=== PATIENT | female | born 1950 | race Caucasian/White ===

== ENCOUNTER → 2016-05-30 | Outpatient (CLI) | payer BC ==
[~2016-05-30] MED LIST: CALC-196 PO; CITA10TA PO; CLON1TAB36 GT; GLUC-132 PO; vitamine D PO
--- NOTE | 2016-05-30 19:14 | Diagnostic Imaging Report ---
Bilateral screening mammogram The current study was also evaluated with a Computer Aided Detection (CAD) system. Indication: Screening. No current complaints stated on the questionnaire. COMPARISON: 05/30/15 FINDINGS: The breasts are composed of heterogeneously dense parenchyma which may decrease mammographic sensitivity. There is a biopsy clip in the anterior aspect of the right breast. Benign-appearing calcifications are seen. Allowing for technique and positional differences, no suspicious change is seen. IMPRESSION: No significant change. ACR BI-RADS Category 2: Benign findings. Result letter will be mailed to the patient. Note: At least 10% of breast cancer is not imaged by mammography. Dictated by: Dictated on workstation # [id number]
== END ==
LOC: RAD 14:30
PROVIDERS: ATTEND Family Medicine
DX: Z12.31 Encounter for screening mammogram for malignant neoplasm of breast (principal)
CPT/HCPCS: 77067

== ENCOUNTER → 2016-08-15 | Outpatient (REF) ==
--- NOTE | 2016-08-15 15:46 | Diagnostic Imaging Report ---
PA and lateral views of the chest Indication: Positive TB test Findings: The lungs are hyperinflated and clear. The heart size is normal. There is no effusion or pneumothorax The mediastinum and landon appear unremarkable. Impression: Hyperinflated clear lungs. Dictated by: Dictated on workstation # [id number]
== END | disposition home or self-care (01) ==
LOC: OCC 15:31
PROVIDERS: ATTEND Nurse Practitioner Family
CPT/HCPCS: 71020

== ENCOUNTER → 2017-06-03 | Outpatient (CLI) | payer BC | LOC: RAD 11:06 | PROVIDERS: ATTEND Family Medicine | DX: Z12.31 Encounter for screening mammogram for malignant neoplasm of breast (principal) | CPT/HCPCS: 77067 ==

== ENCOUNTER → 2018-06-10 | Outpatient (CLI) | payer BC ==
--- NOTE | 2018-06-10 19:45 | Diagnostic Imaging Report ---
EXAMINATION: Digital mammogram bilateral screening with 3D tomosynthesis. The current study was also evaluated with a Computer Aided Detection (CAD) system. This study was compared to the prior exams of 06/03/2017, 05/30/2016, and 05/30/2015. At this time, there are no current complaints. FINDINGS: The fibroglandular tissue in both breasts is heterogeneously dense. This does limit the sensitivity of this exam. Overall, there does not appear to have been any significant change when compared to the prior study. No primary or secondary sign of malignancy is noted. 3D tomographic images fail to show any sign of malignancy. The 1 cm nodular density in the mid portion of the right breast and the stereotactic clip in the right breast seen previously are again evident. IMPRESSION: There is no radiographic evidence for malignancy. ACR BI-RADS Category 1: Negative. Result letter will be mailed to the patient. Note: At least 10% of breast cancer is not imaged by mammography. Dictated by: Dictated on workstation # [id number]
== END ==
LOC: RAD 09:57
PROVIDERS: ATTEND Family Medicine
DX: Z12.31 Encounter for screening mammogram for malignant neoplasm of breast (principal)
CPT/HCPCS: 77067

== ENCOUNTER → 2019-08-03 | Outpatient (CLI) | payer BC ==
--- NOTE | 2019-08-03 19:55 | Diagnostic Imaging Report ---
EXAM: Digital mammogram bilateral screening COMPARISONS: 06/10/2018, 06/03/2017 and 05/30/2016. There are no current complaints. The current study was also evaluated with a Computer Aided Detection (CAD) system. FINDINGS: The fibroglandular tissue in both breasts is heterogeneously dense. This does limit the sensitivity of this exam. Overall, there does not appear to have been any significant change when compared to the prior study. No primary or secondary sign of malignancy is noted. IMPRESSION: There is no radiographic evidence for malignancy. ACR BI-RADS Category 1: Negative. Result letter will be mailed to the patient. Note: At least 10% of breast cancer is not imaged by mammography. Dictated by: Dictated on workstation # [id number]
== END ==
LOC: RAD 07:40
PROVIDERS: ATTEND Family Medicine
DX: Z12.31 Encounter for screening mammogram for malignant neoplasm of breast (principal)
CPT/HCPCS: 77063; 77067

== ENCOUNTER 2019-08-24 05:44 | Outpatient (RCR) | payer BC ==
[~2019-08-24] VITALS: Ht 162 cm; Wt 65.4 kg
[~2019-08-24 05:44] MED LIST changes: +CHOL2000 PO; +GLUC1CAP37 PO; +MULT-1136 PO; +NFBIOT1000 PO; +OMEP20TA33 PO; +PARO25TA14 PO
== END 2019-08-24 15:41 | disposition home or self-care (01) ==
LOC: PREOP 05:44
PROVIDERS: ATTEND Specialist
DX: Z01.818 Encounter for other preprocedural examination (principal); Z11.59 Encounter for screening for other viral diseases
CPT/HCPCS: 87635

== ENCOUNTER 2019-08-27 07:14 | Day surgery (SDC) | payer BC ==
[~2019-08-27] VITALS: Ht 162.4 cm; Wt 65.4 kg
--- OUTSIDE RECORDS SUMMARY | 2019-08-27 07:20 | XMS REPORT | CCD ---
Author Author Yenifer Schwarz D.O. Organization [facility] Address [address] [place] [address] Phone Care Team Providers Care Bible Worker Name Role Phone Billy Schwarz D.O., PP Unavailable CCM Unavailable Summary Purpose Interface Exchange Insurance Providers Payer name Policy type / Coverage type Covered democrat ID Effective Begin Date Effective End Date Blue Cross Blue Shield Blue Cross/Blue Shield [id number] Unknown Family history Mother Diagnosis Age At Onset Hypothryroidism Unknown Dementia Unknown Hip fracture Unknown Father Diagnosis Age At Onset Chronic obstructive pulmonary disease Unknown Tobacco abuse Unknown Social History Social History Element Codes Description Effective Dates Tobacco history SNOMED CT: 830126808 Has never smoked or chewed tobacco 11/15/2014 Employment Unknown Student 04/25/2014 Allergies, Adverse Reactions, Alerts Substance Reaction Codes Entered Date Inactivated Date Status Dust reaction Unknown 04/25/2014 No Inactive Date Active PENICILLINS reaction, Unknown 04/25/2014 No Inactive Date Active * NO KNOWN FOOD ALLERGIES Unknown 04/25/2014 No Inactiv e Date Active Problems Condition Codes Effective Dates Condition Status Screening mammogram, encounter for ICD-9: V76.12 ICD-10: Z12.31 07/27/2019 Active Encounter for general adult medical examination withou t abnormal findings ICD-9: V70.0 ICD-10: Z00.00 04/25/2014 Active Gastro-esophageal reflux disease without esophagitis I CD-9: 530.81 ICD-10: K21.9 04/25/2015 Active Generalized anxiety disorder ICD-9: 308.0 ICD-10: F41.1 07/16/2016 Active Encounter for screening for lipoid disorders ICD-9: V7 7.91 ICD-10: Z13.220 04/27/2018 Active Hyperglycemia ICD-9: 790.29 ICD-10: R73.9 01/05/2019 Active Other malaise and fatigue ICD-9: 780.79 ICD-10: R53.81 07/13/2019 Active Impacted cerumen, right ear ICD-9: 380.4 ICD-10: H61.21 06/09/2017 Active FLU VACCINE ICD-9: V04.81 ICD-10: Z23 11/08/2015 Active Encounter for gynecological examination (general) (routine) without abnormal findings ICD-9: V72.31 ICD-10: Z01.419 06/04/2018 Active Primary insomnia ICD-9: 780.52 ICD-10: F51.01 11/05/2017 Active Anxiety disorder, unspecified ICD-9: 300.00 ICD-10: F41.9 04/25/2014 Active Menopausal and female climacteric states ICD-9: 627.2 ICD-10: N95.1 05/01/2016 Active PNEUMOCOCCAL VACCINE ICD-9: V03.82 ICD-10: Z23 04/25/2015 Active Benign skin lesion of thigh ICD-9: 709.9 11/14/2014 Acti ve DISEASES OF NAIL NEC ICD-9: 703.8 06/13/2014 Active ANXIETY STATE NOS ICD-9: 300.00 04/25/2014 Active Menopausal flushing ICD-9: 627.2 04/25/2014 Active ROUTINE GYNE EXAM ICD-9: V72.31 04/25/2014 Active ROUTINE MEDICAL EXAM ICD-9: V70.0 04/25/2014 Active Medications Medication Codes Instructions Start Date Stop Date Status Fill Instructions Paxil CR 37.5 mg tablet,extended release RxNorm: 6956509 TAKE 1 TABLET BY MOUTH ONCE DAILY 08/05/2019 10/03/2019 Active Flonase Allergy Relief 50 mcg/actuation nasal spray,suspensi on RxNorm: 8785526 2 Salters Nasal QD 07/21/2019 No Stop Date Active Paxil CR 37.5 mg tablet,extended release RxNorm: 1641315 TAKE ONE TABLET BY MOUTH DAILY 05/24/2019 08/04/2019 Inactive alprazolam 1 mg tablet RxNorm: 799166 TAKE 1/2 TO 1 TAB LET BY MOUTH ONCE DAILY NEEDED FOR ANXIETY 04/12/2019 No Stop Date Active Paxil CR 37.5 mg tablet,extended release RxNorm: 4945265 TAKE ONE TABLET BY MOUTH DAILY 04/12/2019 05/23/2019 Inactive Paxil CR 37.5 mg tablet,extended release RxNorm: 7144368 TAKE ONE TABLET BY MOUTH DAILY 02/01/2019 04/11/2019 Inactive Prilosec OTC 20 mg tablet,delayed release RxNorm: 984335 1 Tabl et(s) Oral QD 01/13/2019 No Stop Date Active Paxil CR 37.5 mg tablet,extended release RxNorm: 5288118 1 Table t(s) PO QD 10/12/2018 01/09/2019 Inactive Paxil CR 37.5 mg tablet,extended release RxNorm: 7931201 TAKE ONE TABLET BY MOUTH DAILY 07/15/2018 10/12/2018 Inactive alprazolam 1 mg tablet RxNorm: 202197 1/2-1 Tablet(s) P O QD as needed for anxiety 05/01/2018 04/11/2019 Inactive Paxil CR 37.5 mg tablet,extended release RxNorm: 9171288 TAKE ONE TABLET BY MOUTH DAILY 03/23/2018 06/20/2018 Inactive Paxil CR 37.5 mg tablet,extended release RxNorm: 6067789 TAKE ONE TABLET BY MOUTH DAILY 01/15/2018 03/15/2018 Inactive Paxil CR 37.5 mg tablet,extended release RxNorm: 6336028 1 Table t(s) PO QD 09/29/2017 12/27/2017 Inactive Klonopin 1 mg tablet RxNorm: 045683 TAKE ONE TABLET BY MOUTH EVERY NIGHT AT BEDTIME 09/29/2017 06/03/2018 Inactive Klonopin 1 mg tablet RxNorm: 602464 TAKE ONE TABLET BY MOUTH EVERY NIGHT AT BEDTIME 07/04/2017 09/30/2017 Inactive Paxil CR 37.5 mg tablet,extended release RxNorm: 9142723 1 Table t(s) PO QD 06/17/2017 09/29/2017 Inactive Paxil CR 37.5 mg tablet,extended release RxNorm: 0961963 1 Table t(s) PO QD 02/27/2017 06/17/2017 Inactive Klonopin 1 mg tablet RxNorm: 310253 TAKE ONE TABLET BY MOUTH EVERY NIGHT AT BEDTIME 02/17/2017 07/04/2017 Inactive Penlac 8 % topical solution RxNorm: 437414 Application TOP QD 01/2005/21/2017 Inactive Paxil CR 37.5 mg tablet,extended release RxNorm: 5929408 1 Tablet(s) PO QD TAKE ONE TABLET BY MOUTH DAILY 12/20/2016 02/27/2017 Inactive Klonopin 1 mg tablet RxNorm: 904419 1 Tablet(s) PO QHS 10/16/2016 Inactive Paxil CR 37.5 mg tablet,extended release RxNorm: 1106788 1 Tablet(s) PO QD TAKE ONE TABLET BY MOUTH DAILY 09/30/2016 12/20/2016 Inactive Klonopin 1 mg tablet RxNorm: 445976 TAKE ONE TABLET BY MOUTH EVERY NIGHT AT BEDTIME 07/15/2016 08/13/2016 Inactive Paxil CR 37.5 mg tablet,extended release RxNorm: 8562603 1 Tablet(s) PO QD TAKE ONE TABLET BY MOUTH DAILY 07/15/2016 09/30/2016 Inactive Klonopin 1 mg tablet RxNorm: 980569 TAKE ONE TABLET BY MOUTH EVERY NIGHT AT BEDTIME 06/11/2016 07/15/2016 Inactive Klonopin 1 mg tablet RxNorm: 216931 TAKE ONE TABLET BY MOUTH AT BEDTIME 05/13/2016 06/11/2016 Inactive Yuvafem 10 mcg vaginal tablet RxNorm: 5185351 1 Tablet(s) VAG QH S twice weekly 05/01/2016 05/21/2017 Inactive Paxil CR 37.5 mg tablet,extended release RxNorm: 8373027 1 Tablet(s) PO QD TAKE ONE TABLET BY MOUTH DAILY 05/01/2016 07/15/2016 Inactive Klonopin 1 mg tablet RxNorm: 982105 TAKE ONE TABLET BY MOUTH EVERY NIGHT AT BEDTIME NEED TO SCHEDULE APPOINTMENT 04/08/2016 05/13/2016 Inactiv e Klonopin 1 mg tablet RxNorm: 967958 TAKE ONE TABLET BY MOUTH AT BEDTIME 03/06/2016 04/08/2016 Inactive ondansetron HCl 4 mg tablet RxNorm: 167764 1 Tablet(s) PO Q4H as needed for nausea 11/10/2015 04/30/2016 Inactive Klonopin 1 mg tablet RxNorm: 226417 TAKE ONE TABLET BY MOUTH EVERY NIGHT AT BEDTIME 11/10/2015 03/06/2016 Inactive Paxil CR 25 mg tablet,extended release RxNorm: 7976357 T KURTIS ONE TABLET BY MOUTH DAILY 11/10/2015 04/30/2016 Inactive Paxil CR 25 mg tablet,extended release RxNorm: 5344983 T KURTIS ONE TABLET BY MOUTH DAILY 10/26/2015 11/09/2015 Inactive Paxil CR 25 mg tablet,extended release RxNorm: 8667386 T KURTIS ONE TABLET BY MOUTH DAILY 09/26/2015 10/25/2015 Inactive Klonopin 1 mg tablet RxNorm: 847725 TAKE ONE TABLET BY MOUTH EVERY NIGHT AT BEDTIME 08/29/2015 11/13/2015 Inactive Paxil CR 25 mg tablet,extended release RxNorm: 7850679 1 Tablet( s) PO QD 08/28/2015 08/27/2015 Inactive Paxil CR 25 mg tablet,extended release RxNorm: 6177531 1 Tablet( s) PO QD 08/28/2015 09/25/2015 Inactive paroxetine ER 12.5 mg tablet,extended release 24 hr RxNorm: 488675 TAKE ONE TABLET BY MOUTH EVERY NIGHT AT BEDTIME 05/30/2015 08/27/2015 Inactive Klonopin 1 mg tablet RxNorm: 057582 TAKE ONE TABLET BY MOUTH EVERY NIGHT AT BEDTIME 05/30/2015 07/28/2015 Inactive alprazolam 1 mg tablet RxNorm: 722103 TAKE ONE-HALF TO ONE TABLET BY MOUTH DAILY NEEDED FOR ANXIETY 05/22/2015 04/30/2016 Inactive paroxetine ER 12.5 mg tablet,extended release 24 hr RxNorm: 231951 1 Tablet(s) PO QHS 04/26/2015 05/25/2015 Inactive Klonopin 1 mg tablet RxNorm: 688258 1 Tablet(s) PO QHS 02/03/2015 Inactive Brisdelle 7.5 mg capsule RxNorm: 1589470 Capsule(s) TAKE ONE CAPSULE BY MOUTH EVERY NIGHT AT BEDTIME 01/30/2015 04/25/2015 Inactive Calcium with Vitamin D 600 mg (1,500 mg)-400 unit tablet RxN orm: 744740 1 Tablet(s) PO QD 11/15/2014 No Stop Date Active Brisdelle 7.5 mg capsule RxNorm: 6181025 TAKE ONE CAPSUL E BY MOUTH EVERY NIGHT AT BEDTIME 08/22/2014 01/30/2015 Inactive Brisdelle 7.5 mg capsule RxNorm: 3302417 1 Capsule(s) PO QHS 201408/21/2014 Inactive Brisdelle 7.5 mg capsule RxNorm: 2082386 1 Capsule(s) PO QHS 201405/23/2014 Inactive Klonopin 1 mg tablet RxNorm: 780647 1 Tablet(s) PO QHS 05/02/201408/2014 Inactive Multivitamin & Mineral Formula oral RxNorm: oral No Start Date Active biotin 1 mg tablet RxNorm: 234152 1 Tablet(s) PO QD No Start Date Active Vitamin D3 1,000 unit tablet RxNorm: 448121 1 Tablet(s) PO QD No Star t Date Active Osteo Bi-Flex 250 mg-200 mg tablet RxNorm: 456266 1-2 Tablet(s) PO QD No Start Date Active Klonopin 1 mg tablet RxNorm: 380375 1 Tablet(s) PO QHS No Start Date 05/01/2014 Inactive alprazolam 1 mg tablet RxNorm: 527632 1/2-1 Tablet(s) P O QD as needed for anxiety and stress No Start Date 05/22/2015 Inactive Prilosec OTC 20 mg tablet,delayed release RxNorm: 018517 1 Tabl et(s) PO QD No Start Date 05/21/2017 Inactive Calcium + D oral RxNorm: 2418 oral No Start Date 04/25/2015 Inact alessandra Lamisil 250 mg tablet RxNorm: 987498 1 Tablet(s) PO QD No Start Date 11/14/2014 Inactive Celexa 10 mg tablet RxNorm: 719096 1 Tablet(s) PO QD No Start Date Inactive ondansetron HCl 4 mg tablet RxNorm: 047531 1 Tablet(s) PO Q4H as needed for nausea No Start Date 11/09/2015 Inactive Medication Administered No Medication Administered data Immunizations Vaccine Codes Date Status Influenza CVX: 135 12/02/2018 Complete Influenza CVX: 135 12/02/2018 Complete Influenza CVX: 135 12/03/2017 Complete Influenza CVX: 135 12/09/2016 Complete Influenza CVX: 141 11/09/2015 Complete Pneumococcal CVX: 33 04/26/2015 Pneumococcal CVX: 133 04/25/2014 Results No Results data Procedures Procedure Codes Date PPPS, subseq visit CPT-4: G0439 07/21/2019 CERUM REMOVAL CPT-4: 53343 01/13/2019 FLU VACC PRSV FREE INC ANTIG 65 AND OLDER CPT-4: 94433 12/02/2018 IMMUNIZATION ADMIN CPT-4: 55867 12/02/2018 FLU VACC PRSV FREE INC ANTIG 65 AND OLDER CPT-4: 48322 12/02/2018 SPECIMEN HANDLING OFFICE-LAB CPT-4: 61317 06/04/2018 OCCULT BLOOD FECES CPT-4: 15037 06/04/2018 FLU VACC PRSV FREE INC ANTIG 65 AND OLDER CPT-4: 62070 12/03/2017 IMMUNIZATION ADMIN CPT-4: 79075 12/03/2017 CERUM REMOVAL CPT-4: 34252 06/09/2017 FLU VACC PRSV FREE INC ANTIG 65 AND OLDER CPT-4: 60458 12/09/2016 IMMUNIZATION ADMIN CPT-4: 35553 12/09/2016 FLU VACCINE 3 YRS & > IM UP 64 CPT-4: 21028 6 IMMUNIZATION ADMIN CPT-4: 82937 11/09/2015 PNEUMOCOCCAL VACC 23 NAHEED IM CPT-4: 05226 04/26/2015 IMMUNIZATION ADMIN CPT-4: 49695 04/26/2015 EXC TR-EXT B9+KAREN 0.5 CM< CPT-4: 93349 11/15/2014 PNEUMOCOCCAL VACC 13 NAHEDE IM CPT-4: 98972 04/25/2014 IMMUNIZATION ADMIN CPT-4: 41874 04/25/2014 SPECIMEN HANDLING OFFICE-LAB CPT-4: 72979 04/25/2014 OCCULT BLOOD FECES CPT-4: 09079 04/25/2014 Vital Signs Date Vital 07/21/2019 Blood Pressure 1: 126/78 Code: 8480-6 BMI: 24.1 Code: 20483-3 Heart Rate 1: 92 bpm Height: 5'5" Respiratory Rate: 20 bpm SpO2: 97% Tempera ture: 36.3 (C) / 97.3 (F) Weight: 145 lbs 01/13/2019 Blood Pressure 1: 112/78 Code: 8480-6 Heart Rate 1: 88 bpm Respiratory Rate: 20 bpm SpO2: 98% Temperature: 37.2 (C) / 98.9 (F) We ight: 151 lbs 06/04/2018 Blood Pressure 1: 124/80 Code: 8480-6 BMI: 25.8 Code: 73314-4 Heart Rate 1: 101 bpm Height: 5'5" Respiratory Rate: 18 bpm SpO2: 98% Tempera ture: 37.0 (C) / 98.6 (F) Weight: 155 lbs 11/05/2017 Blood Pressure 1: 124/68 Code: 8480-6 BMI: 24.6 Code: 08732-4 Heart Rate 1: 60 bpm Height: 5'5" Respiratory Rate: 20 bpm SpO2: 97% Tempera ture: 36.9 (C) / 98.4 (F) Weight: 148 lbs 05/22/2017 Blood Pressure 1: 116/70 Code: 8480-6 BMI: 24.3 Code: 69149-1 Heart Rate 1: 84 bpm Height: 5'5" Respiratory Rate: 20 bpm SpO2: 96% Tempera ture: 36.7 (C) / 98.1 (F) Weight: 146 lbs 2017 Blood Pressure 1: 130/76 Code: 8480-6 BMI: 24.6 Code: 47919-2 Heart Rate 1: 84 bpm Height: 5'5" Respiratory Rate: 22 bpm SpO2: 96% Tempera ture: 36.4 (C) / 97.6 (F) Weight: 148 lbs 10/16/2016 Blood Pressure 1: 122/78 Code: 8480-6 BMI: 23.8 Code: 35783-6 Heart Rate 1: 86 bpm Height: 5'5" Respiratory Rate: 20 bpm SpO2: 98% Tempera ture: 36.8 (C) / 98.2 (F) Weight: 143 lbs 07/16/2016 Blood Pressure 1: 112/78 Code: 8480-6 Heart Rate 1: 76 bpm Respiratory Rate: 24 bpm SpO2: 98% Temperature: 36.6 (C) / 97.8 (F) We ight: 143 lbs 05/01/2016 Blood Pressure 1: 126/68 Code: 8480-6 BMI: 23.8 Code: 44099-7 Heart Rate 1: 92 bpm Height: 5'5" Respiratory Rate: 20 bpm SpO2: 97% Tempera ture: 36.8 (C) / 98.2 (F) Weight: 143 lbs 04/26/2015 Blood Pressure 1: 118/78 Code: 8480-6 BMI: 23.3 Code: 92987-0 Heart Rate 1: 88 bpm Height: 5'5" Respiratory Rate: 20 bpm Temperature: 37 .1 (C) / 98.8 (F) Weight: 140 lbs 11/15/2014 Blood Pressure 1: 134/70 Code: 8480-6 BMI: 23.3 Code: 57669-3 Heart Rate 1: 100 bpm Height: 5'5" Respiratory Rate: 20 bpm Temperature: 36 .8 (C) / 98.2 (F) Weight: 140 lbs 04/25/2014 Blood Pressure 1: 128/74 Code: 8480-6 BMI: 24.1 Code: 34122-7 Heart Rate 1: 78 bpm Height: 5'5" Respiratory Rate: 20 bpm Temperature: 36 .2 (C) / 97.2 (F) Weight: 145 lbs Functional Status No Functional Status data Reason For Visit Reason For Visit Effective Dates Notes well woman exam (65+ years) 07/21/2019 follow up 01/13/2019 injection(s) 12/02/2018 well woman exam (65+ years) 06/04/2018 injection(s) 12/03/2017 Flu shot follow up 11/05/2017 Annual Checkup 05/22/2017 follow up 2017 3 Month injection(s) 12/09/2016 Flu Vaccine follow up 10/16/2016 3 Month follow up 07/16/2016 Patient's Paxil was increased to 37.5mg and patient is tolerating well Annual Checkup 05/01/2016 Wellness Physical injection(s) 11/09/2015 Influenza well woman exam (40-65 years) 04/26/2015 Last radha l mammogram 1 year ago, has had history of biopsied breast cyst mole check 11/15/2014 ~generic 04/25/2014 Establishing care Encounters Encounter Performer Location Codes Date ([id number]) OFFICE/OUTPATIENT VISIT EST Diagnosis: Hyperglycemia[ICD10: R73.9] Diagnosis: Impacted cerumen, right ear[ICD10: H61.21] Diagnosis: Generalized anxiety disorder[ICD10: F41.1] Billy NELSON CPT-4: 20456 01/13/2019 ([id number]) NURSE/OUTPATIENT VISIT EST Diagnosis: FLU VACCINE[ICD10: Z23] [facility] CPT-4: 55687 12/02/2018 ([id number]) PER PM REEVAL EST PAT 65+ YR Diagnosis: Encounter for general adult medical examination without abnormal findings[ICD10: Z00.00] Diagnosis: Generalized anxiety disorder[ICD10: F41.1] Diagnosis: Primary insomnia[ICD10: F51.01] Diagnosis: Encounter for gynecological examination (general) (routine) without abnormal findings[ICD10: Z01.419] [facility] CPT-4: 10529 06/04/2018 ([id number]) NURSE/OUTPATIENT VISIT EST Diagnosis: FLU VACCINE[ICD10: Z23] [facility] CPT-4: 60248 12/03/2017 ([id number]) OFFICE/OUTPATIENT VISIT EST Diagnosis: Generalized anxiety disorder[ICD10: F41.1] Diagnosis: Primary insomnia[ICD10: F51.01] Billy [facility] CPT-4: 26049 11/05/2017 ([id number]) PER PM REEVAL EST PAT 65+ YR Diagnosis: Encounter for general adult medical examination without abnormal findings[ICD10: Z00.00] Diagnosis: Generalized anxiety disorder[ICD10: F41.1] Diagnosis: Gastro-esophageal reflux disease without esophagitis[ICD10: K21.9] Billy [facility]WARZ DO [facility] CPT-4: 71752 05/22/2017 ([id number]) OFFICE/OUTPATIENT VISIT EST Diagnosis: Generalized anxiety disorder[ICD10: F41.1] Diagnosis: Gastro-esophageal reflux disease without esophagitis[ICD10: K21.9] Billy [facility]Z DO [facility] CPT-4: 36079 2017 ([id number]) OFFICE/OUTPATIENT VISIT EST Diagnosis: FLU VACCINE[ICD10: Z23] Billy [facility] CPT-4: 26700 12/09/2016 ([id number]) OFFICE/OUTPATIENT VISIT EST Diagnosis: Generalized anxiety disorder[ICD10: F41.1] Billy [facility] DO [facility] CPT-4: 27763 10/16/2016 ([id number]) OFFICE/OUTPATIENT VISIT EST Diagnosis: Generalized anxiety disorder[ICD10: F41.1] Billy [facility] CPT-4: 75035 07/16/2016 ([id number]) PER PM REEVAL EST PAT 65+ YR Diagnosis: Encounter for general adult medical examination without abnormal findings[ICD10: Z00.00] Diagnosis: Menopausal and female climacteric states[ICD10: N95.1] Diagnosis: Anxiety disorder, unspecified[ICD10: F41.9] Billy SCHW[facility]Z DO [facility] CPT-4: 74202 05/01/2016 ([id number]) OFFICE/OUTPATIENT VISIT EST Diagnosis: FLU VACCINE[ICD10: Z23] Billy [facility] CPT-4: 25119 11/09/2015 ([id number]) PREV VISIT EST AGE 40-64 Diagnosis: Encounter for general adult medical examination without abnormal findings[ICD10: Z00.00] Diagnosis: Gastro-esophageal reflux disease without esophagitis[ICD10: K21.9] Diagnosis: Anxiety disorder, unspecified[ICD10: F41.9] Diagnosis: Menopausal and female climacteric states[ICD10: N95.1] Diagnosis: PNEUMOCOCCAL VACCINE[ICD10: Z23] Billy [facility] CPT-4: 58316 04/26/2015 ([id number]) PREV VISIT NEW AGE 40-64 Diagnosis: PNEUMOCOCCAL VACCINE[ICD10: Z23] Diagnosis: ROUTINE MEDICAL EXAM[ICD9: V70.0] Diagnosis: ROUTINE GYNE EXAM[ICD9: V72.31] Diagnosis: ANXIETY STATE NOS[ICD9: 300.00] Diagnosis: Menopausal flushing[ICD9: 627.2] Billy [facility] CPT-4: 91393 04/25/2014 Plan of Care Planned Activity Notes Codes Status Date Care Plan: MAMMOGRAM SCREENING LOINC : 2 6347-5 Pending 07/27/2019 Visit Diagnosis Plan: Encounter for gene ral adult medical examination without abnormal findings Discussion: Mediterranean diet Combinati on of cardio and weight bearing exercise Lab discussed Follow Up: 6 months ICD-9 : V70.0 ICD-10 : Z00.00 07/21/2019 Visit Diagnosis Plan: Generalized anxiety disorder Dis cussion: Stable on current meds ICD-9 : 308.0 ICD-10 : F41.1 07/21/2019 Visit Diagnosis Plan: Gastro-esophageal reflux disease without esophagitis Discussion: Stable on prilosec otc ICD-9 : 530.81 ICD-10 : K21.9 07/21/2019 Appointment: [facility] [phone] [facility] [place] Annual Well Visit 07/21/2019 Care Plan: COMPREH[place] METABOLIC PANEL [place] : 71584-6 Pending 07/13/2019 Care Plan: ASSAY THYROID STIM HORMONE Pen ding 07/13/2019 Care Plan: LIPID PANEL LOINC : 00740-4 Pending 07/13/2019 Care Plan: ASSAY OF FREE THYROXINE Pendin g 07/13/2019 Care Plan: A1C HPLC LOINC : 24358-3 Pending 07/13/2019 Care Plan: COMPLETE CBC W/AUTO DIFF WBC LOINC : 85452-1 Pending 07/13/2019 [facility]ment[facility] [address] [facility] [place] pt. stated that she is feeling better ACUTE ILLN ESS 03/01/2019 Visit Diagnosis Plan: Impacted cerumen, right ear Disc ussion: Right ear flushed with warm water with peroxide with ear syringe until clear, TM intact, peroxide drops instilled, tolerated well ICD-9 : 380.4 ICD-10 : H61.21 01/13/2019 Visit Diagnosis Plan: Generalized anxiety disorder Dis cussion: Stable ICD-9 : 308.0 ICD-10 : F41.1 01/13/2019 Visit Diagnosis Plan: Hyperglycemia Discussion: Lab di scussed Lifestyle change and recheck full fasting lab with HbA1C in 6mos ICD-9 : 790.29 ICD-10 : R73.9 01/13/2019 Appointment: Billy [facility] [phone] [facility] [place] FOLLOW UP 01/13/2019 Care Plan: METABOLIC PANEL TOTAL CA LOIN C : 22830-5 Pending 01/05/2019 Care Plan: A1C HPLC LOINC : 18091-8 Pending 01/05/2019 Appointment: Billy Schwarztel: [address] [place], [place] [id number] [place] INJECTION 12/02/2018 Visit Diagnosis Plan: Encounter for gene ral adult medical examination without abnormal findings Discussion: Mediterranean diet Combinati on of cardio and weight bearing exercise Had shingrix Colonoscopy up to date Lab discussed ICD-9 : V70.0 ICD-10 : Z00.00 06/04/2018 Visit Diagnosis Plan: Generalized anxiety disorder Dis cussion: Stable Follow Up: 6 months ICD-9 : 308.0 ICD-10 : F41.1 06/04/2018 Visit Diagnosis Plan: Encounter for gyne cological examination (general) (routine) without abnormal findings Discussion: Pap done Mammogram ordered ICD-9 : V72.31 ICD-10 : Z01.419 06/04/2018 Appointment: Billy Schwarz WPtel: [address] [place] [address] [place] Annual Well Visit 06/04/2018 Appointment: Billy Schwarztel: [address] [place], [place] [address] [place] CANCELED 05/06/2018 Appointment: Billy Schwarz WPtel: [address] [place], [place] [phone] [place] INJECTION 12/03/2017 Patient Education: Patient Medication Summary Completed 12/03/2017 Visit Diagnosis Plan: Generalized anxiety disorder Dis cussion: Stable Recommend Shingrix Will get flu shot in December ICD-9 : 308.0 ICD-10 : F41.1 11/05/2017 Visit Diagnosis Plan: Primary insomnia Discussion: Dis cussed associated benzodiazepine use and dementia Patient would like to try otc meds and see how does first Follow Up: 3 months ICD-9 : 780.52 ICD-10 : F51.01 11/05/2017 Appointment: Billy Schwarz WPtel: [address] [place], [place] [address] [place] FOLLOW UP 11/05/2017 Patient Education: Patient Medication Summary Completed 11/05/2017 Appointment: Billy Schwarz WPtel: [address] [place] [address] CANCELED 09/10/2017 Visit Diagnosis Plan: Impacted cerumen, right ear Disc ussion: cerumen was removed with currette to right ear canal. patient tolerated procedure well. once out, TM was wnl. instructed to call or rtc with new or worsening symptoms. ICD-9 : 380.4 ICD-10 : H61.21 06/09/2017 Appointment: Rohini Amaya [address] [place] [address] ACUTE ILLNESS 06/09/2017 Patient Education: Patient Medication Summary Completed 06/09/2017 Visit Diagnosis Plan: Generalized anxiety disorder Dis cussion: Stable on paxil and klonopin Follow Up: 4 months ICD-9 : 308.0 ICD-10 : F41.1 05/22/2017 Visit Diagnosis Plan: Encounter for [facility] medical examination without abnormal findings Discussion: Mammogram ordered Patient go ing to get Shingix at [facility] discussed Add Vitamin D3 1000u daily Once again discussed weight bearing exercise ICD-9 : V70.0 ICD-10 : Z00.00 05/22/2017 Visit Diagnosis Plan: Gastro-esophageal reflux disease without esophagitis Discussion: Trial of Zantac instead of prilosec ICD-9 : 530.81 ICD-10 : K21.9 05/22/2017 Appointment: Billy Schwarz WPtel: [address] [place], [place] [phone] FOLLOW UP 05/22/2017 Patient Education: Patient Medication Summary Completed 05/22/2017 Care Plan: MAMMOGRAM SCREENING LOINC : 2 6347-5 Pending 05/22/2017 Visit Diagnosis Plan: Generalized anxiety disorder Dis cussion: Stable Add exercise/stress reducers Using klonopin Using xanax prn Follow Up: As needed ICD-9 : 308.0 ICD-10 : F41.1 2017 Visit Diagnosis Plan: Gastro-esophageal reflux disease without esophagitis Discussion: Stable ICD-9 : 530.81 ICD-10 : K21.9 2017 Appointment: Billy Schwarz WPtel: [address] [place] [address] [place] FOLLOW UP 2017 Patient Education: Patient Medication Summary Completed 2017 Appointment: Billy Schwarz WPtel: [address] [place] [address] [place] INJECTION 12/09/2016 Patient Education: Patient Medication Summary Completed 12/09/2016 Visit Diagnosis Plan: Generalized anxiety disorder Dis cussion: Stable with paxil and klonopin Follow Up: 3 months ICD-9 : 308.0 ICD-10 : F41.1 10/16/2016 Appointment: Billy Schwarz WPtel: [address] [place] [address] [phone] NA/VM ~sp, 10/15/16 1550--appt confirmed (km) FOLLOW UP 10/16/2016 Patient Education: Patient Medication Summary Completed 10/16/2016 Visit Diagnosis Plan: Generalized anxiety disorder Dis cussion: Continue higher dose of paxil with xanax prn Stress reducers Follow Up: 3 months ICD-9 : 308.0 ICD-10 : F41.1 07/16/2016 Appointment: Billy Schwarz WPtel: [address] [place] [address] 07/15 confirmed `sl FOLLOW UP 07/16/2016 Patient Education: Patient Medication Summary Completed 07/16/2016 Visit Diagnosis Plan: Menopausal and female climacteri c states Discussion: Use Vagifem prn ICD-9 : 627.2 ICD-10 : N95.1 05/01/2016 Visit Diagnosis Plan: Encounter for [facility] adult medical examination without abnormal findings Discussion: Check fasting lab Tdap up to date Mammogram ordered ICD-9 : V70.0 ICD-10 : Z00.00 05/01/2016 Visit Diagnosis Plan: Anxiety disorder, unspecified Di scussion: Increase paxil CR to 37.5mg q HS Follow Up: 2 months ICD-9 : 300.00 ICD-10 : F41.9 05/01/2016 Appointment: Billy Schwarz WPtel: [address] [place] [place] [phone] 04/30 confirmed`sl PHYSICAL 05/01/2016 Patient Education: Patient Medication Summary Completed 05/01/2016 Care Plan: MAMMOGRAM SCREENING LOINC : 2 6347-5 Pending 05/01/2016 Appointment: Billy Schwarz WPtel: [address] [place], [place] [phone] [place] INJECTION 11/09/2015 Patient Education: Patient Medication Summary Completed 11/09/2015 Appointment: Billy Schwarz WPtel: [address] [place] [address] US CANCELED 11/08/2015 Visit Plan: Mammo due in May Update Fa sting Lab Change Brisdelle to Paxil CR 12.5mg q HS Call in 1month Will wait on Pap until next year Pneumovax given 04/26/2015 Appointment: Billy Schwarz WPtel: [address] [place], [place] [phone] 04/25 NA/NVM-SP 04/26 confirmed ~sl Annual Well Vi sit 04/26/2015 Patient Education: Patient Medication Summary Completed 04/26/2015 Visit Plan: Shave removal of skin lesion as above 11/15/2014 Appointment: Billy Schwarz WPtel: [address] [place], [place] [phone] 11/14/14 rang and rang,,11/15 appt confirmed cn O FFICE SURGERY 11/15/2014 Patient Education: Patient Medication Summary Completed 11/15/2014 Patient Education: Patient Medication Summary Completed 06/13/2014 Visit Plan: Pap done Mammo next month Ob tain Bone Density results Check Fasting lab Stop Celexa Start Brisdelle 7.5mg q HS Call in 6weeks on how doing with Brisdelle Update Carotid Dopplers 04/25/2014 Appointment: Billy Schwarz WPtel: [address] [place], [place] [phone] [place] NEW PATIENT 04/25/2014 Patient Education: Patient Medication Summary Completed 04/25/2014 Instructions Comment . Mammo due in May Update Fasting Lab Change Brisdelle to Paxil CR 12.5mg q HS Call in 1month Will wait on Pap until next year Pneumovax given . Shave removal of skin lesion as above . Pap done Mammo next month Obtain Bone Density results Check Fasting lab Stop Celexa Start Brisdelle 7.5mg q HS Call in 6weeks on how doing with Brisdelle Update Carotid Dopplers Medical Equipment No Medical Equipment data Health Concerns Section Health Concerns data not found Goals Section Goals data not found Interventions Section Interventions data not found Health Status Evaluations/Outcomes Section Health Status Evaluations/Outcomes data not found Advance Directives No Advance Directive data
--- OUTSIDE RECORDS SUMMARY | 2019-08-27 07:21 | XMS REPORT | CCD ---
Author Author Yenifer Schwarz D.O. Organization BILLY SCHWARZ DO [facility] Address [address] [place] [address] Phone Care Team Providers Care Children'S Program Coordinator Name Role Phone Billy Schwarz D.O., PP Unavailable CCM Unavailable Summary Purpose Interface Exchange Insurance Providers Payer name Policy type / Coverage type Covered constitution party ID Effective Begin Date Effective End Date Blue Cross Blue Shield Blue Cross/Blue Shield [id number] Unknown Family history Mother Diagnosis Age At Onset Hypothryroidism Unknown Dementia Unknown Hip fracture Unknown Father Diagnosis Age At Onset Chronic obstructive pulmonary disease Unknown Tobacco abuse Unknown Social History Social History Element Codes Description Effective Dates Tobacco history SNOMED CT: 283403251 Has never smoked or chewed tobacco 11/15/2014 Employment Unknown Student 04/25/2014 Allergies, Adverse Reactions, Alerts Substance Reaction Codes Entered Date Inactivated Date Status Dust reaction Unknown 04/25/2014 No Inactive Date Active PENICILLINS reaction, Unknown 04/25/2014 No Inactive Date Active * NO KNOWN FOOD ALLERGIES Unknown 04/25/2014 No Inactiv e Date Active Problems Condition Codes Effective Dates Condition Status Encounter for general adult medical examination withou [...] Start Date Stop Date Status Fill Instructions Flonase Allergy Relief 50 mcg/actuation nasal spray,suspensi on RxNorm: 8628072 2 Foster Nasal QD 07/21/2019 No Stop Date Active Paxil CR 37.5 mg tablet,extended release RxNorm: 3048816 TAKE ONE TABLET BY MOUTH DAILY 05/24/2019 No Stop Date Active alprazolam 1 mg tablet RxNorm: 938342 TAKE 1/2 TO 1 TAB LET BY MOUTH ONCE DAILY NEEDED FOR ANXIETY 04/12/2019 No Stop Date Active Paxil CR 37.5 mg tablet,extended release RxNorm: 0211146 TAKE ONE TABLET BY MOUTH DAILY 04/12/2019 05/23/2019 Inactive Paxil CR 37.5 mg tablet,extended release RxNorm: 4838902 TAKE ONE TABLET BY MOUTH DAILY 02/01/2019 04/11/2019 Inactive Prilosec OTC 20 mg tablet,delayed release RxNorm: 734065 1 Tabl et(s) Oral QD 01/13/2019 No Stop Date Active Paxil CR 37.5 mg tablet,extended release RxNorm: 3858094 1 Table t(s) PO QD 10/12/2018 01/09/2019 Inactive Paxil CR 37.5 mg tablet,extended release RxNorm: 0002433 TAKE ONE TABLET BY MOUTH DAILY 07/15/2018 10/12/2018 Inactive alprazolam 1 mg tablet RxNorm: 601402 1/2-1 Tablet(s) P O QD as needed for anxiety 05/01/2018 04/11/2019 Inactive Paxil CR 37.5 mg tablet,extended release RxNorm: 1351719 TAKE ONE TABLET BY MOUTH DAILY 03/23/2018 06/20/2018 Inactive Paxil CR 37.5 mg tablet,extended release RxNorm: 4615580 TAKE ONE TABLET BY MOUTH DAILY 01/15/2018 03/15/2018 Inactive Paxil CR 37.5 mg tablet,extended release RxNorm: 1305289 1 Table t(s) PO QD 09/29/2017 12/27/2017 Inactive Klonopin 1 mg tablet RxNorm: 075049 TAKE ONE TABLET BY MOUTH EVERY NIGHT AT BEDTIME 09/29/2017 06/03/2018 Inactive Klonopin 1 mg tablet RxNorm: 857451 TAKE ONE TABLET BY MOUTH EVERY NIGHT AT BEDTIME 07/04/2017 09/30/2017 Inactive Paxil CR 37.5 mg tablet,extended release RxNorm: 6461324 1 Table t(s) PO QD 06/17/2017 09/29/2017 Inactive Paxil CR 37.5 mg tablet,extended release RxNorm: 0298634 1 Table t(s) PO QD 02/27/2017 06/17/2017 Inactive Klonopin 1 mg tablet RxNorm: 384981 TAKE ONE TABLET BY MOUTH EVERY NIGHT AT BEDTIME 02/17/2017 07/04/2017 Inactive Penlac 8 % topical solution RxNorm: 375565 Application TOP QD 01/2005/21/2017 Inactive Paxil CR 37.5 mg tablet,extended release RxNorm: 3289840 1 Tablet(s) PO QD TAKE ONE TABLET BY MOUTH DAILY 12/20/2016 02/27/2017 Inactive Klonopin 1 mg tablet RxNorm: 311579 1 Tablet(s) PO QHS 10/16/2016 Inactive Paxil CR 37.5 mg tablet,extended release RxNorm: 9354825 1 Tablet(s) PO QD TAKE ONE TABLET BY MOUTH DAILY 09/30/2016 12/20/2016 Inactive Klonopin 1 mg tablet RxNorm: 483262 TAKE ONE TABLET BY MOUTH EVERY NIGHT AT BEDTIME 07/15/2016 08/13/2016 Inactive Paxil CR 37.5 mg tablet,extended release RxNorm: 3408375 1 Tablet(s) PO QD TAKE ONE TABLET BY MOUTH DAILY 07/15/2016 09/30/2016 Inactive Klonopin 1 mg tablet RxNorm: 963191 TAKE ONE TABLET BY MOUTH EVERY NIGHT AT BEDTIME 06/11/2016 07/15/2016 Inactive Klonopin 1 mg tablet RxNorm: 651208 TAKE ONE TABLET BY MOUTH AT BEDTIME 05/13/2016 06/11/2016 Inactive Yuvafem 10 mcg vaginal tablet RxNorm: 2808238 1 Tablet(s) VAG QH S twice weekly 05/01/2016 05/21/2017 Inactive Paxil CR 37.5 mg tablet,extended release RxNorm: 7590774 1 Tablet(s) PO QD TAKE ONE TABLET BY MOUTH DAILY 05/01/2016 07/15/2016 Inactive Klonopin 1 mg tablet RxNorm: 707550 TAKE ONE TABLET BY MOUTH EVERY NIGHT AT BEDTIME NEED TO SCHEDULE APPOINTMENT 04/08/2016 05/13/2016 Inactiv e Klonopin 1 mg tablet RxNorm: 767163 TAKE ONE TABLET BY MOUTH AT BEDTIME 03/06/2016 04/08/2016 Inactive ondansetron HCl 4 mg tablet RxNorm: 696731 1 Tablet(s) PO Q4H as needed for nausea 11/10/2015 04/30/2016 Inactive Klonopin 1 mg tablet RxNorm: 009106 TAKE ONE TABLET BY MOUTH EVERY NIGHT AT BEDTIME 11/10/2015 03/06/2016 Inactive Paxil CR 25 mg tablet,extended release RxNorm: 8241744 T KURTIS ONE TABLET BY MOUTH DAILY 11/10/2015 04/30/2016 Inactive Paxil CR 25 mg tablet,extended release RxNorm: 4848178 T KURTIS ONE TABLET BY MOUTH DAILY 10/26/2015 11/09/2015 Inactive Paxil CR 25 mg tablet,extended release RxNorm: 5404851 T KURTIS ONE TABLET BY MOUTH DAILY 09/26/2015 10/25/2015 Inactive Klonopin 1 mg tablet RxNorm: 340778 TAKE ONE TABLET BY MOUTH EVERY NIGHT AT BEDTIME 08/29/2015 11/13/2015 Inactive Paxil CR 25 mg tablet,extended release RxNorm: 5242169 1 Tablet( s) PO QD 08/28/2015 08/27/2015 Inactive Paxil CR 25 mg tablet,extended release RxNorm: 0154776 1 Tablet( s) PO QD 08/28/2015 09/25/2015 Inactive paroxetine ER 12.5 mg tablet,extended release 24 hr RxNorm: 277458 TAKE ONE TABLET BY MOUTH EVERY NIGHT AT BEDTIME 05/30/2015 08/27/2015 Inactive Klonopin 1 mg tablet RxNorm: 591821 TAKE ONE TABLET BY MOUTH EVERY NIGHT AT BEDTIME 05/30/2015 07/28/2015 Inactive alprazolam 1 mg tablet RxNorm: 433594 TAKE ONE-HALF TO ONE TABLET BY MOUTH DAILY NEEDED FOR ANXIETY 05/22/2015 04/30/2016 Inactive paroxetine ER 12.5 mg tablet,extended release 24 hr RxNorm: 687149 1 Tablet(s) PO QHS 04/26/2015 05/25/2015 Inactive Klonopin 1 mg tablet RxNorm: 983326 1 Tablet(s) PO QHS 02/03/2015 Inactive Brisdelle 7.5 mg capsule RxNorm: 0633387 Capsule(s) TAKE ONE CAPSULE BY MOUTH EVERY NIGHT AT BEDTIME 01/30/2015 04/25/2015 Inactive Calcium with Vitamin D 600 mg (1,500 mg)-400 unit tablet RxN orm: 267806 1 Tablet(s) PO QD 11/15/2014 No Stop Date Active Brisdelle 7.5 mg capsule RxNorm: 7004418 TAKE ONE CAPSUL E BY MOUTH EVERY NIGHT AT BEDTIME 08/22/2014 01/30/2015 Inactive Brisdelle 7.5 mg capsule RxNorm: 3455856 1 Capsule(s) PO QHS 201408/21/2014 Inactive Brisdelle 7.5 mg capsule RxNorm: 9741698 1 Capsule(s) PO QHS 201405/23/2014 Inactive Klonopin 1 mg tablet RxNorm: 988691 1 Tablet(s) PO QHS 05/02/201408/2014 Inactive Multivitamin & Mineral Formula oral RxNorm: oral No Start Date Active biotin 1 mg tablet RxNorm: 450812 1 Tablet(s) PO QD No Start Date Active Vitamin D3 1,000 unit tablet RxNorm: 736803 1 Tablet(s) PO QD No Star t Date Active Osteo Bi-Flex 250 mg-200 mg tablet RxNorm: 806336 1-2 Tablet(s) PO QD No Start Date Active Klonopin 1 mg tablet RxNorm: 112284 1 Tablet(s) PO QHS No Start Date 05/01/2014 Inactive alprazolam 1 mg tablet RxNorm: 033077 1/2-1 Tablet(s) P O QD as needed for anxiety and stress No Start Date 05/22/2015 Inactive Prilosec OTC 20 mg tablet,delayed release RxNorm: 638303 1 Tabl et(s) PO QD No Start Date 05/21/2017 Inactive Calcium + D oral RxNorm: 2418 oral No Start Date 04/25/2015 Inact alessandra Lamisil 250 mg tablet RxNorm: 082031 1 Tablet(s) PO QD No Start Date 11/14/2014 Inactive Celexa 10 mg tablet RxNorm: 864070 1 Tablet(s) PO QD No Start Date Inactive ondansetron HCl 4 mg tablet RxNorm: 762427 1 Tablet(s) PO Q4H as needed for [...] visit CPT-4: G0439 07/21/2019 CERUM REMOVAL CPT-4: 08497 01/13/2019 FLU VACC PRSV FREE INC ANTIG 65 AND OLDER CPT-4: 00597 12/02/2018 IMMUNIZATION ADMIN CPT-4: 59959 12/02/2018 FLU VACC PRSV FREE INC ANTIG 65 AND OLDER CPT-4: 19612 12/02/2018 SPECIMEN HANDLING OFFICE-LAB CPT-4: 91223 06/04/2018 OCCULT BLOOD FECES CPT-4: 81258 06/04/2018 FLU VACC PRSV FREE INC ANTIG 65 AND OLDER CPT-4: 90889 12/03/2017 IMMUNIZATION ADMIN CPT-4: 86887 12/03/2017 CERUM REMOVAL CPT-4: 14467 06/09/2017 FLU VACC PRSV FREE INC ANTIG 65 AND OLDER CPT-4: 86082 12/09/2016 IMMUNIZATION ADMIN CPT-4: 13972 12/09/2016 FLU VACCINE 3 YRS & > IM UP 64 CPT-4: 67530 6 IMMUNIZATION ADMIN CPT-4: 48891 11/09/2015 PNEUMOCOCCAL VACC 23 NAHEED IM CPT-4: 20865 04/26/2015 IMMUNIZATION ADMIN CPT-4: 89367 04/26/2015 EXC TR-EXT B9+KAREN 0.5 CM< CPT-4: 39273 11/15/2014 PNEUMOCOCCAL VACC 13 NAHEED IM CPT-4: 79351 04/25/2014 IMMUNIZATION ADMIN CPT-4: 64583 04/25/2014 SPECIMEN HANDLING OFFICE-LAB CPT-4: 69414 04/25/2014 OCCULT BLOOD FECES CPT-4: 03268 04/25/2014 Vital Signs Date Vital 07/21/2019 Blood Pressure 1: 126/78 Code: 8480-6 BMI: 24.1 Code: 52489-9 Heart Rate 1: 92 bpm Height: 5'5" Respiratory Rate: 20 bpm SpO2: 97% Tempera ture: 36.3 (C) / 97.3 (F) Weight: 145 lbs 01/13/2019 Blood Pressure 1: 112/78 Code: 8480-6 Heart Rate 1: 88 bpm Respiratory Rate: 20 bpm SpO2: 98% Temperature: 37.2 (C) / 98.9 (F) We ight: 151 lbs 06/04/2018 Blood Pressure 1: 124/80 Code: 8480-6 BMI: 25.8 Code: 34749-6 Heart Rate 1: 101 bpm Height: 5'5" Respiratory Rate: 18 bpm SpO2: 98% Tempera ture: 37.0 (C) / 98.6 (F) Weight: 155 lbs 11/05/2017 Blood Pressure 1: 124/68 Code: 8480-6 BMI: 24.6 Code: 78916-7 Heart Rate 1: 60 bpm Height: 5'5" Respiratory Rate: 20 bpm SpO2: 97% Tempera ture: 36.9 (C) / 98.4 (F) Weight: 148 lbs 05/22/2017 Blood Pressure 1: 116/70 Code: 8480-6 BMI: 24.3 Code: 98699-9 Heart Rate 1: 84 bpm Height: 5'5" Respiratory Rate: 20 bpm SpO2: 96% Tempera ture: 36.7 (C) / 98.1 (F) Weight: 146 lbs 2017 Blood Pressure 1: 130/76 Code: 8480-6 BMI: 24.6 Code: 48930-3 Heart Rate 1: 84 bpm Height: 5'5" Respiratory Rate: 22 bpm SpO2: 96% Tempera ture: 36.4 (C) / 97.6 (F) Weight: 148 lbs 10/16/2016 Blood Pressure 1: 122/78 Code: 8480-6 BMI: 23.8 Code: 96162-2 Heart Rate 1: 86 bpm Height: 5'5" Respiratory Rate: 20 bpm SpO2: 98% Tempera ture: 36.8 (C) / 98.2 (F) Weight: 143 lbs 07/16/2016 Blood Pressure 1: 112/78 Code: 8480-6 Heart Rate 1: 76 bpm Respiratory Rate: 24 bpm SpO2: 98% Temperature: 36.6 (C) / 97.8 (F) We ight: 143 lbs 05/01/2016 Blood Pressure 1: 126/68 Code: 8480-6 BMI: 23.8 Code: 50521-9 Heart Rate 1: 92 bpm Height: 5'5" Respiratory Rate: 20 bpm SpO2: 97% Tempera ture: 36.8 (C) / 98.2 (F) Weight: 143 lbs 04/26/2015 Blood Pressure 1: 118/78 Code: 8480-6 BMI: 23.3 Code: 86535-9 Heart Rate 1: 88 bpm Height: 5'5" Respiratory Rate: 20 bpm Temperature: 37 .1 (C) / 98.8 (F) Weight: 140 lbs 11/15/2014 Blood Pressure 1: 134/70 Code: 8480-6 BMI: 23.3 Code: 83629-8 Heart Rate 1: 100 bpm Height: 5'5" Respiratory Rate: 20 bpm Temperature: 36 .8 (C) / 98.2 (F) Weight: 140 lbs 04/25/2014 Blood Pressure 1: 128/74 Code: 8480-6 BMI: 24.1 Code: 15647-2 Heart Rate 1: 78 bpm Height: 5'5" [...] care Encounters Encounter Performer Location Codes Date ([id number]) OFFICE/OUTPATIENT VISIT EST Diagnosis: Hyperglycemia[ICD10: R73.9] Diagnosis: Impacted cerumen, right ear[ICD10: H61.21] Diagnosis: Generalized anxiety disorder[ICD10: F41.1] Billy SANDOVALER [employer] CPT-4: 69750 01/13/2019 ([id number]) NURSE/OUTPATIENT VISIT EST Diagnosis: FLU VACCINE[ICD10: Z23] Billy SANDOVAL ER [employer] CPT-4: 35683 12/02/2018 ([id number]) PER PM REEVAL EST PAT 65+ YR Diagnosis: Encounter for general adult medical examination without abnormal findings[ICD10: Z00.00] Diagnosis: Generalized anxiety disorder[ICD10: F41.1] Diagnosis: Primary insomnia[ICD10: F51.01] Diagnosis: Encounter for gynecological examination (general) (routine) without abnormal findings[ICD10: Z01.419] Billy Monique DO [employer] CPT-4: 17999 06/04/2018 ([id number]) NURSE/OUTPATIENT VISIT EST Diagnosis: FLU VACCINE[ICD10: Z23] Billy BECKFORD DO [employer] CPT-4: 40919 12/03/2017 ([id number]) OFFICE/OUTPATIENT VISIT EST Diagnosis: Generalized anxiety disorder[ICD10: F41.1] Diagnosis: Primary insomnia[ICD10: F51.01] Billy SCHWARZ DO [employer] CPT-4: 55623 11/05/2017 ([id number]) PER PM REEVAL EST PAT 65+ YR Diagnosis: Encounter for general adult medical examination without abnormal findings[ICD10: Z00.00] Diagnosis: Generalized anxiety disorder[ICD10: F41.1] Diagnosis: Gastro-esophageal reflux disease without esophagitis[ICD10: K21.9] Billy SCHWARZ DO [employer] CPT-4: 64395 05/22/2017 ([id number]) OFFICE/OUTPATIENT VISIT EST Diagnosis: Generalized anxiety disorder[ICD10: F41.1] Diagnosis: Gastro-esophageal reflux disease without esophagitis[ICD10: K21.9] Billy SCHWARZ DO [employer] CPT-4: 52251 2017 ([id number]) OFFICE/OUTPATIENT VISIT EST Diagnosis: FLU VACCINE[ICD10: Z23] Billy BECKFORD DO [employer] CPT-4: 25105 12/09/2016 ([id number]) OFFICE/OUTPATIENT VISIT EST Diagnosis: Generalized anxiety disorder[ICD10: F41.1] Billy SCHWARZ DO [employer] CPT-4: 14239 10/16/2016 ([id number]) OFFICE/OUTPATIENT VISIT EST Diagnosis: Generalized anxiety disorder[ICD10: F41.1] Billy SCHWARZ DO [employer] CPT-4: 62933 07/16/2016 ([id number]) PER PM REEVAL EST PAT 65+ YR Diagnosis: Encounter for general adult medical examination without abnormal findings[ICD10: Z00.00] Diagnosis: Menopausal and female climacteric states[ICD10: N95.1] Diagnosis: Anxiety disorder, unspecified[ICD10: F41.9] Billy SCHWARZ [employer] CPT-4: 73793 05/01/2016 ([id number]) OFFICE/OUTPATIENT VISIT EST Diagnosis: FLU VACCINE[ICD10: Z23] Billy BECKFORD [employer] CPT-4: 49177 11/09/2015 ([id number]) PREV VISIT EST AGE 40-64 Diagnosis: Encounter for general adult medical examination without abnormal findings[ICD10: Z00.00] Diagnosis: Gastro-esophageal reflux disease without esophagitis[ICD10: K21.9] Diagnosis: Anxiety disorder, unspecified[ICD10: F41.9] Diagnosis: Menopausal and female climacteric states[ICD10: N95.1] Diagnosis: PNEUMOCOCCAL VACCINE[ICD10: Z23] Billy SCHWARZ [employer] CPT-4: 90108 04/26/2015 ([id number]) PREV VISIT NEW AGE 40-64 Diagnosis: PNEUMOCOCCAL VACCINE[ICD10: Z23] Diagnosis: ROUTINE MEDICAL EXAM[ICD9: V70.0] Diagnosis: ROUTINE GYNE EXAM[ICD9: V72.31] Diagnosis: ANXIETY STATE NOS[ICD9: 300.00] Diagnosis: Menopausal flushing[ICD9: 627.2] Billy SCHWARZ [employer] CPT-4: 18454 04/25/2014 Plan of Care Planned Activity Notes Codes Status Date Visit Diagnosis Plan: Gastro-esophageal reflux disease without esophagitis Discussion: Stable on prilosec otc ICD-9 : 530.81 ICD-10 : K21.9 07/21/2019 Visit Diagnosis Plan: Generalized anxiety disorder Dis cussion: Stable on current meds ICD-9 : 308.0 ICD-10 : F41.1 07/21/2019 Visit Diagnosis Plan: Encounter for gene ral adult medical examination without abnormal findings Discussion: Mediterranean diet Combinati on of cardio and weight bearing exercise Lab discussed Follow Up: 6 months ICD-9 : V70.0 ICD-10 : Z00.00 07/21/2019 Care Plan: COMPREHEN METABOLIC PANEL ALAN NC : 35484-6 Pending 07/13/2019 Care Plan: ASSAY THYROID STIM HORMONE Pen ding 07/13/2019 Care Plan: LIPID PANEL LOINC : 91617-6 Pending 07/13/2019 Care Plan: ASSAY OF FREE THYROXINE Pendin g 07/13/2019 Care Plan: A1C HPLC LOINC : 44709-8 Pending 07/13/2019 Care Plan: COMPLETE CBC W/AUTO DIFF WBC LOINC : 90896-3 Pending 07/13/2019 Appointment: Rohini Amaya [address] [address] [place] pt. stated that she is feeling better ACUTE ILLN ESS 03/01/2019 Visit Diagnosis Plan: Impacted cerumen, right ear Disc ussion: Right ear flushed with warm water with peroxide with ear syringe until clear, TM intact, peroxide drops instilled, tolerated well ICD-9 : 380.4 ICD-10 : H61.21 01/13/2019 Visit Diagnosis Plan: Hyperglycemia Discussion: Lab di scussed Lifestyle change and recheck full fasting lab with HbA1C in 6mos ICD-9 : 790.29 ICD-10 : R73.9 01/13/2019 Visit Diagnosis Plan: Generalized anxiety disorder Dis cussion: Stable ICD-9 : 308.0 ICD-10 : F41.1 01/13/2019 Appointment: Billy Schwarz WPtel: [address] [place] [address] US FOLLOW UP 01/13/2019 Care Plan: METABOLIC PANEL TOTAL CA LOIN C : 93354-9 Pending 01/05/2019 Care Plan: A1C HPLC LOINC : 88493-5 Pending 01/05/2019 Appointment: Billy Schwarz WPtel: [address] [place] [address] [place] INJECTION 12/02/2018 Visit Diagnosis Plan: Encounter for gyne cological examination (general) (routine) without abnormal findings Discussion: Pap done Mammogram ordered ICD-9 : V72.31 ICD-10 : Z01.419 06/04/2018 Visit Diagnosis Plan: Generalized anxiety disorder Dis cussion: Stable Follow Up: 6 months ICD-9 : 308.0 ICD-10 : F41.1 06/04/2018 Visit Diagnosis Plan: Encounter for [facility] adult medical examination without abnormal findings Discussion: Mediterranean diet Combinati on of cardio and weight bearing exercise Had shingrix Colonoscopy up to date Lab discussed ICD-9 : V70.0 ICD-10 : Z00.00 06/04/2018 Appointment: Billy Schwarz WPtel: [address] [place], [place] [phone] [facility] Annual Well Visit 06/04/2018 Appointment: Billy Schwarz WPtel: [address] [place] [address] US CANCELED 05/06/2018 Appointment: Billy Schwarz WPtel: [address] [place], [place] [phone] [place] INJECTION 12/03/2017 Patient Education: Patient Medication Summary Completed 12/03/2017 Visit Diagnosis Plan: Primary insomnia Discussion: Dis cussed associated benzodiazepine use and dementia Patient would like to try otc meds and see how does first Follow Up: 3 months ICD-9 : 780.52 ICD-10 : F51.01 11/05/2017 Visit Diagnosis Plan: Generalized anxiety disorder Dis cussion: Stable Recommend Shingrix Will get flu shot in December ICD-9 : 308.0 ICD-10 : F41.1 11/05/2017 Appointment: Billy Schwarz WPtel: [address] [place], [place] [phone] [place] FOLLOW UP 11/05/2017 Patient Education: Patient Medication Summary Completed 11/05/2017 Appointment: Billy Schwarz WPtel: [address] [place], [place] [phone] [place] CANCELED 09/10/2017 Visit Diagnosis Plan: Impacted cerumen, right ear Disc ussion: cerumen was removed with currette to right ear canal. patient tolerated procedure well. once out, TM was wnl. instructed to call or rtc with new or worsening symptoms. ICD-9 : 380.4 ICD-10 : H61.21 06/09/2017 Appointment: Rohini Amaya [address] [place], [place] [phone] ACUTE ILLNESS 06/09/2017 Patient Education: Patient Medication Summary Completed 06/09/2017 Visit Diagnosis Plan: Generalized anxiety disorder Dis cussion: Stable on paxil and klonopin Follow Up: 4 months ICD-9 : 308.0 ICD-10 : F41.1 05/22/2017 Visit Diagnosis Plan: Encounter for [facility] medical examination without abnormal findings Discussion: Mammogram ordered Patient go ing to get Shingix at [facility] Lab discussed Add Vitamin D3 1000u daily Once again discussed weight bearing exercise ICD-9 : V70.0 ICD-10 : Z00.00 05/22/2017 Visit Diagnosis Plan: Gastro-esophageal reflux disease without esophagitis Discussion: Trial of Zantac instead of prilosec ICD-9 : 530.81 ICD-10 : K21.9 05/22/2017 Appointment: Billy Schwarz WPtel: [address] [place], [place] [phone] FOLLOW UP 05/22/2017 Patient Education: Patient Medication [...] : K21.9 2017 Appointment: Billy Schwarz WPtel: [address] [place], [place] [phone] FOLLOW UP 2017 Patient Education: Patient Medication Summary Completed 2017 Appointment: Billy Schwarz WPtel: [address] [place], [place] [phone] [place] INJECTION 12/09/2016 Patient Education: Patient Medication Summary Completed 12/09/2016 Visit Diagnosis Plan: Generalized anxiety disorder Dis cussion: Stable with paxil and klonopin Follow Up: 3 months ICD-9 : 308.0 ICD-10 : F41.1 10/16/2016 Appointment: Billy Schwarztel: [address] [place] [phone] NA/VM ~sp, 10/15/16 1550--appt confirmed (km) FOLLOW UP 10/16/2016 Patient Education: Patient Medication Summary Completed 10/16/2016 Visit Diagnosis Plan: Generalized anxiety disorder Dis cussion: Continue higher dose of paxil with xanax prn Stress reducers Follow Up: 3 months ICD-9 : 308.0 ICD-10 : F41.1 07/16/2016 Appointment: Billy Schwarztel: [address] [place] [address] 07/15 confirmed `sl FOLLOW UP 07/16/2016 Patient Education: Patient Medication Summary Completed 07/16/2016 Visit Diagnosis Plan: Encounter for [facility] medical examination without abnormal findings Discussion: Check fasting lab Tdap up to date Mammogram ordered ICD-9 : V70.0 ICD-10 : Z00.00 05/01/2016 Visit Diagnosis Plan: Anxiety disorder, unspecified Di scussion: Increase paxil CR to 37.5mg q HS Follow Up: 2 months ICD-9 : 300.00 ICD-10 : F41.9 05/01/2016 Visit Diagnosis Plan: Menopausal and female climacteri c states Discussion: Use Vagifem prn ICD-9 : 627.2 ICD-10 : N95.1 05/01/2016 Appointment: Billy Schwarz WPtel: [address] [place], [place] [phone] 04/30 confirmed`sl PHYSICAL 05/01/2016 Patient Education: Patient Medication Summary Completed 05/01/2016 Care Plan: MAMMOGRAM SCREENING LOINC : 2 6347-5 Pending 05/01/2016 Appointment: Billy Schwarz WPtel: [address] [place], [place] [phone] [place] INJECTION 11/09/2015 Patient Education: Patient Medication Summary Completed 11/09/2015 Appointment: Billy Schwarz WPtel: [address] [place], [place] [phone] [place] CANCELED 11/08/2015 Visit Plan: Mammo due in May Update Fa sting Lab Change Brisdelle to Paxil CR 12.5mg q HS Call in 1month Will wait on Pap until next year Pneumovax given 04/26/2015 Appointment: Billy Schwarz WPtel: [address] [place], [place] [phone] 04/25 NA/NVM-SP 04/26 confirmed ~sl Annual Well Vi sit 04/26/2015 Patient Education: Patient Medication Summary Completed 04/26/2015 Visit Plan: Shave removal of skin lesion as above 11/15/2014 Appointment: Billy Schwarz WPtel: [address] [place] [address] 11/14/14 rang and rang,,11/15 appt confirmed cn O FFICE SURGERY 11/15/2014 Patient Education: Patient Medication Summary Completed 11/15/2014 Patient Education: Patient Medication Summary Completed 06/13/2014 Visit Plan: Pap done Mammo next month Ob tain Bone Density results Check Fasting lab Stop Celexa Start Brisdelle 7.5mg q HS Call in 6weeks on how doing with Brisdelle Update Carotid Dopplers 04/25/2014 Appointment: Billy Schwarz WPtel: [address] [place], [place] [phone] [place] NEW PATIENT 04/25/2014 Patient Education: Patient [...]
--- OUTSIDE RECORDS SUMMARY | 2019-08-27 07:21 | XMS REPORT | CCD ---
Author Author Yenifer Schwarz D.O. Organization [facility] Address [address] [place] [address] Phone Care Team Providers Care Manufacturing Executive Name Role Phone Billy Schwarz D.O., PP Unavailable CCM Unavailable Summary Purpose Interface Exchange Insurance Providers Payer name Policy type / Coverage type Covered green party ID Effective Begin Date Effective End Date Blue Cross Blue Shield Blue Cross/Blue Shield [id number] Unknown Family history Mother Diagnosis Age At Onset Hypothryroidism Unknown Dementia Unknown Hip fracture Unknown Father Diagnosis Age At Onset Chronic obstructive pulmonary disease Unknown Tobacco abuse Unknown Social History Social History Element Codes Description Effective Dates Tobacco history SNOMED CT: 149807893 Has never smoked or chewed tobacco 11/15/2014 [...] Relief 50 mcg/actuation nasal spray,suspensi on RxNorm: 3778282 2 [place] Nasal QD 07/21/2019 No Stop Date Active Paxil CR 37.5 mg tablet,extended release RxNorm: 0318284 TAKE ONE TABLET BY MOUTH DAILY 05/24/2019 No Stop Date Active alprazolam 1 mg tablet RxNorm: 312907 TAKE 1/2 TO 1 TAB LET BY MOUTH ONCE DAILY NEEDED FOR ANXIETY 04/12/2019 No Stop Date Active Paxil CR 37.5 mg tablet,extended release RxNorm: 3052008 TAKE ONE TABLET BY MOUTH DAILY 04/12/2019 05/23/2019 Inactive Paxil CR 37.5 mg tablet,extended release RxNorm: 9931671 TAKE ONE TABLET BY MOUTH DAILY 02/01/2019 04/11/2019 Inactive Prilosec OTC 20 mg tablet,delayed release RxNorm: 907881 1 Tabl et(s) Oral QD 01/13/2019 No Stop Date Active Paxil CR 37.5 mg tablet,extended release RxNorm: 6359198 1 Table t(s) PO QD 10/12/2018 01/09/2019 Inactive Paxil CR 37.5 mg tablet,extended release RxNorm: 7563716 TAKE ONE TABLET BY MOUTH DAILY 07/15/2018 10/12/2018 Inactive alprazolam 1 mg tablet RxNorm: 064324 1/2-1 Tablet(s) P O QD as needed for anxiety 05/01/2018 04/11/2019 Inactive Paxil CR 37.5 mg tablet,extended release RxNorm: 5735268 TAKE ONE TABLET BY MOUTH DAILY 03/23/2018 06/20/2018 Inactive Paxil CR 37.5 mg tablet,extended release RxNorm: 1120251 TAKE ONE TABLET BY MOUTH DAILY 01/15/2018 03/15/2018 Inactive Paxil CR 37.5 mg tablet,extended release RxNorm: 3635433 1 Table t(s) PO QD 09/29/2017 12/27/2017 Inactive Klonopin 1 mg tablet RxNorm: 764683 TAKE ONE TABLET BY MOUTH EVERY NIGHT AT BEDTIME 09/29/2017 06/03/2018 Inactive Klonopin 1 mg tablet RxNorm: 369532 TAKE ONE TABLET BY MOUTH EVERY NIGHT AT BEDTIME 07/04/2017 09/30/2017 Inactive Paxil CR 37.5 mg tablet,extended release RxNorm: 7548249 1 Table t(s) PO QD 06/17/2017 09/29/2017 Inactive Paxil CR 37.5 mg tablet,extended release RxNorm: 6423976 1 Table t(s) PO QD 02/27/2017 06/17/2017 Inactive Klonopin 1 mg tablet RxNorm: 255549 TAKE ONE TABLET BY MOUTH EVERY NIGHT AT BEDTIME 02/17/2017 07/04/2017 Inactive Penlac 8 % topical solution RxNorm: 779117 Application TOP QD 01/2005/21/2017 Inactive Paxil CR 37.5 mg tablet,extended release RxNorm: 8199329 1 Tablet(s) PO QD TAKE ONE TABLET BY MOUTH DAILY 12/20/2016 02/27/2017 Inactive Klonopin 1 mg tablet RxNorm: 018981 1 Tablet(s) PO QHS 10/16/2016 Inactive Paxil CR 37.5 mg tablet,extended release RxNorm: 9579754 1 Tablet(s) PO QD TAKE ONE TABLET BY MOUTH DAILY 09/30/2016 12/20/2016 Inactive Klonopin 1 mg tablet RxNorm: 809747 TAKE ONE TABLET BY MOUTH EVERY NIGHT AT BEDTIME 07/15/2016 08/13/2016 Inactive Paxil CR 37.5 mg tablet,extended release RxNorm: 2033420 1 Tablet(s) PO QD TAKE ONE TABLET BY MOUTH DAILY 07/15/2016 09/30/2016 Inactive Klonopin 1 mg tablet RxNorm: 435187 TAKE ONE TABLET BY MOUTH EVERY NIGHT AT BEDTIME 06/11/2016 07/15/2016 Inactive Klonopin 1 mg tablet RxNorm: 714990 TAKE ONE TABLET BY MOUTH AT BEDTIME 05/13/2016 06/11/2016 Inactive Yuvafem 10 mcg vaginal tablet RxNorm: 6244251 1 Tablet(s) VAG QH S twice weekly 05/01/2016 05/21/2017 Inactive Paxil CR 37.5 mg tablet,extended release RxNorm: 0094875 1 Tablet(s) PO QD TAKE ONE TABLET BY MOUTH DAILY 05/01/2016 07/15/2016 Inactive Klonopin 1 mg tablet RxNorm: 863633 TAKE ONE TABLET BY MOUTH EVERY NIGHT AT BEDTIME NEED TO SCHEDULE APPOINTMENT 04/08/2016 05/13/2016 Inactiv e Klonopin 1 mg tablet RxNorm: 152307 TAKE ONE TABLET BY MOUTH AT BEDTIME 03/06/2016 04/08/2016 Inactive ondansetron HCl 4 mg tablet RxNorm: 473951 1 Tablet(s) PO Q4H as needed for nausea 11/10/2015 04/30/2016 Inactive Klonopin 1 mg tablet RxNorm: 220393 TAKE ONE TABLET BY MOUTH EVERY NIGHT AT BEDTIME 11/10/2015 03/06/2016 Inactive Paxil CR 25 mg tablet,extended release RxNorm: 9630559 T KURTIS ONE TABLET BY MOUTH DAILY 11/10/2015 04/30/2016 Inactive Paxil CR 25 mg tablet,extended release RxNorm: 9256844 T KURTIS ONE TABLET BY MOUTH DAILY 10/26/2015 11/09/2015 Inactive Paxil CR 25 mg tablet,extended release RxNorm: 7490006 T KURTIS ONE TABLET BY MOUTH DAILY 09/26/2015 10/25/2015 Inactive Klonopin 1 mg tablet RxNorm: 071045 TAKE ONE TABLET BY MOUTH EVERY NIGHT AT BEDTIME 08/29/2015 11/13/2015 Inactive Paxil CR 25 mg tablet,extended release RxNorm: 0974640 1 Tablet( s) PO QD 08/28/2015 08/27/2015 Inactive Paxil CR 25 mg tablet,extended release RxNorm: 7330389 1 Tablet( s) PO QD 08/28/2015 09/25/2015 Inactive paroxetine ER 12.5 mg tablet,extended release 24 hr RxNorm: 347583 TAKE ONE TABLET BY MOUTH EVERY NIGHT AT BEDTIME 05/30/2015 08/27/2015 Inactive Klonopin 1 mg tablet RxNorm: 759987 TAKE ONE TABLET BY MOUTH EVERY NIGHT AT BEDTIME 05/30/2015 07/28/2015 Inactive alprazolam 1 mg tablet RxNorm: 532831 TAKE ONE-HALF TO ONE TABLET BY MOUTH DAILY NEEDED FOR ANXIETY 05/22/2015 04/30/2016 Inactive paroxetine ER 12.5 mg tablet,extended release 24 hr RxNorm: 106893 1 Tablet(s) PO QHS 04/26/2015 05/25/2015 Inactive Klonopin 1 mg tablet RxNorm: 363644 1 Tablet(s) PO QHS 02/03/2015 Inactive Brisdelle 7.5 mg capsule RxNorm: 8297448 Capsule(s) TAKE ONE CAPSULE BY MOUTH EVERY NIGHT AT BEDTIME 01/30/2015 04/25/2015 Inactive Calcium with Vitamin D 600 mg (1,500 mg)-400 unit tablet RxN orm: 132722 1 Tablet(s) PO QD 11/15/2014 No Stop Date Active Brisdelle 7.5 mg capsule RxNorm: 9919186 TAKE ONE CAPSUL E BY MOUTH EVERY NIGHT AT BEDTIME 08/22/2014 01/30/2015 Inactive Brisdelle 7.5 mg capsule RxNorm: 8971199 1 Capsule(s) PO QHS 201408/21/2014 Inactive Brisdelle 7.5 mg capsule RxNorm: 5663947 1 Capsule(s) PO QHS 201405/23/2014 Inactive Klonopin 1 mg tablet RxNorm: 801705 1 Tablet(s) PO QHS 05/02/201408/2014 Inactive Multivitamin & Mineral Formula oral RxNorm: oral No Start Date Active biotin 1 mg tablet RxNorm: 471973 1 Tablet(s) PO QD No Start Date Active Vitamin D3 1,000 unit tablet RxNorm: 371099 1 Tablet(s) PO QD No Star t Date Active Osteo Bi-Flex 250 mg-200 mg tablet RxNorm: 338823 1-2 Tablet(s) PO QD No Start Date Active Klonopin 1 mg tablet RxNorm: 012730 1 Tablet(s) PO QHS No Start Date 05/01/2014 Inactive alprazolam 1 mg tablet RxNorm: 327353 1/2-1 Tablet(s) P O QD as needed for anxiety and stress No Start Date 05/22/2015 Inactive Prilosec OTC 20 mg tablet,delayed release RxNorm: 132694 1 Tabl et(s) PO QD No Start Date 05/21/2017 Inactive Calcium + D oral RxNorm: 2418 oral No Start Date 04/25/2015 Inact alessandra Lamisil 250 mg tablet RxNorm: 570739 1 Tablet(s) PO QD No Start Date 11/14/2014 Inactive Celexa 10 mg tablet RxNorm: 856632 1 Tablet(s) PO QD No Start Date Inactive ondansetron HCl 4 mg tablet RxNorm: 601138 1 Tablet(s) PO Q4H as needed for [...] visit CPT-4: G0439 07/21/2019 CERUM REMOVAL CPT-4: 57407 01/13/2019 FLU VACC PRSV FREE INC ANTIG 65 AND OLDER CPT-4: 13534 12/02/2018 IMMUNIZATION ADMIN CPT-4: 65138 12/02/2018 FLU VACC PRSV FREE INC ANTIG 65 AND OLDER CPT-4: 57461 12/02/2018 SPECIMEN HANDLING OFFICE-LAB CPT-4: 00739 06/04/2018 OCCULT BLOOD FECES CPT-4: 24737 06/04/2018 FLU VACC PRSV FREE INC ANTIG 65 AND OLDER CPT-4: 73619 12/03/2017 IMMUNIZATION ADMIN CPT-4: 71070 12/03/2017 CERUM REMOVAL CPT-4: 75075 06/09/2017 FLU VACC PRSV FREE INC ANTIG 65 AND OLDER CPT-4: 17647 12/09/2016 IMMUNIZATION ADMIN CPT-4: 27930 12/09/2016 FLU VACCINE 3 YRS & > IM UP 64 CPT-4: 69572 6 IMMUNIZATION ADMIN CPT-4: 18495 11/09/2015 PNEUMOCOCCAL VACC 23 NAHEED IM CPT-4: 34913 04/26/2015 IMMUNIZATION ADMIN CPT-4: 61056 04/26/2015 EXC TR-EXT B9+KAREN 0.5 CM< CPT-4: 96666 11/15/2014 PNEUMOCOCCAL VACC 13 NAHEED IM CPT-4: 36242 04/25/2014 IMMUNIZATION ADMIN CPT-4: 45090 04/25/2014 SPECIMEN HANDLING OFFICE-LAB CPT-4: 45463 04/25/2014 OCCULT BLOOD FECES CPT-4: 40726 04/25/2014 Vital Signs Date Vital 07/21/2019 Blood Pressure 1: 126/78 Code: 8480-6 BMI: 24.1 Code: 48350-1 Heart Rate 1: 92 bpm Height: 5'5" Respiratory Rate: 20 bpm SpO2: 97% Tempera ture: 36.3 (C) / 97.3 (F) Weight: 145 lbs 01/13/2019 Blood Pressure 1: 112/78 Code: 8480-6 Heart Rate 1: 88 bpm Respiratory Rate: 20 bpm SpO2: 98% Temperature: 37.2 (C) / 98.9 (F) We ight: 151 lbs 06/04/2018 Blood Pressure 1: 124/80 Code: 8480-6 BMI: 25.8 Code: 48715-7 Heart Rate 1: 101 bpm Height: 5'5" Respiratory Rate: 18 bpm SpO2: 98% Tempera ture: 37.0 (C) / 98.6 (F) Weight: 155 lbs 11/05/2017 Blood Pressure 1: 124/68 Code: 8480-6 BMI: 24.6 Code: 22368-7 Heart Rate 1: 60 bpm Height: 5'5" Respiratory Rate: 20 bpm SpO2: 97% Tempera ture: 36.9 (C) / 98.4 (F) Weight: 148 lbs 05/22/2017 Blood Pressure 1: 116/70 Code: 8480-6 BMI: 24.3 Code: 40926-7 Heart Rate 1: 84 bpm Height: 5'5" Respiratory Rate: 20 bpm SpO2: 96% Tempera ture: 36.7 (C) / 98.1 (F) Weight: 146 lbs 2017 Blood Pressure 1: 130/76 Code: 8480-6 BMI: 24.6 Code: 30192-6 Heart Rate 1: 84 bpm Height: 5'5" Respiratory Rate: 22 bpm SpO2: 96% Tempera ture: 36.4 (C) / 97.6 (F) Weight: 148 lbs 10/16/2016 Blood Pressure 1: 122/78 Code: 8480-6 BMI: 23.8 Code: 86709-9 Heart Rate 1: 86 bpm Height: 5'5" Respiratory Rate: 20 bpm SpO2: 98% Tempera ture: 36.8 (C) / 98.2 (F) Weight: 143 lbs 07/16/2016 Blood Pressure 1: 112/78 Code: 8480-6 Heart Rate 1: 76 bpm Respiratory Rate: 24 bpm SpO2: 98% Temperature: 36.6 (C) / 97.8 (F) We ight: 143 lbs 05/01/2016 Blood Pressure 1: 126/68 Code: 8480-6 BMI: 23.8 Code: 86790-3 Heart Rate 1: 92 bpm Height: 5'5" Respiratory Rate: 20 bpm SpO2: 97% Tempera ture: 36.8 (C) / 98.2 (F) Weight: 143 lbs 04/26/2015 Blood Pressure 1: 118/78 Code: 8480-6 BMI: 23.3 Code: 10780-4 Heart Rate 1: 88 bpm Height: 5'5" Respiratory Rate: 20 bpm Temperature: 37 .1 (C) / 98.8 (F) Weight: 140 lbs 11/15/2014 Blood Pressure 1: 134/70 Code: 8480-6 BMI: 23.3 Code: 11714-1 Heart Rate 1: 100 bpm Height: 5'5" Respiratory Rate: 20 bpm Temperature: 36 .8 (C) / 98.2 (F) Weight: 140 lbs 04/25/2014 Blood Pressure 1: 128/74 Code: 8480-6 BMI: 24.1 Code: 88466-5 Heart Rate 1: 78 bpm Height: 5'5" [...] care Encounters Encounter Performer Location Codes Date ([id number]) OFFICE/OUTPATIENT VISIT EST Diagnosis: Hyperglycemia[ICD10: R73.9] Diagnosis: Impacted cerumen, right ear[ICD10: H61.21] Diagnosis: Generalized anxiety disorder[ICD10: F41.1] Billy S[facility]OVALER [facility] CPT-4: 33618 01/13/2019 ([id number]) NURSE/OUTPATIENT VISIT EST Diagnosis: FLU VACCINE[ICD10: Z23] Billy SANDOVAL ER [facility] CPT-4: 67186 12/02/2018 ([id number]) PER PM REEVAL EST PAT 65+ YR Diagnosis: Encounter for general adult medical examination without abnormal findings[ICD10: Z00.00] Diagnosis: Generalized anxiety disorder[ICD10: F41.1] Diagnosis: Primary insomnia[ICD10: F51.01] Diagnosis: Encounter for gynecological examination (general) (routine) without abnormal findings[ICD10: Z01.419] Billy Monique DO [facility] CPT-4: 96948 06/04/2018 ([id number]) NURSE/OUTPATIENT VISIT EST Diagnosis: FLU VACCINE[ICD10: Z23] Billy BECKFORD DO [facility] CPT-4: 99198 12/03/2017 ([id number]) OFFICE/OUTPATIENT VISIT EST Diagnosis: Generalized anxiety disorder[ICD10: F41.1] Diagnosis: Primary insomnia[ICD10: F51.01] Billy SCHWARZ DO [facility] CPT-4: 44264 11/05/2017 ([id number]) PER PM REEVAL EST PAT 65+ YR Diagnosis: Encounter for general adult medical examination without abnormal findings[ICD10: Z00.00] Diagnosis: Generalized anxiety disorder[ICD10: F41.1] Diagnosis: Gastro-esophageal reflux disease without esophagitis[ICD10: K21.9] Billy SCHWARZ DO [facility] CPT-4: 87672 05/22/2017 ([id number]) OFFICE/OUTPATIENT VISIT EST Diagnosis: Generalized anxiety disorder[ICD10: F41.1] Diagnosis: Gastro-esophageal reflux disease without esophagitis[ICD10: K21.9] Billy SCHWARZ DO [facility] CPT-4: 05178 2017 ([id number]) OFFICE/OUTPATIENT VISIT EST Diagnosis: FLU VACCINE[ICD10: Z23] Billy BECKFORD DO [facility] CPT-4: 66742 12/09/2016 ([id number]) OFFICE/OUTPATIENT VISIT EST Diagnosis: Generalized anxiety disorder[ICD10: F41.1] Billy SCHWARZ DO [facility] CPT-4: 63286 10/16/2016 ([id number]) OFFICE/OUTPATIENT VISIT EST Diagnosis: Generalized anxiety disorder[ICD10: F41.1] Billy SCHWARZ DO [facility] CPT-4: 62500 07/16/2016 ([id number]) PER PM REEVAL EST PAT 65+ YR Diagnosis: Encounter for general adult medical examination without abnormal findings[ICD10: Z00.00] Diagnosis: Menopausal and female climacteric states[ICD10: N95.1] Diagnosis: Anxiety disorder, unspecified[ICD10: F41.9] Billy SCHWARZ [facility] CPT-4: 96729 05/01/2016 ([id number]) OFFICE/OUTPATIENT VISIT EST Diagnosis: FLU VACCINE[ICD10: Z23] Billy BECKFORD [facility] CPT-4: 83346 11/09/2015 ([id number]) PREV VISIT EST AGE 40-64 Diagnosis: Encounter for general adult medical examination without abnormal findings[ICD10: Z00.00] Diagnosis: Gastro-esophageal reflux disease without esophagitis[ICD10: K21.9] Diagnosis: Anxiety disorder, unspecified[ICD10: F41.9] Diagnosis: Menopausal and female climacteric states[ICD10: N95.1] Diagnosis: PNEUMOCOCCAL VACCINE[ICD10: Z23] Billy SCHWARZ [facility] CPT-4: 75555 04/26/2015 ([id number]) PREV VISIT NEW AGE 40-64 Diagnosis: PNEUMOCOCCAL VACCINE[ICD10: Z23] Diagnosis: ROUTINE MEDICAL EXAM[ICD9: V70.0] Diagnosis: ROUTINE GYNE EXAM[ICD9: V72.31] Diagnosis: ANXIETY STATE NOS[ICD9: 300.00] Diagnosis: Menopausal flushing[ICD9: 627.2] Billy SCHWARZ [facility] CPT-4: 40384 04/25/2014 Plan of Care Planned Activity Notes Codes Status Date Visit Diagnosis Plan: Encounter for [facility] adult medical examination without abnormal findings Discussion: [...] ICD-9 : 530.81 ICD-10 : K21.9 07/21/2019 Care Plan: COMPREHEN METABOLIC PANEL ALAN NC : 94089-1 Pending 07/13/2019 Care Plan: ASSAY THYROID STIM HORMONE Pen ding 07/13/2019 Care Plan: LIPID PANEL LOINC : 58478-2 Pending 07/13/2019 Care Plan: ASSAY OF FREE THYROXINE Pendin g 07/13/2019 Care Plan: A1C HPLC LOINC : 18791-6 Pending 07/13/2019 Care Plan: COMPLETE CBC W/AUTO DIFF WBC LOINC : 41180-6 Pending 07/13/2019 Appointment: Rohini Amaya [address] [address] [place] pt. stated that she is feeling [...] : R73.9 01/13/2019 Appointment: Billy Schwarz WPtel: [address] [place], [place] [phone] FOLLOW UP 01/13/2019 Care Plan: METABOLIC PANEL TOTAL CA LOIN C : 29604-7 Pending 01/05/2019 Care Plan: A1C HPLC LOINC : 69222-1 Pending 01/05/2019 Appointment: Billy Schwarz WPtel: [address] [place] [address] [place] INJECTION 12/02/2018 Visit Diagnosis Plan: Encounter for [facility] adult medical examination without abnormal findings Discussion: [...] : Z01.419 06/04/2018 Appointment: Billy Schwarz WPtel: [address] [place] [address] Annual Well Visit 06/04/2018 Appointment: Billy Schwarz WPtel: [address] [place] [address] [place] CANCELED 05/06/2018 Appointment: Billy Schwarz WPtel: [address] [place], [place] [phone] [place] INJECTION 12/03/2017 Patient Education: Patient Medication [...] : F51.01 11/05/2017 Appointment: Billy Schwarz WPtel: [address] [place], [place] [phone] [place] FOLLOW UP 11/05/2017 Patient Education: Patient Medication Summary Completed 11/05/2017 Appointment: Billy Schwarz WPtel: [address] [place], [place] [phone] [place] CANCELED 09/10/2017 Visit Diagnosis Plan: Impacted cerumen, right ear Disc ussion: cerumen was removed with currette to right ear canal. patient tolerated procedure well. once out, TM was wnl. instructed to call or rtc with new or worsening symptoms. ICD-9 : 380.4 ICD-10 : H61.21 06/09/2017 Appointment: Rohini Amaya [address] [place], [place] [id number] 06/09/2017 Patient Education: Patient Medication Summary Completed 06/09/2017 Visit Diagnosis Plan: Generalized anxiety disorder Dis cussion: Stable on paxil and klonopin Follow Up: 4 months ICD-9 : 308.0 ICD-10 : F41.1 05/22/2017 Visit Diagnosis Plan: Encounter for [facility] medical examination without abnormal findings Discussion: Mammogram ordered Patient go ing to get Sh[facility] at [facility] Lab discussed Add Vitamin D3 1000u daily Once again discussed weight bearing exercise ICD-9 : V70.0 ICD-10 : Z00.00 05/22/2017 Visit Diagnosis Plan: Gastro-esophageal reflux disease without esophagitis Discussion: Trial of Zantac instead of prilosec ICD-9 : 530.81 ICD-10 : K21.9 05/22/2017 Appointment: Billy Schwarz WPtel: [address] [place], [place] [phone] FOLLOW UP 05/22/2017 Patient Education: Patient Medication [...] : K21.9 2017 Appointment: Billy Schwarz WPtel: [address] [place], [place] [phone] FOLLOW UP 2017 Patient Education: Patient Medication Summary Completed 2017 Appointment: Billy Shcwarz WPtel: [address] [place], [place] [phone] [place] INJECTION 12/09/2016 Patient Education: Patient Medication Summary Completed 12/09/2016 Visit Diagnosis Plan: Generalized anxiety disorder Dis cussion: Stable with paxil and klonopin Follow Up: 3 months ICD-9 : 308.0 ICD-10 : F41.1 10/16/2016 Appointment: Billy Schwarztel: [address] [place], [place] [phone] [id number] NA/VM ~sp, 10/15/16 1550--appt confirmed (km) FOLLOW UP 10/16/2016 Patient Education: Patient Medication Summary Completed 10/16/2016 Visit Diagnosis Plan: Generalized anxiety disorder Dis cussion: Continue higher dose of paxil with xanax prn Stress reducers Follow Up: 3 months ICD-9 : 308.0 ICD-10 : F41.1 07/16/2016 Appointment: Billy Schwarztel: [address] [place] [address] 07/15 confirmed `sl FOLLOW UP 07/16/2016 Patient Education: Patient Medication Summary Completed 07/16/2016 Visit Diagnosis Plan: Menopausal and female climacteri c states Discussion: Use Vagifem prn ICD-9 : 627.2 ICD-10 : N95.1 05/01/2016 Visit Diagnosis Plan: Encounter for [facility] adult medical examination without abnormal findings Discussion: Check fasting lab Tdap up to date Mammogram ordered ICD-9 : V70.0 ICD-10 : Z00.00 05/01/2016 Visit Diagnosis Plan: Anxiety disorder, unspecified Di scussion: Increase paxil CR to 37.5mg q HS Follow Up: 2 months ICD-9 : 300.00 ICD-10 : F41.9 05/01/2016 Appointment: Billy Schwarz WPtel: [address] [place], [place] [phone] [place] 04/30 confirmed`sl PHYSICAL 05/01/2016 Patient Education: Patient Medication Summary Completed 05/01/2016 Care Plan: MAMMOGRAM SCREENING LOINC : 2 6347-5 Pending 05/01/2016 Appointment: Billy Schwarz WPtel: [address] [place], [place] [phone] [place] INJECTION 11/09/2015 Patient Education: Patient Medication Summary Completed 11/09/2015 Appointment: Billy Schwarz WPtel: [address] [place], [place] [phone] [place] CANCELED 11/08/2015 Visit Plan: Mammo due in May Update Fa sting Lab Change Brisdelle to Paxil CR 12.5mg q HS Call in 1month Will wait on Pap until next year Pneumovax given 04/26/2015 Appointment: Billy Schwarz WPtel: [address] [place], [place] [phone] 04/25 NA/NVM-SP 04/26 confirmed ~sl Annual Well Vi sit 04/26/2015 Patient Education: Patient Medication Summary Completed 04/26/2015 Visit Plan: Shave removal of skin lesion as above 11/15/2014 Appointment: Billy Schwarz WPtel: [address] [place] [address] 11/14/14 rang and rang,,11/15 appt confirmed cn O FFICE SURGERY 11/15/2014 Patient Education: Patient Medication Summary Completed 11/15/2014 Patient Education: Patient Medication Summary Completed 06/13/2014 Visit Plan: Pap done Mammo next month Ob tain Bone Density results Check Fasting lab Stop Celexa Start Brisdelle 7.5mg q HS Call in 6weeks on how doing with Brisdelle Update Carotid Dopplers 04/25/2014 Appointment: Billy Schwarz WPtel: [address] [place], [place] [phone] [place] NEW PATIENT 04/25/2014 Patient Education: Patient [...]
--- OUTSIDE RECORDS SUMMARY | 2019-08-27 07:21 | XMS REPORT | CCD ---
Author Author Yenifer Schwarz D.O. Organization BILLY SCHWARZ DO 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 Role Phone Billy Schwarz D.O., PP Unavailable CCM Unavailable Summary Purpose Interface Exchange Insurance Providers Payer name Policy type / Coverage type Covered libertarian ID Effective Begin Date Effective End Date Blue Cross Blue Shield Blue Cross/Blue Shield [id number] Unknown Family history Mother Diagnosis Age At Onset Hypothryroidism Unknown Dementia Unknown Hip fracture Unknown Father Diagnosis Age At Onset Chronic obstructive pulmonary disease Unknown Tobacco abuse Unknown Social History Social History Element Codes Description Effective Dates Tobacco history SNOMED CT: 628772393 Has never smoked or chewed tobacco 11/15/2014 [...] Relief 50 mcg/actuation nasal spray,suspensi on RxNorm: 7926931 2 [place] Nasal QD 07/21/2019 No Stop Date Active Paxil CR 37.5 mg tablet,extended release RxNorm: 9140853 TAKE ONE TABLET BY MOUTH DAILY 05/24/2019 No Stop Date Active alprazolam 1 mg tablet RxNorm: 493596 TAKE 1/2 TO 1 TAB LET BY MOUTH ONCE DAILY NEEDED FOR ANXIETY 04/12/2019 No Stop Date Active Paxil CR 37.5 mg tablet,extended release RxNorm: 4062008 TAKE ONE TABLET BY MOUTH DAILY 04/12/2019 05/23/2019 Inactive Paxil CR 37.5 mg tablet,extended release RxNorm: 7393847 TAKE ONE TABLET BY MOUTH DAILY 02/01/2019 04/11/2019 Inactive Prilosec OTC 20 mg tablet,delayed release RxNorm: 559444 1 Tabl et(s) Oral QD 01/13/2019 No Stop Date Active Paxil CR 37.5 mg tablet,extended release RxNorm: 8181620 1 Table t(s) PO QD 10/12/2018 01/09/2019 Inactive Paxil CR 37.5 mg tablet,extended release RxNorm: 4553817 TAKE ONE TABLET BY MOUTH DAILY 07/15/2018 10/12/2018 Inactive alprazolam 1 mg tablet RxNorm: 758553 1/2-1 Tablet(s) P O QD as needed for anxiety 05/01/2018 04/11/2019 Inactive Paxil CR 37.5 mg tablet,extended release RxNorm: 4774347 TAKE ONE TABLET BY MOUTH DAILY 03/23/2018 06/20/2018 Inactive Paxil CR 37.5 mg tablet,extended release RxNorm: 1958268 TAKE ONE TABLET BY MOUTH DAILY 01/15/2018 03/15/2018 Inactive Paxil CR 37.5 mg tablet,extended release RxNorm: 2102674 1 Table t(s) PO QD 09/29/2017 12/27/2017 Inactive Klonopin 1 mg tablet RxNorm: 812722 TAKE ONE TABLET BY MOUTH EVERY NIGHT AT BEDTIME 09/29/2017 06/03/2018 Inactive Klonopin 1 mg tablet RxNorm: 339434 TAKE ONE TABLET BY MOUTH EVERY NIGHT AT BEDTIME 07/04/2017 09/30/2017 Inactive Paxil CR 37.5 mg tablet,extended release RxNorm: 4498232 1 Table t(s) PO QD 06/17/2017 09/29/2017 Inactive Paxil CR 37.5 mg tablet,extended release RxNorm: 7107628 1 Table t(s) PO QD 02/27/2017 06/17/2017 Inactive Klonopin 1 mg tablet RxNorm: 452177 TAKE ONE TABLET BY MOUTH EVERY NIGHT AT BEDTIME 02/17/2017 07/04/2017 Inactive Penlac 8 % topical solution RxNorm: 576424 Application TOP QD 01/2005/21/2017 Inactive Paxil CR 37.5 mg tablet,extended release RxNorm: 2434014 1 Tablet(s) PO QD TAKE ONE TABLET BY MOUTH DAILY 12/20/2016 02/27/2017 Inactive Klonopin 1 mg tablet RxNorm: 072930 1 Tablet(s) PO QHS 10/16/2016 Inactive Paxil CR 37.5 mg tablet,extended release RxNorm: 8524590 1 Tablet(s) PO QD TAKE ONE TABLET BY MOUTH DAILY 09/30/2016 12/20/2016 Inactive Klonopin 1 mg tablet RxNorm: 185368 TAKE ONE TABLET BY MOUTH EVERY NIGHT AT BEDTIME 07/15/2016 08/13/2016 Inactive Paxil CR 37.5 mg tablet,extended release RxNorm: 1829316 1 Tablet(s) PO QD TAKE ONE TABLET BY MOUTH DAILY 07/15/2016 09/30/2016 Inactive Klonopin 1 mg tablet RxNorm: 680327 TAKE ONE TABLET BY MOUTH EVERY NIGHT AT BEDTIME 06/11/2016 07/15/2016 Inactive Klonopin 1 mg tablet RxNorm: 681742 TAKE ONE TABLET BY MOUTH AT BEDTIME 05/13/2016 06/11/2016 Inactive Yuvafem 10 mcg vaginal tablet RxNorm: 2220076 1 Tablet(s) VAG QH S twice weekly 05/01/2016 05/21/2017 Inactive Paxil CR 37.5 mg tablet,extended release RxNorm: 0302945 1 Tablet(s) PO QD TAKE ONE TABLET BY MOUTH DAILY 05/01/2016 07/15/2016 Inactive Klonopin 1 mg tablet RxNorm: 362202 TAKE ONE TABLET BY MOUTH EVERY NIGHT AT BEDTIME NEED TO SCHEDULE APPOINTMENT 04/08/2016 05/13/2016 Inactiv e Klonopin 1 mg tablet RxNorm: 512754 TAKE ONE TABLET BY MOUTH AT BEDTIME 03/06/2016 04/08/2016 Inactive ondansetron HCl 4 mg tablet RxNorm: 461199 1 Tablet(s) PO Q4H as needed for nausea 11/10/2015 04/30/2016 Inactive Klonopin 1 mg tablet RxNorm: 909988 TAKE ONE TABLET BY MOUTH EVERY NIGHT AT BEDTIME 11/10/2015 03/06/2016 Inactive Paxil CR 25 mg tablet,extended release RxNorm: 0966520 T KURTIS ONE TABLET BY MOUTH DAILY 11/10/2015 04/30/2016 Inactive Paxil CR 25 mg tablet,extended release RxNorm: 3239192 T KURTIS ONE TABLET BY MOUTH DAILY 10/26/2015 11/09/2015 Inactive Paxil CR 25 mg tablet,extended release RxNorm: 8724511 T KURTIS ONE TABLET BY MOUTH DAILY 09/26/2015 10/25/2015 Inactive Klonopin 1 mg tablet RxNorm: 148058 TAKE ONE TABLET BY MOUTH EVERY NIGHT AT BEDTIME 08/29/2015 11/13/2015 Inactive Paxil CR 25 mg tablet,extended release RxNorm: 2604747 1 Tablet( s) PO QD 08/28/2015 08/27/2015 Inactive Paxil CR 25 mg tablet,extended release RxNorm: 0512040 1 Tablet( s) PO QD 08/28/2015 09/25/2015 Inactive paroxetine ER 12.5 mg tablet,extended release 24 hr RxNorm: 684735 TAKE ONE TABLET BY MOUTH EVERY NIGHT AT BEDTIME 05/30/2015 08/27/2015 Inactive Klonopin 1 mg tablet RxNorm: 340199 TAKE ONE TABLET BY MOUTH EVERY NIGHT AT BEDTIME 05/30/2015 07/28/2015 Inactive alprazolam 1 mg tablet RxNorm: 238544 TAKE ONE-HALF TO ONE TABLET BY MOUTH DAILY NEEDED FOR ANXIETY 05/22/2015 04/30/2016 Inactive paroxetine ER 12.5 mg tablet,extended release 24 hr RxNorm: 471253 1 Tablet(s) PO QHS 04/26/2015 05/25/2015 Inactive Klonopin 1 mg tablet RxNorm: 578721 1 Tablet(s) PO QHS 02/03/2015 Inactive Brisdelle 7.5 mg capsule RxNorm: 5564240 Capsule(s) TAKE ONE CAPSULE BY MOUTH EVERY NIGHT AT BEDTIME 01/30/2015 04/25/2015 Inactive Calcium with Vitamin D 600 mg (1,500 mg)-400 unit tablet RxN orm: 292765 1 Tablet(s) PO QD 11/15/2014 No Stop Date Active Brisdelle 7.5 mg capsule RxNorm: 7424165 TAKE ONE CAPSUL E BY MOUTH EVERY NIGHT AT BEDTIME 08/22/2014 01/30/2015 Inactive Brisdelle 7.5 mg capsule RxNorm: 2522201 1 Capsule(s) PO QHS 201408/21/2014 Inactive Brisdelle 7.5 mg capsule RxNorm: 3005804 1 Capsule(s) PO QHS 201405/23/2014 Inactive Klonopin 1 mg tablet RxNorm: 069224 1 Tablet(s) PO QHS 05/02/201408/2014 Inactive Multivitamin & Mineral Formula oral RxNorm: oral No Start Date Active biotin 1 mg tablet RxNorm: 971678 1 Tablet(s) PO QD No Start Date Active Vitamin D3 1,000 unit tablet RxNorm: 397438 1 Tablet(s) PO QD No Star t Date Active Osteo Bi-Flex 250 mg-200 mg tablet RxNorm: 376288 1-2 Tablet(s) PO QD No Start Date Active Klonopin 1 mg tablet RxNorm: 446473 1 Tablet(s) PO QHS No Start Date 05/01/2014 Inactive alprazolam 1 mg tablet RxNorm: 242597 1/2-1 Tablet(s) P O QD as needed for anxiety and stress No Start Date 05/22/2015 Inactive Prilosec OTC 20 mg tablet,delayed release RxNorm: 545788 1 Tabl et(s) PO QD No Start Date 05/21/2017 Inactive Calcium + D oral RxNorm: 2418 oral No Start Date 04/25/2015 Inact alessandra Lamisil 250 mg tablet RxNorm: 125657 1 Tablet(s) PO QD No Start Date 11/14/2014 Inactive Celexa 10 mg tablet RxNorm: 810502 1 Tablet(s) PO QD No Start Date Inactive ondansetron HCl 4 mg tablet RxNorm: 014523 1 Tablet(s) PO Q4H as needed for [...] visit CPT-4: G0439 07/21/2019 CERUM REMOVAL CPT-4: 21454 01/13/2019 FLU VACC PRSV FREE INC ANTIG 65 AND OLDER CPT-4: 02739 12/02/2018 IMMUNIZATION ADMIN CPT-4: 80192 12/02/2018 FLU VACC PRSV FREE INC ANTIG 65 AND OLDER CPT-4: 70719 12/02/2018 SPECIMEN HANDLING OFFICE-LAB CPT-4: 46220 06/04/2018 OCCULT BLOOD FECES CPT-4: 38655 06/04/2018 FLU VACC PRSV FREE INC ANTIG 65 AND OLDER CPT-4: 88874 12/03/2017 IMMUNIZATION ADMIN CPT-4: 24182 12/03/2017 CERUM REMOVAL CPT-4: 65955 06/09/2017 FLU VACC PRSV FREE INC ANTIG 65 AND OLDER CPT-4: 73737 12/09/2016 IMMUNIZATION ADMIN CPT-4: 79708 12/09/2016 FLU VACCINE 3 YRS & > IM UP 64 CPT-4: 88178 6 IMMUNIZATION ADMIN CPT-4: 23493 11/09/2015 PNEUMOCOCCAL VACC 23 NAHEED IM CPT-4: 60172 04/26/2015 IMMUNIZATION ADMIN CPT-4: 02237 04/26/2015 EXC TR-EXT B9+KAREN 0.5 CM< CPT-4: 81240 11/15/2014 PNEUMOCOCCAL VACC 13 NAHEED IM CPT-4: 53422 04/25/2014 IMMUNIZATION ADMIN CPT-4: 84169 04/25/2014 SPECIMEN HANDLING OFFICE-LAB CPT-4: 13533 04/25/2014 OCCULT BLOOD FECES CPT-4: 26156 04/25/2014 Vital Signs Date Vital 07/21/2019 Blood Pressure 1: 126/78 Code: 8480-6 BMI: 24.1 Code: 47702-6 Heart Rate 1: 92 bpm Height: 5'5" Respiratory Rate: 20 bpm SpO2: 97% Tempera ture: 36.3 (C) / 97.3 (F) Weight: 145 lbs 01/13/2019 Blood Pressure 1: 112/78 Code: 8480-6 Heart Rate 1: 88 bpm Respiratory Rate: 20 bpm SpO2: 98% Temperature: 37.2 (C) / 98.9 (F) We ight: 151 lbs 06/04/2018 Blood Pressure 1: 124/80 Code: 8480-6 BMI: 25.8 Code: 27880-1 Heart Rate 1: 101 bpm Height: 5'5" Respiratory Rate: 18 bpm SpO2: 98% Tempera ture: 37.0 (C) / 98.6 (F) Weight: 155 lbs 11/05/2017 Blood Pressure 1: 124/68 Code: 8480-6 BMI: 24.6 Code: 04210-5 Heart Rate 1: 60 bpm Height: 5'5" Respiratory Rate: 20 bpm SpO2: 97% Tempera ture: 36.9 (C) / 98.4 (F) Weight: 148 lbs 05/22/2017 Blood Pressure 1: 116/70 Code: 8480-6 BMI: 24.3 Code: 31016-0 Heart Rate 1: 84 bpm Height: 5'5" Respiratory Rate: 20 bpm SpO2: 96% Tempera ture: 36.7 (C) / 98.1 (F) Weight: 146 lbs 2017 Blood Pressure 1: 130/76 Code: 8480-6 BMI: 24.6 Code: 77306-9 Heart Rate 1: 84 bpm Height: 5'5" Respiratory Rate: 22 bpm SpO2: 96% Tempera ture: 36.4 (C) / 97.6 (F) Weight: 148 lbs 10/16/2016 Blood Pressure 1: 122/78 Code: 8480-6 BMI: 23.8 Code: 18268-5 Heart Rate 1: 86 bpm Height: 5'5" Respiratory Rate: 20 bpm SpO2: 98% Tempera ture: 36.8 (C) / 98.2 (F) Weight: 143 lbs 07/16/2016 Blood Pressure 1: 112/78 Code: 8480-6 Heart Rate 1: 76 bpm Respiratory Rate: 24 bpm SpO2: 98% Temperature: 36.6 (C) / 97.8 (F) We ight: 143 lbs 05/01/2016 Blood Pressure 1: 126/68 Code: 8480-6 BMI: 23.8 Code: 35828-3 Heart Rate 1: 92 bpm Height: 5'5" Respiratory Rate: 20 bpm SpO2: 97% Tempera ture: 36.8 (C) / 98.2 (F) Weight: 143 lbs 04/26/2015 Blood Pressure 1: 118/78 Code: 8480-6 BMI: 23.3 Code: 71380-1 Heart Rate 1: 88 bpm Height: 5'5" Respiratory Rate: 20 bpm Temperature: 37 .1 (C) / 98.8 (F) Weight: 140 lbs 11/15/2014 Blood Pressure 1: 134/70 Code: 8480-6 BMI: 23.3 Code: 68442-8 Heart Rate 1: 100 bpm Height: 5'5" Respiratory Rate: 20 bpm Temperature: 36 .8 (C) / 98.2 (F) Weight: 140 lbs 04/25/2014 Blood Pressure 1: 128/74 Code: 8480-6 BMI: 24.1 Code: 43456-2 Heart Rate 1: 78 bpm Height: 5'5" [...] care Encounters Encounter Performer Location Codes Date ([id number]) OFFICE/OUTPATIENT VISIT EST Diagnosis: Hyperglycemia[ICD10: R73.9] Diagnosis: Impacted cerumen, right ear[ICD10: H61.21] Diagnosis: Generalized anxiety disorder[ICD10: F41.1] Billy SCHWARZ [employer] CPT-4: 63219 01/13/2019 ([id number]) NURSE/OUTPATIENT VISIT EST Diagnosis: FLU VACCINE[ICD10: Z23] Billy BECKFORD [employer] CPT-4: 29345 12/02/2018 ([id number]) PER PM REEVAL EST PAT 65+ YR Diagnosis: Encounter for general adult medical examination without abnormal findings[ICD10: Z00.00] Diagnosis: Generalized anxiety disorder[ICD10: F41.1] Diagnosis: Primary insomnia[ICD10: F51.01] Diagnosis: Encounter for gynecological examination (general) (routine) without abnormal findings[ICD10: Z01.419] Billy Monique [employer] CPT-4: 49039 06/04/2018 ([id number]) NURSE/OUTPATIENT VISIT EST Diagnosis: FLU VACCINE[ICD10: Z23] Billy BECKFORD DO [employer] CPT-4: 29734 12/03/2017 ([id number]) OFFICE/OUTPATIENT VISIT EST Diagnosis: Generalized anxiety disorder[ICD10: F41.1] Diagnosis: Primary insomnia[ICD10: F51.01] Billy SCHWARZ DO [employer] CPT-4: 93254 11/05/2017 ([id number]) PER PM REEVAL EST PAT 65+ YR Diagnosis: Encounter for general adult medical examination without abnormal findings[ICD10: Z00.00] Diagnosis: Generalized anxiety disorder[ICD10: F41.1] Diagnosis: Gastro-esophageal reflux disease without esophagitis[ICD10: K21.9] Billy SCHWARZ [employer] CPT-4: 04072 05/22/2017 ([id number]) OFFICE/OUTPATIENT VISIT EST Diagnosis: Generalized anxiety disorder[ICD10: F41.1] Diagnosis: Gastro-esophageal reflux disease without esophagitis[ICD10: K21.9] Billy HERNANDEZNDER DO [employer] CPT-4: 02868 2017 ([id number]) OFFICE/OUTPATIENT VISIT EST Diagnosis: FLU VACCINE[ICD10: Z23] Billy HERNANDEZND ANALY DO [employer] CPT-4: 69307 12/09/2016 ([id number]) OFFICE/OUTPATIENT VISIT EST Diagnosis: Generalized anxiety disorder[ICD10: F41.1] Billy SANDOVALER DO [employer] CPT-4: 07982 10/16/2016 ([id number]) OFFICE/OUTPATIENT VISIT EST Diagnosis: Generalized anxiety disorder[ICD10: F41.1] Billy SCHWARZ [employer] CPT-4: 80979 07/16/2016 ([id number]) PER PM REEVAL EST PAT 65+ YR Diagnosis: Encounter for general adult medical examination without abnormal findings[ICD10: Z00.00] Diagnosis: Menopausal and female climacteric states[ICD10: N95.1] Diagnosis: Anxiety disorder, unspecified[ICD10: F41.9] Billy SCHWARZ DO [employer] CPT-4: 50922 05/01/2016 ([id number]) OFFICE/OUTPATIENT VISIT EST Diagnosis: FLU VACCINE[ICD10: Z23] Billy BECKFORD [employer] CPT-4: 14453 11/09/2015 ([id number]) PREV VISIT EST AGE 40-64 Diagnosis: Encounter for general adult medical examination without abnormal findings[ICD10: Z00.00] Diagnosis: Gastro-esophageal reflux disease without esophagitis[ICD10: K21.9] Diagnosis: Anxiety disorder, unspecified[ICD10: F41.9] Diagnosis: Menopausal and female climacteric states[ICD10: N95.1] Diagnosis: PNEUMOCOCCAL VACCINE[ICD10: Z23] Billy SCHWARZ [employer] CPT-4: 60284 04/26/2015 ([id number]) PREV VISIT NEW AGE 40-64 Diagnosis: PNEUMOCOCCAL VACCINE[ICD10: Z23] Diagnosis: ROUTINE MEDICAL EXAM[ICD9: V70.0] Diagnosis: ROUTINE GYNE EXAM[ICD9: V72.31] Diagnosis: ANXIETY STATE NOS[ICD9: 300.00] Diagnosis: Menopausal flushing[ICD9: 627.2] Billy SCHWARZ [employer] CPT-4: 38917 04/25/2014 Plan of Care Planned Activity Notes Codes Status Date Care Plan: MAMMOGRAM SCREENING INC : 2 6347-5 Pending 07/27/2019 Visit Diagnosis Plan: Gastro-esophageal reflux disease without esophagitis Discussion: Stable on prilosec otc ICD-9 : 530.81 ICD-10 : K21.9 07/21/2019 Visit Diagnosis Plan: Generalized anxiety disorder Dis cussion: Stable on current meds ICD-9 : 308.0 ICD-10 : F41.1 07/21/2019 Visit Diagnosis Plan: Encounter for gene [facility] adult medical examination without abnormal findings Discussion: Mediterranean diet Combinati on of cardio and weight bearing exercise Lab discussed Follow Up: 6 months ICD-9 : V70.0 ICD-10 : Z00.00 07/21/2019 Appointment: Billy Schwarz WPtel: [id number] Annual Well Visit 07/21/2019 Care Plan: COMPREHEN METABOLIC PANEL [place]AN NC : 90592-6 Pending 07/13/2019 Care Plan: ASSAY THYROID STIM HORMONE Pen ding 07/13/2019 Care Plan: LIPID PANEL LOINC : 60355-5 Pending 07/13/2019 Care Plan: ASSAY OF FREE THYROXINE Pendin g 07/13/2019 Care Plan: A1C HPLC LOINC : 84227-2 Pending 07/13/2019 Care Plan: COMPLETE CBC W/AUTO DIFF WBC LOINC : 40977-6 Pending 07/13/2019 Appointment: Rohini Amaya [address] [address] [place] pt. stated that she is feeling [...] : F41.1 01/13/2019 Appointment: Billy Schwarz WPtel: [facility] [phone] [place] FOLLOW UP 01/13/2019 Care Plan: METABOLIC PANEL TOTAL CA LOIN C : 45998-5 Pending 01/05/2019 Care Plan: A1C HPLC LOINC : 04132-2 Pending 01/05/2019 Appointment: Billy Schwarz WPtel: [address] [place], [place] [phone] [place] INJECTION 12/02/2018 Visit Diagnosis Plan: Encounter for gyne cological examination (general) (routine) without abnormal findings Discussion: Pap done Mammogram ordered ICD-9 : V72.31 ICD-10 : Z01.419 06/04/2018 Visit Diagnosis Plan: Generalized anxiety disorder Dis cussion: Stable Follow Up: 6 months ICD-9 : 308.0 ICD-10 : F41.1 06/04/2018 Visit Diagnosis Plan: Encounter for gene ral adult medical examination without abnormal findings Discussion: Mediterranean diet Combinati on of cardio and weight bearing exercise Had shingrix Colonoscopy up to date Lab discussed ICD-9 : V70.0 ICD-10 : Z00.00 06/04/2018 Appointment: Billy Schwarz WPtel: [address] [place] [address] [place] Annual Well Visit 06/04/2018 Appointment: Billy Schwarz WPtel: [address] [place], [place] [phone] [place] CANCELED 05/06/2018 Appointment: Billy Schwarz WPtel: [address] [place], [place] [phone] [place] INJECTION 12/03/2017 Patient Education: Patient Medication [...] : F41.1 11/05/2017 Appointment: Billy Schwarz WPtel: [address] [place], [place] [phone] [place] FOLLOW UP 11/05/2017 Patient Education: Patient Medication Summary Completed 11/05/2017 Appointment: Billy Schwarz WPtel: [address] [place], [place] [phone] [place] CANCELED 09/10/2017 Visit Diagnosis Plan: Impacted cerumen, right ear Disc ussion: cerumen was removed with currette to right ear canal. patient tolerated procedure well. once out, TM was wnl. instructed to call or rtc with new or worsening symptoms. ICD-9 : 380.4 ICD-10 : H61.21 06/09/2017 Appointment: Rohini Amaya [address] [place], [place] [phone] ACUTE [facility]LL[facility] 06/09/2017 Patient Education: Patient Medication Summary Completed 06/09/2017 Visit Diagnosis Plan: Generalized anxiety disorder Dis cussion: Stable on paxil and klonopin Follow Up: 4 months ICD-9 : 308.0 ICD-10 : F41.1 05/22/2017 Visit Diagnosis Plan: Encounter for [facility] medical examination without abnormal findings Discussion: Mammogram ordered Patient go ing to get Shingix at [facility] Lab discussed Add Vitamin D3 1000u daily Once again discussed weight bearing exercise ICD-9 : V70.0 ICD-10 : Z00.00 05/22/2017 Visit Diagnosis Plan: Gastro-esophageal reflux disease without esophagitis Discussion: Trial of Zantac instead of prilosec ICD-9 : 530.81 ICD-10 : K21.9 05/22/2017 Appointment: Billy Schwarz WPtel: [address] [place], [place] [phone] FOLLOW UP 05/22/2017 Patient Education: Patient Medication [...] : K21.9 2017 Appointment: Billy Schwarz WPtel: [address] [place], [place] [phone] FOLLOW UP 2017 Patient Education: Patient Medication Summary Completed 2017 Appointment: Billy Schwarz WPtel: [address] [place], [place] [phone] [place] INJECTION 12/09/2016 Patient Education: Patient Medication Summary Completed 12/09/2016 Visit Diagnosis Plan: Generalized anxiety disorder Dis cussion: Stable with paxil and klonopin Follow Up: 3 months ICD-9 : 308.0 ICD-10 : F41.1 10/16/2016 Appointment: Billy Schwarz WPtel: [address] [place] [address] [phone] NA/VM ~sp, 10/15/16 1550--appt confirmed (km) FOLLOW UP 10/16/2016 Patient Education: Patient Medication Summary Completed 10/16/2016 Visit Diagnosis Plan: Generalized anxiety disorder Dis cussion: Continue higher dose of paxil with xanax prn Stress reducers Follow Up: 3 months ICD-9 : 308.0 ICD-10 : F41.1 07/16/2016 Appointment: Billy Schwarz WPtel: [address] [place] [address] 07/15 confirmed `sl FOLLOW UP 07/16/2016 Patient Education: Patient Medication Summary Completed 07/16/2016 Visit Diagnosis Plan: Encounter for [facility] adult medical examination without abnormal findings Discussion: [...] : N95.1 05/01/2016 Appointment: Billy Schwarz WPtel: [address] [place] [address] 04/30 confirmed`sl PHYSICAL 05/01/2016 Patient Education: Patient Medication Summary Completed 05/01/2016 Care Plan: MAMMOGRAM SCREENING LOINC : 2 6347-5 Pending 05/01/2016 Appointment: Billy Schwarz WPtel: [address] [place], [place] [phone] [place] INJECTION 11/09/2015 Patient Education: Patient Medication Summary Completed 11/09/2015 Appointment: Billy Schwarz WPtel: [address] [place], [place] [phone] [place] CANCELED 11/08/2015 Visit Plan: Mammo due in May Update Fa sting Lab Change Brisdelle to Paxil CR 12.5mg q HS Call in 1month Will wait on Pap until next year Pneumovax given 04/26/2015 Appointment: Billy Schwarz WPtel: [address] [place] [address] 04/25 NA/NVM-SP 04/26 confirmed ~sl Annual Well Vi sit 04/26/2015 Patient Education: Patient Medication Summary Completed 04/26/2015 Visit Plan: Shave removal of skin lesion as above 11/15/2014 Appointment: Billy Schwarz WPtel: [address] [place], [place] [phone] 11/14/14 rang and rang,,11/15 appt confirmed cn O FFICE SURGERY 11/15/2014 Patient Education: Patient Medication Summary Completed 11/15/2014 Patient Education: Patient Medication Summary Completed 06/13/2014 Visit Plan: Pap done Mammo next month Ob tain Bone Density results Check Fasting lab Stop Celexa Start Brisdelle 7.5mg q HS Call in 6weeks on how doing with Brisdelle Update Carotid Dopplers 04/25/2014 Appointment: Billy Schwarz WPtel: [address] [place], [place] [phone] [place] NEW PATIENT 04/25/2014 Patient Education: Patient [...]
--- OUTSIDE RECORDS SUMMARY | 2019-08-27 07:22 | XMS REPORT | CCD ---
Author Author Yenifer Schwarz D.O. Organization 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 Name Role Phone Billy Schwarz D.O., PP Unavailable CCM Unavailable Summary Purpose Interface Exchange Insurance Providers Payer name Policy type / Coverage type Covered democrat ID Effective Begin Date Effective End Date Blue Cross Blue Shield Blue Cross/Blue Shield [id number] Unknown Family history Mother Diagnosis Age At Onset Hypothryroidism Unknown Dementia Unknown Hip fracture Unknown Father Diagnosis Age At Onset Chronic obstructive pulmonary disease Unknown Tobacco abuse Unknown Social History Social History Element Codes Description Effective Dates Tobacco history SNOMED CT: 399925414 Has never smoked or chewed tobacco 11/15/2014 Employment Unknown Student 04/25/2014 Allergies, Adverse Reactions, Alerts Substance Reaction Codes Entered Date Inactivated Date Status Dust reaction Unknown 04/25/2014 No Inactive Date Active PENICILLINS reaction, Unknown 04/25/2014 No Inactive Date Active * NO KNOWN FOOD ALLERGIES Unknown 04/25/2014 No Inactiv e Date Active Problems Condition Codes Effective Dates Condition Status Generalized anxiety disorder ICD-9: 308.0 ICD-10: F41.1 07/16/2016 Active Hyperglycemia ICD-9: 790.29 ICD-10: R73.9 01/05/2019 Active Impacted cerumen, right ear ICD-9: 380.4 ICD-10: H61.21 06/09/2017 Active FLU VACCINE ICD-9: V04.81 ICD-10: Z23 11/08/2015 Active Encounter for general adult medical examination withou t abnormal findings ICD-9: V70.0 ICD-10: Z00.00 04/25/2014 Active Encounter for gynecological examination (general) (routine) without abnormal findings ICD-9: V72.31 ICD-10: Z01.419 06/04/2018 Active Primary insomnia ICD-9: 780.52 ICD-10: F51.01 11/05/2017 Active Encounter for screening for lipoid disorders ICD-9: V7 7.91 ICD-10: Z13.220 04/27/2018 Active Gastro-esophageal reflux disease without esophagitis I CD-9: 530.81 ICD-10: K21.9 04/25/2015 Active Anxiety disorder, unspecified ICD-9: 300.00 ICD-10: [...] Paxil CR 37.5 mg tablet,extended release RxNorm: 8389683 TAKE ONE TABLET BY MOUTH DAILY 04/12/2019 No Stop Date Active alprazolam 1 mg tablet RxNorm: 476222 TAKE 1/2 TO 1 TAB LET BY MOUTH ONCE DAILY NEEDED FOR ANXIETY 04/12/2019 No Stop Date Active Paxil CR 37.5 mg tablet,extended release RxNorm: 1922402 TAKE ONE TABLET BY MOUTH DAILY 02/01/2019 04/11/2019 Inactive Prilosec OTC 20 mg tablet,delayed release RxNorm: 860289 1 Tabl et(s) Oral QD 01/13/2019 No Stop Date Active Paxil CR 37.5 mg tablet,extended release RxNorm: 1715452 1 Table t(s) PO QD 10/12/2018 01/09/2019 Inactive Paxil CR 37.5 mg tablet,extended release RxNorm: 6388734 TAKE ONE TABLET BY MOUTH DAILY 07/15/2018 10/12/2018 Inactive alprazolam 1 mg tablet RxNorm: 012129 1/2-1 Tablet(s) P O QD as needed for anxiety 05/01/2018 04/11/2019 Inactive Paxil CR 37.5 mg tablet,extended release RxNorm: 8150820 TAKE ONE TABLET BY MOUTH DAILY 03/23/2018 06/20/2018 Inactive Paxil CR 37.5 mg tablet,extended release RxNorm: 1221693 TAKE ONE TABLET BY MOUTH DAILY 01/15/2018 03/15/2018 Inactive Paxil CR 37.5 mg tablet,extended release RxNorm: 2369449 1 Table t(s) PO QD 09/29/2017 12/27/2017 Inactive Klonopin 1 mg tablet RxNorm: 732188 TAKE ONE TABLET BY MOUTH EVERY NIGHT AT BEDTIME 09/29/2017 06/03/2018 Inactive Klonopin 1 mg tablet RxNorm: 484347 TAKE ONE TABLET BY MOUTH EVERY NIGHT AT BEDTIME 07/04/2017 09/30/2017 Inactive Paxil CR 37.5 mg tablet,extended release RxNorm: 0163139 1 Table t(s) PO QD 06/17/2017 09/29/2017 Inactive Paxil CR 37.5 mg tablet,extended release RxNorm: 7215315 1 Table t(s) PO QD 02/27/2017 06/17/2017 Inactive Klonopin 1 mg tablet RxNorm: 633909 TAKE ONE TABLET BY MOUTH EVERY NIGHT AT BEDTIME 02/17/2017 07/04/2017 Inactive Penlac 8 % topical solution RxNorm: 663763 Application TOP QD 01/2005/21/2017 Inactive Paxil CR 37.5 mg tablet,extended release RxNorm: 4249962 1 Tablet(s) PO QD TAKE ONE TABLET BY MOUTH DAILY 12/20/2016 02/27/2017 Inactive Klonopin 1 mg tablet RxNorm: 569223 1 Tablet(s) PO QHS 10/16/2016 Inactive Paxil CR 37.5 mg tablet,extended release RxNorm: 0611900 1 Tablet(s) PO QD TAKE ONE TABLET BY MOUTH DAILY 09/30/2016 12/20/2016 Inactive Klonopin 1 mg tablet RxNorm: 019569 TAKE ONE TABLET BY MOUTH EVERY NIGHT AT BEDTIME 07/15/2016 08/13/2016 Inactive Paxil CR 37.5 mg tablet,extended release RxNorm: 4157437 1 Tablet(s) PO QD TAKE ONE TABLET BY MOUTH DAILY 07/15/2016 09/30/2016 Inactive Klonopin 1 mg tablet RxNorm: 136476 TAKE ONE TABLET BY MOUTH EVERY NIGHT AT BEDTIME 06/11/2016 07/15/2016 Inactive Klonopin 1 mg tablet RxNorm: 353534 TAKE ONE TABLET BY MOUTH AT BEDTIME 05/13/2016 06/11/2016 Inactive Yuvafem 10 mcg vaginal tablet RxNorm: 0049919 1 Tablet(s) VAG QH S twice weekly 05/01/2016 05/21/2017 Inactive Paxil CR 37.5 mg tablet,extended release RxNorm: 3201380 1 Tablet(s) PO QD TAKE ONE TABLET BY MOUTH DAILY 05/01/2016 07/15/2016 Inactive Klonopin 1 mg tablet RxNorm: 020961 TAKE ONE TABLET BY MOUTH EVERY NIGHT AT BEDTIME NEED TO SCHEDULE APPOINTMENT 04/08/2016 05/13/2016 Inactiv e Klonopin 1 mg tablet RxNorm: 664418 TAKE ONE TABLET BY MOUTH AT BEDTIME 03/06/2016 04/08/2016 Inactive ondansetron HCl 4 mg tablet RxNorm: 605962 1 Tablet(s) PO Q4H as needed for nausea 11/10/2015 04/30/2016 Inactive Klonopin 1 mg tablet RxNorm: 829256 TAKE ONE TABLET BY MOUTH EVERY NIGHT AT BEDTIME 11/10/2015 03/06/2016 Inactive Paxil CR 25 mg tablet,extended release RxNorm: 9493624 T KURTIS ONE TABLET BY MOUTH DAILY 11/10/2015 04/30/2016 Inactive Paxil CR 25 mg tablet,extended release RxNorm: 7262366 T KURTIS ONE TABLET BY MOUTH DAILY 10/26/2015 11/09/2015 Inactive Paxil CR 25 mg tablet,extended release RxNorm: 4048911 T KURTIS ONE TABLET BY MOUTH DAILY 09/26/2015 10/25/2015 Inactive Klonopin 1 mg tablet RxNorm: 032974 TAKE ONE TABLET BY MOUTH EVERY NIGHT AT BEDTIME 08/29/2015 11/13/2015 Inactive Paxil CR 25 mg tablet,extended release RxNorm: 6245121 1 Tablet( s) PO QD 08/28/2015 08/27/2015 Inactive Paxil CR 25 mg tablet,extended release RxNorm: 7941922 1 Tablet( s) PO QD 08/28/2015 09/25/2015 Inactive paroxetine ER 12.5 mg tablet,extended release 24 hr RxNorm: 062996 TAKE ONE TABLET BY MOUTH EVERY NIGHT AT BEDTIME 05/30/2015 08/27/2015 Inactive Klonopin 1 mg tablet RxNorm: 293883 TAKE ONE TABLET BY MOUTH EVERY NIGHT AT BEDTIME 05/30/2015 07/28/2015 Inactive alprazolam 1 mg tablet RxNorm: 123267 TAKE ONE-HALF TO ONE TABLET BY MOUTH DAILY NEEDED FOR ANXIETY 05/22/2015 04/30/2016 Inactive paroxetine ER 12.5 mg tablet,extended release 24 hr RxNorm: 123481 1 Tablet(s) PO QHS 04/26/2015 05/25/2015 Inactive Klonopin 1 mg tablet RxNorm: 422812 1 Tablet(s) PO QHS 02/03/2015 Inactive Brisdelle 7.5 mg capsule RxNorm: 0583823 Capsule(s) TAKE ONE CAPSULE BY MOUTH EVERY NIGHT AT BEDTIME 01/30/2015 04/25/2015 Inactive Calcium with Vitamin D 600 mg (1,500 mg)-400 unit tablet RxN orm: 857081 1 Tablet(s) PO QD 11/15/2014 No Stop Date Active Brisdelle 7.5 mg capsule RxNorm: 4048318 TAKE ONE CAPSUL E BY MOUTH EVERY NIGHT AT BEDTIME 08/22/2014 01/30/2015 Inactive Brisdelle 7.5 mg capsule RxNorm: 5021099 1 Capsule(s) PO QHS 201408/21/2014 Inactive Brisdelle 7.5 mg capsule RxNorm: 1183810 1 Capsule(s) PO QHS 201405/23/2014 Inactive Klonopin 1 mg tablet RxNorm: 676946 1 Tablet(s) PO QHS 05/02/201408/2014 Inactive Multivitamin & Mineral Formula oral RxNorm: oral No Start Date Active biotin 1 mg tablet RxNorm: 247271 1 Tablet(s) PO QD No Start Date Active Vitamin D3 1,000 unit tablet RxNorm: 220299 1 Tablet(s) PO QD No Star t Date Active Osteo Bi-Flex 250 mg-200 mg tablet RxNorm: 759695 1-2 Tablet(s) PO QD No Start Date Active Klonopin 1 mg tablet RxNorm: 593703 1 Tablet(s) PO QHS No Start Date 05/01/2014 Inactive alprazolam 1 mg tablet RxNorm: 838491 1/2-1 Tablet(s) P O QD as needed for anxiety and stress No Start Date 05/22/2015 Inactive Prilosec OTC 20 mg tablet,delayed release RxNorm: 726499 1 Tabl et(s) PO QD No Start Date 05/21/2017 Inactive Calcium + D oral RxNorm: 2418 oral No Start Date 04/25/2015 Inact alessandra Lamisil 250 mg tablet RxNorm: 953031 1 Tablet(s) PO QD No Start Date 11/14/2014 Inactive Celexa 10 mg tablet RxNorm: 882106 1 Tablet(s) PO QD No Start Date Inactive ondansetron HCl 4 mg tablet RxNorm: 823833 1 Tablet(s) PO Q4H as needed for [...] No Results data Procedures Procedure Codes Date CERUM REMOVAL CPT-4: 96434 01/13/2019 FLU VACC PRSV FREE INC ANTIG 65 AND OLDER CPT-4: 58230 12/02/2018 IMMUNIZATION ADMIN CPT-4: 50985 12/02/2018 FLU VACC PRSV FREE INC ANTIG 65 AND OLDER CPT-4: 37947 12/02/2018 SPECIMEN HANDLING OFFICE-LAB CPT-4: 35573 06/04/2018 OCCULT BLOOD FECES CPT-4: 84233 06/04/2018 FLU VACC PRSV FREE INC ANTIG 65 AND OLDER CPT-4: 71172 12/03/2017 IMMUNIZATION ADMIN CPT-4: 49898 12/03/2017 CERUM REMOVAL CPT-4: 86759 06/09/2017 FLU VACC PRSV FREE INC ANTIG 65 AND OLDER CPT-4: 01079 12/09/2016 IMMUNIZATION ADMIN CPT-4: 91579 12/09/2016 FLU VACCINE 3 YRS & > IM UP 64 CPT-4: 17622 6 IMMUNIZATION ADMIN CPT-4: 45293 11/09/2015 PNEUMOCOCCAL VACC 23 NAHEED IM CPT-4: 41028 04/26/2015 IMMUNIZATION ADMIN CPT-4: 48864 04/26/2015 EXC TR-EXT B9+KAREN 0.5 CM< CPT-4: 99601 11/15/2014 PNEUMOCOCCAL VACC 13 NAHEED IM CPT-4: 30786 04/25/2014 IMMUNIZATION ADMIN CPT-4: 59003 04/25/2014 SPECIMEN HANDLING OFFICE-LAB CPT-4: 71299 04/25/2014 OCCULT BLOOD FECES CPT-4: 12132 04/25/2014 Vital Signs Date Vital 01/13/2019 Blood Pressure 1: 112/78 Code: 8480-6 Heart Rate 1: 88 bpm Respiratory Rate: 20 bpm SpO2: 98% Temperature: 37.2 (C) / 98.9 (F) We ight: 151 lbs 06/04/2018 Blood Pressure 1: 124/80 Code: 8480-6 BMI: 25.8 Code: 28116-7 Heart Rate 1: 101 bpm Height: 5'5" Respiratory Rate: 18 bpm SpO2: 98% Tempera ture: 37.0 (C) / 98.6 (F) Weight: 155 lbs 11/05/2017 Blood Pressure 1: 124/68 Code: 8480-6 BMI: 24.6 Code: 21763-8 Heart Rate 1: 60 bpm Height: 5'5" Respiratory Rate: 20 bpm SpO2: 97% Tempera ture: 36.9 (C) / 98.4 (F) Weight: 148 lbs 05/22/2017 Blood Pressure 1: 116/70 Code: 8480-6 BMI: 24.3 Code: 78787-6 Heart Rate 1: 84 bpm Height: 5'5" Respiratory Rate: 20 bpm SpO2: 96% Tempera ture: 36.7 (C) / 98.1 (F) Weight: 146 lbs 2017 Blood Pressure 1: 130/76 Code: 8480-6 BMI: 24.6 Code: 08144-5 Heart Rate 1: 84 bpm Height: 5'5" Respiratory Rate: 22 bpm SpO2: 96% Tempera ture: 36.4 (C) / 97.6 (F) Weight: 148 lbs 10/16/2016 Blood Pressure 1: 122/78 Code: 8480-6 BMI: 23.8 Code: 93217-9 Heart Rate 1: 86 bpm Height: 5'5" Respiratory Rate: 20 bpm SpO2: 98% Tempera ture: 36.8 (C) / 98.2 (F) Weight: 143 lbs 07/16/2016 Blood Pressure 1: 112/78 Code: 8480-6 Heart Rate 1: 76 bpm Respiratory Rate: 24 bpm SpO2: 98% Temperature: 36.6 (C) / 97.8 (F) We ight: 143 lbs 05/01/2016 Blood Pressure 1: 126/68 Code: 8480-6 BMI: 23.8 Code: 71401-7 Heart Rate 1: 92 bpm Height: 5'5" Respiratory Rate: 20 bpm SpO2: 97% Tempera ture: 36.8 (C) / 98.2 (F) Weight: 143 lbs 04/26/2015 Blood Pressure 1: 118/78 Code: 8480-6 BMI: 23.3 Code: 74548-9 Heart Rate 1: 88 bpm Height: 5'5" Respiratory Rate: 20 bpm Temperature: 37 .1 (C) / 98.8 (F) Weight: 140 lbs 11/15/2014 Blood Pressure 1: 134/70 Code: 8480-6 BMI: 23.3 Code: 23272-3 Heart Rate 1: 100 bpm Height: 5'5" Respiratory Rate: 20 bpm Temperature: 36 .8 (C) / 98.2 (F) Weight: 140 lbs 04/25/2014 Blood Pressure 1: 128/74 Code: 8480-6 BMI: 24.1 Code: 24631-5 Heart Rate 1: 78 bpm Height: 5'5" Respiratory Rate: 20 bpm Temperature: 36 .2 (C) / 97.2 (F) Weight: 145 lbs Functional Status No Functional Status data Reason For Visit Reason For Visit Effective Dates Notes follow up 01/13/2019 injection(s) 12/02/2018 well woman [...] care Encounters Encounter Performer Location Codes Date ([id number]) OFFICE/OUTPATIENT VISIT EST Diagnosis: Hyperglycemia[ICD10: R73.9] Diagnosis: Impacted cerumen, right ear[ICD10: H61.21] Diagnosis: Generalized anxiety disorder[ICD10: F41.1] Billy CERVANTES KurtTammi MARYLINHANALY [employer] CPT-4: 83484 01/13/2019 ([id number]) NURSE/OUTPATIENT VISIT EST Diagnosis: FLU VACCINE[ICD10: Z23] Billy CERVANTES STammi MARYND ER [facility] CPT-4: 12092 12/02/2018 ([id number]) PER PM REEVAL EST PAT 65+ YR Diagnosis: Encounter for general adult medical examination without abnormal findings[ICD10: Z00.00] Diagnosis: Generalized anxiety disorder[ICD10: F41.1] Diagnosis: Primary insomnia[ICD10: F51.01] Diagnosis: Encounter for gynecological examination (general) (routine) without abnormal findings[ICD10: Z01.419] Billy BOWMAN R [facility] CPT-4: 66720 06/04/2018 ([id number]) NURSE/OUTPATIENT VISIT EST Diagnosis: FLU VACCINE[ICD10: Z23] Billy CERVANTES KurtTammi MARYND ER [facility] CPT-4: 17859 12/03/2017 ([id number]) OFFICE/OUTPATIENT VISIT EST Diagnosis: Generalized anxiety disorder[ICD10: F41.1] Diagnosis: Primary insomnia[ICD10: F51.01] Billy CERVANTES KurtTammi MARYNDER [facility] CPT-4: 43860 11/05/2017 ([id number]) PER PM REEVAL EST PAT 65+ YR Diagnosis: Encounter for general adult medical examination without abnormal findings[ICD10: Z00.00] Diagnosis: Generalized anxiety disorder[ICD10: F41.1] Diagnosis: Gastro-esophageal reflux disease without esophagitis[ICD10: K21.9] Billy SCHWARZ DO [facility] CPT-4: 69689 05/22/2017 ([id number]) OFFICE/OUTPATIENT VISIT EST Diagnosis: Generalized anxiety disorder[ICD10: F41.1] Diagnosis: Gastro-esophageal reflux disease without esophagitis[ICD10: K21.9] Billy SCHWARZ DO [facility] CPT-4: 01598 2017 ([id number]) OFFICE/OUTPATIENT VISIT EST Diagnosis: FLU VACCINE[ICD10: Z23] Billy BECKFORD DO [facility] CPT-4: 49109 12/09/2016 ([id number]) OFFICE/OUTPATIENT VISIT EST Diagnosis: Generalized anxiety disorder[ICD10: F41.1] Billy SCHWARZ DO [facility] CPT-4: 08242 10/16/2016 ([id number]) OFFICE/OUTPATIENT VISIT EST Diagnosis: Generalized anxiety disorder[ICD10: F41.1] Billy SCHWARZ DO [employer] CPT-4: 77806 07/16/2016 ([id number]) PER PM REEVAL EST PAT 65+ YR Diagnosis: Encounter for general adult medical examination without abnormal findings[ICD10: Z00.00] Diagnosis: Menopausal and female climacteric states[ICD10: N95.1] Diagnosis: Anxiety disorder, unspecified[ICD10: F41.9] Billy SCHWARZ DO [employer] CPT-4: 62520 05/01/2016 ([id number]) OFFICE/OUTPATIENT VISIT EST Diagnosis: FLU VACCINE[ICD10: Z23] Billy BECKFORD [facility] CPT-4: 81851 11/09/2015 ([id number]) PREV VISIT EST AGE 40-64 Diagnosis: Encounter for general adult medical examination without abnormal findings[ICD10: Z00.00] Diagnosis: Gastro-esophageal reflux disease without esophagitis[ICD10: K21.9] Diagnosis: Anxiety disorder, unspecified[ICD10: F41.9] Diagnosis: Menopausal and female climacteric states[ICD10: N95.1] Diagnosis: PNEUMOCOCCAL VACCINE[ICD10: Z23] Billy SCHWARZ [employer] CPT-4: 54028 04/26/2015 ([id number]) PREV VISIT NEW AGE 40-64 Diagnosis: PNEUMOCOCCAL VACCINE[ICD10: Z23] Diagnosis: ROUTINE MEDICAL EXAM[ICD9: V70.0] Diagnosis: ROUTINE GYNE EXAM[ICD9: V72.31] Diagnosis: ANXIETY STATE NOS[ICD9: 300.00] Diagnosis: Menopausal flushing[ICD9: 627.2] Billy SCHWARZ [employer] CPT-4: 61874 04/25/2014 Plan of Care Planned Activity Notes Codes Status Date Appointment: Rohini Amaya [address] [place] [address] [place] pt. stated that she is feeling [...] : F41.1 01/13/2019 Appointment: Billy Schwarz WPtel: [address] [place], [place] [phone] [place] FOLLOW UP 01/13/2019 Care Plan: METABOLIC PANEL TOTAL CA LOIN C : 82357-9 Pending 01/05/2019 Care Plan: A1C HPLC LOINC : 59464-5 Pending 01/05/2019 Appointment: Billy Schwarz WPtel: [phone] [facility] [place] INJECTION 12/02/2018 Visit Diagnosis Plan: Encounter for gyne cological examination (general) (routine) without abnormal findings Discussion: Pap done Mammogram ordered ICD-9 : V72.31 ICD-10 : Z01.419 06/04/2018 Visit Diagnosis Plan: Generalized anxiety disorder Dis cussion: Stable Follow Up: 6 months ICD-9 : 308.0 ICD-10 : F41.1 06/04/2018 Visit Diagnosis Plan: Encounter for [facility] adult medical examination without abnormal findings Discussion: Mediterranean diet Combinati on of cardio and weight bearing exercise Had shingrix Colonoscopy up to date Lab discussed ICD-9 : V70.0 ICD-10 : Z00.00 06/04/2018 Appointment: Billy Schwarz WPtel: [address] [place], [place] [phone] [place] Annual Well Visit 06/04/2018 Appointment: Billy Schwarz WPtel: [address] [place], [place] [phone] [place] CANCELED 05/06/2018 Appointment: Billy Schwarz WPtel: [address] [place], [place] [phone] [place] INJECTION 12/03/2017 Patient Education: Patient Medication [...] : F41.1 11/05/2017 Appointment: Billy Schwarz WPtel: [address] [place], [place] [phone] [place] FOLLOW UP 11/05/2017 Patient Education: Patient Medication Summary Completed 11/05/2017 Appointment: Billy Schwarz WPtel: [address] [place], [place] [phone] [place] CANCELED 09/10/2017 Visit Diagnosis Plan: Impacted cerumen, right ear Disc ussion: cerumen was removed with currette to right ear canal. patient tolerated procedure well. once out, TM was wnl. instructed to call or rtc with new or worsening symptoms. ICD-9 : 380.4 ICD-10 : H61.21 06/09/2017 Appointment: Rohini Amaya [address] [place], [place] [id number] 06/09/2017 Patient Education: Patient Medication Summary Completed 06/09/2017 Visit Diagnosis Plan: Generalized anxiety disorder Dis cussion: Stable on paxil and klonopin Follow Up: 4 months ICD-9 : 308.0 ICD-10 : F41.1 05/22/2017 Visit Diagnosis Plan: Encounter for [facility] medical examination without abnormal findings Discussion: Mammogram ordered Patient go ing to get Shingix at [facility] Lab discussed Add Vitamin D3 1000u daily Once again discussed weight bearing exercise ICD-9 : V70.0 ICD-10 : Z00.00 05/22/2017 Visit Diagnosis Plan: Gastro-esophageal reflux disease without esophagitis Discussion: Trial of Zantac instead of prilosec ICD-9 : 530.81 ICD-10 : K21.9 05/22/2017 Appointment: Billy Schwarz WPtel: [address] [place] [address] FOLLOW UP 05/22/2017 Patient Education: Patient Medication [...] 530.81 ICD-10 : K21.9 2017 Appointment: Billy Schwarztel: [address] [place], [place] [phone] FOLLOW UP 2017 Patient Education: Patient Medication Summary Completed 2017 Appointment: Billy Schwarz [facility]Ptel[facility] [place] [facility] 12/09/2016 Patient Education: Patient Medication Summary Completed 12/09/2016 Visit Diagnosis Plan: Generalized anxiety disorder Dis cussion: Stable with paxil and klonopin Follow Up: 3 months ICD-9 : 308.0 ICD-10 : F41.1 10/16/2016 Appointment: Billy Schwarz WPtel: [address] [place] [address] [phone] NA/VM ~sp, 10/15/16 1550--appt confirmed (km) FOLLOW UP 10/16/2016 Patient Education: Patient Medication Summary Completed 10/16/2016 Visit Diagnosis Plan: Generalized anxiety disorder Dis cussion: Continue higher dose of paxil with xanax prn Stress reducers Follow Up: 3 months ICD-9 : 308.0 ICD-10 : F41.1 07/16/2016 Appointment: Billy Schwarz WPtel: [address] [place], [place] [id number] 07/15 confirmed `sl FOLLOW UP 07/16/2016 Patient Education: Patient Medication Summary Completed 07/16/2016 Visit Diagnosis Plan: Encounter for [facility] medical examination without abnormal findings [...] : N95.1 05/01/2016 Appointment: Billy Schwarz WPtel: [address] [place], [place] [phone] 04/30 confirmed`sl PHYSICAL 05/01/2016 Patient Education: Patient Medication Summary Completed 05/01/2016 Care Plan: MAMMOGRAM SCREENING LOINC : 2 6347-5 Pending 05/01/2016 App[facility]ment: [facility] [phone] [facility] [place] INJE[facility] 11/09/2015 Patient Education: Patient Medication Summary Completed 11/09/2015 Appointment: [facility] [phone] [facility] [place] CANCELED 11/08/2015 Visit Plan: Mammo due in May Update Fa sting Lab Change Brisdelle to Paxil CR 12.5mg q HS Call in 1month Will wait on Pap until next year Pneumovax given 04/26/2015 Appointment: Billy Schwarz WPtel: [address] [place], [place] [phone] 04/25 NA/NVM-SP 04/26 confirmed ~sl Annual Well Vi sit 04/26/2015 Patient Education: Patient Medication Summary Completed 04/26/2015 Visit Plan: Shave removal of skin lesion as above 11/15/2014 Appointment: Billy Schwarz WPtel: [address] [place], [place] [phone] [place] 11/14/14 rang and rang,,11/15 appt confirmed cn O FFICE SURGERY 11/15/2014 Patient Education: Patient Medication Summary Completed 11/15/2014 Patient Education: Patient Medication Summary Completed 06/13/2014 Visit Plan: Pap done Mammo next month Ob tain Bone Density results Check Fasting lab Stop Celexa Start Brisdelle 7.5mg q HS Call in 6weeks on how doing with Brisdelle Update Carotid Dopplers 04/25/2014 Appointment: Billy Schwarz WPtel: [facility] [place] NEW PATIENT 04/25/2014 Patient Education: Patient [...]
--- OUTSIDE RECORDS SUMMARY | 2019-08-27 07:22 | XMS REPORT | CCD ---
Author Author Yenifer Schwarz D.O. Organization [facility] Address [address] [place] [address] Phone Care Team Providers Care Application Design Engineer Name Role Phone Billy Schwarz D.O., PP Unavailable CCM Unavailable Summary Purpose Interface Exchange Insurance Providers Payer name Policy type / Coverage type Covered alliance party ID Effective Begin Date Effective End Date Blue Cross Blue Shield Blue Cross/Blue Shield [id number] Unknown Family history Mother Diagnosis Age At Onset Hypothryroidism Unknown Dementia Unknown Hip fracture Unknown Father Diagnosis Age At Onset Chronic obstructive pulmonary disease Unknown Tobacco abuse Unknown Social History Social History Element Codes Description Effective Dates Tobacco history SNOMED CT: 299450216 Has never smoked or chewed tobacco 11/15/2014 [...] Paxil CR 37.5 mg tablet,extended release RxNorm: 7647034 TAKE ONE TABLET BY MOUTH DAILY 05/24/2019 No Stop Date Active alprazolam 1 mg tablet RxNorm: 622283 TAKE 1/2 TO 1 TAB LET BY MOUTH ONCE DAILY NEEDED FOR ANXIETY 04/12/2019 No Stop Date Active Paxil CR 37.5 mg tablet,extended release RxNorm: 1100106 TAKE ONE TABLET BY MOUTH DAILY 04/12/2019 05/23/2019 Inactive Paxil CR 37.5 mg tablet,extended release RxNorm: 6520728 TAKE ONE TABLET BY MOUTH DAILY 02/01/2019 04/11/2019 Inactive Prilosec OTC 20 mg tablet,delayed release RxNorm: 288773 1 Tabl et(s) Oral QD 01/13/2019 No Stop Date Active Paxil CR 37.5 mg tablet,extended release RxNorm: 5853094 1 Table t(s) PO QD 10/12/2018 01/09/2019 Inactive Paxil CR 37.5 mg tablet,extended release RxNorm: 9798745 TAKE ONE TABLET BY MOUTH DAILY 07/15/2018 10/12/2018 Inactive alprazolam 1 mg tablet RxNorm: 315966 1/2-1 Tablet(s) P O QD as needed for anxiety 05/01/2018 04/11/2019 Inactive Paxil CR 37.5 mg tablet,extended release RxNorm: 7275772 TAKE ONE TABLET BY MOUTH DAILY 03/23/2018 06/20/2018 Inactive Paxil CR 37.5 mg tablet,extended release RxNorm: 1740666 TAKE ONE TABLET BY MOUTH DAILY 01/15/2018 03/15/2018 Inactive Paxil CR 37.5 mg tablet,extended release RxNorm: 9335182 1 Table t(s) PO QD 09/29/2017 12/27/2017 Inactive Klonopin 1 mg tablet RxNorm: 749950 TAKE ONE TABLET BY MOUTH EVERY NIGHT AT BEDTIME 09/29/2017 06/03/2018 Inactive Klonopin 1 mg tablet RxNorm: 808912 TAKE ONE TABLET BY MOUTH EVERY NIGHT AT BEDTIME 07/04/2017 09/30/2017 Inactive Paxil CR 37.5 mg tablet,extended release RxNorm: 1198856 1 Table t(s) PO QD 06/17/2017 09/29/2017 Inactive Paxil CR 37.5 mg tablet,extended release RxNorm: 1430329 1 Table t(s) PO QD 02/27/2017 06/17/2017 Inactive Klonopin 1 mg tablet RxNorm: 492565 TAKE ONE TABLET BY MOUTH EVERY NIGHT AT BEDTIME 02/17/2017 07/04/2017 Inactive Penlac 8 % topical solution RxNorm: 563221 Application TOP QD 01/2005/21/2017 Inactive Paxil CR 37.5 mg tablet,extended release RxNorm: 2041217 1 Tablet(s) PO QD TAKE ONE TABLET BY MOUTH DAILY 12/20/2016 02/27/2017 Inactive Klonopin 1 mg tablet RxNorm: 479843 1 Tablet(s) PO QHS 10/16/2016 Inactive Paxil CR 37.5 mg tablet,extended release RxNorm: 7024733 1 Tablet(s) PO QD TAKE ONE TABLET BY MOUTH DAILY 09/30/2016 12/20/2016 Inactive Klonopin 1 mg tablet RxNorm: 110244 TAKE ONE TABLET BY MOUTH EVERY NIGHT AT BEDTIME 07/15/2016 08/13/2016 Inactive Paxil CR 37.5 mg tablet,extended release RxNorm: 0405014 1 Tablet(s) PO QD TAKE ONE TABLET BY MOUTH DAILY 07/15/2016 09/30/2016 Inactive Klonopin 1 mg tablet RxNorm: 337058 TAKE ONE TABLET BY MOUTH EVERY NIGHT AT BEDTIME 06/11/2016 07/15/2016 Inactive Klonopin 1 mg tablet RxNorm: 827632 TAKE ONE TABLET BY MOUTH AT BEDTIME 05/13/2016 06/11/2016 Inactive Yuvafem 10 mcg vaginal tablet RxNorm: 4005892 1 Tablet(s) VAG QH S twice weekly 05/01/2016 05/21/2017 Inactive Paxil CR 37.5 mg tablet,extended release RxNorm: 7339234 1 Tablet(s) PO QD TAKE ONE TABLET BY MOUTH DAILY 05/01/2016 07/15/2016 Inactive Klonopin 1 mg tablet RxNorm: 919113 TAKE ONE TABLET BY MOUTH EVERY NIGHT AT BEDTIME NEED TO SCHEDULE APPOINTMENT 04/08/2016 05/13/2016 Inactiv e Klonopin 1 mg tablet RxNorm: 371914 TAKE ONE TABLET BY MOUTH AT BEDTIME 03/06/2016 04/08/2016 Inactive ondansetron HCl 4 mg tablet RxNorm: 731096 1 Tablet(s) PO Q4H as needed for nausea 11/10/2015 04/30/2016 Inactive Klonopin 1 mg tablet RxNorm: 837498 TAKE ONE TABLET BY MOUTH EVERY NIGHT AT BEDTIME 11/10/2015 03/06/2016 Inactive Paxil CR 25 mg tablet,extended release RxNorm: 9398598 T KURTIS ONE TABLET BY MOUTH DAILY 11/10/2015 04/30/2016 Inactive Paxil CR 25 mg tablet,extended release RxNorm: 8746718 T KURTIS ONE TABLET BY MOUTH DAILY 10/26/2015 11/09/2015 Inactive Paxil CR 25 mg tablet,extended release RxNorm: 7213508 T KURTIS ONE TABLET BY MOUTH DAILY 09/26/2015 10/25/2015 Inactive Klonopin 1 mg tablet RxNorm: 078555 TAKE ONE TABLET BY MOUTH EVERY NIGHT AT BEDTIME 08/29/2015 11/13/2015 Inactive Paxil CR 25 mg tablet,extended release RxNorm: 3943344 1 Tablet( s) PO QD 08/28/2015 08/27/2015 Inactive Paxil CR 25 mg tablet,extended release RxNorm: 1253777 1 Tablet( s) PO QD 08/28/2015 09/25/2015 Inactive paroxetine ER 12.5 mg tablet,extended release 24 hr RxNorm: 082866 TAKE ONE TABLET BY MOUTH EVERY NIGHT AT BEDTIME 05/30/2015 08/27/2015 Inactive Klonopin 1 mg tablet RxNorm: 773411 TAKE ONE TABLET BY MOUTH EVERY NIGHT AT BEDTIME 05/30/2015 07/28/2015 Inactive alprazolam 1 mg tablet RxNorm: 772939 TAKE ONE-HALF TO ONE TABLET BY MOUTH DAILY NEEDED FOR ANXIETY 05/22/2015 04/30/2016 Inactive paroxetine ER 12.5 mg tablet,extended release 24 hr RxNorm: 706458 1 Tablet(s) PO QHS 04/26/2015 05/25/2015 Inactive Klonopin 1 mg tablet RxNorm: 966852 1 Tablet(s) PO QHS 02/03/2015 Inactive Brisdelle 7.5 mg capsule RxNorm: 8951870 Capsule(s) TAKE ONE CAPSULE BY MOUTH EVERY NIGHT AT BEDTIME 01/30/2015 04/25/2015 Inactive Calcium with Vitamin D 600 mg (1,500 mg)-400 unit tablet RxN orm: 732136 1 Tablet(s) PO QD 11/15/2014 No Stop Date Active Brisdelle 7.5 mg capsule RxNorm: 5367373 TAKE ONE CAPSUL E BY MOUTH EVERY NIGHT AT BEDTIME 08/22/2014 01/30/2015 Inactive Brisdelle 7.5 mg capsule RxNorm: 1755898 1 Capsule(s) PO QHS 201408/21/2014 Inactive Brisdelle 7.5 mg capsule RxNorm: 8153175 1 Capsule(s) PO QHS 201405/23/2014 Inactive Klonopin 1 mg tablet RxNorm: 135827 1 Tablet(s) PO QHS 05/02/201408/2014 Inactive Multivitamin & Mineral Formula oral RxNorm: oral No Start Date Active biotin 1 mg tablet RxNorm: 654798 1 Tablet(s) PO QD No Start Date Active Vitamin D3 1,000 unit tablet RxNorm: 380719 1 Tablet(s) PO QD No Star t Date Active Osteo Bi-Flex 250 mg-200 mg tablet RxNorm: 346866 1-2 Tablet(s) PO QD No Start Date Active Klonopin 1 mg tablet RxNorm: 307480 1 Tablet(s) PO QHS No Start Date 05/01/2014 Inactive alprazolam 1 mg tablet RxNorm: 290228 1/2-1 Tablet(s) P O QD as needed for anxiety and stress No Start Date 05/22/2015 Inactive Prilosec OTC 20 mg tablet,delayed release RxNorm: 306598 1 Tabl et(s) PO QD No Start Date 05/21/2017 Inactive Calcium + D oral RxNorm: 2418 oral No Start Date 04/25/2015 Inact alessandra Lamisil 250 mg tablet RxNorm: 877116 1 Tablet(s) PO QD No Start Date 11/14/2014 Inactive Celexa 10 mg tablet RxNorm: 133393 1 Tablet(s) PO QD No Start Date Inactive ondansetron HCl 4 mg tablet RxNorm: 609760 1 Tablet(s) PO Q4H as needed for [...] Procedures Procedure Codes Date CERUM REMOVAL CPT-4: 75363 01/13/2019 FLU VACC PRSV FREE INC ANTIG 65 AND OLDER CPT-4: 45408 12/02/2018 IMMUNIZATION ADMIN CPT-4: 78314 12/02/2018 FLU VACC PRSV FREE INC ANTIG 65 AND OLDER CPT-4: 95872 12/02/2018 SPECIMEN HANDLING OFFICE-LAB CPT-4: 22890 06/04/2018 OCCULT BLOOD FECES CPT-4: 07490 06/04/2018 FLU VACC PRSV FREE INC ANTIG 65 AND OLDER CPT-4: 99258 12/03/2017 IMMUNIZATION ADMIN CPT-4: 26309 12/03/2017 CERUM REMOVAL CPT-4: 64513 06/09/2017 FLU VACC PRSV FREE INC ANTIG 65 AND OLDER CPT-4: 30298 12/09/2016 IMMUNIZATION ADMIN CPT-4: 29287 12/09/2016 FLU VACCINE 3 YRS & > IM UP 64 CPT-4: 36047 6 IMMUNIZATION ADMIN CPT-4: 61801 11/09/2015 PNEUMOCOCCAL VACC 23 NAHEED IM CPT-4: 88639 04/26/2015 IMMUNIZATION ADMIN CPT-4: 67955 04/26/2015 EXC TR-EXT B9+KAREN 0.5 CM< CPT-4: 27740 11/15/2014 PNEUMOCOCCAL VACC 13 NAHEED IM CPT-4: 20067 04/25/2014 IMMUNIZATION ADMIN CPT-4: 79793 04/25/2014 SPECIMEN HANDLING OFFICE-LAB CPT-4: 23781 04/25/2014 OCCULT BLOOD FECES CPT-4: 23329 04/25/2014 Vital Signs Date Vital 01/13/2019 Blood Pressure 1: 112/78 Code: 8480-6 Heart Rate 1: 88 bpm Respiratory Rate: 20 bpm SpO2: 98% Temperature: 37.2 (C) / 98.9 (F) We ight: 151 lbs 06/04/2018 Blood Pressure 1: 124/80 Code: 8480-6 BMI: 25.8 Code: 10211-6 Heart Rate 1: 101 bpm Height: 5'5" Respiratory Rate: 18 bpm SpO2: 98% Tempera ture: 37.0 (C) / 98.6 (F) Weight: 155 lbs 11/05/2017 Blood Pressure 1: 124/68 Code: 8480-6 BMI: 24.6 Code: 17716-0 Heart Rate 1: 60 bpm Height: 5'5" Respiratory Rate: 20 bpm SpO2: 97% Tempera ture: 36.9 (C) / 98.4 (F) Weight: 148 lbs 05/22/2017 Blood Pressure 1: 116/70 Code: 8480-6 BMI: 24.3 Code: 99185-6 Heart Rate 1: 84 bpm Height: 5'5" Respiratory Rate: 20 bpm SpO2: 96% Tempera ture: 36.7 (C) / 98.1 (F) Weight: 146 lbs 2017 Blood Pressure 1: 130/76 Code: 8480-6 BMI: 24.6 Code: 35524-5 Heart Rate 1: 84 bpm Height: 5'5" Respiratory Rate: 22 bpm SpO2: 96% Tempera ture: 36.4 (C) / 97.6 (F) Weight: 148 lbs 10/16/2016 Blood Pressure 1: 122/78 Code: 8480-6 BMI: 23.8 Code: 52355-9 Heart Rate 1: 86 bpm Height: 5'5" Respiratory Rate: 20 bpm SpO2: 98% Tempera ture: 36.8 (C) / 98.2 (F) Weight: 143 lbs 07/16/2016 Blood Pressure 1: 112/78 Code: 8480-6 Heart Rate 1: 76 bpm Respiratory Rate: 24 bpm SpO2: 98% Temperature: 36.6 (C) / 97.8 (F) We ight: 143 lbs 05/01/2016 Blood Pressure 1: 126/68 Code: 8480-6 BMI: 23.8 Code: 64500-5 Heart Rate 1: 92 bpm Height: 5'5" Respiratory Rate: 20 bpm SpO2: 97% Tempera ture: 36.8 (C) / 98.2 (F) Weight: 143 lbs 04/26/2015 Blood Pressure 1: 118/78 Code: 8480-6 BMI: 23.3 Code: 96157-6 Heart Rate 1: 88 bpm Height: 5'5" Respiratory Rate: 20 bpm Temperature: 37 .1 (C) / 98.8 (F) Weight: 140 lbs 11/15/2014 Blood Pressure 1: 134/70 Code: 8480-6 BMI: 23.3 Code: 97166-8 Heart Rate 1: 100 bpm Height: 5'5" Respiratory Rate: 20 bpm Temperature: 36 .8 (C) / 98.2 (F) Weight: 140 lbs 04/25/2014 Blood Pressure 1: 128/74 Code: 8480-6 BMI: 24.1 Code: 97573-3 Heart Rate 1: 78 bpm Height: 5'5" [...] care Encounters Encounter Performer Location Codes Date ([id number]) OFFICE/OUTPATIENT VISIT EST Diagnosis: Hyperglycemia[ICD10: R73.9] Diagnosis: Impacted cerumen, right ear[ICD10: H61.21] Diagnosis: Generalized anxiety disorder[ICD10: F41.1] Billy CERVANTES STammi MARYMAXWELL [facility] CPT-4: 22404 01/13/2019 ([id number]) NURSE/OUTPATIENT VISIT EST Diagnosis: FLU VACCINE[ICD10: Z23] Billy CERVANTES STammi MARYND ER [facility] CPT-4: 41938 12/02/2018 ([id number]) PER PM REEVAL EST PAT 65+ YR Diagnosis: Encounter for general adult medical examination without abnormal findings[ICD10: Z00.00] Diagnosis: Generalized anxiety disorder[ICD10: F41.1] Diagnosis: Primary insomnia[ICD10: F51.01] Diagnosis: Encounter for gynecological examination (general) (routine) without abnormal findings[ICD10: Z01.419] Billy SANDOVALE R [facility] CPT-4: 35939 06/04/2018 ([id number]) NURSE/OUTPATIENT VISIT EST Diagnosis: FLU VACCINE[ICD10: Z23] Billy CERVANTES STammi MARYND ER [facility] CPT-4: 59986 12/03/2017 ([id number]) OFFICE/OUTPATIENT VISIT EST Diagnosis: Generalized anxiety disorder[ICD10: F41.1] Diagnosis: Primary insomnia[ICD10: F51.01] Billy CERVANTES STammi MARYNDER [facility] CPT-4: 58458 11/05/2017 ([id number]) PER PM REEVAL EST PAT 65+ YR Diagnosis: Encounter for general adult medical examination without abnormal findings[ICD10: Z00.00] Diagnosis: Generalized anxiety disorder[ICD10: F41.1] Diagnosis: Gastro-esophageal reflux disease without esophagitis[ICD10: K21.9] Billy [facility]Z DO [facility] CPT-4: 68261 05/22/2017 ([id number]) OFFICE/OUTPATIENT VISIT EST Diagnosis: Generalized anxiety disorder[ICD10: F41.1] Diagnosis: Gastro-esophageal reflux disease without esophagitis[ICD10: K21.9] Billy [facility] DO [facility] CPT-4: 31511 2017 ([id number]) OFFICE/OUTPATIENT VISIT EST Diagnosis: FLU VACCINE[ICD10: Z23] Billy SANDOVAL ER DO [facility] CPT-4: 99076 12/09/2016 ([id number]) OFFICE/OUTPATIENT VISIT EST Diagnosis: Generalized anxiety disorder[ICD10: F41.1] Billy SCHW[facility]Z DO [facility] CPT-4: 09396 10/16/2016 ([id number]) OFFICE/OUTPATIENT VISIT EST Diagnosis: Generalized anxiety disorder[ICD10: F41.1] Billy [facility]Z DO [facility] CPT-4: 38912 07/16/2016 ([id number]) PER PM REEVAL EST PAT 65+ YR Diagnosis: Encounter for general adult medical examination without abnormal findings[ICD10: Z00.00] Diagnosis: Menopausal and female climacteric states[ICD10: N95.1] Diagnosis: Anxiety disorder, unspecified[ICD10: F41.9] Billy [facility]Z DO [facility] CPT-4: 59097 05/01/2016 ([id number]) OFFICE/OUTPATIENT VISIT EST Diagnosis: FLU VACCINE[ICD10: Z23] Billy HERNANDEZND ER DO [facility] CPT-4: 25306 11/09/2015 ([id number]) PREV VISIT EST AGE 40-64 Diagnosis: Encounter for general adult medical examination without abnormal findings[ICD10: Z00.00] Diagnosis: Gastro-esophageal reflux disease without esophagitis[ICD10: K21.9] Diagnosis: Anxiety disorder, unspecified[ICD10: F41.9] Diagnosis: Menopausal and female climacteric states[ICD10: N95.1] Diagnosis: PNEUMOCOCCAL VACCINE[ICD10: Z23] Billy SCHWARZ DO [facility] CPT-4: 53224 04/26/2015 ([id number]) PREV VISIT NEW AGE 40-64 Diagnosis: PNEUMOCOCCAL VACCINE[ICD10: Z23] Diagnosis: ROUTINE MEDICAL EXAM[ICD9: V70.0] Diagnosis: ROUTINE GYNE EXAM[ICD9: V72.31] Diagnosis: ANXIETY STATE NOS[ICD9: 300.00] Diagnosis: Menopausal flushing[ICD9: 627.2] Billy HicksTammi MILI [facility] CPT-4: 17503 04/25/2014 Plan of Care Planned Activity Notes Codes Status Date Appointment: Rohini Amaya [address] [place], [place] [phone] [place] pt. stated that she is feeling [...] : F41.1 01/13/2019 Appointment: Billy Schwarz WPtel: [address] [place], [place] [phone] FOLLOW UP 01/13/2019 Care Plan: METABOLIC PANEL TOTAL CA LOIN C : 54303-0 Pending 01/05/2019 Care Plan: A1C HPLC LOINC : 20782-0 Pending 01/05/2019 Appointment: Billy Schwarz WPtel: [address] [place], [place] [phone] [place] INJECTION 12/02/2018 Visit Diagnosis Plan: Encounter [...] V70.0 ICD-10 : Z00.00 06/04/2018 Appointment: Billy Schwarztel: [address] [place], [place] [phone] [place] Annual Well Visit 06/04/2018 Appointment: Billy Schwarztel: [address] [place], [place] [phone] [place] CANCELED 05/06/2018 Appointment: Billy Schwarztel: [address] [place], [place] [phone] [place] INJECTION 12/03/2017 Patient Education: Patient Medication [...] 308.0 ICD-10 : F41.1 11/05/2017 Appointment: Billy Schwarztel: [address] [place], [place] [phone] [place] FOLLOW UP 11/05/2017 Patient Education: Patient Medication Summary Completed 11/05/2017 Appointment: Billy Schwarztel: [address] [place] [address] [place] CANCELED 09/10/2017 Visit Diagnosis Plan: Impacted cerumen, right ear Disc ussion: cerumen was removed with currette to right ear canal. patient tolerated procedure well. once out, TM was wnl. instructed to call or rtc with new or worsening symptoms. ICD-9 : 380.4 ICD-10 : H61.21 06/09/2017 Appointment: Rohini Amaya [address] [place] [address] ACUTE ILLNESS 06/09/2017 Patient Education: Patient Medication Summary Completed 06/09/2017 Visit Diagnosis Plan: Generalized anxiety disorder Dis cussion: Stable on paxil and klonopin Follow Up: 4 months ICD-9 : 308.0 ICD-10 : F41.1 05/22/2017 Visit Diagnosis Plan: Encounter for [facility] medical examination without abnormal findings Discussion: Mammogram ordered Patient go ing to get Shingix at [facility] Lab discussed Add Vitamin D3 1000u daily Once again discussed weight bearing exercise ICD-9 : V70.0 ICD-10 : Z00.00 05/22/2017 Visit Diagnosis Plan: Gastro-esophageal reflux disease without esophagitis Discussion: Trial of Zantac instead of prilosec ICD-9 : 530.81 ICD-10 : K21.9 05/22/2017 Appointment: Billy Schwarz WPtel: [address] [place], [place] [phone] FOLLOW UP 05/22/2017 Patient Education: Patient Medication [...] : K21.9 2017 Appointment: Billy Schwarz WPtel: [address] [place], [place] [phone] [place] FOLLOW UP 2017 Patient Education: Patient Medication Summary Completed 2017 Appointment: Billy Schwarz WPtel: [address] [place], [place] [phone] [place] INJECTION 12/09/2016 Patient Education: Patient Medication Summary Completed 12/09/2016 Visit Diagnosis Plan: Generalized anxiety disorder Dis cussion: Stable with paxil and klonopin Follow Up: 3 months ICD-9 : 308.0 ICD-10 : F41.1 10/16/2016 Appointment: Billy Schwarz WPtel: [address] [place] [phone] NA/VM ~sp, 10/15/16 1550--appt confirmed (km) FOLLOW UP 10/16/2016 Patient Education: Patient Medication Summary Completed 10/16/2016 Visit Diagnosis Plan: Generalized anxiety disorder Dis cussion: Continue higher dose of paxil with xanax prn Stress reducers Follow Up: 3 months ICD-9 : 308.0 ICD-10 : F41.1 07/16/2016 Appointment: Billy Schwarz WPtel: [address] [place], [place] [phone] 07/15 confirmed `sl FOLLOW UP 07/16/2016 Patient Education: Patient Medication Summary Completed 07/16/2016 Visit Diagnosis Plan: Encounter for [facility] medical examination without abnormal findings Discussion: [...] : N95.1 05/01/2016 Appointment: Billy Schwarz WPtel: [address] [place], [place] [phone] 04/30 confirmed`sl PHYSICAL 05/01/2016 Patient Education: Patient Medication Summary Completed 05/01/2016 Care Plan: MAMMOGRAM SCREENING LOINC : 2 6347-5 Pending 05/01/2016 Appointment: Billy Schwarztel: [address] [place] [address] [place] INJECTION 11/09/2015 Patient Education: Patient Medication Summary Completed 11/09/2015 Appointment: Billy Schwarz WPtel: [address] [place] [address] [place] CANCELED 11/08/2015 Visit Plan: Mammo due in May Update Fa sting Lab Change Brisdelle to Paxil CR 12.5mg q HS Call in 1month Will wait on Pap until next year Pneumovax given 04/26/2015 Appointment: Billy Schwarz WPtel: [address] [place] [address] 04/25 NA/NVM-SP 04/26 confirmed ~sl Annual Well Vi sit 04/26/2015 Patient Education: Patient Medication Summary Completed 04/26/2015 Visit Plan: Shave removal of skin lesion as above 11/15/2014 Appointment: Billy Schwarztel: [address] [place] [address] 11/14/14 rang and rang,,11/15 appt confirmed cn O FFICE SURGERY 11/15/2014 Patient Education: Patient Medication Summary Completed 11/15/2014 Patient Education: Patient Medication Summary Completed 06/13/2014 Visit Plan: Pap done Mammo next month Ob tain Bone Density results Check Fasting lab Stop Celexa Start Brisdelle 7.5mg q HS Call in 6weeks on how doing with Brisdelle Update Carotid Dopplers 04/25/2014 Appointment: Billy Schwarz WPtel: [address] [place] [address] [place] NEW PATIENT 04/25/2014 Patient Education: Patient Medication Summary Completed 04/25/2014 Instructions Comment . Mammo due in May Fasting Lab Change Brisdelle to Paxil CR [...]
--- OUTSIDE RECORDS SUMMARY | 2019-08-27 07:22 | XMS REPORT | CCD ---
Author Author Yenifer Schwarz D.O. 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 Name Role Phone Billy Schwarz D.O., PP Unavailable CCM Unavailable Summary Purpose Interface Exchange Insurance Providers Payer name Policy type / Coverage type Covered libertarian ID Effective Begin Date Effective End Date Blue Cross Blue Shield Blue Cross/Blue Shield [id number] Unknown Family history Mother Diagnosis Age At Onset Hypothryroidism Unknown Dementia Unknown Hip fracture Unknown Father Diagnosis Age At Onset Chronic obstructive pulmonary disease Unknown Tobacco abuse Unknown Social History Social History Element Codes Description Effective Dates Tobacco history SNOMED CT: 650676276 Has never smoked or chewed tobacco 11/15/2014 [...] Relief 50 mcg/actuation nasal spray,suspensi on RxNorm: 7876608 2 [place] Nasal QD 07/21/2019 No Stop Date Active Paxil CR 37.5 mg tablet,extended release RxNorm: 7735980 TAKE ONE TABLET BY MOUTH DAILY 05/24/2019 No Stop Date Active alprazolam 1 mg tablet RxNorm: 746715 TAKE 1/2 TO 1 TAB LET BY MOUTH ONCE DAILY NEEDED FOR ANXIETY 04/12/2019 No Stop Date Active Paxil CR 37.5 mg tablet,extended release RxNorm: 6296507 TAKE ONE TABLET BY MOUTH DAILY 04/12/2019 05/23/2019 Inactive Paxil CR 37.5 mg tablet,extended release RxNorm: 6038957 TAKE ONE TABLET BY MOUTH DAILY 02/01/2019 04/11/2019 Inactive Prilosec OTC 20 mg tablet,delayed release RxNorm: 728452 1 Tabl et(s) Oral QD 01/13/2019 No Stop Date Active Paxil CR 37.5 mg tablet,extended release RxNorm: 3389755 1 Table t(s) PO QD 10/12/2018 01/09/2019 Inactive Paxil CR 37.5 mg tablet,extended release RxNorm: 1778360 TAKE ONE TABLET BY MOUTH DAILY 07/15/2018 10/12/2018 Inactive alprazolam 1 mg tablet RxNorm: 926297 1/2-1 Tablet(s) P O QD as needed for anxiety 05/01/2018 04/11/2019 Inactive Paxil CR 37.5 mg tablet,extended release RxNorm: 8272713 TAKE ONE TABLET BY MOUTH DAILY 03/23/2018 06/20/2018 Inactive Paxil CR 37.5 mg tablet,extended release RxNorm: 7514101 TAKE ONE TABLET BY MOUTH DAILY 01/15/2018 03/15/2018 Inactive Paxil CR 37.5 mg tablet,extended release RxNorm: 7396543 1 Table t(s) PO QD 09/29/2017 12/27/2017 Inactive Klonopin 1 mg tablet RxNorm: 317020 TAKE ONE TABLET BY MOUTH EVERY NIGHT AT BEDTIME 09/29/2017 06/03/2018 Inactive Klonopin 1 mg tablet RxNorm: 162614 TAKE ONE TABLET BY MOUTH EVERY NIGHT AT BEDTIME 07/04/2017 09/30/2017 Inactive Paxil CR 37.5 mg tablet,extended release RxNorm: 0890452 1 Table t(s) PO QD 06/17/2017 09/29/2017 Inactive Paxil CR 37.5 mg tablet,extended release RxNorm: 2503157 1 Table t(s) PO QD 02/27/2017 06/17/2017 Inactive Klonopin 1 mg tablet RxNorm: 307008 TAKE ONE TABLET BY MOUTH EVERY NIGHT AT BEDTIME 02/17/2017 07/04/2017 Inactive Penlac 8 % topical solution RxNorm: 292279 Application TOP QD 01/2005/21/2017 Inactive Paxil CR 37.5 mg tablet,extended release RxNorm: 9099071 1 Tablet(s) PO QD TAKE ONE TABLET BY MOUTH DAILY 12/20/2016 02/27/2017 Inactive Klonopin 1 mg tablet RxNorm: 685704 1 Tablet(s) PO QHS 10/16/2016 Inactive Paxil CR 37.5 mg tablet,extended release RxNorm: 5491173 1 Tablet(s) PO QD TAKE ONE TABLET BY MOUTH DAILY 09/30/2016 12/20/2016 Inactive Klonopin 1 mg tablet RxNorm: 612332 TAKE ONE TABLET BY MOUTH EVERY NIGHT AT BEDTIME 07/15/2016 08/13/2016 Inactive Paxil CR 37.5 mg tablet,extended release RxNorm: 2026218 1 Tablet(s) PO QD TAKE ONE TABLET BY MOUTH DAILY 07/15/2016 09/30/2016 Inactive Klonopin 1 mg tablet RxNorm: 539032 TAKE ONE TABLET BY MOUTH EVERY NIGHT AT BEDTIME 06/11/2016 07/15/2016 Inactive Klonopin 1 mg tablet RxNorm: 997034 TAKE ONE TABLET BY MOUTH AT BEDTIME 05/13/2016 06/11/2016 Inactive Yuvafem 10 mcg vaginal tablet RxNorm: 2931380 1 Tablet(s) VAG QH S twice weekly 05/01/2016 05/21/2017 Inactive Paxil CR 37.5 mg tablet,extended release RxNorm: 2390897 1 Tablet(s) PO QD TAKE ONE TABLET BY MOUTH DAILY 05/01/2016 07/15/2016 Inactive Klonopin 1 mg tablet RxNorm: 637743 TAKE ONE TABLET BY MOUTH EVERY NIGHT AT BEDTIME NEED TO SCHEDULE APPOINTMENT 04/08/2016 05/13/2016 Inactiv e Klonopin 1 mg tablet RxNorm: 582821 TAKE ONE TABLET BY MOUTH AT BEDTIME 03/06/2016 04/08/2016 Inactive ondansetron HCl 4 mg tablet RxNorm: 482045 1 Tablet(s) PO Q4H as needed for nausea 11/10/2015 04/30/2016 Inactive Klonopin 1 mg tablet RxNorm: 076204 TAKE ONE TABLET BY MOUTH EVERY NIGHT AT BEDTIME 11/10/2015 03/06/2016 Inactive Paxil CR 25 mg tablet,extended release RxNorm: 7743038 T KURTIS ONE TABLET BY MOUTH DAILY 11/10/2015 04/30/2016 Inactive Paxil CR 25 mg tablet,extended release RxNorm: 6231667 T KURTIS ONE TABLET BY MOUTH DAILY 10/26/2015 11/09/2015 Inactive Paxil CR 25 mg tablet,extended release RxNorm: 3317160 T KURTIS ONE TABLET BY MOUTH DAILY 09/26/2015 10/25/2015 Inactive Klonopin 1 mg tablet RxNorm: 995054 TAKE ONE TABLET BY MOUTH EVERY NIGHT AT BEDTIME 08/29/2015 11/13/2015 Inactive Paxil CR 25 mg tablet,extended release RxNorm: 6812573 1 Tablet( s) PO QD 08/28/2015 08/27/2015 Inactive Paxil CR 25 mg tablet,extended release RxNorm: 6787373 1 Tablet( s) PO QD 08/28/2015 09/25/2015 Inactive paroxetine ER 12.5 mg tablet,extended release 24 hr RxNorm: 573103 TAKE ONE TABLET BY MOUTH EVERY NIGHT AT BEDTIME 05/30/2015 08/27/2015 Inactive Klonopin 1 mg tablet RxNorm: 060267 TAKE ONE TABLET BY MOUTH EVERY NIGHT AT BEDTIME 05/30/2015 07/28/2015 Inactive alprazolam 1 mg tablet RxNorm: 287993 TAKE ONE-HALF TO ONE TABLET BY MOUTH DAILY NEEDED FOR ANXIETY 05/22/2015 04/30/2016 Inactive paroxetine ER 12.5 mg tablet,extended release 24 hr RxNorm: 893968 1 Tablet(s) PO QHS 04/26/2015 05/25/2015 Inactive Klonopin 1 mg tablet RxNorm: 139239 1 Tablet(s) PO QHS 02/03/2015 Inactive Brisdelle 7.5 mg capsule RxNorm: 8697233 Capsule(s) TAKE ONE CAPSULE BY MOUTH EVERY NIGHT AT BEDTIME 01/30/2015 04/25/2015 Inactive Calcium with Vitamin D 600 mg (1,500 mg)-400 unit tablet RxN orm: 452270 1 Tablet(s) PO QD 11/15/2014 No Stop Date Active Brisdelle 7.5 mg capsule RxNorm: 2951623 TAKE ONE CAPSUL E BY MOUTH EVERY NIGHT AT BEDTIME 08/22/2014 01/30/2015 Inactive Brisdelle 7.5 mg capsule RxNorm: 9947703 1 Capsule(s) PO QHS 201408/21/2014 Inactive Brisdelle 7.5 mg capsule RxNorm: 3388436 1 Capsule(s) PO QHS 201405/23/2014 Inactive Klonopin 1 mg tablet RxNorm: 712001 1 Tablet(s) PO QHS 05/02/201408/2014 Inactive Multivitamin & Mineral Formula oral RxNorm: oral No Start Date Active biotin 1 mg tablet RxNorm: 723583 1 Tablet(s) PO QD No Start Date Active Vitamin D3 1,000 unit tablet RxNorm: 073445 1 Tablet(s) PO QD No Star t Date Active Osteo Bi-Flex 250 mg-200 mg tablet RxNorm: 191098 1-2 Tablet(s) PO QD No Start Date Active Klonopin 1 mg tablet RxNorm: 708698 1 Tablet(s) PO QHS No Start Date 05/01/2014 Inactive alprazolam 1 mg tablet RxNorm: 403343 1/2-1 Tablet(s) P O QD as needed for anxiety and stress No Start Date 05/22/2015 Inactive Prilosec OTC 20 mg tablet,delayed release RxNorm: 947461 1 Tabl et(s) PO QD No Start Date 05/21/2017 Inactive Calcium + D oral RxNorm: 2418 oral No Start Date 04/25/2015 Inact alessandra Lamisil 250 mg tablet RxNorm: 488140 1 Tablet(s) PO QD No Start Date 11/14/2014 Inactive Celexa 10 mg tablet RxNorm: 686883 1 Tablet(s) PO QD No Start Date Inactive ondansetron HCl 4 mg tablet RxNorm: 005946 1 Tablet(s) PO Q4H as needed for [...] visit CPT-4: G0439 07/21/2019 CERUM REMOVAL CPT-4: 11445 01/13/2019 FLU VACC PRSV FREE INC ANTIG 65 AND OLDER CPT-4: 73047 12/02/2018 IMMUNIZATION ADMIN CPT-4: 88836 12/02/2018 FLU VACC PRSV FREE INC ANTIG 65 AND OLDER CPT-4: 95875 12/02/2018 SPECIMEN HANDLING OFFICE-LAB CPT-4: 75016 06/04/2018 OCCULT BLOOD FECES CPT-4: 73618 06/04/2018 FLU VACC PRSV FREE INC ANTIG 65 AND OLDER CPT-4: 27489 12/03/2017 IMMUNIZATION ADMIN CPT-4: 86260 12/03/2017 CERUM REMOVAL CPT-4: 49500 06/09/2017 FLU VACC PRSV FREE INC ANTIG 65 AND OLDER CPT-4: 59427 12/09/2016 IMMUNIZATION ADMIN CPT-4: 89491 12/09/2016 FLU VACCINE 3 YRS & > IM UP 64 CPT-4: 72017 6 IMMUNIZATION ADMIN CPT-4: 83760 11/09/2015 PNEUMOCOCCAL VACC 23 NAHEED IM CPT-4: 42716 04/26/2015 IMMUNIZATION ADMIN CPT-4: 86683 04/26/2015 EXC TR-EXT B9+KAREN 0.5 CM< CPT-4: 28475 11/15/2014 PNEUMOCOCCAL VACC 13 NAHEED IM CPT-4: 41305 04/25/2014 IMMUNIZATION ADMIN CPT-4: 58482 04/25/2014 SPECIMEN HANDLING OFFICE-LAB CPT-4: 08579 04/25/2014 OCCULT BLOOD FECES CPT-4: 91287 04/25/2014 Vital Signs Date Vital 07/21/2019 Blood Pressure 1: 126/78 Code: 8480-6 BMI: 24.1 Code: 05459-0 Heart Rate 1: 92 bpm Height: 5'5" Respiratory Rate: 20 bpm SpO2: 97% Tempera ture: 36.3 (C) / 97.3 (F) Weight: 145 lbs 01/13/2019 Blood Pressure 1: 112/78 Code: 8480-6 Heart Rate 1: 88 bpm Respiratory Rate: 20 bpm SpO2: 98% Temperature: 37.2 (C) / 98.9 (F) We ight: 151 lbs 06/04/2018 Blood Pressure 1: 124/80 Code: 8480-6 BMI: 25.8 Code: 15082-4 Heart Rate 1: 101 bpm Height: 5'5" Respiratory Rate: 18 bpm SpO2: 98% Tempera ture: 37.0 (C) / 98.6 (F) Weight: 155 lbs 11/05/2017 Blood Pressure 1: 124/68 Code: 8480-6 BMI: 24.6 Code: 92589-9 Heart Rate 1: 60 bpm Height: 5'5" Respiratory Rate: 20 bpm SpO2: 97% Tempera ture: 36.9 (C) / 98.4 (F) Weight: 148 lbs 05/22/2017 Blood Pressure 1: 116/70 Code: 8480-6 BMI: 24.3 Code: 28702-7 Heart Rate 1: 84 bpm Height: 5'5" Respiratory Rate: 20 bpm SpO2: 96% Tempera ture: 36.7 (C) / 98.1 (F) Weight: 146 lbs 2017 Blood Pressure 1: 130/76 Code: 8480-6 BMI: 24.6 Code: 66721-7 Heart Rate 1: 84 bpm Height: 5'5" Respiratory Rate: 22 bpm SpO2: 96% Tempera ture: 36.4 (C) / 97.6 (F) Weight: 148 lbs 10/16/2016 Blood Pressure 1: 122/78 Code: 8480-6 BMI: 23.8 Code: 37392-8 Heart Rate 1: 86 bpm Height: 5'5" Respiratory Rate: 20 bpm SpO2: 98% Tempera ture: 36.8 (C) / 98.2 (F) Weight: 143 lbs 07/16/2016 Blood Pressure 1: 112/78 Code: 8480-6 Heart Rate 1: 76 bpm Respiratory Rate: 24 bpm SpO2: 98% Temperature: 36.6 (C) / 97.8 (F) We ight: 143 lbs 05/01/2016 Blood Pressure 1: 126/68 Code: 8480-6 BMI: 23.8 Code: 11925-8 Heart Rate 1: 92 bpm Height: 5'5" Respiratory Rate: 20 bpm SpO2: 97% Tempera ture: 36.8 (C) / 98.2 (F) Weight: 143 lbs 04/26/2015 Blood Pressure 1: 118/78 Code: 8480-6 BMI: 23.3 Code: 68552-9 Heart Rate 1: 88 bpm Height: 5'5" Respiratory Rate: 20 bpm Temperature: 37 .1 (C) / 98.8 (F) Weight: 140 lbs 11/15/2014 Blood Pressure 1: 134/70 Code: 8480-6 BMI: 23.3 Code: 01338-7 Heart Rate 1: 100 bpm Height: 5'5" Respiratory Rate: 20 bpm Temperature: 36 .8 (C) / 98.2 (F) Weight: 140 lbs 04/25/2014 Blood Pressure 1: 128/74 Code: 8480-6 BMI: 24.1 Code: 79391-5 Heart Rate 1: 78 bpm Height: 5'5" [...] care Encounters Encounter Performer Location Codes Date ([id number]) OFFICE/OUTPATIENT VISIT EST Diagnosis: Hyperglycemia[ICD10: R73.9] Diagnosis: Impacted cerumen, right ear[ICD10: H61.21] Diagnosis: Generalized anxiety disorder[ICD10: F41.1] Billy SANDOVALER [facility] CPT-4: 69089 01/13/2019 ([id number]) NURSE/OUTPATIENT VISIT EST Diagnosis: FLU VACCINE[ICD10: Z23] Billy SANDOVAL ER [facility] CPT-4: 87471 12/02/2018 ([id number]) PER PM REEVAL EST PAT 65+ YR Diagnosis: Encounter for general adult medical examination without abnormal findings[ICD10: Z00.00] Diagnosis: Generalized anxiety disorder[ICD10: F41.1] Diagnosis: Primary insomnia[ICD10: F51.01] Diagnosis: Encounter for gynecological examination (general) (routine) without abnormal findings[ICD10: Z01.419] Billy Monique DO [facility] CPT-4: 75777 06/04/2018 ([id number]) NURSE/OUTPATIENT VISIT EST Diagnosis: FLU VACCINE[ICD10: Z23] Billy BECKFORD DO [facility] CPT-4: 86748 12/03/2017 ([id number]) OFFICE/OUTPATIENT VISIT EST Diagnosis: Generalized anxiety disorder[ICD10: F41.1] Diagnosis: Primary insomnia[ICD10: F51.01] Billy SCHWARZ DO [facility] CPT-4: 76409 11/05/2017 ([id number]) PER PM REEVAL EST PAT 65+ YR Diagnosis: Encounter for general adult medical examination without abnormal findings[ICD10: Z00.00] Diagnosis: Generalized anxiety disorder[ICD10: F41.1] Diagnosis: Gastro-esophageal reflux disease without esophagitis[ICD10: K21.9] Billy SCHWARZ DO [facility] CPT-4: 97650 05/22/2017 ([id number]) OFFICE/OUTPATIENT VISIT EST Diagnosis: Generalized anxiety disorder[ICD10: F41.1] Diagnosis: Gastro-esophageal reflux disease without esophagitis[ICD10: K21.9] Billy SCHWARZ DO [facility] CPT-4: 71800 2017 ([id number]) OFFICE/OUTPATIENT VISIT EST Diagnosis: FLU VACCINE[ICD10: Z23] Billy BECKFORD DO [facility] CPT-4: 58760 12/09/2016 ([id number]) OFFICE/OUTPATIENT VISIT EST Diagnosis: Generalized anxiety disorder[ICD10: F41.1] Billy SCHWARZ DO [facility] CPT-4: 01696 10/16/2016 ([id number]) OFFICE/OUTPATIENT VISIT EST Diagnosis: Generalized anxiety disorder[ICD10: F41.1] Billy SCHWARZ DO [facility] CPT-4: 52645 07/16/2016 ([id number]) PER PM REEVAL EST PAT 65+ YR Diagnosis: Encounter for general adult medical examination without abnormal findings[ICD10: Z00.00] Diagnosis: Menopausal and female climacteric states[ICD10: N95.1] Diagnosis: Anxiety disorder, unspecified[ICD10: F41.9] Billy SCHWARZ [facility] CPT-4: 77839 05/01/2016 ([id number]) OFFICE/OUTPATIENT VISIT EST Diagnosis: FLU VACCINE[ICD10: Z23] Bilyl BECKFORD [facility] CPT-4: 34404 11/09/2015 ([id number]) PREV VISIT EST AGE 40-64 Diagnosis: Encounter for general adult medical examination without abnormal findings[ICD10: Z00.00] Diagnosis: Gastro-esophageal reflux disease without esophagitis[ICD10: K21.9] Diagnosis: Anxiety disorder, unspecified[ICD10: F41.9] Diagnosis: Menopausal and female climacteric states[ICD10: N95.1] Diagnosis: PNEUMOCOCCAL VACCINE[ICD10: Z23] Billy SCHWARZ [facility] CPT-4: 18913 04/26/2015 ([id number]) PREV VISIT NEW AGE 40-64 Diagnosis: PNEUMOCOCCAL VACCINE[ICD10: Z23] Diagnosis: ROUTINE MEDICAL EXAM[ICD9: V70.0] Diagnosis: ROUTINE GYNE EXAM[ICD9: V72.31] Diagnosis: ANXIETY STATE NOS[ICD9: 300.00] Diagnosis: Menopausal flushing[ICD9: 627.2] Billy SCHWARZ [facility] CPT-4: 71902 04/25/2014 Plan of Care Planned Activity Notes Codes Status Date Visit Diagnosis Plan: Encounter for gene [facility] adult medical examination without abnormal [...] Plan: COMPREH[place] METABOLIC PANEL [place] : 75161-6 Pending 07/13/2019 Care Plan: ASSAY THYROID STIM HORMONE Pen ding 07/13/2019 Care Plan: LIPID PANEL LOINC : 66039-8 Pending 07/13/2019 Care Plan: ASSAY OF FREE THYROXINE Pendin g 07/13/2019 Care Plan: A1C HPLC LOINC : 11935-0 Pending 07/13/2019 Care Plan: COMPLETE CBC W/AUTO DIFF WBC LOINC : 57108-4 Pending 07/13/2019 Appointment: Rohini Amaya [address] [address] [place] pt. stated that she is feeling [...] : R73.9 01/13/2019 Appointment: Billy Schwarz WPtel: [address] [place], [place] [address] FOLLOW UP 01/13/2019 Care Plan: METABOLIC PANEL TOTAL CA LOIN C : 16895-3 Pending 01/05/2019 Care Plan: A1C HPLC LOINC : 67967-1 Pending 01/05/2019 Appointment: Billy Schwarz WPtel: [address] [place] [address] [place] INJECTION 12/02/2018 Visit Diagnosis Plan: Encounter for gene [facility] adult medical examination without abnormal [...] : Z01.419 06/04/2018 Appointment: Billy Schwarz WPtel: [address] [place] [address] Annual Well Visit 06/04/2018 Appointment: Billy Schwarz WPtel: [address] [place] [address] [place] CANCELED 05/06/2018 Appointment: Billy Schwarz WPtel: [address] [place], [place] [phone] [place] INJECTION 12/03/2017 Patient Education: Patient Medication [...] : F51.01 11/05/2017 Appointment: Billy Schwarz WPtel: [address] [place], [place] [phone] [place] FOLLOW UP 11/05/2017 Patient Education: Patient Medication Summary Completed 11/05/2017 Appointment: Billy Schwarz WPtel: [address] [place], [place] [phone] [place] CANCELED 09/10/2017 Visit Diagnosis Plan: Impacted cerumen, right ear Disc ussion: cerumen was removed with currette to right ear canal. patient tolerated procedure well. once out, TM was wnl. instructed to call or rtc with new or worsening symptoms. ICD-9 : 380.4 ICD-10 : H61.21 06/09/2017 Appointment: Rohini Amaya [address] [place], [place] [id number]UTE ILLNESS 06/09/2017 Patient Education: Patient Medication Summary Completed 06/09/2017 Visit Diagnosis Plan: Generalized anxiety disorder Dis cussion: Stable on paxil and klonopin Follow Up: 4 months ICD-9 : 308.0 ICD-10 : F41.1 05/22/2017 Visit Diagnosis Plan: Encounter for general acute hospital medical examination without abnormal findings Discussion: Mammogram ordered Patient go ing to get [facility] at [email or web address] Lab discussed Add Vitamin D3 1000u daily Once again discussed weight bearing exercise ICD-9 : V70.0 ICD-10 : Z00.00 05/22/2017 Visit Diagnosis Plan: Gastro-esophageal reflux disease without esophagitis Discussion: Trial of Zantac instead of prilosec ICD-9 : 530.81 ICD-10 : K21.9 05/22/2017 Appointment: Billy Schwarz WPtel: [address] [place], [place] [phone] FOLLOW UP 05/22/2017 Patient Education: Patient Medication [...] : K21.9 2017 Appointment: Billy Schwarz WPtel: [address] [place], [place] [phone] FOLLOW UP 2017 Patient Education: Patient Medication Summary Completed 2017 Appointment: Billy Schwarz WPtel: [address] [place], [place] [phone] [place] INJECTION 12/09/2016 Patient Education: Patient Medication Summary Completed 12/09/2016 Visit Diagnosis Plan: Generalized anxiety disorder Dis cussion: Stable with paxil and klonopin Follow Up: 3 months ICD-9 : 308.0 ICD-10 : F41.1 10/16/2016 Appointment: Billy Schwarztel: [address] [place], [place] [phone] [phone] NA/VM ~sp, 10/15/16 1550--appt confirmed (km) FOLLOW UP 10/16/2016 Patient Education: Patient Medication Summary Completed 10/16/2016 Visit Diagnosis Plan: Generalized anxiety disorder Dis cussion: Continue higher dose of paxil with xanax prn Stress reducers Follow Up: 3 months ICD-9 : 308.0 ICD-10 : F41.1 07/16/2016 Appointment: Billy Schwarztel: [address] [place] [address] 07/15 confirmed `sl FOLLOW UP 07/16/2016 Patient Education: Patient Medication Summary Completed 07/16/2016 Visit Diagnosis Plan: Menopausal and female climacteri c states Discussion: Use Vagifem prn ICD-9 : 627.2 ICD-10 : N95.1 05/01/2016 Visit Diagnosis Plan: Encounter for gene [facility] adult medical examination without abnormal findings Discussion: Check fasting lab Tdap up to date Mammogram ordered ICD-9 : V70.0 ICD-10 : Z00.00 05/01/2016 Visit Diagnosis Plan: Anxiety disorder, unspecified Di scussion: Increase paxil CR to 37.5mg q HS Follow Up: 2 months ICD-9 : 300.00 ICD-10 : F41.9 05/01/2016 Appointment: Billy Schwarz WPtel: [address] [place], [place] [phone] [place] 04/30 confirmed`sl PHYSICAL 05/01/2016 Patient Education: Patient Medication Summary Completed 05/01/2016 Care Plan: MAMMOGRAM SCREENING LOINC : 2 6347-5 Pending 05/01/2016 Appointment: Billy Schwarz WPtel: [address] [place], [place] [phone] [place] INJECTION 11/09/2015 Patient Education: Patient Medication Summary Completed 11/09/2015 Appointment: Billy Schwarz WPtel: [address] [place], [place] [phone] [place] CANCELED 11/08/2015 Visit Plan: Mammo due in May Update Fa sting Lab Change Brisdelle to Paxil CR 12.5mg q HS Call in 1month Will wait on Pap until next year Pneumovax given 04/26/2015 Appointment: Billy Schwarz WPtel: [address] [place], [place] [phone] 04/25 NA/NVM-SP 04/26 confirmed ~sl Annual Well Vi sit 04/26/2015 Patient Education: Patient Medication Summary Completed 04/26/2015 Visit Plan: Shave removal of skin lesion as above 11/15/2014 Appointment: Billy Schwarz WPtel: [address] [place] [address] 11/14/14 rang and rang,,11/15 appt confirmed cn O FFICE SURGERY 11/15/2014 Patient Education: Patient Medication Summary Completed 11/15/2014 Patient Education: Patient Medication Summary Completed 06/13/2014 Visit Plan: Pap done Mammo next month Ob tain Bone Density results Check Fasting lab Stop Celexa Start Brisdelle 7.5mg q HS Call in 6weeks on how doing with Brisdelle Update Carotid Dopplers 04/25/2014 Appointment: Billy Schwarz WPtel: [address] [place], [place] [phone] [place] NEW PATIENT 04/25/2014 Patient Education: Patient [...]
--- OUTSIDE RECORDS SUMMARY | 2019-08-27 07:22 | XMS REPORT | CCD ---
Author Author Yenifer Schwarz D.O. 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 Role Phone Billy Schwarz D.O., PP Unavailable CCM Unavailable Summary Purpose Interface Exchange Insurance Providers Payer name Policy type / Coverage type Covered republican ID Effective Begin Date Effective End Date Blue Cross Blue Shield Blue Cross/Blue Shield [id number] Unknown Family history Mother Diagnosis Age At Onset Hypothryroidism Unknown Dementia Unknown Hip fracture Unknown Father Diagnosis Age At Onset Chronic obstructive pulmonary disease Unknown Tobacco abuse Unknown Social History Social History Element Codes Description Effective Dates Tobacco history SNOMED CT: 426335601 Has never smoked or chewed tobacco 11/15/2014 [...] Relief 50 mcg/actuation nasal spray,suspensi on RxNorm: 1080045 2 [place] Nasal QD 07/21/2019 No Stop Date Active Paxil CR 37.5 mg tablet,extended release RxNorm: 0249850 TAKE ONE TABLET BY MOUTH DAILY 05/24/2019 No Stop Date Active alprazolam 1 mg tablet RxNorm: 982551 TAKE 1/2 TO 1 TAB LET BY MOUTH ONCE DAILY NEEDED FOR ANXIETY 04/12/2019 No Stop Date Active Paxil CR 37.5 mg tablet,extended release RxNorm: 2595243 TAKE ONE TABLET BY MOUTH DAILY 04/12/2019 05/23/2019 Inactive Paxil CR 37.5 mg tablet,extended release RxNorm: 1844768 TAKE ONE TABLET BY MOUTH DAILY 02/01/2019 04/11/2019 Inactive Prilosec OTC 20 mg tablet,delayed release RxNorm: 417544 1 Tabl et(s) Oral QD 01/13/2019 No Stop Date Active Paxil CR 37.5 mg tablet,extended release RxNorm: 3029982 1 Table t(s) PO QD 10/12/2018 01/09/2019 Inactive Paxil CR 37.5 mg tablet,extended release RxNorm: 8138352 TAKE ONE TABLET BY MOUTH DAILY 07/15/2018 10/12/2018 Inactive alprazolam 1 mg tablet RxNorm: 502555 1/2-1 Tablet(s) P O QD as needed for anxiety 05/01/2018 04/11/2019 Inactive Paxil CR 37.5 mg tablet,extended release RxNorm: 8892905 TAKE ONE TABLET BY MOUTH DAILY 03/23/2018 06/20/2018 Inactive Paxil CR 37.5 mg tablet,extended release RxNorm: 5967144 TAKE ONE TABLET BY MOUTH DAILY 01/15/2018 03/15/2018 Inactive Paxil CR 37.5 mg tablet,extended release RxNorm: 6210866 1 Table t(s) PO QD 09/29/2017 12/27/2017 Inactive Klonopin 1 mg tablet RxNorm: 988612 TAKE ONE TABLET BY MOUTH EVERY NIGHT AT BEDTIME 09/29/2017 06/03/2018 Inactive Klonopin 1 mg tablet RxNorm: 394434 TAKE ONE TABLET BY MOUTH EVERY NIGHT AT BEDTIME 07/04/2017 09/30/2017 Inactive Paxil CR 37.5 mg tablet,extended release RxNorm: 1080022 1 Table t(s) PO QD 06/17/2017 09/29/2017 Inactive Paxil CR 37.5 mg tablet,extended release RxNorm: 7903918 1 Table t(s) PO QD 02/27/2017 06/17/2017 Inactive Klonopin 1 mg tablet RxNorm: 263832 TAKE ONE TABLET BY MOUTH EVERY NIGHT AT BEDTIME 02/17/2017 07/04/2017 Inactive Penlac 8 % topical solution RxNorm: 984522 Application TOP QD 01/2005/21/2017 Inactive Paxil CR 37.5 mg tablet,extended release RxNorm: 2259139 1 Tablet(s) PO QD TAKE ONE TABLET BY MOUTH DAILY 12/20/2016 02/27/2017 Inactive Klonopin 1 mg tablet RxNorm: 668111 1 Tablet(s) PO QHS 10/16/2016 Inactive Paxil CR 37.5 mg tablet,extended release RxNorm: 6320052 1 Tablet(s) PO QD TAKE ONE TABLET BY MOUTH DAILY 09/30/2016 12/20/2016 Inactive Klonopin 1 mg tablet RxNorm: 166610 TAKE ONE TABLET BY MOUTH EVERY NIGHT AT BEDTIME 07/15/2016 08/13/2016 Inactive Paxil CR 37.5 mg tablet,extended release RxNorm: 6392014 1 Tablet(s) PO QD TAKE ONE TABLET BY MOUTH DAILY 07/15/2016 09/30/2016 Inactive Klonopin 1 mg tablet RxNorm: 865324 TAKE ONE TABLET BY MOUTH EVERY NIGHT AT BEDTIME 06/11/2016 07/15/2016 Inactive Klonopin 1 mg tablet RxNorm: 055588 TAKE ONE TABLET BY MOUTH AT BEDTIME 05/13/2016 06/11/2016 Inactive Yuvafem 10 mcg vaginal tablet RxNorm: 6642432 1 Tablet(s) VAG QH S twice weekly 05/01/2016 05/21/2017 Inactive Paxil CR 37.5 mg tablet,extended release RxNorm: 3056686 1 Tablet(s) PO QD TAKE ONE TABLET BY MOUTH DAILY 05/01/2016 07/15/2016 Inactive Klonopin 1 mg tablet RxNorm: 935413 TAKE ONE TABLET BY MOUTH EVERY NIGHT AT BEDTIME NEED TO SCHEDULE APPOINTMENT 04/08/2016 05/13/2016 Inactiv e Klonopin 1 mg tablet RxNorm: 769060 TAKE ONE TABLET BY MOUTH AT BEDTIME 03/06/2016 04/08/2016 Inactive ondansetron HCl 4 mg tablet RxNorm: 876251 1 Tablet(s) PO Q4H as needed for nausea 11/10/2015 04/30/2016 Inactive Klonopin 1 mg tablet RxNorm: 548239 TAKE ONE TABLET BY MOUTH EVERY NIGHT AT BEDTIME 11/10/2015 03/06/2016 Inactive Paxil CR 25 mg tablet,extended release RxNorm: 4335179 T KURTIS ONE TABLET BY MOUTH DAILY 11/10/2015 04/30/2016 Inactive Paxil CR 25 mg tablet,extended release RxNorm: 0078989 T KURTIS ONE TABLET BY MOUTH DAILY 10/26/2015 11/09/2015 Inactive Paxil CR 25 mg tablet,extended release RxNorm: 1076117 T KURTIS ONE TABLET BY MOUTH DAILY 09/26/2015 10/25/2015 Inactive Klonopin 1 mg tablet RxNorm: 122735 TAKE ONE TABLET BY MOUTH EVERY NIGHT AT BEDTIME 08/29/2015 11/13/2015 Inactive Paxil CR 25 mg tablet,extended release RxNorm: 6458825 1 Tablet( s) PO QD 08/28/2015 08/27/2015 Inactive Paxil CR 25 mg tablet,extended release RxNorm: 5367311 1 Tablet( s) PO QD 08/28/2015 09/25/2015 Inactive paroxetine ER 12.5 mg tablet,extended release 24 hr RxNorm: 803038 TAKE ONE TABLET BY MOUTH EVERY NIGHT AT BEDTIME 05/30/2015 08/27/2015 Inactive Klonopin 1 mg tablet RxNorm: 897986 TAKE ONE TABLET BY MOUTH EVERY NIGHT AT BEDTIME 05/30/2015 07/28/2015 Inactive alprazolam 1 mg tablet RxNorm: 382136 TAKE ONE-HALF TO ONE TABLET BY MOUTH DAILY NEEDED FOR ANXIETY 05/22/2015 04/30/2016 Inactive paroxetine ER 12.5 mg tablet,extended release 24 hr RxNorm: 059751 1 Tablet(s) PO QHS 04/26/2015 05/25/2015 Inactive Klonopin 1 mg tablet RxNorm: 483766 1 Tablet(s) PO QHS 02/03/2015 Inactive Brisdelle 7.5 mg capsule RxNorm: 8157489 Capsule(s) TAKE ONE CAPSULE BY MOUTH EVERY NIGHT AT BEDTIME 01/30/2015 04/25/2015 Inactive Calcium with Vitamin D 600 mg (1,500 mg)-400 unit tablet RxN orm: 787607 1 Tablet(s) PO QD 11/15/2014 No Stop Date Active Brisdelle 7.5 mg capsule RxNorm: 0913123 TAKE ONE CAPSUL E BY MOUTH EVERY NIGHT AT BEDTIME 08/22/2014 01/30/2015 Inactive Brisdelle 7.5 mg capsule RxNorm: 5831216 1 Capsule(s) PO QHS 201408/21/2014 Inactive Brisdelle 7.5 mg capsule RxNorm: 7853721 1 Capsule(s) PO QHS 201405/23/2014 Inactive Klonopin 1 mg tablet RxNorm: 355420 1 Tablet(s) PO QHS 05/02/201408/2014 Inactive Multivitamin & Mineral Formula oral RxNorm: oral No Start Date Active biotin 1 mg tablet RxNorm: 830733 1 Tablet(s) PO QD No Start Date Active Vitamin D3 1,000 unit tablet RxNorm: 664477 1 Tablet(s) PO QD No Star t Date Active Osteo Bi-Flex 250 mg-200 mg tablet RxNorm: 595900 1-2 Tablet(s) PO QD No Start Date Active Klonopin 1 mg tablet RxNorm: 451684 1 Tablet(s) PO QHS No Start Date 05/01/2014 Inactive alprazolam 1 mg tablet RxNorm: 670815 1/2-1 Tablet(s) P O QD as needed for anxiety and stress No Start Date 05/22/2015 Inactive Prilosec OTC 20 mg tablet,delayed release RxNorm: 785195 1 Tabl et(s) PO QD No Start Date 05/21/2017 Inactive Calcium + D oral RxNorm: 2418 oral No Start Date 04/25/2015 Inact alessandra Lamisil 250 mg tablet RxNorm: 322689 1 Tablet(s) PO QD No Start Date 11/14/2014 Inactive Celexa 10 mg tablet RxNorm: 160330 1 Tablet(s) PO QD No Start Date Inactive ondansetron HCl 4 mg tablet RxNorm: 884942 1 Tablet(s) PO Q4H as needed for [...] visit CPT-4: G0439 07/21/2019 CERUM REMOVAL CPT-4: 06743 01/13/2019 FLU VACC PRSV FREE INC ANTIG 65 AND OLDER CPT-4: 80865 12/02/2018 IMMUNIZATION ADMIN CPT-4: 63583 12/02/2018 FLU VACC PRSV FREE INC ANTIG 65 AND OLDER CPT-4: 90353 12/02/2018 SPECIMEN HANDLING OFFICE-LAB CPT-4: 21567 06/04/2018 OCCULT BLOOD FECES CPT-4: 24694 06/04/2018 FLU VACC PRSV FREE INC ANTIG 65 AND OLDER CPT-4: 65167 12/03/2017 IMMUNIZATION ADMIN CPT-4: 17704 12/03/2017 CERUM REMOVAL CPT-4: 65654 06/09/2017 FLU VACC PRSV FREE INC ANTIG 65 AND OLDER CPT-4: 30997 12/09/2016 IMMUNIZATION ADMIN CPT-4: 28370 12/09/2016 FLU VACCINE 3 YRS & > IM UP 64 CPT-4: 55717 6 IMMUNIZATION ADMIN CPT-4: 66541 11/09/2015 PNEUMOCOCCAL VACC 23 NAHEED IM CPT-4: 75951 04/26/2015 IMMUNIZATION ADMIN CPT-4: 11531 04/26/2015 EXC TR-EXT B9+KAREN 0.5 CM< CPT-4: 19078 11/15/2014 PNEUMOCOCCAL VACC 13 NAHEED IM CPT-4: 82240 04/25/2014 IMMUNIZATION ADMIN CPT-4: 86205 04/25/2014 SPECIMEN HANDLING OFFICE-LAB CPT-4: 25650 04/25/2014 OCCULT BLOOD FECES CPT-4: 99780 04/25/2014 Vital Signs Date Vital 07/21/2019 Blood Pressure 1: 126/78 Code: 8480-6 BMI: 24.1 Code: 62868-9 Heart Rate 1: 92 bpm Height: 5'5" Respiratory Rate: 20 bpm SpO2: 97% Tempera ture: 36.3 (C) / 97.3 (F) Weight: 145 lbs 01/13/2019 Blood Pressure 1: 112/78 Code: 8480-6 Heart Rate 1: 88 bpm Respiratory Rate: 20 bpm SpO2: 98% Temperature: 37.2 (C) / 98.9 (F) We ight: 151 lbs 06/04/2018 Blood Pressure 1: 124/80 Code: 8480-6 BMI: 25.8 Code: 97954-6 Heart Rate 1: 101 bpm Height: 5'5" Respiratory Rate: 18 bpm SpO2: 98% Tempera ture: 37.0 (C) / 98.6 (F) Weight: 155 lbs 11/05/2017 Blood Pressure 1: 124/68 Code: 8480-6 BMI: 24.6 Code: 21032-3 Heart Rate 1: 60 bpm Height: 5'5" Respiratory Rate: 20 bpm SpO2: 97% Tempera ture: 36.9 (C) / 98.4 (F) Weight: 148 lbs 05/22/2017 Blood Pressure 1: 116/70 Code: 8480-6 BMI: 24.3 Code: 75065-8 Heart Rate 1: 84 bpm Height: 5'5" Respiratory Rate: 20 bpm SpO2: 96% Tempera ture: 36.7 (C) / 98.1 (F) Weight: 146 lbs 2017 Blood Pressure 1: 130/76 Code: 8480-6 BMI: 24.6 Code: 21347-3 Heart Rate 1: 84 bpm Height: 5'5" Respiratory Rate: 22 bpm SpO2: 96% Tempera ture: 36.4 (C) / 97.6 (F) Weight: 148 lbs 10/16/2016 Blood Pressure 1: 122/78 Code: 8480-6 BMI: 23.8 Code: 81787-1 Heart Rate 1: 86 bpm Height: 5'5" Respiratory Rate: 20 bpm SpO2: 98% Tempera ture: 36.8 (C) / 98.2 (F) Weight: 143 lbs 07/16/2016 Blood Pressure 1: 112/78 Code: 8480-6 Heart Rate 1: 76 bpm Respiratory Rate: 24 bpm SpO2: 98% Temperature: 36.6 (C) / 97.8 (F) We ight: 143 lbs 05/01/2016 Blood Pressure 1: 126/68 Code: 8480-6 BMI: 23.8 Code: 67827-0 Heart Rate 1: 92 bpm Height: 5'5" Respiratory Rate: 20 bpm SpO2: 97% Tempera ture: 36.8 (C) / 98.2 (F) Weight: 143 lbs 04/26/2015 Blood Pressure 1: 118/78 Code: 8480-6 BMI: 23.3 Code: 56312-1 Heart Rate 1: 88 bpm Height: 5'5" Respiratory Rate: 20 bpm Temperature: 37 .1 (C) / 98.8 (F) Weight: 140 lbs 11/15/2014 Blood Pressure 1: 134/70 Code: 8480-6 BMI: 23.3 Code: 93023-8 Heart Rate 1: 100 bpm Height: 5'5" Respiratory Rate: 20 bpm Temperature: 36 .8 (C) / 98.2 (F) Weight: 140 lbs 04/25/2014 Blood Pressure 1: 128/74 Code: 8480-6 BMI: 24.1 Code: 11175-1 Heart Rate 1: 78 bpm Height: 5'5" [...] care Encounters Encounter Performer Location Codes Date ([id number]) OFFICE/OUTPATIENT VISIT EST Diagnosis: Hyperglycemia[ICD10: R73.9] Diagnosis: Impacted cerumen, right ear[ICD10: H61.21] Diagnosis: Generalized anxiety disorder[ICD10: F41.1] Billy SANDOVALER [facility] CPT-4: 03950 01/13/2019 ([id number]) NURSE/OUTPATIENT VISIT EST Diagnosis: FLU VACCINE[ICD10: Z23] Billy SANDOVAL ER [facility] CPT-4: 93251 12/02/2018 ([id number]) PER PM REEVAL EST PAT 65+ YR Diagnosis: Encounter for general adult medical examination without abnormal findings[ICD10: Z00.00] Diagnosis: Generalized anxiety disorder[ICD10: F41.1] Diagnosis: Primary insomnia[ICD10: F51.01] Diagnosis: Encounter for gynecological examination (general) (routine) without abnormal findings[ICD10: Z01.419] Billy Monique DO [facility] CPT-4: 70846 06/04/2018 ([id number]) NURSE/OUTPATIENT VISIT EST Diagnosis: FLU VACCINE[ICD10: Z23] Billy BECKFORD DO [facility] CPT-4: 61690 12/03/2017 ([id number]) OFFICE/OUTPATIENT VISIT EST Diagnosis: Generalized anxiety disorder[ICD10: F41.1] Diagnosis: Primary insomnia[ICD10: F51.01] Billy SCHWARZ DO [facility] CPT-4: 36195 11/05/2017 ([id number]) PER PM REEVAL EST PAT 65+ YR Diagnosis: Encounter for general adult medical examination without abnormal findings[ICD10: Z00.00] Diagnosis: Generalized anxiety disorder[ICD10: F41.1] Diagnosis: Gastro-esophageal reflux disease without esophagitis[ICD10: K21.9] Billy SCHWARZ DO [employer] CPT-4: 17059 05/22/2017 ([id number]) OFFICE/OUTPATIENT VISIT EST Diagnosis: Generalized anxiety disorder[ICD10: F41.1] Diagnosis: Gastro-esophageal reflux disease without esophagitis[ICD10: K21.9] Billy SCH[facility]ARZ DO [employer] CPT-4: 91827 2017 ([id number]) OFFICE/OUTPATIENT VISIT EST Diagnosis: FLU VACCINE[ICD10: Z23] Billy BECKFORD DO [employer] CPT-4: 15636 12/09/2016 ([id number]) OFFICE/OUTPATIENT VISIT EST Diagnosis: Generalized anxiety disorder[ICD10: F41.1] Billy SCHWARZ DO [employer] CPT-4: 45421 10/16/2016 ([id number]) OFFICE/OUTPATIENT VISIT EST Diagnosis: Generalized anxiety disorder[ICD10: F41.1] Billy SCHWARZ DO [employer] CPT-4: 07688 07/16/2016 ([id number]) PER PM REEVAL EST PAT 65+ YR Diagnosis: Encounter for general adult medical examination without abnormal findings[ICD10: Z00.00] Diagnosis: Menopausal and female climacteric states[ICD10: N95.1] Diagnosis: Anxiety disorder, unspecified[ICD10: F41.9] Billy SCHWARZ [facility] CPT-4: 39391 05/01/2016 ([id number]) OFFICE/OUTPATIENT VISIT EST Diagnosis: FLU VACCINE[ICD10: Z23] Billy BECKFORD [facility] CPT-4: 05556 11/09/2015 ([id number]) PREV VISIT EST AGE 40-64 Diagnosis: Encounter for general adult medical examination without abnormal findings[ICD10: Z00.00] Diagnosis: Gastro-esophageal reflux disease without esophagitis[ICD10: K21.9] Diagnosis: Anxiety disorder, unspecified[ICD10: F41.9] Diagnosis: Menopausal and female climacteric states[ICD10: N95.1] Diagnosis: PNEUMOCOCCAL VACCINE[ICD10: Z23] Billy SCHWARZ [facility] CPT-4: 78343 04/26/2015 ([id number]) PREV VISIT NEW AGE 40-64 Diagnosis: PNEUMOCOCCAL VACCINE[ICD10: Z23] Diagnosis: ROUTINE MEDICAL EXAM[ICD9: V70.0] Diagnosis: ROUTINE GYNE EXAM[ICD9: V72.31] Diagnosis: ANXIETY STATE NOS[ICD9: 300.00] Diagnosis: Menopausal flushing[ICD9: 627.2] Billy SCHWARZ [facility] CPT-4: 48376 04/25/2014 Plan of Care Planned Activity Notes Codes Status Date Visit Diagnosis Plan: Encounter for [facility] adult medical examination without abnormal findings Discussion: [...] Plan: COMPREH[place]AB[place] : 92935-2 Pending 07/13/2019 Care Plan: ASSAY THYROID STIM HORMONE Pen ding 07/13/2019 Care Plan: LIPID PANEL LOINC : 91816-5 Pending 07/13/2019 Care Plan: ASSAY OF FREE THYROXINE Pendin g 07/13/2019 Care Plan: A1C HPLC LOINC : 14634-7 Pending 07/13/2019 Care Plan: COMPLETE CBC W/AUTO DIFF WBC LOINC : 57021-1 Pending 07/13/2019 Appointment: Rohini Amaya [address] [address] [place] pt. stated that she is feeling [...] : R73.9 01/13/2019 Appointment: Billy Schwarz WPtel: [address] [place], [place] [address] FOLLOW UP 01/13/2019 Care Plan: METABOLIC PANEL TOTAL CA LOIN C : 90799-5 Pending 01/05/2019 Care Plan: A1C HPLC LOINC : 15749-3 Pending 01/05/2019 Appointment: Billy Schwarz WPtel: [address] [place] [address] [place] INJECTION 12/02/2018 Visit Diagnosis Plan: Encounter for gene [facility] adult medical examination without abnormal findings Discussion: [...] : Z01.419 06/04/2018 Appointment: Billy Schwarz WPtel: [address] [place] [address] Annual Well Visit 06/04/2018 Appointment: Billy Schwarz WPtel: [address] [place] [address] [place] CANCELED 05/06/2018 Appointment: Billy Schwarz WPtel: [address] [place], [place] [phone] [place] INJECTION 12/03/2017 Patient Education: Patient Medication [...] : F51.01 11/05/2017 Appointment: Billy Schwarz WPtel: [address] [place], [place] [phone] [place] FOLLOW UP 11/05/2017 Patient Education: Patient Medication Summary Completed 11/05/2017 Appointment: Billy Schwarz WPtel: [address] [place], [place] [phone] [place] CANCELED 09/10/2017 Visit Diagnosis Plan: Impacted cerumen, right ear Disc ussion: cerumen was removed with currette to right ear canal. patient tolerated procedure well. once out, TM was wnl. instructed to call or rtc with new or worsening symptoms. ICD-9 : 380.4 ICD-10 : H61.21 06/09/2017 Appointment: Rohini Amaya [address] [place], [place] [phone] 06/09/2017 Patient Education: Patient Medication Summary Completed 06/09/2017 Visit Diagnosis Plan: Generalized anxiety disorder Dis cussion: Stable on paxil and klonopin Follow Up: 4 months ICD-9 : 308.0 ICD-10 : F41.1 05/22/2017 Visit Diagnosis Plan: Encounter for [facility] medical examination without abnormal findings Discussion: Mammogram ordered Patient go ing to get [email or web address] discussed Add Vitamin D3 1000u daily Once again discussed weight bearing exercise ICD-9 : V70.0 ICD-10 : Z00.00 05/22/2017 Visit Diagnosis Plan: Gastro-esophageal reflux disease without esophagitis Discussion: Trial of Zantac instead of prilosec ICD-9 : 530.81 ICD-10 : K21.9 05/22/2017 Appointment: Billy Schwarz WPtel: [address] [place], [place] [phone] FOLLOW UP 05/22/2017 Patient Education: Patient Medication [...] : K21.9 2017 Appointment: Billy Schwarz WPtel: [address] [place], [place] [phone] FOLLOW UP 2017 Patient Education: Patient Medication Summary Completed 2017 Appointment: Billy Schwarz WPtel: [address] [place], [place] [phone] [place] INJECTION 12/09/2016 Patient Education: Patient Medication Summary Completed 12/09/2016 Visit Diagnosis Plan: Generalized anxiety disorder Dis cussion: Stable with paxil and klonopin Follow Up: 3 months ICD-9 : 308.0 ICD-10 : F41.1 10/16/2016 Appointment: Billy Schwarztel: [address] [place], [place] [phone] [id number] NA/VM ~sp, 10/15/16 1550--appt confirmed (km) FOLLOW UP 10/16/2016 Patient Education: Patient Medication Summary Completed 10/16/2016 Visit Diagnosis Plan: Generalized anxiety disorder Dis cussion: Continue higher dose of paxil with xanax prn Stress reducers Follow Up: 3 months ICD-9 : 308.0 ICD-10 : F41.1 07/16/2016 Appointment: Billy Schwarztel: [address] [place] [address] 07/15 confirmed `sl FOLLOW UP 07/16/2016 Patient Education: Patient Medication Summary Completed 07/16/2016 Visit Diagnosis Plan: Menopausal and female climacteri c states Discussion: Use Vagifem prn ICD-9 : 627.2 ICD-10 : N95.1 05/01/2016 Visit Diagnosis Plan: Encounter for gene [facility] adult medical examination without abnormal findings Discussion: Check fasting lab Tdap up to date Mammogram ordered ICD-9 : V70.0 ICD-10 : Z00.00 05/01/2016 Visit Diagnosis Plan: Anxiety disorder, unspecified Di scussion: Increase paxil CR to 37.5mg q HS Follow Up: 2 months ICD-9 : 300.00 ICD-10 : F41.9 05/01/2016 Appointment: Billy Schwarz WPtel: [address] [place], [place] [phone] [place] 04/30 confirmed`sl PHYSICAL 05/01/2016 Patient Education: Patient Medication Summary Completed 05/01/2016 Care Plan: MAMMOGRAM SCREENING LOINC : 2 6347-5 Pending 05/01/2016 Appointment: Billy Schwarz WPtel: [address] [place], [place] [phone] [place] INJECTION 11/09/2015 Patient Education: Patient Medication Summary Completed 11/09/2015 Appointment: Billy Schwarz WPtel: [address] [place], [place] [phone] [place] CANCELED 11/08/2015 Visit Plan: Mammo due in May Update Fa sting Lab Change Brisdelle to Paxil CR 12.5mg q HS Call in 1month Will wait on Pap until next year Pneumovax given 04/26/2015 Appointment: Billy Schwarz WPtel: [address] [place], [place] [phone] 04/25 NA/NVM-SP 04/26 confirmed ~sl Annual Well Vi sit 04/26/2015 Patient Education: Patient Medication Summary Completed 04/26/2015 Visit Plan: Shave removal of skin lesion as above 11/15/2014 Appointment: Billy Schwarz WPtel: [address] [place] [address] 11/14/14 rang and rang,,11/15 appt confirmed cn O FFICE SURGERY 11/15/2014 Patient Education: Patient Medication Summary Completed 11/15/2014 Patient Education: Patient Medication Summary Completed 06/13/2014 Visit Plan: Pap done Mammo next month Ob tain Bone Density results Check Fasting lab Stop Celexa Start Brisdelle 7.5mg q HS Call in 6weeks on how doing with Brisdelle Update Carotid Dopplers 04/25/2014 Appointment: Billy Schwarz WPtel: [address] [place], [place] [phone] [place] NEW PATIENT 04/25/2014 Patient Education: Patient [...]
--- OUTSIDE RECORDS SUMMARY | 2019-08-27 07:23 | XMS REPORT | CCD ---
Author Author Yenifer Schwarz D.O. Organization [facility] Address [address] [place] [address] Phone Care Team Providers Care Cartography Technician Name Role Phone Mkiki Schwarz D.O., PP Unavailable CCM Unavailable Summary Purpose Interface Exchange Insurance Providers Payer name Policy type / Coverage type Covered democrat ID Effective Begin Date Effective End Date Blue Cross Blue Shield Blue Cross/Blue Shield [id number] Unknown Family history Mother Diagnosis Age At Onset Hypothryroidism Unknown Dementia Unknown Hip fracture Unknown Father Diagnosis Age At Onset Chronic obstructive pulmonary disease Unknown Tobacco abuse Unknown Social History Social History Element Codes Description Effective Dates Tobacco history SNOMED CT: 744939532 Has never smoked or chewed tobacco 11/15/2014 [...] Paxil CR 37.5 mg tablet,extended release RxNorm: 6162493 TAKE ONE TABLET BY MOUTH DAILY 04/12/2019 No Stop Date Active Paxil CR 37.5 mg tablet,extended release RxNorm: 7372174 TAKE ONE TABLET BY MOUTH DAILY 02/01/2019 04/11/2019 Inactive Prilosec OTC 20 mg tablet,delayed release RxNorm: 512746 1 Tabl et(s) Oral QD 01/13/2019 No Stop Date Active Paxil CR 37.5 mg tablet,extended release RxNorm: 4247176 1 Table t(s) PO QD 10/12/2018 01/09/2019 Inactive Paxil CR 37.5 mg tablet,extended release RxNorm: 3052567 TAKE ONE TABLET BY MOUTH DAILY 07/15/2018 10/12/2018 Inactive alprazolam 1 mg tablet RxNorm: 066320 1/2-1 Tablet(s) P O QD as needed for anxiety 05/01/2018 No Stop Date Active Paxil CR 37.5 mg tablet,extended release RxNorm: 4504604 TAKE ONE TABLET BY MOUTH DAILY 03/23/2018 06/20/2018 Inactive Paxil CR 37.5 mg tablet,extended release RxNorm: 8795579 TAKE ONE TABLET BY MOUTH DAILY 01/15/2018 03/15/2018 Inactive Paxil CR 37.5 mg tablet,extended release RxNorm: 2982023 1 Table t(s) PO QD 09/29/2017 12/27/2017 Inactive Klonopin 1 mg tablet RxNorm: 044299 TAKE ONE TABLET BY MOUTH EVERY NIGHT AT BEDTIME 09/29/2017 06/03/2018 Inactive Klonopin 1 mg tablet RxNorm: 208250 TAKE ONE TABLET BY MOUTH EVERY NIGHT AT BEDTIME 07/04/2017 09/30/2017 Inactive Paxil CR 37.5 mg tablet,extended release RxNorm: 0254968 1 Table t(s) PO QD 06/17/2017 09/29/2017 Inactive Paxil CR 37.5 mg tablet,extended release RxNorm: 1852076 1 Table t(s) PO QD 02/27/2017 06/17/2017 Inactive Klonopin 1 mg tablet RxNorm: 635679 TAKE ONE TABLET BY MOUTH EVERY NIGHT AT BEDTIME 02/17/2017 07/04/2017 Inactive Penlac 8 % topical solution RxNorm: 541417 Application TOP QD 01/2005/21/2017 Inactive Paxil CR 37.5 mg tablet,extended release RxNorm: 0479021 1 Tablet(s) PO QD TAKE ONE TABLET BY MOUTH DAILY 12/20/2016 02/27/2017 Inactive Klonopin 1 mg tablet RxNorm: 454453 1 Tablet(s) PO QHS 10/16/2016 Inactive Paxil CR 37.5 mg tablet,extended release RxNorm: 8013760 1 Tablet(s) PO QD TAKE ONE TABLET BY MOUTH DAILY 09/30/2016 12/20/2016 Inactive Klonopin 1 mg tablet RxNorm: 739557 TAKE ONE TABLET BY MOUTH EVERY NIGHT AT BEDTIME 07/15/2016 08/13/2016 Inactive Paxil CR 37.5 mg tablet,extended release RxNorm: 1323101 1 Tablet(s) PO QD TAKE ONE TABLET BY MOUTH DAILY 07/15/2016 09/30/2016 Inactive Klonopin 1 mg tablet RxNorm: 020091 TAKE ONE TABLET BY MOUTH EVERY NIGHT AT BEDTIME 06/11/2016 07/15/2016 Inactive Klonopin 1 mg tablet RxNorm: 771625 TAKE ONE TABLET BY MOUTH AT BEDTIME 05/13/2016 06/11/2016 Inactive Yuvafem 10 mcg vaginal tablet RxNorm: 4859593 1 Tablet(s) VAG QH S twice weekly 05/01/2016 05/21/2017 Inactive Paxil CR 37.5 mg tablet,extended release RxNorm: 1377264 1 Tablet(s) PO QD TAKE ONE TABLET BY MOUTH DAILY 05/01/2016 07/15/2016 Inactive Klonopin 1 mg tablet RxNorm: 646102 TAKE ONE TABLET BY MOUTH EVERY NIGHT AT BEDTIME NEED TO SCHEDULE APPOINTMENT 04/08/2016 05/13/2016 Inactiv e Klonopin 1 mg tablet RxNorm: 428406 TAKE ONE TABLET BY MOUTH AT BEDTIME 03/06/2016 04/08/2016 Inactive ondansetron HCl 4 mg tablet RxNorm: 768283 1 Tablet(s) PO Q4H as needed for nausea 11/10/2015 04/30/2016 Inactive Klonopin 1 mg tablet RxNorm: 581325 TAKE ONE TABLET BY MOUTH EVERY NIGHT AT BEDTIME 11/10/2015 03/06/2016 Inactive Paxil CR 25 mg tablet,extended release RxNorm: 7302986 T KURTIS ONE TABLET BY MOUTH DAILY 11/10/2015 04/30/2016 Inactive Paxil CR 25 mg tablet,extended release RxNorm: 8669024 T KURTIS ONE TABLET BY MOUTH DAILY 10/26/2015 11/09/2015 Inactive Paxil CR 25 mg tablet,extended release RxNorm: 3899854 T KURTIS ONE TABLET BY MOUTH DAILY 09/26/2015 10/25/2015 Inactive Klonopin 1 mg tablet RxNorm: 956527 TAKE ONE TABLET BY MOUTH EVERY NIGHT AT BEDTIME 08/29/2015 11/13/2015 Inactive Paxil CR 25 mg tablet,extended release RxNorm: 5021611 1 Tablet( s) PO QD 08/28/2015 08/27/2015 Inactive Paxil CR 25 mg tablet,extended release RxNorm: 6851350 1 Tablet( s) PO QD 08/28/2015 09/25/2015 Inactive paroxetine ER 12.5 mg tablet,extended release 24 hr RxNorm: 326739 TAKE ONE TABLET BY MOUTH EVERY NIGHT AT BEDTIME 05/30/2015 08/27/2015 Inactive Klonopin 1 mg tablet RxNorm: 167656 TAKE ONE TABLET BY MOUTH EVERY NIGHT AT BEDTIME 05/30/2015 07/28/2015 Inactive alprazolam 1 mg tablet RxNorm: 421781 TAKE ONE-HALF TO ONE TABLET BY MOUTH DAILY NEEDED FOR ANXIETY 05/22/2015 04/30/2016 Inactive paroxetine ER 12.5 mg tablet,extended release 24 hr RxNorm: 789631 1 Tablet(s) PO QHS 04/26/2015 05/25/2015 Inactive Klonopin 1 mg tablet RxNorm: 679710 1 Tablet(s) PO QHS 02/03/2015 Inactive Brisdelle 7.5 mg capsule RxNorm: 4622320 Capsule(s) TAKE ONE CAPSULE BY MOUTH EVERY NIGHT AT BEDTIME 01/30/2015 04/25/2015 Inactive Calcium with Vitamin D 600 mg (1,500 mg)-400 unit tablet RxN orm: 675739 1 Tablet(s) PO QD 11/15/2014 No Stop Date Active Brisdelle 7.5 mg capsule RxNorm: 0374489 TAKE ONE CAPSUL E BY MOUTH EVERY NIGHT AT BEDTIME 08/22/2014 01/30/2015 Inactive Brisdelle 7.5 mg capsule RxNorm: 3214283 1 Capsule(s) PO QHS 201408/21/2014 Inactive Brisdelle 7.5 mg capsule RxNorm: 2125460 1 Capsule(s) PO QHS 201405/23/2014 Inactive Klonopin 1 mg tablet RxNorm: 817927 1 Tablet(s) PO QHS 05/02/201408/2014 Inactive Multivitamin & Mineral Formula oral RxNorm: oral No Start Date Active biotin 1 mg tablet RxNorm: 885428 1 Tablet(s) PO QD No Start Date Active Vitamin D3 1,000 unit tablet RxNorm: 290226 1 Tablet(s) PO QD No Star t Date Active Osteo Bi-Flex 250 mg-200 mg tablet RxNorm: 093847 1-2 Tablet(s) PO QD No Start Date Active Klonopin 1 mg tablet RxNorm: 178756 1 Tablet(s) PO QHS No Start Date 05/01/2014 Inactive alprazolam 1 mg tablet RxNorm: 959924 1/2-1 Tablet(s) P O QD as needed for anxiety and stress No Start Date 05/22/2015 Inactive Prilosec OTC 20 mg tablet,delayed release RxNorm: 248057 1 Tabl et(s) PO QD No Start Date 05/21/2017 Inactive Calcium + D oral RxNorm: 2418 oral No Start Date 04/25/2015 Inact alessandra Lamisil 250 mg tablet RxNorm: 473554 1 Tablet(s) PO QD No Start Date 11/14/2014 Inactive Celexa 10 mg tablet RxNorm: 637762 1 Tablet(s) PO QD No Start Date Inactive ondansetron HCl 4 mg tablet RxNorm: 475853 1 Tablet(s) PO Q4H as needed for [...] Procedures Procedure Codes Date CERUM REMOVAL CPT-4: 98351 01/13/2019 FLU VACC PRSV FREE INC ANTIG 65 AND OLDER CPT-4: 77895 12/02/2018 IMMUNIZATION ADMIN CPT-4: 28789 12/02/2018 FLU VACC PRSV FREE INC ANTIG 65 AND OLDER CPT-4: 78479 12/02/2018 SPECIMEN HANDLING OFFICE-LAB CPT-4: 47272 06/04/2018 OCCULT BLOOD FECES CPT-4: 26567 06/04/2018 FLU VACC PRSV FREE INC ANTIG 65 AND OLDER CPT-4: 10719 12/03/2017 IMMUNIZATION ADMIN CPT-4: 43453 12/03/2017 CERUM REMOVAL CPT-4: 93897 06/09/2017 FLU VACC PRSV FREE INC ANTIG 65 AND OLDER CPT-4: 43014 12/09/2016 IMMUNIZATION ADMIN CPT-4: 75882 12/09/2016 FLU VACCINE 3 YRS & > IM UP 64 CPT-4: 14457 6 IMMUNIZATION ADMIN CPT-4: 79866 11/09/2015 PNEUMOCOCCAL VACC 23 NAHEED IM CPT-4: 97256 04/26/2015 IMMUNIZATION ADMIN CPT-4: 87193 04/26/2015 EXC TR-EXT B9+KAREN 0.5 CM< CPT-4: 36621 11/15/2014 PNEUMOCOCCAL VACC 13 NAHEED IM CPT-4: 45901 04/25/2014 IMMUNIZATION ADMIN CPT-4: 07554 04/25/2014 SPECIMEN HANDLING OFFICE-LAB CPT-4: 71689 04/25/2014 OCCULT BLOOD FECES CPT-4: 26398 04/25/2014 Vital Signs Date Vital 01/13/2019 Blood Pressure 1: 112/78 Code: 8480-6 Heart Rate 1: 88 bpm Respiratory Rate: 20 bpm SpO2: 98% Temperature: 37.2 (C) / 98.9 (F) We ight: 151 lbs 06/04/2018 Blood Pressure 1: 124/80 Code: 8480-6 BMI: 25.8 Code: 54545-0 Heart Rate 1: 101 bpm Height: 5'5" Respiratory Rate: 18 bpm SpO2: 98% Tempera ture: 37.0 (C) / 98.6 (F) Weight: 155 lbs 11/05/2017 Blood Pressure 1: 124/68 Code: 8480-6 BMI: 24.6 Code: 99560-0 Heart Rate 1: 60 bpm Height: 5'5" Respiratory Rate: 20 bpm SpO2: 97% Tempera ture: 36.9 (C) / 98.4 (F) Weight: 148 lbs 05/22/2017 Blood Pressure 1: 116/70 Code: 8480-6 BMI: 24.3 Code: 59906-3 Heart Rate 1: 84 bpm Height: 5'5" Respiratory Rate: 20 bpm SpO2: 96% Tempera ture: 36.7 (C) / 98.1 (F) Weight: 146 lbs 2017 Blood Pressure 1: 130/76 Code: 8480-6 BMI: 24.6 Code: 56558-2 Heart Rate 1: 84 bpm Height: 5'5" Respiratory Rate: 22 bpm SpO2: 96% Tempera ture: 36.4 (C) / 97.6 (F) Weight: 148 lbs 10/16/2016 Blood Pressure 1: 122/78 Code: 8480-6 BMI: 23.8 Code: 78499-0 Heart Rate 1: 86 bpm Height: 5'5" Respiratory Rate: 20 bpm SpO2: 98% Tempera ture: 36.8 (C) / 98.2 (F) Weight: 143 lbs 07/16/2016 Blood Pressure 1: 112/78 Code: 8480-6 Heart Rate 1: 76 bpm Respiratory Rate: 24 bpm SpO2: 98% Temperature: 36.6 (C) / 97.8 (F) We ight: 143 lbs 05/01/2016 Blood Pressure 1: 126/68 Code: 8480-6 BMI: 23.8 Code: 43138-7 Heart Rate 1: 92 bpm Height: 5'5" Respiratory Rate: 20 bpm SpO2: 97% Tempera ture: 36.8 (C) / 98.2 (F) Weight: 143 lbs 04/26/2015 Blood Pressure 1: 118/78 Code: 8480-6 BMI: 23.3 Code: 37526-7 Heart Rate 1: 88 bpm Height: 5'5" Respiratory Rate: 20 bpm Temperature: 37 .1 (C) / 98.8 (F) Weight: 140 lbs 11/15/2014 Blood Pressure 1: 134/70 Code: 8480-6 BMI: 23.3 Code: 68416-4 Heart Rate 1: 100 bpm Height: 5'5" Respiratory Rate: 20 bpm Temperature: 36 .8 (C) / 98.2 (F) Weight: 140 lbs 04/25/2014 Blood Pressure 1: 128/74 Code: 8480-6 BMI: 24.1 Code: 78511-0 Heart Rate 1: 78 bpm Height: 5'5" [...] care Encounters Encounter Performer Location Codes Date ([id number]) OFFICE/OUTPATIENT VISIT EST Diagnosis: Hyperglycemia[ICD10: R73.9] Diagnosis: Impacted cerumen, right ear[ICD10: H61.21] Diagnosis: Generalized anxiety disorder[ICD10: F41.1] Mikki Dumasjorjefrancisco javier [facility] CPT-4: 85088 01/13/2019 ([id number]) NURSE/OUTPATIENT VISIT EST Diagnosis: FLU VACCINE[ICD10: Z23] Mikki BECKFORD [facility] CPT-4: 48837 12/02/2018 ([id number]) PER PM REEVAL EST PAT 65+ YR Diagnosis: Encounter for general adult medical examination without abnormal findings[ICD10: Z00.00] Diagnosis: Generalized anxiety disorder[ICD10: F41.1] Diagnosis: Primary insomnia[ICD10: F51.01] Diagnosis: Encounter for gynecological examination (general) (routine) without abnormal findings[ICD10: Z01.419] Mikki Piterjorjefrancisco javier WALLACEMIKKI KurtTammi COLBY R [facility] CPT-4: 14514 06/04/2018 ([id number]) NURSE/OUTPATIENT VISIT EST Diagnosis: FLU VACCINE[ICD10: Z23] Mikki Dumasjorjefrancisco javier WALLACEMIKKI Ronnie SANDOVAL ER [facility] CPT-4: 83245 12/03/2017 ([id number]) OFFICE/OUTPATIENT VISIT EST Diagnosis: Generalized anxiety disorder[ICD10: F41.1] Diagnosis: Primary insomnia[ICD10: F51.01] Mikki Piterjorjefrancisco javier HicksTammi MILI [facility] CPT-4: 28402 11/05/2017 ([id number]) PER PM REEVAL EST PAT 65+ YR Diagnosis: Encounter for general adult medical examination without abnormal findings[ICD10: Z00.00] Diagnosis: Generalized anxiety disorder[ICD10: F41.1] Diagnosis: Gastro-esophageal reflux disease without esophagitis[ICD10: K21.9] [facility] CPT-4: 53514 05/22/2017 ([id number]) OFFICE/OUTPATIENT VISIT EST Diagnosis: Generalized anxiety disorder[ICD10: F41.1] Diagnosis: Gastro-esophageal reflux disease without esophagitis[ICD10: K21.9] [facility] CPT-4: 18756 2017 ([id number]) OFFICE/OUTPATIENT VISIT EST Diagnosis: FLU VACCINE[ICD10: Z23] [facility] CPT-4: 41803 12/09/2016 ([id number]) OFFICE/OUTPATIENT VISIT EST Diagnosis: Generalized anxiety disorder[ICD10: F41.1] [facility] CPT-4: 94329 10/16/2016 ([id number]) OFFICE/OUTPATIENT VISIT EST Diagnosis: Generalized anxiety disorder[ICD10: F41.1] [facility] CPT-4: 31525 07/16/2016 ([id number]) PER PM REEVAL EST PAT 65+ YR Diagnosis: Encounter for general adult medical examination without abnormal findings[ICD10: Z00.00] Diagnosis: Menopausal and female climacteric states[ICD10: N95.1] Diagnosis: Anxiety disorder, unspecified[ICD10: F41.9] Mik[facility] CPT-4: 23326 05/01/2016 ([id number]) OFFICE/OUTPATIENT VISIT EST Diagnosis: FLU VACCINE[ICD10: Z23] [facility] CPT-4: 62149 11/09/2015 ([id number]) PREV VISIT EST AGE 40-64 Diagnosis: Encounter for general adult medical examination without abnormal findings[ICD10: Z00.00] Diagnosis: Gastro-esophageal reflux disease without esophagitis[ICD10: K21.9] Diagnosis: Anxiety disorder, unspecified[ICD10: F41.9] Diagnosis: Menopausal and female climacteric states[ICD10: N95.1] Diagnosis: PNEUMOCOCCAL VACCINE[ICD10: Z23] Mikki [facility] CPT-4: 29993 04/26/2015 ([id number]) PREV VISIT NEW AGE 40-64 Diagnosis: PNEUMOCOCCAL VACCINE[ICD10: Z23] Diagnosis: ROUTINE MEDICAL EXAM[ICD9: V70.0] Diagnosis: ROUTINE GYNE EXAM[ICD9: V72.31] Diagnosis: ANXIETY STATE NOS[ICD9: 300.00] Diagnosis: Menopausal flushing[ICD9: 627.2] Mikki [facility] CPT-4: 05845 04/25/2014 Plan of Care Planned Activity Notes Codes Status Date Appointment: Monique Rohini R. [address] [place] [address] [place] pt. stated that she is feeling [...] : 308.0 ICD-10 : F41.1 01/13/2019 Appointment: Mikki Schwarz WPtel: [address] [place], [place] [phone] FOLLOW UP 01/13/2019 Care Plan: METABOLIC PANEL TOTAL CA LOIN C : 36039-8 Pending 01/05/2019 Care Plan: A1C HPLC LOINC : 03103-3 Pending 01/05/2019 Appointment: Mikki Schwarz WPtel: [address] [place], [place] [phone] [place] INJECTION 12/02/2018 Visit Diagnosis Plan: Encounter for gyne cological examination (general) (routine) without abnormal findings Discussion: Pap done Mammogram ordered ICD-9 : V72.31 ICD-10 : Z01.419 06/04/2018 Visit Diagnosis Plan: Generalized anxiety disorder Dis cussion: Stable Follow Up: 6 months ICD-9 : 308.0 ICD-10 : F41.1 06/04/2018 Visit Diagnosis Plan: Encounter for [facility] adult medical examination without abnormal findings Discussion: Mediterranean diet Combinati on of cardio and weight bearing exercise Had shingrix Colonoscopy up to date Lab discussed ICD-9 : V70.0 ICD-10 : Z00.00 06/04/2018 Appointment: Mikki Schwarz WPtel: [address] [place] [address] Annual Well Visit 06/04/2018 Appointment: Mikki Schwarz WPtel: [address] [place] [address] [place] CANCELED 05/06/2018 Appointment: Mikki Schwarz WPtel: [address] [place], [place] [phone] [place] INJECTION 12/03/2017 Patient Education: Patient Medication [...] : 308.0 ICD-10 : F41.1 11/05/2017 Appointment: Mikki Schwarz WPtel: [address] [place], [place] [phone] [place] FOLLOW UP 11/05/2017 Patient Education: Patient Medication Summary Completed 11/05/2017 Appointment: Mikki Schwarz WPtel: [address] [place], [place] [phone] [place] CANCELED 09/10/2017 Visit Diagnosis Plan: Impacted cerumen, right ear Disc ussion: cerumen was removed with currette to right ear canal. patient tolerated procedure well. once out, TM was wnl. instructed to call or rtc with new or worsening symptoms. ICD-9 : 380.4 ICD-10 : H61.21 06/09/2017 Appointment: Rohini Amaya [address] [place], [place] [address] 06/09/2017 Patient Education: Patient Medication Summary Completed 06/09/2017 Visit Diagnosis Plan: Generalized anxiety disorder Dis cussion: Stable on paxil and klonopin Follow Up: 4 months ICD-9 : 308.0 ICD-10 : F41.1 05/22/2017 Visit Diagnosis Plan: Encounter for [facility] medical examination without abnormal findings Discussion: Mammogram ordered Patient go ing to get Shingix at [facility] Lab discussed Add Vitamin D3 1000u daily Once again discussed weight bearing exercise ICD-9 : V70.0 ICD-10 : Z00.00 05/22/2017 Visit Diagnosis Plan: Gastro-esophageal reflux disease without esophagitis Discussion: Trial of Zantac instead of prilosec ICD-9 : 530.81 ICD-10 : K21.9 05/22/2017 Appointment: Mikki Schwarz WPtel: [address] [place], [place] [address] FOLLOW UP 05/22/2017 Patient Education: Patient Medication [...] : 530.81 ICD-10 : K21.9 2017 Appointment: Mikki Schwarz WPtel: [address] [place], [place] [phone] FOLLOW UP 2017 Patient Education: Patient Medication Summary Completed 2017 Appointment: Mikki Schwarz WPtel: [address] [place], [place] [phone] [place] INJECTION 12/09/2016 Patient Education: Patient Medication Summary Completed 12/09/2016 Visit Diagnosis Plan: Generalized anxiety disorder Dis cussion: Stable with paxil and klonopin Follow Up: 3 months ICD-9 : 308.0 ICD-10 : F41.1 10/16/2016 Appointment: Mikki Schwarztel: [address] [place], [place] [phone] [id number] NA/VM ~sp, 10/15/16 1550--appt confirmed (km) FOLLOW UP 10/16/2016 Patient Education: Patient Medication Summary Completed 10/16/2016 Visit Diagnosis Plan: Generalized anxiety disorder Dis cussion: Continue higher dose of paxil with xanax prn Stress reducers Follow Up: 3 months ICD-9 : 308.0 ICD-10 : F41.1 07/16/2016 Appointment: Mikki Schwarz WPtel: [address] [place] [address] 07/15 confirmed `sl FOLLOW UP 07/16/2016 Patient Education: Patient Medication Summary Completed 07/16/2016 Visit Diagnosis Plan: Encounter for [facility] medical examination without abnormal findings Discussion: Check [...] : 627.2 ICD-10 : N95.1 05/01/2016 Appointment: Mikki Schwarz WPtel: [address] [place], [place] [phone] [place] 04/30 confirmed`sl PHYSICAL 05/01/2016 Patient Education: Patient Medication Summary Completed 05/01/2016 Care Plan: MAMMOGRAM SCREENING LOINC : 2 6347-5 Pending 05/01/2016 Appointment: Mikki Schwarz WPtel: [address] [place], [place] [phone] [place] INJECTION 11/09/2015 Patient Education: Patient Medication Summary Completed 11/09/2015 Appointment: Mikki Schwarz WPtel: [address] [place], [place] [phone] [place] CANCELED 11/08/2015 Visit Plan: Mammo due in May Update Fa sting Lab Change Brisdelle to Paxil CR 12.5mg q HS Call in 1month Will wait on Pap until next year Pneumovax given 04/26/2015 Appointment: Mikki Schwarz WPtel: [address] [place], [place] [phone] 04/25 NA/NVM-SP 04/26 confirmed ~sl Annual Well Vi sit 04/26/2015 Patient Education: Patient Medication Summary Completed 04/26/2015 Visit Plan: Shave removal of skin lesion as above 11/15/2014 Appointment: Mikki Schwarz WPtel: [address] [place] [address] 11/14/14 rang and rang,,11/15 appt confirmed cn O FFICE SURGERY 11/15/2014 Patient Education: Patient Medication Summary Completed 11/15/2014 Patient Education: Patient Medication Summary Completed 06/13/2014 Visit Plan: Pap done Mammo next month Ob tain Bone Density results Check Fasting lab Stop Celexa Start Brisdelle 7.5mg q HS Call in 6weeks on how doing with Brisdelle Update Carotid Dopplers 04/25/2014 Appointment: Mikki Schwarz WPtel: [address] [place], [place] [phone] [place] NEW PATIENT 04/25/2014 Patient Education: Patient [...]
--- OUTSIDE RECORDS SUMMARY | 2019-08-27 07:23 | XMS REPORT | CCD ---
Author Author Yenifer Schwarz D.O. 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 Name Role Phone Billy Schwarz D.O., PP Unavailable CCM Unavailable Summary Purpose Interface Exchange Insurance Providers Payer name Policy type / Coverage type Covered alliance party ID Effective Begin Date Effective End Date Blue Cross Blue Shield Blue Cross/Bl ue Shield [id number] 2017 Un known Family history Mother Diagnosis Age At Onset Hypothryroidism Unknown Dementia Unknown Hip fracture Unknown Father Diagnosis Age At Onset Chronic obstructive pulmonary disease Unknown Tobacco abuse Unknown Social History Social History Element Codes Description Effective Dates Tobacco history SNOMED CT: 186145219 Has never smoked or chewed tobacco 11/15/2014 Employment Unknown [employer] 04/25/2014 Allergies, Adverse Reactions, Alerts Substance Reaction Codes Entered Date Inactivated Date Status * NO KNOWN FOOD GREGORIA RGIES Unknown 04/25/2014 No Inactive Date Active Dust reaction Unknown 04/25/2014 No In active Date Active PENICILLINS reaction, Unknown 04/25/2014 No Inactive Date Active Past Medical History Illness Codes Condition Status Onset Date Resolved Date Encounter for genera l adult medical examination without abnormal findings ICD-9: V70.0 ICD-10: Z00.00 Active 04/25/2014 Unknown Encounter for gyneco logical examination (general) (routine) without abnormal findings ICD-9: V72.31 ICD-10: Z01.419 Active 06/04/2018 Unknown Generalized anxiety disorder ICD-9: 308.0 ICD-10: F41.1 Active 07/16/2016 Unknown Primary insomnia ICD-9: 780.52 ICD-10: F51.01 Active 11/05/2017 Unknown Encounter for screen ing for lipoid disorders ICD-9: V77.91 ICD-10: Z13.220 Active 04/27/2018 Unknown FLU VACCINE ICD-9: V04.81 ICD-10: Z23 Active 11/08/2015 Unknown Impacted cerumen, ri ght ear ICD-9: 380.4 ICD-10: H61.21 Active 06/09/2017 Unknown Gastro-esophageal re flux disease without esophagitis ICD-9: 530.81 ICD-10: K21.9 Active 04/25/2015 Unknown Anxiety disorder, un specified ICD-9: 300.00 ICD-10: F41.9 Active 04/25/2014 Unknown Menopausal and femal e climacteric states ICD-9: 627.2 ICD-10: N95.1 Active 04/25/2014 Unknown PNEUMOCOCCAL VACCINE ICD-9: V03.82 ICD-10: Z23 Active 04/25/2015 Unknown Benign skin lesion o f thigh ICD-9: 709.9 Active 11/01 Unknown DISEASES OF NAIL NEC ICD-9: 703.8 Active 06/13/2014 Unknown ANXIETY STATE NOS ICD-9: 300.00 Active 04/25/2014 Unknown Menopausal flushing ICD- 9: 627.2 Active 04/25/2014 Unknown ROUTINE GYNE EXAM ICD-9: V72.31 Active 04/25/2014 Unknown ROUTINE MEDICAL EXAM ICD-9: V70.0 Active 04/25/2014 Unknown Problems Condition Codes Effectiv e Dates Condition Status Encounter for genera l adult medical examination without abnormal findings ICD-9: V70.0 ICD-10: Z00.00 04/25/2014 Active Encounter for gyneco logical examination (general) (routine) without abnormal findings ICD-9: V72.31 ICD-10: Z01.419 06/04/2018 Active Generalized anxiety disorder ICD-9: 308.0 ICD-10: F41.1 07/16/2016 Active Primary insomnia ICD-9: 780.52 ICD-10: F51.01 11/05/2017 Active Encounter for screen ing for lipoid disorders ICD-9: V77.91 ICD-10: Z13.220 04/27/2018 Active FLU VACCINE ICD-9: V04.81 ICD-10: Z23 11/08/2015 Active Impacted cerumen, ri ght ear ICD-9: 380.4 ICD-10: H61.21 06/09/2017 Active Gastro-esophageal re flux disease without esophagitis ICD-9: 530.81 ICD-10: K21.9 04/25/2015 Active Anxiety disorder, un specified ICD-9: 300.00 ICD-10: F41.9 04/25/2014 Active Menopausal and femal e climacteric states ICD-9: 627.2 ICD-10: N95.1 04/25/2014 Active PNEUMOCOCCAL VACCINE ICD-9: V03.82 ICD-10: Z23 04/25/2015 Active Benign skin lesion o f thigh ICD-9: 709.9 11/14/2014 Active DISEASES OF NAIL NEC ICD-9: 703.8 06/13/2014 Active ANXIETY STATE NOS ICD-9: 300.00 04/25/2014 Active Menopausal flushing ICD- 9: 627.2 04/25/2014 Active ROUTINE GYNE EXAM ICD-9: V72.31 04/25/2014 Active ROUTINE MEDICAL EXAM ICD-9: V70.0 04/25/2014 Active Medications Medication Codes Instruc tions Start Date Stop Date Sta tus Fill Instructions Paxil CR 37.5 mg tab let,extended release RxNorm: 5457717 1 Tablet(s) PO QD 10/12/2018 01/09/2019 Ac tive Paxil CR 37.5 mg tab let,extended release RxNorm: 3580539 TAKE ONE TABLET BY M OUTH DAILY 07/15/2018 10/12/2018 Inactive alprazolam 1 mg tablet RxNorm: 110831 1/2-1 Tablet(s) PO QD as needed for anxi ety 05/01/2018 No Stop Date Active Paxil CR 37.5 mg tab let,extended release RxNorm: 2555774 TAKE ONE TABLET BY M OUTH DAILY 03/23/2018 06/20/2018 Inactive Paxil CR 37.5 mg tab let,extended release RxNorm: 8003970 TAKE ONE TABLET BY M OUTH DAILY 01/15/2018 03/15/2018 Inactive Paxil CR 37.5 mg tab let,extended release RxNorm: 1221537 1 Tablet(s) PO QD 09/29/2017 12/27/2017 In active Klonopin 1 mg tablet RxNorm: 746895 TAKE ONE TABLET BY MOUTH EVERY NIGHT AT BEDTIME 09/29/2017 06/03/2018 Inactive Klonopin 1 mg tablet RxNorm: 668605 TAKE ONE TABLET BY MOUTH EVERY NIGHT AT BEDTIME 07/04/2017 09/30/2017 Inactive Paxil CR 37.5 mg tab let,extended release RxNorm: 6711774 1 Tablet(s) PO QD 06/17/2017 09/29/2017 In active Paxil CR 37.5 mg tab let,extended release RxNorm: 6015353 1 Tablet(s) PO QD 02/27/2017 06/17/2017 In active Klonopin 1 mg tablet RxNorm: 851665 TAKE ONE TABLET BY MOUTH EVERY NIGHT AT BEDTIME 02/17/2017 07/04/2017 Inactive Penlac 8 % topical s olution RxNorm: 422981 Application TOP QD 2017 05/21/2017 Inactive Paxil CR 37.5 mg tab let,extended release RxNorm: 7407095 1 Tablet(s) PO QD TA KE ONE TABLET BY MOUTH DAILY 12/20/2016 02/27/2017 Inactive Klonopin 1 mg tablet RxNorm: 398359 1 Tablet(s) PO QHS 10/16/2016 02/17/2017 Inactive Paxil CR 37.5 mg tab let,extended release RxNorm: 9959022 1 Tablet(s) PO QD TA KE ONE TABLET BY MOUTH DAILY 09/30/2016 12/20/2016 Inactive Klonopin 1 mg tablet RxNorm: 422355 TAKE ONE TABLET BY MOUTH EVERY NIGHT AT BEDTIME 07/15/2016 08/13/2016 Inactive Paxil CR 37.5 mg tab let,extended release RxNorm: 4609510 1 Tablet(s) PO QD TA KE ONE TABLET BY MOUTH DAILY 07/15/2016 09/30/2016 Inactive Klonopin 1 mg tablet RxNorm: 167470 TAKE ONE TABLET BY MOUTH EVERY NIGHT AT BEDTIME 06/11/2016 07/15/2016 Inactive Klonopin 1 mg tablet RxNorm: 763746 TAKE ONE TABLET BY MOUTH AT BEDTIME 05/13/2016 06/11/2016 In active Yuvafem 10 mcg vagin al tablet RxNorm: 3568157 1 Tablet(s) VAG QHS twice weekly 05/01/2016 05/21/2017 In active Paxil CR 37.5 mg tab let,extended release RxNorm: 9858130 1 Tablet(s) PO QD TA KE ONE TABLET BY MOUTH DAILY 05/01/2016 07/15/2016 Inactive Klonopin 1 mg tablet RxNorm: 952071 TAKE ONE TABLET BY MOUTH EVERY NIGHT AT BEDTIME NEED TO SCHEDULE APPOINTMENT 04/08/2016 05/13/2016 Inactive Klonopin 1 mg tablet RxNorm: 421299 TAKE ONE TABLET BY MOUTH AT BEDTIME 03/06/2016 04/08/2016 In active ondansetron HCl 4 mg tablet RxNorm: 771708 1 Tablet(s) PO Q4H as needed for nausea 11/10/2015 04/30/2016 In active Klonopin 1 mg tablet RxNorm: 399170 TAKE ONE TABLET BY MOUTH EVERY NIGHT AT BEDTIME 11/10/2015 03/06/2016 Inactive Paxil CR 25 mg table t,extended release RxNorm: 5317136 TAKE ONE TABLET BY M OUTH DAILY 11/10/2015 04/30/2016 Inactive Paxil CR 25 mg table t,extended release RxNorm: 4324132 TAKE ONE TABLET BY M OUTH DAILY 10/26/2015 11/09/2015 Inactive Paxil CR 25 mg table t,extended release RxNorm: 7866943 TAKE ONE TABLET BY M OUTH DAILY 09/26/2015 10/25/2015 Inactive Klonopin 1 mg tablet RxNorm: 838665 TAKE ONE TABLET BY MOUTH EVERY NIGHT AT BEDTIME 08/29/2015 11/13/2015 Inactive Paxil CR 25 mg table t,extended release RxNorm: 7878511 1 Tablet(s) PO QD 08/28/2015 08/27/2015 In active Paxil CR 25 mg table t,extended release RxNorm: 7438877 1 Tablet(s) PO QD 08/28/2015 09/25/2015 In active paroxetine ER 12.5 m g tablet,extended release 24 hr RxNorm: 262143 TAKE ONE TABLET BY MOUTH EVERY NIGHT AT BEDTIME 05/30/2015 08/27/2015 Inactive Klonopin 1 mg tablet RxNorm: 273043 TAKE ONE TABLET BY MOUTH EVERY NIGHT AT BEDTIME 05/30/2015 07/28/2015 Inactive alprazolam 1 mg tablet RxNorm: 068358 TAKE ONE-HALF TO ONE TABLET BY MOUTH KELLY LY NEEDED FOR ANXIETY 05/22/2015 04/30/2016 Inactive paroxetine ER 12.5 m g tablet,extended release 24 hr RxNorm: 350018 1 Tablet(s) PO QHS 04/26/2015 05/25/2015 Inactive Klonopin 1 mg tablet RxNorm: 532509 1 Tablet(s) PO QHS 02/03/2015 05/30/2015 Inactive Brisdelle 7.5 mg cap eric RxNorm: 8352891 Capsule(s) TAKE ONE CAPSULE BY MOUTH EVERY NIGHT AT BEDTIME 01/30/2015 04/25/2015 Inactive Calcium with Vitamin D 600 mg (1,500 mg)-400 unit tablet RxNorm: 740153 1 Tablet(s) PO QD 11/15/2014 No Stop Date Active Brisdelle 7.5 mg cap eric RxNorm: 2756120 TAKE ONE CAPSULE BY MOUTH EVERY NIGHT AT BEDTIME 08/22/2014 01/30/2015 Inactive Brisdelle 7.5 mg cap eric RxNorm: 9372574 1 Capsule(s) PO QHS 05/24/2014 08/21/2014 Inactive Brisdelle 7.5 mg cap eric RxNorm: 8450974 1 Capsule(s) PO QHS 05/24/2014 05/23/2014 Inactive Klonopin 1 mg tablet RxNorm: 257622 1 Tablet(s) PO QHS 05/02/2014 02/06/2015 Inactive Multivitamin & [place] al Formula oral RxNorm: oral No Start D ate Active biotin 1 mg tablet RxNorm: 062045 1 Tablet(s) PO QD No Start Date Active Vitamin D3 1,000 uni t tablet RxNorm: 001455 1 Tablet(s) PO QD No Start Date Active Osteo Bi-Flex 250 mg -200 mg tablet RxNorm: 765902 1-2 Tablet(s) PO QD No Start Date Active Klonopin 1 mg tablet RxNorm: 041310 1 Tablet(s) PO QHS No Start Date 05/01/2014 Inactive alprazolam 1 mg tablet RxNorm: 952984 1/2-1 Tablet(s) PO QD as needed for anxi ety and stress No Start Date 05/22/2015 Inactive Prilosec OTC 20 mg t ablet,delayed release RxNorm: 231555 1 Tablet(s) PO QD No Start Date 05/21/2017 Inactive Calcium + D oral RxNorm: 2418 oral No Start Date 04/25/2015 Inactive Lamisil 250 mg tablet RxNorm: 362026 1 Tablet(s) PO QD No Start Date 11/14/2014 Inactive Celexa 10 mg tablet RxNorm: 846622 1 Tablet(s) PO QD No Start Date 04/24/2014 Inactive ondansetron HCl 4 mg tablet RxNorm: 610434 1 Tablet(s) PO Q4H as needed for nausea No Start Date 11/09/2015 Inactive Medication Administered No Medication Administered data Immunizations Vaccine Codes Date Status Influenza CVX: 135 12/03 completed Influenza CVX: 135 12/09 completed Influenza CVX: 141 11/08 completed Pneumococcal CVX: 33 completed Pneumococcal CVX: 133 completed Assessments Condition Codes Effectiv e Dates Encounter for general adult medical exam ination without abnormal findings ICD-10: Z00.00 ICD-9: V70.0 06/04/2018 Primary insomnia ICD-10: F51.01 ICD-9: 780.52 06/04/2018 Encounter for gynecological examination (general) (routine) without abnormal findings ICD-10: Z01.419 ICD-9: V72.31 06/04/2018 Generalized anxiety disorder ICD-10: F41.1 ICD-9: 308.0 06/04/2018 Encounter for screening for lipoid disorders ICD-10: Z13.220 ICD-9: V77.91 04/27/2018 FLU VACCINE ICD-10: Z23 ICD-9: V04.81 12/03/2017 Impacted cerumen, right ear ICD-10: H61.21 ICD-9: 380.4 06/09/2017 Gastro-esophageal reflux disease without esophagitis ICD-10: K21.9 ICD-9: 530.81 05/22/2017 Anxiety disorder, unspecified ICD-10 : F41.9 ICD-9: 300.00 05/01/2016 Menopausal and female climacteric states ICD-10: N95.1 ICD-9: 627.2 05/01/2016 PNEUMOCOCCAL VACCINE ICD-10: Z23 ICD-9: V03.82 04/26/2015 Benign skin lesion of thigh ICD-9: 709.9 11/15/2014 DISEASES OF NAIL NEC ICD-9: 703.8 06/13/2014 ROUTINE MEDICAL EXAM ICD-9: V70.0 04/25/2014 ANXIETY STATE NOS ICD-9: 300.00 04/25/2014 ROUTINE GYNE EXAM ICD-9: V72.31 04/25/2014 Menopausal flushing ICD-9: 627.2 04/25/2014 Reason For Visit Reason For Visit Effective Dates Notes well woman exam (65+ years) 06/04/2018 injection(s) 12/03/2017 Flu shot follow up 11/05/2017 Annual Checkup 05/22/2017 follow up 2017 3 M onth injection(s) 12/09/2016 Flu Vaccine follow up 10/16/2016 3 M onth follow up 07/16/2016 Pat ient's Paxil was increased to 37.5mg and patient is tolerating well Annual Checkup 05/01/2016 Wellness Physical injection(s) 11/09/2015 Influenza well woman exam (40-65 years) 04/26/2015 Last normal mammogram 1 year ago, has had history of biopsied breast cyst mole check 11/15/2014 ~generic 04/25/2014 Esta blishing care Results No Results data Review of Systems System Result Effective Dates Constitutional No night sweats 06/04/2018 Constitutional No fatigue 06/04/2018 Constitutional No fever 06/04/2018 Constitutional insomnia 06/04/2018 Constitutional No weight loss 06/04/2018 Eyes No eye pain 019 Eyes No photophobia 06/2018 Eyes No vision change Eyes No visual disturbance 06/04/2018 Ears/Nose/Throat/Neck No hearing loss 06/04/2018 Ears/Nose/Throat/Neck No nasal discharge 06/04/2018 Ears/Nose/Throat/Neck No sinus congestion 06/04/2018 Ears/Nose/Throat/Neck No sore throat 06/04/2018 Cardiovascular No arrhythmia 06/04/2018 Cardiovascular No chest pain/pressure 06/04/2018 Cardiovascular No edema 06/04/2018 Cardiovascular No exercise intolerance 06/04/2018 Cardiovascular No orthopnea 06/04/2018 Cardiovascular No palpitations 06/04/2018 Respiratory No asthma Respiratory No cough 06/2018 Respiratory No dyspnea 0 06/04/2018 Respiratory No pleuritic pain 06/04/2018 Respiratory No productive sputum 06/04/2018 Respiratory No wheezing 06/04/2018 Gastrointestinal No hemorrhoids 06/04/2018 Gastrointestinal No hepatitis 06/04/2018 Gastrointestinal No abdominal pain 06/04/2018 Gastrointestinal No constipation 06/04/2018 Gastrointestinal No diarrhea 06/04/2018 Gastrointestinal No gastroesophageal reflu x 06/04/2018 Gastrointestinal No melena 06/04/2018 Gastrointestinal No nausea 06/04/2018 Gastrointestinal No vomiting 06/04/2018 Genitourinary/Nephrology No dysuria 06/04/2018 Genitourinary/Nephrology No nocturia 06/04/2018 Genitourinary/Nephrology No urinary incontinence 06/04/2018 Musculoskeletal No muscle weakness 06/04/2018 Musculoskeletal No myalgias 06/04/2018 Musculoskeletal No stiffness 06/04/2018 Musculoskeletal No swelling 06/04/2018 Dermatologic No rash 06/2018 Dermatologic No scar 06/2018 Neurologic No dizziness 06/04/2018 Neurologic No headache 0 06/04/2018 Neurologic No neck pain 06/04/2018 Neurologic No syncope Psychiatric anxiety 06/2018 Psychiatric No depression 06/04/2018 Endocrine No goiter 06/2018 Endocrine No hyperglycemia 06/04/2018 Endocrine No hypoglycemia 06/04/2018 Hematologic/Lymphatic No abnormal ec chymoses 06/04/2018 Hematologic/Lymphatic No petechiae 06/04/2018 Hematologic/Lymphatic No abnormal bl eeding and bruising 06/04/2018 Hematologic/Lymphatic No anemia 06/04/2018 Hematologic/Lymphatic No lymph node enlargement/mass 06/04/2018 Allergy/Immunology No food allergy 06/04/2018 Constitutional insomnia 11/05/2017 Constitutional No fever 06/09/2017 Constitutional No fatigue 06/09/2017 Ears/Nose/Throat/Neck No tinnitus 06/09/2017 Ears/Nose/Throat/Neck No sore throat 06/09/2017 Ears/Nose/Throat/Neck No otalgia 06/09/2017 Ears/Nose/Throat/Neck No sinus congestion 06/09/2017 Ears/Nose/Throat/Neck No sinusitis 06/09/2017 Ears/Nose/Throat/Neck No postnasal drip 06/09/2017 Ears/Nose/Throat/Neck cerumen 06/09/2017 Ears/Nose/Throat/Neck hearing loss 06/09/2017 Constitutional No night sweats 05/22/2017 Constitutional No fatigue 05/22/2017 Constitutional No fever 05/22/2017 Constitutional insomnia 05/22/2017 Constitutional No weight loss 05/22/2017 Eyes No eye pain 018 Eyes No photophobia 05/02 Eyes No vision change Eyes No visual disturbance 05/22/2017 Ears/Nose/Throat/Neck No hearing loss 05/22/2017 Ears/Nose/Throat/Neck No nasal discharge 05/22/2017 Ears/Nose/Throat/Neck No sinus congestion 05/22/2017 Ears/Nose/Throat/Neck No sore throat 05/22/2017 Cardiovascular No arrhythmia 05/22/2017 Cardiovascular No chest pain/pressure 05/22/2017 Cardiovascular No edema 05/22/2017 Cardiovascular No exercise intolerance 05/22/2017 Cardiovascular No orthopnea 05/22/2017 Cardiovascular No palpitations 05/22/2017 Respiratory No asthma Respiratory No cough Respiratory No dyspnea 0 05/22/2017 Respiratory No pleuritic pain 05/22/2017 Respiratory No productive sputum 05/22/2017 Respiratory No wheezing 05/22/2017 Gastrointestinal No hemorrhoids 05/22/2017 Gastrointestinal No hepatitis 05/22/2017 Gastrointestinal No abdominal pain 05/22/2017 Gastrointestinal No constipation 05/22/2017 Gastrointestinal No diarrhea 05/22/2017 Gastrointestinal gastroesophageal reflux 05/22/2017 Gastrointestinal No melena 05/22/2017 Gastrointestinal No nausea 05/22/2017 Gastrointestinal No vomiting 05/22/2017 Genitourinary/Nephrology No dysuria 05/22/2017 Genitourinary/Nephrology No nocturia 05/22/2017 Genitourinary/Nephrology No urinary incontinence 05/22/2017 Musculoskeletal No muscle weakness 05/22/2017 Musculoskeletal No myalgias 05/22/2017 Musculoskeletal No stiffness 05/22/2017 Musculoskeletal No swelling 05/22/2017 Dermatologic No rash Dermatologic No scar Neurologic No dizziness 05/22/2017 Neurologic No headache 0 05/22/2017 Neurologic No neck pain 05/22/2017 Neurologic No syncope Psychiatric anxiety 05/02 Psychiatric No depression 05/22/2017 Endocrine No goiter 05/02 Endocrine No hyperglycemia 05/22/2017 Endocrine No hypoglycemia 05/22/2017 Hematologic/Lymphatic No abnormal ec chymoses 05/22/2017 Hematologic/Lymphatic No petechiae 05/22/2017 Hematologic/Lymphatic No abnormal bl eeding and bruising 05/22/2017 Hematologic/Lymphatic No anemia 05/22/2017 Hematologic/Lymphatic No lymph node enlargement/mass 05/22/2017 Allergy/Immunology No food allergy 05/22/2017 Psychiatric stress 01/20 Psychiatric anxiety 01/02 Cardiovascular No arrhythmia 10/16/2016 Cardiovascular No chest pain/pressure 10/16/2016 Cardiovascular No edema 10/16/2016 Cardiovascular No exercise intolerance 10/16/2016 Cardiovascular No orthopnea 10/16/2016 Cardiovascular No palpitations 10/16/2016 Psychiatric anxiety 10/01 Psychiatric stress 10/16 Psychiatric anxiety 07/01 Psychiatric No depression 07/16/2016 Psychiatric stress 07/16 Constitutional No night sweats 05/01/2016 Constitutional No fatigue 05/01/2016 Constitutional No fever 05/01/2016 Constitutional No insomnia 05/01/2016 Constitutional No weight loss 05/01/2016 Eyes No eye pain 017 Eyes No photophobia 03/2016 Eyes No vision change Eyes No visual disturbance 05/01/2016 Ears/Nose/Throat/Neck No hearing loss 05/01/2016 Ears/Nose/Throat/Neck No nasal discharge 05/01/2016 Ears/Nose/Throat/Neck No sinus congestion 05/01/2016 Ears/Nose/Throat/Neck No sore throat 05/01/2016 Cardiovascular No arrhythmia 05/01/2016 Cardiovascular No chest pain/pressure 05/01/2016 Cardiovascular No edema 05/01/2016 Cardiovascular No exercise intolerance 05/01/2016 Cardiovascular No orthopnea 05/01/2016 Cardiovascular No palpitations 05/01/2016 Respiratory No asthma Respiratory No cough 03/2016 Respiratory No dyspnea 0 05/01/2016 Respiratory No pleuritic pain 05/01/2016 Respiratory No productive sputum 05/01/2016 Respiratory No wheezing 05/01/2016 Gastrointestinal No hemorrhoids 05/01/2016 Gastrointestinal No hepatitis 05/01/2016 Gastrointestinal No abdominal pain 05/01/2016 Gastrointestinal No constipation 05/01/2016 Gastrointestinal No diarrhea 05/01/2016 Gastrointestinal No gastroesophageal reflu x 05/01/2016 Gastrointestinal No melena 05/01/2016 Gastrointestinal No nausea 05/01/2016 Gastrointestinal No vomiting 05/01/2016 Genitourinary/Nephrology No dysuria 05/01/2016 Genitourinary/Nephrology No nocturia 05/01/2016 Genitourinary/Nephrology No urinary incontinence 05/01/2016 Musculoskeletal No muscle weakness 05/01/2016 Musculoskeletal No myalgias 05/01/2016 Musculoskeletal No stiffness 05/01/2016 Musculoskeletal No swelling 05/01/2016 Dermatologic No rash 03/2016 Dermatologic No scar 03/2016 Neurologic No dizziness 05/01/2016 Neurologic No headache 0 05/01/2016 Neurologic No neck pain 05/01/2016 Neurologic No syncope Psychiatric No anxiety 0 05/01/2016 Psychiatric No depression 05/01/2016 Endocrine No goiter 03/0 03/2016 Endocrine No hyperglycemia 05/01/2016 Endocrine No hypoglycemia 05/01/2016 Hematologic/Lymphatic No abnormal ec chymoses 05/01/2016 Hematologic/Lymphatic No petechiae 05/01/2016 Hematologic/Lymphatic No abnormal bl eeding and bruising 05/01/2016 Hematologic/Lymphatic No anemia 05/01/2016 Hematologic/Lymphatic No lymph node enlargement/mass 05/01/2016 Allergy/Immunology No food allergy 05/01/2016 Constitutional No night sweats 04/26/2015 Constitutional No fatigue 04/26/2015 Constitutional No fever 04/26/2015 Constitutional No insomnia 04/26/2015 Constitutional No weight loss 04/26/2015 Eyes No eye pain 016 Eyes No photophobia 04/04 Eyes No vision change Eyes No visual disturbance 04/26/2015 Ears/Nose/Throat/Neck No hearing loss 04/26/2015 Ears/Nose/Throat/Neck No nasal discharge 04/26/2015 Ears/Nose/Throat/Neck No sinus congestion 04/26/2015 Ears/Nose/Throat/Neck No sore throat 04/26/2015 Cardiovascular No arrhythmia 04/26/2015 Cardiovascular No chest pain/pressure 04/26/2015 Cardiovascular No edema 04/26/2015 Cardiovascular No exercise intolerance 04/26/2015 Cardiovascular No orthopnea 04/26/2015 Cardiovascular No palpitations 04/26/2015 Respiratory No asthma Respiratory No cough Respiratory No dyspnea 0 04/26/2015 Respiratory No pleuritic pain 04/26/2015 Respiratory No productive sputum 04/26/2015 Respiratory No wheezing 04/26/2015 Gastrointestinal No hemorrhoids 04/26/2015 Gastrointestinal No hepatitis 04/26/2015 Gastrointestinal No abdominal pain 04/26/2015 Gastrointestinal No constipation 04/26/2015 Gastrointestinal No diarrhea 04/26/2015 Gastrointestinal gastroesophageal reflux 04/26/2015 Gastrointestinal No melena 04/26/2015 Gastrointestinal No nausea 04/26/2015 Gastrointestinal No vomiting 04/26/2015 Genitourinary/Nephrology No dysuria 04/26/2015 Genitourinary/Nephrology No nocturia 04/26/2015 Genitourinary/Nephrology No urinary incontinence 04/26/2015 Musculoskeletal No muscle weakness 04/26/2015 Musculoskeletal No myalgias 04/26/2015 Musculoskeletal No stiffness 04/26/2015 Musculoskeletal No swelling 04/26/2015 Dermatologic No rash Dermatologic No scar Neurologic No dizziness 04/26/2015 Neurologic No headache 0 04/26/2015 Neurologic No neck pain 04/26/2015 Neurologic No syncope Psychiatric anxiety 04/04 Psychiatric No depression 04/26/2015 Endocrine No goiter 04/04 Endocrine No hyperglycemia 04/26/2015 Endocrine No hypoglycemia 04/26/2015 Hematologic/Lymphatic No abnormal ec chymoses 04/26/2015 Hematologic/Lymphatic No petechiae 04/26/2015 Hematologic/Lymphatic No abnormal bl eeding and bruising 04/26/2015 Hematologic/Lymphatic No anemia 04/26/2015 Hematologic/Lymphatic No lymph node enlargement/mass 04/26/2015 Allergy/Immunology No food allergy 04/26/2015 Dermatologic mole change 11/15/2014 Dermatologic skin lesion 11/15/2014 Psychiatric anxiety 04/04 Constitutional No night sweats 04/25/2014 Constitutional No fatigue 04/25/2014 Constitutional No fever 04/25/2014 Constitutional No insomnia 04/25/2014 Constitutional No weight loss 04/25/2014 Eyes No eye pain 015 Eyes No photophobia 04/04 Eyes No vision change Eyes No visual disturbance 04/25/2014 Ears/Nose/Throat/Neck No hearing loss 04/25/2014 Ears/Nose/Throat/Neck No nasal discharge 04/25/2014 Ears/Nose/Throat/Neck No sinus congestion 04/25/2014 Ears/Nose/Throat/Neck No sore throat 04/25/2014 Cardiovascular No arrhythmia 04/25/2014 Cardiovascular No chest pain/pressure 04/25/2014 Cardiovascular No edema 04/25/2014 Cardiovascular No exercise intolerance 04/25/2014 Cardiovascular No orthopnea 04/25/2014 Cardiovascular No palpitations 04/25/2014 Respiratory No asthma Respiratory No cough Respiratory No dyspnea 0 04/25/2014 Respiratory No pleuritic pain 04/25/2014 Respiratory No productive sputum 04/25/2014 Respiratory No wheezing 04/25/2014 Gastrointestinal No hemorrhoids 04/25/2014 Gastrointestinal No hepatitis 04/25/2014 Gastrointestinal No abdominal pain 04/25/2014 Gastrointestinal No constipation 04/25/2014 Gastrointestinal No diarrhea 04/25/2014 Gastrointestinal No gastroesophageal reflu x 04/25/2014 Gastrointestinal No melena 04/25/2014 Gastrointestinal No nausea 04/25/2014 Gastrointestinal No vomiting 04/25/2014 Genitourinary/Nephrology No dysuria 04/25/2014 Genitourinary/Nephrology No nocturia 04/25/2014 Genitourinary/Nephrology No urinary incontinence 04/25/2014 Musculoskeletal No muscle weakness 04/25/2014 Musculoskeletal No myalgias 04/25/2014 Musculoskeletal No stiffness 04/25/2014 Musculoskeletal No swelling 04/25/2014 Dermatologic No rash Dermatologic No scar Neurologic No dizziness 04/25/2014 Neurologic No headache 0 04/25/2014 Neurologic No neck pain 04/25/2014 Neurologic No syncope Psychiatric No depression 04/25/2014 Endocrine No goiter 04/04 Endocrine hyperglycemia 04/25/2014 Endocrine No hypoglycemia 04/25/2014 Hematologic/Lymphatic No abnormal ec chymoses 04/25/2014 Hematologic/Lymphatic No petechiae 04/25/2014 Hematologic/Lymphatic No abnormal bl eeding and bruising 04/25/2014 Hematologic/Lymphatic No anemia 04/25/2014 Hematologic/Lymphatic No lymph node enlargement/mass 04/25/2014 Allergy/Immunology No food allergy 04/25/2014 Constitutional diaphoresis 04/25/2014 Physical Exam Exam Name System Name It em Name Status Result Effective Dates Notes Full Exam - General Constitutional general appearance Overall: well nourished 06/04/2018 None Full Exam - General Constitutional general appearance Overall: well developed 06/04/2018 None Full Exam - General Constitutional general appearance Overall: in no acute distress 06/04/2018 None Full Exam - General Neurologic mental status Overall: alert 9 None Full Exam - General Neurologic mental status Overall: oriented 06/04/2018 None Full Exam - General Psychiatric mood and affect Overall: normal mood and affect 06/04/2018 None Full Exam - General Respiratory auscultation Overall: breath sounds clear bilater ally 06/04/2018 None Full Exam - General Neck inspection of neck Overall: normal size 06/04/2018 None Full Exam - General Neck inspection of neck Overall: no masses 06/04/2018 None Full Exam - General Cardiovascular auscultation of heart Overall: regular rate 06/04/2018 None Full Exam - General Cardiovascular auscultation of heart Overall: normal heart sounds 06/04/2018 None Full Exam - General Cardiovascular auscultation of heart Overall: no murmurs 06/04/2018 None Full Exam - General Ears/Nose/Throat otoscopic exam Overall: external auditory canals clear 06/04/2018 None Full Exam - General Ears/Nose/Throat otoscopic exam Overall: tympanic membranes clear 06/04/2018 None Full Exam - General Ears/Nose/Throat internal nose Overall: bilateral nasal cavities clear 06/04/2018 None Full Exam - General Ears/Nose/Throat oral cavity/pharynx/larynx Overall: oral mucosa clear 06/04/2018 None Full Exam - General Cardiovascular extremities Overall: no clubbing 06/04/2018 None Full Exam - General Cardiovascular extremities Overall: No edema 06/04/2018 None Full Exam - General Cardiovascular extremities Overall: No cyanosis 06/04/2018 None Full Exam - General Chest/Breast breast and axillae palpation Overall: breasts non- tender 06/04/2018 None Full Exam - General Chest/Breast breast and axillae palpation Overall: no masses 06/04/2018 None Full Exam - General Chest/Breast breast and axillae palpation Overall: axillae non- tender 06/04/2018 None Full Exam - General Chest/Breast breast and axillae palpation Overall: no nipple discharge 06/04/2018 None Full Exam - General Abdomen abdominal exam Overall: no masses 06/04/2018 None Full Exam - General Abdomen abdominal exam Overall: no tenderness 06/04/2018 None Full Exam - General Abdomen abdominal exam Overall: normal bowel sounds 06/04/2018 None Full Exam - General Abdomen abdominal exam Overall: soft 06/04/2018 None Full Exam - General Musculoskeletal gait and station Overall: normal gait 06/04/2018 None Full Exam - General Musculoskeletal gait and station Overall: normal station 06/04/2018 None Full Exam - General Genitourinary uterus Overall: normal size 06/04/2018 None Full Exam - General Genitourinary cervix Overall: no discharge 06/04/2018 None Full Exam - General Genitourinary labia and vagina Overall: normal hair distribution 06/04/2018 None Full Exam - General Genitourinary labia and vagina Overall: no lesions 06/04/2018 None Full Exam - General Genitourinary labia and vagina Vagina: erythematous 06/04/2018 None Full Exam - General Genitourinary adnexa/parametria Overall: no tenderness 06/04/2018 None Full Exam - General Abdomen rectal exam Overall: good sphincter tone, no mas ses, no lesions 06/04/2018 None Full Exam - General Abdomen stool sample obtained Overall: normal appearance 06/04/2018 None Full Exam - General Abdomen stool sample obtained Overall: occult blood negative 06/04/2018 None Full Exam - General Constitutional general appearance Overall: well nourished 11/05/2017 None Full Exam - General Constitutional general appearance Overall: well developed 11/05/2017 None Full Exam - General Constitutional general appearance Overall: in no acute distress 11/05/2017 None Full Exam - General Neurologic mental status Overall: alert 8 None Full Exam - General Neurologic mental status Overall: oriented 11/05/2017 None Full Exam - General Psychiatric mood and affect Overall: normal mood and affect 11/05/2017 None Full Exam - General Respiratory auscultation Overall: breath sounds clear bilater ally 11/05/2017 None Full Exam - General Cardiovascular auscultation of heart Overall: regular rate 11/05/2017 None Full Exam - General Cardiovascular auscultation of heart Overall: normal heart sounds 11/05/2017 None Full Exam - General Cardiovascular auscultation of heart Overall: no murmurs 11/05/2017 None Full Exam - General Constitutional general appearance Overall: well developed 06/09/2017 None Full Exam - General Constitutional general appearance Overall: in no acute distress 06/09/2017 None Full Exam - General Constitutional general appearance Overall: well nourished 06/09/2017 None Full Exam - General Ears/Nose/Throat otoscopic exam Right external auditory canal: complete cerumen impaction 06/09/2017 None Full Exam - General Ears/Nose/Throat otoscopic exam Right tympanic membrane: a normal exam 06/09/2017 once canal cleaned out, TM was wnl. Full Exam - General Neurologic mental status Overall: alert 8 None Full Exam - General Neurologic mental status Overall: oriented 06/09/2017 None Full Exam - General Constitutional general appearance Overall: well nourished 05/22/2017 None Full Exam - General Constitutional general appearance Overall: well developed 05/22/2017 None Full Exam - General Constitutional general appearance Overall: in no acute distress 05/22/2017 None Full Exam - General Neurologic mental status Overall: alert 8 None Full Exam - General Neurologic mental status Overall: oriented 05/22/2017 None Full Exam - General Psychiatric mood and affect Overall: normal mood and affect 05/22/2017 None Full Exam - General Respiratory auscultation Overall: breath sounds clear bilater ally 05/22/2017 None Full Exam - General Cardiovascular auscultation of heart Overall: regular rate 05/22/2017 None Full Exam - General Cardiovascular auscultation of heart Overall: normal heart sounds 05/22/2017 None Full Exam - General Cardiovascular auscultation of heart Overall: no murmurs 05/22/2017 None Full Exam - General Neck inspection of neck Overall: normal size 05/22/2017 None Full Exam - General Neck inspection of neck Overall: no masses 05/22/2017 None Full Exam - General Ears/Nose/Throat otoscopic exam Overall: external auditory canals clear 05/22/2017 None Full Exam - General Ears/Nose/Throat otoscopic exam Overall: tympanic membranes clear 05/22/2017 None Full Exam - General Ears/Nose/Throat internal nose Overall: bilateral nasal cavities clear 05/22/2017 None Full Exam - General Ears/Nose/Throat oral cavity/pharynx/larynx Overall: oral mucosa clear 05/22/2017 None Full Exam - General Cardiovascular extremities Overall: no clubbing 05/22/2017 None Full Exam - General Cardiovascular extremities Overall: No edema 05/22/2017 None Full Exam - General Cardiovascular extremities Overall: No cyanosis 05/22/2017 None Full Exam - General Abdomen abdominal exam Overall: no masses 05/22/2017 None Full Exam - General Abdomen abdominal exam Overall: no tenderness 05/22/2017 None Full Exam - General Abdomen abdominal exam Overall: normal bowel sounds 05/22/2017 None Full Exam - General Abdomen abdominal exam Overall: soft 05/22/2017 None Full Exam - General Musculoskeletal gait and station Overall: normal gait 05/22/2017 None Full Exam - General Musculoskeletal gait and station Overall: normal station 05/22/2017 None Full Exam - General Constitutional general appearance Overall: well nourished 2017 None Full Exam - General Constitutional general appearance Overall: well developed 2017 None Full Exam - General Constitutional general appearance Overall: in no acute distress 2017 None Full Exam - General Neurologic mental status Overall: alert 7 None Full Exam - General Neurologic mental status Overall: oriented 2017 None Full Exam - General Psychiatric mood and affect Overall: normal mood and affect 2017 None Full Exam - General Respiratory auscultation Overall: breath sounds clear bilater ally 2017 None Full Exam - General Cardiovascular auscultation of heart Overall: regular rate 2017 None Full Exam - General Cardiovascular auscultation of heart Overall: normal heart sounds 2017 None Full Exam - General Cardiovascular auscultation of heart Overall: no murmurs 2017 None Full Exam - General Cardiovascular extremities Overall: no clubbing 2017 None Full Exam - General Cardiovascular extremities Overall: No edema 2017 None Full Exam - General Cardiovascular extremities Overall: No cyanosis 2017 None Full Exam - General Constitutional general appearance Overall: well nourished 10/16/2016 None Full Exam - General Constitutional general appearance Overall: well developed 10/16/2016 None Full Exam - General Constitutional general appearance Overall: in no acute distress 10/16/2016 None Full Exam - General Neurologic mental status Overall: alert 7 None Full Exam - General Neurologic mental status Overall: oriented 10/16/2016 None Full Exam - General Psychiatric mood and affect Overall: normal mood and affect 10/16/2016 None Full Exam - General Respiratory auscultation Overall: breath sounds clear bilater ally 10/16/2016 None Full Exam - General Cardiovascular auscultation of heart Overall: regular rate 10/16/2016 None Full Exam - General Cardiovascular auscultation of heart Overall: normal heart sounds 10/16/2016 None Full Exam - General Cardiovascular auscultation of heart S4 (atrial gallop): present 10/16/2016 None Full Exam - General Cardiovascular extremities Overall: no clubbing 10/16/2016 None Full Exam - General Cardiovascular extremities Overall: No edema 10/16/2016 None Full Exam - General Cardiovascular extremities Overall: No cyanosis 10/16/2016 None Full Exam - General Constitutional general appearance Overall: well nourished 07/16/2016 None Full Exam - General Constitutional general appearance Overall: well developed 07/16/2016 None Full Exam - General Constitutional general appearance Overall: in no acute distress 07/16/2016 None Full Exam - General Neurologic mental status Overall: alert 201 7 None Full Exam - General Neurologic mental status Overall: oriented 07/16/2016 None Full Exam - General Psychiatric mood and affect Overall: normal mood and affect 07/16/2016 None Full Exam - General Respiratory auscultation Overall: breath sounds clear bilater ally 07/16/2016 None Full Exam - General Cardiovascular auscultation of heart Overall: regular rate 07/16/2016 None Full Exam - General Cardiovascular auscultation of heart Overall: normal heart sounds 07/16/2016 None Full Exam - General Cardiovascular auscultation of heart Overall: no murmurs 07/16/2016 None Full Exam - General Constitutional general appearance Overall: well nourished 05/01/2016 None Full Exam - General Constitutional general appearance Overall: well developed 05/01/2016 None Full Exam - General Constitutional general appearance Overall: in no acute distress 05/01/2016 None Full Exam - General Neurologic mental status Overall: alert 7 None Full Exam - General Neurologic mental status Overall: oriented 05/01/2016 None Full Exam - General Respiratory auscultation Overall: breath sounds clear bilater ally 05/01/2016 None Full Exam - General Cardiovascular auscultation of heart Overall: regular rate 05/01/2016 None Full Exam - General Cardiovascular auscultation of heart Overall: normal heart sounds 05/01/2016 None Full Exam - General Cardiovascular auscultation of heart Overall: no murmurs 05/01/2016 None Full Exam - General Cardiovascular extremities Overall: no clubbing 05/01/2016 None Full Exam - General Cardiovascular extremities Overall: No edema 05/01/2016 None Full Exam - General Cardiovascular extremities Overall: No cyanosis 05/01/2016 None Full Exam - General Neck inspection of neck Overall: normal size 05/01/2016 None Full Exam - General Neck inspection of neck Overall: no masses 05/01/2016 None Full Exam - General Ears/Nose/Throat otoscopic exam Overall: external auditory canals clear 05/01/2016 None Full Exam - General Ears/Nose/Throat otoscopic exam Overall: tympanic membranes clear 05/01/2016 None Full Exam - General Ears/Nose/Throat internal nose Overall: bilateral nasal cavities clear 05/01/2016 None Full Exam - General Ears/Nose/Throat oral cavity/pharynx/larynx Overall: oral mucosa clear 05/01/2016 None Full Exam - General Abdomen abdominal exam Overall: no masses 05/01/2016 None Full Exam - General Abdomen abdominal exam Overall: no tenderness 05/01/2016 None Full Exam - General Abdomen abdominal exam Overall: normal bowel sounds 05/01/2016 None Full Exam - General Abdomen abdominal exam Overall: soft 05/01/2016 None Full Exam - General Musculoskeletal gait and station Overall: normal gait 05/01/2016 None Full Exam - General Musculoskeletal gait and station Overall: normal station 05/01/2016 None Full Exam - General Psychiatric mood and affect Mood: anxious 05/01/2016 None Full Exam - General Psychiatric mood and affect Affect: a normal exam 05/01/2016 None Full Exam - General Constitutional general appearance Overall: well nourished 04/26/2015 None Full Exam - General Constitutional general appearance Overall: well developed 04/26/2015 None Full Exam - General Constitutional general appearance Overall: in no acute distress 04/26/2015 None Full Exam - General Neurologic mental status Overall: alert 6 None Full Exam - General Neurologic mental status Overall: oriented 04/26/2015 None Full Exam - General Psychiatric mood and affect Overall: normal mood and affect 04/26/2015 None Full Exam - General Respiratory auscultation Overall: breath sounds clear bilater ally 04/26/2015 None Full Exam - General Cardiovascular auscultation of heart Overall: regular rate 04/26/2015 None Full Exam - General Cardiovascular auscultation of heart Overall: normal heart sounds 04/26/2015 None Full Exam - General Cardiovascular auscultation of heart S3 (ventricular gallop): present 04/26/2015 None Full Exam - General Cardiovascular auscultation of heart Murmur: previously known murmur unchanged 04/26/2015 None Full Exam - General Cardiovascular extremities Overall: no clubbing 04/26/2015 None Full Exam - General Cardiovascular extremities Overall: No edema 04/26/2015 None Full Exam - General Cardiovascular extremities Overall: No cyanosis 04/26/2015 None Full Exam - General Neck inspection of neck Overall: normal size 04/26/2015 None Full Exam - General Neck inspection of neck Overall: no masses 04/26/2015 None Full Exam - General Ears/Nose/Throat otoscopic exam Overall: external auditory canals clear 04/26/2015 None Full Exam - General Ears/Nose/Throat otoscopic exam Overall: tympanic membranes clear 04/26/2015 None Full Exam - General Ears/Nose/Throat internal nose Overall: bilateral nasal cavities clear 04/26/2015 None Full Exam - General Ears/Nose/Throat oral cavity/pharynx/larynx Overall: oral mucosa clear 04/26/2015 None Full Exam - General Abdomen abdominal exam Overall: no masses 04/26/2015 None Full Exam - General Abdomen abdominal exam Overall: no tenderness 04/26/2015 None Full Exam - General Abdomen abdominal exam Overall: normal bowel sounds 04/26/2015 None Full Exam - General Abdomen abdominal exam Overall: soft 04/26/2015 None Full Exam - General Musculoskeletal gait and station Overall: normal gait 04/26/2015 None Full Exam - General Musculoskeletal gait and station Overall: normal station 04/26/2015 None Full Exam - General Musculoskeletal spine, ribs and pelvis Posture: a normal exam 04/26/2015 None Full Exam - General Chest/Breast breast and axillae palpation Overall: breasts non- tender 04/26/2015 None Full Exam - General Chest/Breast breast and axillae palpation Overall: no masses 04/26/2015 None Full Exam - General Chest/Breast breast and axillae palpation Overall: axillae non- tender 04/26/2015 None Full Exam - General Chest/Breast breast and axillae palpation Overall: no nipple discharge 04/26/2015 None Full Exam - General Integument inspection of skin Location: diffuse 04/26/2015 freckles with scattered SKs Full Exam - General Constitutional general appearance Overall: well nourished 11/15/2014 None Full Exam - General Constitutional general appearance Overall: well developed 11/15/2014 None Full Exam - General Constitutional general appearance Overall: in no acute distress 11/15/2014 None Full Exam - General Neurologic mental status Overall: alert 5 None Full Exam - General Neurologic mental status Overall: oriented 11/15/2014 None Full Exam - General Integument inspection of skin Location: right leg 11/15/2014 posterior mid-thigh with 5mm erythemic p apule Full Exam - General Constitutional general appearance Overall: well developed 04/25/2014 None Full Exam - General Constitutional general appearance Overall: well nourished 04/25/2014 None Full Exam - General Constitutional general appearance Overall: in no acute distress 04/25/2014 None Full Exam - General Neurologic mental status Overall: alert 5 None Full Exam - General Neurologic mental status Overall: oriented 04/25/2014 None Full Exam - General Psychiatric mood and affect Overall: normal mood and affect 04/25/2014 None Full Exam - General Respiratory auscultation Overall: breath sounds clear bilater ally 04/25/2014 None Full Exam - General Cardiovascular auscultation of heart Overall: regular rate 04/25/2014 None Full Exam - General Cardiovascular auscultation of heart Overall: normal heart sounds 04/25/2014 None Full Exam - General Cardiovascular auscultation of heart Overall: no murmurs 04/25/2014 None Full Exam - General Cardiovascular extremities Overall: no clubbing 04/25/2014 None Full Exam - General Cardiovascular extremities Overall: No edema 04/25/2014 None Full Exam - General Cardiovascular extremities Overall: No cyanosis 04/25/2014 None Full Exam - General Chest/Breast breast and axillae palpation Overall: breasts non- tender 04/25/2014 None Full Exam - General Chest/Breast breast and axillae palpation Overall: no masses 04/25/2014 None Full Exam - General Chest/Breast breast and axillae palpation Overall: axillae non- tender 04/25/2014 None Full Exam - General Chest/Breast breast and axillae palpation Overall: no nipple discharge 04/25/2014 None Full Exam - General Abdomen abdominal exam Overall: no masses 04/25/2014 None Full Exam - General Abdomen abdominal exam Overall: no tenderness 04/25/2014 None Full Exam - General Abdomen abdominal exam Overall: normal bowel sounds 04/25/2014 None Full Exam - General Abdomen abdominal exam Overall: soft 04/25/2014 None Full Exam - General Abdomen rectal exam Overall: good sphincter tone, no mas ses, no lesions 04/25/2014 None Full Exam - General Abdomen stool sample obtained Overall: normal appearance 04/25/2014 None Full Exam - General Abdomen stool sample obtained Overall: occult blood negative 04/25/2014 None Full Exam - General Genitourinary uterus Overall: normal size 04/25/2014 None Full Exam - General Genitourinary cervix Overall: no discharge 04/25/2014 None Full Exam - General Genitourinary labia and vagina Overall: normal hair distribution 04/25/2014 None Full Exam - General Genitourinary adnexa/parametria Overall: no tenderness 04/25/2014 None Full Exam - General Genitourinary labia and vagina Vagina: erythematous 04/25/2014 None Full Exam - General Neck inspection of neck Overall: normal size 04/25/2014 None Full Exam - General Ears/Nose/Throat otoscopic exam Overall: external auditory canals clear 04/25/2014 None Full Exam - General Ears/Nose/Throat otoscopic exam Overall: tympanic membranes clear 04/25/2014 None Full Exam - General Ears/Nose/Throat internal nose Overall: bilateral nasal cavities clear 04/25/2014 None Full Exam - General Ears/Nose/Throat oral cavity/pharynx/larynx Overall: oral mucosa clear 04/25/2014 None Procedures Procedure Codes Date SPECIMEN HANDLING OF FICE-LAB CPT-4: 02304 06/04/2018 OCCULT BLOOD FECES CPT- 4: 91396 06/04/2018 FLU VACC PRSV FREE I NC ANTIG 65 AND OLDER CPT-4: 24541 12/03/2017 IMMUNIZATION ADMIN CPT- 4: 69687 12/03/2017 CERUM REMOVAL CPT-4: 01688 06/09/2017 FLU VACC PRSV FREE I NC ANTIG 65 AND OLDER CPT-4: 86960 12/09/2016 IMMUNIZATION ADMIN CPT- 4: 53935 12/09/2016 FLU VACCINE 3 YRS & > IM UP 64 CPT-4: 27054 11/09/2015 IMMUNIZATION ADMIN CPT- 4: 08457 11/09/2015 PNEUMOCOCCAL VACC 23 NAHEED IM CPT-4: 64785 04/26/2015 IMMUNIZATION ADMIN CPT- 4: 21328 04/26/2015 EXC TR-EXT B9+KAREN 0 .5 CM< CPT-4: 99378 11/15/2014 PNEUMOCOCCAL VACC 13 NAHEED IM CPT-4: 90935 04/25/2014 IMMUNIZATION ADMIN CPT- 4: 73194 04/25/2014 SPECIMEN HANDLING OF FICE-LAB CPT-4: 48760 04/25/2014 OCCULT BLOOD FECES CPT- 4: 64182 04/25/2014 Vital Signs Date Vital 06/04/2018 Blood Pressure 1: 124/80 Code: 8480-6 BMI: 25.8 Code: 37608-7 Heart Rate 1: 101 bpm Height: 5'5" Respiratory Rate: 18 bpm SpO2: 98% Temperature: 37.0 (C ) / 98.6 (F) Weight: 155 lbs 11/05/2017 Blood Pressure 1: 124/68 Code: 8480-6 BMI: 24.6 Code: 52644-1 Heart Rate 1: 60 bpm Height: 5'5" Respiratory Rate: 20 bpm SpO2: 97% Temperature: 36.9 (C ) / 98.4 (F) Weight: 148 lbs 05/22/2017 Blood Pressure 1: 116/70 Code: 8480-6 BMI: 24.3 Code: 66823-5 Heart Rate 1: 84 bpm Height: 5'5" Respiratory Rate: 20 bpm SpO2: 96% Temperature: 36.7 (C ) / 98.1 (F) Weight: 146 lbs 2017 Blood Pressure 1: 130/76 Code: 8480-6 BMI: 24.6 Code: 58294-8 Heart Rate 1: 84 bpm Height: 5'5" Respiratory Rate: 22 bpm SpO2: 96% Temperature: 36.4 (C ) / 97.6 (F) Weight: 148 lbs 10/16/2016 Blood Pressure 1: 122/78 Code: 8480-6 BMI: 23.8 Code: 63963-0 Heart Rate 1: 86 bpm Height: 5'5" Respiratory Rate: 20 bpm SpO2: 98% Temperature: 36.8 (C ) / 98.2 (F) Weight: 143 lbs 07/16/2016 Blood Pressure 1: 112/78 Code: 8480-6 Heart Rate 1: 76 bpm Respiratory Rate: 24 bpm SpO2: 98% Temperature: 36.6 (C ) / 97.8 (F) Weight: 143 lbs 05/01/2016 Blood Pressure 1: 126/68 Code: 8480-6 BMI: 23.8 Code: 54788-8 Heart Rate 1: 92 bpm Height: 5'5" Respiratory Rate: 20 bpm SpO2: 97% Temperature: 36.8 (C ) / 98.2 (F) Weight: 143 lbs 04/26/2015 Blood Pressure 1: 118/78 Code: 8480-6 BMI: 23.3 Code: 21350-4 Heart Rate 1: 88 bpm Height: 5'5" Respiratory Rate: 20 bpm Temperature: 37.1 (C ) / 98.8 (F) Weight: 140 lbs 11/15/2014 Blood Pressure 1: 134/70 Code: 8480-6 BMI: 23.3 Code: 99803-3 Heart Rate 1: 100 bpm Height: 5'5" Respiratory Rate: 20 bpm Temperature: 36.8 (C ) / 98.2 (F) Weight: 140 lbs 04/25/2014 Blood Pressure 1: 128/74 Code: 8480-6 BMI: 24.1 Code: 87013-4 Heart Rate 1: 78 bpm Height: 5'5" Respiratory Rate: 20 bpm Temperature: 36.2 (C ) / 97.2 (F) Weight: 145 lbs Functional Status No Functional Status data History of Present Illness Symptom Name Status Resu lt Effective Date Notes Pap Smear last normal performed on 04-25-14 06/04/2018 None Lifestyle no history o f physical abuse 06/04/2018 None Lifestyle no history o f sexual abuse 06/04/2018 None Lifestyle no history o f verbal abuse 06/04/2018 None Lifestyle regular seat belt use 06/04/2018 None Lifestyle family suppo rtive 06/04/2018 friends 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 Lifestyle normal sleep patterns 06/04/2018 getting much better Obstetrical History 0 total pregnancies 06/04/2018 None Nutrition and Exercise normal weight 06/04/2018 working on this to lose s ome weight Nutrition and Exercise regular diet 06/04/2018 None Nutrition and Exercise minimal exercise 06/04/2018 None Breast/Technical Spec Complaints urinary incontinence 06/04/2018 just with stress Health Guidance self-b reast exam 06/04/2018 sort of Health Guidance regula r mammogram 06/04/2018 None Health Guidance colono scopy/sigmoidoscopy 06/04/2018 up to date for these Lifestyle abnormal kendy unt of stress 06/04/2018 with 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 11/05/2017 Using Clonazepam as needed insomnia Onset and Resolution ongoing 11/05/2017 None anxiety Quality chronic 05/22/2017 None anxiety Quality stable 05/22/2017 None anxiety Quality acute 2017 None anxiety Quality panic at tacks 2017 None anxiety Quality stable 2017 None anxiety Onset of Symptom during adulthood 2017 None anxiety Quality acute 10/16/2016 None anxiety Quality panic at tacks 10/16/2016 None anxiety Quality improving 10/16/2016 None anxiety Onset and Resolution ongoing 10/16/2016 None anxiety Onset of Symptom during adulthood 10/16/2016 None anxiety Quality acute 07/16/2016 None anxiety Quality intermit tent 07/16/2016 None anxiety Quality improving 07/16/2016 None anxiety Onset and Resolution ongoing 07/16/2016 None vaginal discharge Quality white 05/01/2016 None vaginal discharge Onset and Resolution ongoing 05/01/2016 Patient tried flagyl treatment and hormone vaginal treatments vaginal discharge Onset of Symptom 1 years ago 05/01/2016 None vaginal discharge Quality thin 05/01/2016 None vaginal discharge Quality improving 05/01/2016 None anxiety Quality agitation 05/01/2016 None anxiety Quality chronic 05/01/2016 None anxiety Quality panic at tacks 05/01/2016 None anxiety Quality constant 05/01/2016 None anxiety Onset and Resolution ongoing. 05/01/2016 Patient doesn't feel like paxil has ever helped stress Exacerbating Factors stressful life changes 05/01/2016 None stress Pertinent Findings anxiety 05/01/2016 None Annual Checkup Sexual Activity is not sexually active 05/01/2016 None Annual Checkup Lifestyle no history of physical abuse 05/01/2016 None Annual Checkup Lifestyle no history of sexual abuse 05/01/2016 None Annual Checkup Lifestyle no history of verbal abuse 05/01/2016 None Annual Checkup Lifestyle regular seatbelt use 05/01/2016 None Annual Checkup Lifestyle family supportive of relationship 05/01/2016 None Annual Checkup Lifestyle satisfactory peer relationships 05/01/2016 None Annual Checkup Lifestyle abnormal amount of stress 05/01/2016 None anxiety Onset of Symptom during adulthood 05/01/2016 None Annual Checkup Nutrition and Exercise normal weight 05/01/2016 None Annual Checkup Nutrition and Exercise balanced nutrition 05/01/2016 None Annual Checkup Reproductive System D evelopment normal development 05/01/2016 None Annual Checkup Control none 05/01/2016 None Annual Checkup Health Guidance self-breast exam 05/01/2016 None Annual Checkup Health Guidance HIV precautions 05/01/2016 None Annual Checkup Health Guidance STD precautions 05/01/2016 None Annual Checkup Health Guidance tobacco, drugs and alcohol avoidance 05/01/2016 None Annual Checkup Health Guidance regular exercise 05/01/2016 None Annual Checkup Health Guidance safety belt use 05/01/2016 None Annual Checkup Health Guidance helmet use 05/01/2016 None Annual Checkup Health Guidance hearing loss prevention 05/01/2016 None Annual Checkup Health Guidance limiting UV/sun exposure 05/01/2016 None Annual Checkup Health Guidance suicide prevention 05/01/2016 None Annual Checkup Health Guidance depression symptoms 05/01/2016 None well woman exam (40-65 years) Pap Smear 1 years ago 04/26/2015 None well woman exam (40-65 years) Pap Smear normal results 04/26/2015 None well woman exam (40-65 years) Contro l menopause 04/26/2015 None gastroesophageal reflux Quality heartburn 04/26/2015 None gastroesophageal reflux Quality regurgitation of acid 04/26/2015 None gastroesophageal reflux Quality improving. 04/26/2015 Patient using prilosec OT C well woman exam (40-65 years) Lifestyle no history of physical abuse 04/26/2015 None well woman exam (40-65 years) Lifestyle no history of sexual abuse 04/26/2015 None well woman exam (40-65 years) Lifestyle no history of verbal abuse 04/26/2015 None well woman exam (40-65 years) Lifestyle regular seatbelt use 04/26/2015 None well woman exam (40-65 years) Lifestyle family supportive of relationship 04/26/2015 None well woman exam (40-65 years) Lifestyle satisfactory work experience 04/26/2015 None well woman exam (40-65 years) Lifestyle normal sleep patterns 04/26/2015 None well woman exam (40-65 years) Lifestyle normal amount of stress 04/26/2015 None well woman exam (40-65 years) Lifestyle dissatisfactory marriage/partner relationship 04/26/2015 None anxiety Onset and Resolution ongoing 04/26/2015 None anxiety Onset of Symptom during adulthood 04/26/2015 None anxiety Quality worsening 04/26/2015 None well woman exam (40-65 years) Nutrit ion and Exercise normal weight 04/26/2015 None well woman exam (40-65 years) Nutrit ion and Exercise balanced nutrition 04/26/2015 None well woman exam (40-65 years) Nutrit ion and Exercise moderate exercise 04/26/2015 None well woman exam (40-65 years) Health Guidance self-breast exam 04/26/2015 None well woman exam (40-65 years) Health Guidance baseline mammogram 04/26/2015 None well woman exam (40-65 years) Health Guidance HIV precautions 04/26/2015 None well woman exam (40-65 years) Health Guidance STD precautions 04/26/2015 None well woman exam (40-65 years) Health Guidance hormone replacement therapy 04/26/2015 None well woman exam (40-65 years) Health Guidance tobacco, drugs and alcohol avoidance 04/26/2015 None well woman exam (40-65 years) Health Guidance regular exercise 04/26/2015 None well woman exam (40-65 years) Health Guidance safety belt use 04/26/2015 None well woman exam (40-65 years) Health Guidance helmet use 04/26/2015 No ne well woman exam (40-65 years) Health Guidance hearing loss prevention 04/26/2015 None well woman exam (40-65 years) Health Guidance limiting UV/sun exposure 04/26/2015 None well woman exam (40-65 years) Health Guidance suicide prevention 04/26/2015 None well woman exam (40-65 years) Health Guidance depression symptoms 04/26/2015 None well woman exam (40-65 years) Health Guidance fecal occult blood testing 04/26/2015 None well woman exam (40-65 years) Health Guidance fasting glucose every 3 years 04/26/2015 None well woman exam (40-65 years) Health Guidance colonoscopy/sigmoidoscopy 04/26/2015 None well woman exam (40-65 years) Menstr ual History amenorrhea 04/26/2015 me nopause well woman exam (40-65 years) Sexual Activity is not sexually active 04/26/2015 None mole check Location-Major on the right thigh 11/15/2014 None mole check Color mcguire 11/15/2014 None well woman exam (40-65 years) Pap Smear last normal performed on 04/03/13 04/25/2014 None menopausal symptoms Quality hot flashes 04/25/2014 None menopausal symptoms Onset and Resolution ongoing 04/25/2014 None Advance Directives No Advance Directive data Encounters Encounter Performer Loca tion Codes Date ([id number]) PER PM REEVA L EST PAT 65+ YR Diagnosis: Encounter for general adult medical examination without abnormal findings[ICD10: Z00.00] Diagnosis: Generalized anxiety disorder[ICD10: F41.1] Diagnosis: Primary insomnia[ICD10: F51.01] Diagnosis: Encounter for gynecological examination (general) (routine) without abnormal findings[ICD10: Z01.419] Billy SCHWARZ [employer] CPT-4: 65093 06/04/2018 ([id number]) NURSE/OUTPAT IENT VISIT EST Diagnosis: FLU VACCINE[ICD10: Z23] Billy SCHWARZ [employer] CPT-4: 27324 12/03/2017 ([id number]) OFFICE/OUTPA TIENT VISIT EST Diagnosis: Generalized anxiety disorder[ICD10: F41.1] Diagnosis: Primary insomnia[ICD10: F51.01] Billy SCHWARZ [employer] CPT-4: 80177 11/05/2017 ([id number]) PER PM REEVA L EST PAT 65+ YR Diagnosis: Encounter for general adult medical examination without abnormal findings[ICD10: Z00.00] Diagnosis: Generalized anxiety disorder[ICD10: F41.1] Diagnosis: Gastro-esophageal reflux disease without esophagitis[ICD10: K21.9] Billy SCHWARZ [employer] CPT-4: 02061 05/22/2017 ([id number]) OFFICE/OUTPA TIENT VISIT EST Diagnosis: Generalized anxiety disorder[ICD10: F41.1] Diagnosis: Gastro-esophageal reflux disease without esophagitis[ICD10: K21.9] Billyshaq Dumasjorjefrancisco javier SCHWARZ [employer] CPT-4: 77908 2017 ([id number]) OFFICE/OUTPA TIENT VISIT EST Diagnosis: FLU VACCINE[ICD10: Z23] Billyshaq SCHWARZ [employer] CPT-4: 04813 12/09/2016 ([id number]) OFFICE/OUTPA TIENT VISIT EST Diagnosis: Generalized anxiety disorder[ICD10: F41.1] Billy ARREOLA DO [employer] CPT-4: 67797 10/16/2016 ([id number]) OFFICE/OUTPA TIENT VISIT EST Diagnosis: Generalized anxiety disorder[ICD10: F41.1] Billy ARREOLA DO [employer] CPT-4: 63369 07/16/2016 ([id number]) PER PM REEVA L EST PAT 65+ YR Diagnosis: Encounter for general adult medical examination without abnormal findings[ICD10: Z00.00] Diagnosis: Menopausal and female climacteric states[ICD10: N95.1] Diagnosis: Anxiety disorder, unspecified[ICD10: F41.9] Billy ARREOLA DO [employer] CPT-4: 09238 05/01/2016 ([id number]) OFFICE/OUTPA TIENT VISIT EST Diagnosis: FLU VACCINE[ICD10: Z23] Billy SCWHARZ [employer] CPT-4: 31180 11/09/2015 ([id number]) PREV VISIT E ST AGE 40-64 Diagnosis: Encounter for general adult medical examination without abnormal findings[ICD10: Z00.00] Diagnosis: Gastro-esophageal reflux disease without esophagitis[ICD10: K21.9] Diagnosis: Anxiety disorder, unspecified[ICD10: F41.9] Diagnosis: Menopausal and female climacteric states[ICD10: N95.1] Diagnosis: PNEUMOCOCCAL VACCINE[ICD10: Z23] Billy SCHWARZ DO [employer] CPT-4: 44395 04/26/2015 ([id number]) PREV VISIT N EW AGE 40-64 Diagnosis: PNEUMOCOCCAL VACCINE[ICD10: Z23] Diagnosis: ROUTINE MEDICAL EXAM[ICD9: V70.0] Diagnosis: ROUTINE GYNE EXAM[ICD9: V72.31] Diagnosis: ANXIETY STATE NOS[ICD9: 300.00] Diagnosis: Menopausal flushing[ICD9: 627.2] Billy SCHWARZ DO [employer] CPT-4: 14587 04/25/2014 Plan of Care Planned Activity Notes C odes Status Date Visit Diagnosis Plan: Encounter for gyne cological examination (general) (routine) without abnormal findings Discussion: Pap done Mammogram ordered ICD-9 : V72.31 ICD-10 : Z01.419 06/04/2018 Visit Diagnosis Plan: Generalized anxiety disorder Discussion: Stable Follow Up: 6 months ICD-9 : 308.0 ICD-10 : F41.1 06/04/2018 Visit Diagnosis Plan: Encounter for gene ral adult medical examination without abnormal findings Discussion: Mediterranean diet Combinati on of cardio and weight bearing exercise Had shingrix Colonoscopy up to date Lab discussed ICD-9 : V70.0 ICD-10 : Z00.00 06/04/2018 Appointment: Billy Schwarz WPtel: [address] [place], [place] [phone] [place] Annual Well Visit 06/04/2018 Appointment: Billy Scwharz WPtel: [address] [place], [place] [phone] [place] CANCELED 05/06/2018 Appointment: Billy Schwarz WPtel: [address] [place], [place] [phone] [place] INJECTION 12/03/2017 Patient Education: Patient Medication Summary Completed 12/03/2017 Visit Diagnosis Plan: Generalized anxiety disorder Discussion: Stable Recommend Shingrix Will get flu shot in December ICD-9 : 308.0 ICD-10 : F41.1 11/05/2017 Visit Diagnosis Plan: Primary insomnia Discussion: Discussed associated benzodiazepine use and dementia Patient would like to try otc meds and see how does first Follow Up: 3 months ICD-9 : 780.52 ICD-10 : F51.01 11/05/2017 Appointment: Billy Schwarz WPtel: [address] [place], [place] [phone] [place] FOLLOW UP 11/05/2017 Patient Education: Patient Medication Summary Completed 11/05/2017 Appointment: Billy Schwarz WPtel: [address] [place], [place] [phone] [place] CANCELED 09/10/2017 Visit Diagnosis Plan: Impacted cerumen, right ear Discussion: cerumen was removed with currette to right ear canal. patient tolerated procedure well. once out, TM was wnl. instructed to call or rtc with new or worsening symptoms. ICD-9 : 380.4 ICD-10 : H61.21 06/09/2017 Appointment: Rohini Amaya [address] [place] [address] ACUTE ILLNESS 06/09/2017 Patient Education: Patient Medication Summary Completed 06/09/2017 Visit Diagnosis Plan: Generalized anxiety disorder Discussion: Stable on paxil and klonopin Follow Up: 4 months ICD-9 : 308.0 ICD-10 : F41.1 05/22/2017 Visit Diagnosis Plan: Encounter for [facility] adult medical examination without abnormal findings Discussion: Mammogram ordered Patient go ing to get Shingix at [facility] Lab discussed Add Vitamin D3 1000u daily Once again discussed weight bearing exercise ICD-9 : V70.0 ICD-10 : Z00.00 05/22/2017 Visit Diagnosis Plan: Gastro-esophageal reflux disease without esophagitis Discussion: Trial of Zantac instead of p rilosec ICD-9 : 530.81 ICD-10 : K21.9 05/22/2017 Appointment: Billy Schwarz WPtel: [address] [place] [address] FOLLOW UP 05/22/2017 Patient Education: Patient Medication Summary Completed 05/22/2017 Care Plan: MAMMOGRAM SCREENING LOINC : 04550-1 Pending 05/22/2017 Visit Diagnosis Plan: Generalized anxiety disorder Discussion: Stable Add exercise/stress reducers Using klonopin Using xanax prn Follow Up: As needed ICD-9 : 308.0 ICD-10 : F41.1 2017 Visit Diagnosis Plan: Gastro-esophageal reflux disease without esophagitis Discussion: Stable ICD-9 : 530.81 ICD-10 : K21.9 2017 Appointment: Billy Schwarz WPtel: [address] [place] [address] FOLLOW UP 2017 Patient Education: Patient Medication Summary Completed 2017 Appointment: Billy Schwarz WPtel: [address] [place], [place] [phone] [place] INJECTION 12/09/2016 Patient Education: Patient Medication Summary Completed 12/09/2016 Visit Diagnosis Plan: Generalized anxiety disorder Discussion: Stable with paxil and klonopin Follow Up: 3 months ICD-9 : 308.0 ICD-10 : F41.1 10/16/2016 Appointment: Billy Schwarz WPtel: [address] [place] [address] [id number] NA/VM ~sp, 10/15/16 1550--appt c onfirmed (km) FOLLOW UP 10/16/2016 Patient Education: Patient Medication Summary Completed 10/16/2016 Visit Diagnosis Plan: Generalized anxiety disorder Discussion: Continue higher dose of paxil with xanax prn Stress reducers Follow Up: 3 months ICD-9 : 308.0 ICD-10 : F41.1 07/16/2016 Appointment: Billy Schwarz WPtel: [address] [place] [address] 07/15 confirmed `sl FOLLOW UP 07/16/2016 Patient Education: Patient Medication Summary Completed 07/16/2016 Visit Diagnosis Plan: Encounter for [facility] adult medical examination without abnormal findings Discussion: Check fasting lab Tdap up to date Mammogram ordered ICD-9 : V70.0 ICD-10 : Z00.00 05/01/2016 Visit Diagnosis Plan: Anxiety disorder, unspecified Discussion: Increase paxil CR to 37.5mg q HS Follow Up: 2 months ICD-9 : 300.00 ICD-10 : F41.9 05/01/2016 Visit Diagnosis Plan: Menopausal and fem frank climacteric states Discussion: Use Vagifem prn ICD-9 : 627.2 ICD-10 : N95.1 05/01/2016 Appointment: Billy Schwarz WPtel: [address] [place] [address] 04/30 confirmed`sl PHYSICAL 05/01/2016 Patient Education: Patient Medication Summary Completed 05/01/2016 Care Plan: MAMMOGRAM SCREENING LOINC : 36139-9 Pending 05/01/2016 [facility]ment[facility] [phone] [id number] [place] [facility] 11/09/2015 Patient Education: Patient Medication Summary Completed 11/09/2015 App[facility]ment: [facility] [phone] [id number] [place] CANCELED 11/08/2015 Visit Plan: Mammo due in May Upda te Fasting Lab Change Brisdelle to Paxil CR 12.5mg q HS Call in 1month 04/26/2015 Visit Plan: Mammo due in May Upda te Fasting Lab Change Brisdelle to Paxil CR 12.5mg q HS Call in 1month Will wait on Pap until next year Pneumovax given 04/26/2015 Visit Plan: Mammo due in May Upda te Fasting Lab Change Brisdelle to Paxil CR 12.5mg q HS Call in 1month Will wait on Pap until next year Pneumovax given 04/26/2015 Appointment: Billy Schwarz WPtel: [address] [place], [place] [phone] 04/25 NA/NVM-SP 04/26 confirmed ~sl Annual Well Visit 04/26/2015 Patient Education: Patient Medication Summary Completed 04/26/2015 Visit Plan: Shave removal of skin l esion as above 11/15/2014 Appointment: Billy Schwarz WPtel: [address] [place], [place] [id number] 11/14/14 rang and rang,,11/15 appt confir med cn OFFICE SURGERY 015 Patient Education: Patient Medication Summary Completed 11/15/2014 Patient Education: Patient Medication Summary Completed 06/13/2014 Visit Plan: Pap done Mammo next fri Obtain Bone Density results Check Fasting lab Stop Celexa Start Brisdelle 7.5mg q HS Call in 6weeks on how doing with Brisdelle Update Carotid Dopplers 04/25/2014 Appointment: Billy Schwarz WPtel: [address] [place], [place] [phone] [place] NEW PATIENT 04/25/2014 Patient Education: Patient Medication Summary Completed 04/25/2014 Instructions Comment . Mammo due in May Update Fasting Lab Change Brisdelle to Paxil CR 12.5mg q HS Call in 1month . Mammo due in May Update Fasting Lab Change Brisdelle to Paxil CR 12.5mg q HS Call in 1month Will wait on Pap until next year Pneumovax given . Mammo due in May Update Fasting Lab Change Brisdelle to Paxil CR 12.5mg q HS Call in 1month Will wait on Pap until next year Pneumovax given . Shave removal of s kin lesion as above . Pap done Mammo next month Obtain Bone Density results Check Fasting lab Stop Celexa Start Brisdelle 7.5mg q HS Call in 6weeks on how doing with Brisdelle Update Carotid Dopplers
--- OUTSIDE RECORDS SUMMARY | 2019-08-27 07:23 | XMS REPORT | Continuity of Care Document ---
Author Organization Unknown Address Unknown Phone Unavailable Allergies Active Description Code Type Severity Reaction Onset Reported/Identified Relationship to Patient Clinical Status Yes PCN PCN Unknown N/A 06/29/2013 Yes Penicillins [id number] Drug Aller gy Mild N/A 08/23/2019 Yes Penicillins [id number] Drug Aller gy Mild RASH 08/23/2019 Medications There is no data. Problems Date Dx Coded Attending Type Code Diagnosis Diagnosed By 06/29/2013 Ot 562.10 06/29/2013 Ot V76.51 04/26/2014 Ot 218.9 04/26/2014 Ot 625.8 04/26/2014 Ot 626.8 04/26/2014 Ot V76.12 04/26/2014 Ot V76.12 04/26/2014 Ot V76.12 04/26/2014 Ot 733.90 04/26/2014 Ot 793.89 04/26/2014 Ot V76.12 04/26/2014 Ot V82.81 04/26/2014 Ot 793.80 04/26/2014 Ot 793.89 04/26/2014 Ot V67.9 04/26/2014 Ot 611.72 04/26/2014 Ot V76.12 04/26/2014 Ot V72.84 04/27/2014 Ot 218.9 04/27/2014 Ot 625.8 04/27/2014 Ot 626.8 04/27/2014 Ot V76.12 04/27/2014 Ot V76.12 04/27/2014 Ot V76.12 04/27/2014 Ot 733.90 04/27/2014 Ot 793.89 04/27/2014 Ot V76.12 04/27/2014 Ot V82.81 04/27/2014 Ot 793.80 04/27/2014 Ot 793.89 04/27/2014 Ot V67.9 04/27/2014 Ot 611.72 04/27/2014 Ot V76.12 04/27/2014 Ot V72.84 04/28/2014 Ot 433.10 04/29/2014 Ot 433.10 06/10/2014 ORENDER DO, BILLY S Ot V76.12 05/30/2015 Ot 433.10 05/30/2015 ORENDER DO, BILLY S Ot V76.12 05/30/2015 ORENDER DO, BILLY S Ot Z12.31 06/14/2015 ORENDER DO, BILLY S Ot Z12.31 05/30/2016 Ot 433.10 CAR OTID ARTERY OCCLUSION W O CEREBRAL IN 05/30/2016 ORENDER DO, BILLY S Ot V76.12 OTH SCREEN MAMMO-MALIGN NEOPLASM OF CHRISTY 05/30/2016 ORENDER DO, BILLY S Ot Z12.31 ENCNTR SCREEN MAMMOGRAM FOR MALIGNANT NE 05/31/2016 [facility] Ot Z12.31 ENCNTR SCREEN MAMMOGRAM FOR MALIGNANT NE 05/31/2016 [facility] S Ot Z12.31 ENCNTR SCREEN MAMMOGRAM FOR MALIGNANT NE 06/17/2016 ORENDER DO, BILLY S Ot Z12.31 ENCNTR SCREEN MAMMOGRAM FOR MALIGNANT NE 06/04/2017 ORENDER DO, BILLY S Ot Z12.31 ENCNTR SCREEN MAMMOGRAM FOR MALIGNANT NE 06/19/2017 ORENDER DO, BILLY S Ot Z12.31 ENCNTR SCREEN MAMMOGRAM FOR MALIGNANT NE 06/10/2018 Ot 433.10 CAR OTID ARTERY OCCLUSION W O CEREBRAL IN 06/10/2018 [facility] S Ot V76.12 OTH SCREEN MAMMO-MALIGN NEOPLASM OF CHRISTY 06/10/2018 ORENDER DO, BILLY S Ot Z12.31 ENCNTR SCREEN MAMMOGRAM FOR MALIGNANT NE 06/10/2018 ORENDER DO, BILLY S Ot Z12.31 ENCNTR SCREEN MAMMOGRAM FOR MALIGNANT NE 06/10/2018 ORENDER DO, BILLY S Ot Z12.31 ENCNTR SCREEN MAMMOGRAM FOR MALIGNANT NE 06/16/2018 ORENDER DO, BILLY S Ot Z12.31 ENCNTR SCREEN MAMMOGRAM FOR MALIGNANT NE 06/24/2018 ORENDER DO, BILLY S Ot Z12.31 ENCNTR SCREEN MAMMOGRAM FOR MALIGNANT NE 07/13/2019 W R53.81 Oth er malaise and fatigue Geovanna Schwarzline S. 07/13/2019 W R73.9 Hype rglycemia Geovanna Schwarzline S. 07/13/2019 W Z00.00 Enc ounter for general adult medical examination without abnormal findings Billy Schwarz S. 07/13/2019 W Z13.220 En counter for screening for lipoid disorders Geovanna Schwarzline S. 07/21/2019 W F41.1 Gene ralized anxiety disorder Geovanna Schwarzline S. 07/21/2019 W K21.9 Jolene ro-esophageal reflux disease without esophagitis Geovanna Schwarzline S. 07/21/2019 W Z00.00 Enc ounter for general adult medical examination without abnormal findings Geovanna Schwarzline S. 07/21/2019 W F41.1 Gene ralized anxiety disorder PiterndGeovanna mcintyreline S. 07/21/2019 W K21.9 Jolene ro-esophageal reflux disease without esophagitis PiterndGeovanna mcintyreline S. 07/21/2019 W Z00.00 Enc ounter for general adult medical examination without abnormal findings Billy Schwarz S. 07/27/2019 W Z12.31 Scr eening mammogram, encounter for Billy Schwarz S. 07/30/2019 Ot 433.10 CAR OTID ARTERY OCCLUSION W O CEREBRAL IN 07/30/2019 PITERNDER , BILLY S Ot V76.12 OTH SCREEN MAMMO-MALIGN NEOPLASM OF CHRISTY 07/30/2019 ORENDER DO, BILLY S Ot Z12.31 ENCNTR SCREEN MAMMOGRAM FOR MALIGNANT NE 07/30/2019 ORENDER DO, BILLY S Ot Z12.31 ENCNTR SCREEN MAMMOGRAM FOR MALIGNANT NE 07/30/2019 ORENDER DO, BILLY S Ot Z12.31 ENCNTR SCREEN MAMMOGRAM FOR MALIGNANT NE 07/30/2019 ORENDER DO, BILLY S Ot Z12.31 ENCNTR SCREEN MAMMOGRAM FOR MALIGNANT NE 08/05/2019 ORENDER DO, BILLY S Ot Z12.31 ENCNTR SCREEN MAMMOGRAM FOR MALIGNANT NE Procedures There is no data. Results Test Result Range Coronavirus SARS-CoV-2 SO 2018 - 0 07:53 Coronavirus Ab [Units/volume] in Serum Negative Negative Encounters ACCT No. Visit Date/Time Discharge Status Pt. Type Provider Facility Loc./Unit Complaint 04/201702/26/2019 09:58:51 02/26/2019 23:59 :59 CLS Outpatient PiterBilly hatch S. [id number] 07/13/2019 10:50:22 Document Registration [id number] 08/24/2019 05:44:00 020 15:41:00 DIS Outpatient DEBBIE ESPINOZA MD [facility] PREOP CATARACT RIGHT EYE [id number] 08/03/2019 07:40:00 020 23:59:59 CLS Outpatient PITERLINHANALY DO BILLY S [facility] RAD SCREENING [id number] 06/10/2018 09:57:00 019 23:59:59 CLS Outpatient MILI DO BILLY S [facility] RAD SCREENING [id number] 06/03/2017 11:06:00 018 23:59:59 CLS Outpatient JAIMEANALY SCHULTZ BILLY S [facility] RAD SCREENING [id number] 08/15/2016 15:31:00 017 23:59:59 CLS Outpatient MELA, JAMILA JAVA DEVELOPER WITH [employer] [facility] OCC POSITIVE TB TEST [id number] 05/30/2016 14:30:00 017 23:59:59 CLS Outpatient PITERNDER DO BILLY S [facility] RAD SCREENING [id number] 05/30/2015 13:01:00 016 23:59:59 CLS Outpatient PITERNDER DO BILLY S [facility] RAD SCREENING [id number] 05/26/2014 08:52:00 015 23:59:59 CLS Outpatient PITERNDANLAY SCHULTZ BILLY S [facility] RAD SCREENING [id number] 06/29/2013 06:57:00 014 10:45:00 DIS Outpatient [id number] 06/23/2013 07:33:00 23:59:59 CLS Outpatient [id number] 05/24/2013 08:13:00 23:59:59 CLS Outpatient [id number] 11/24/2012 08:16:00 23:59:59 CLS Outpatient [id number] 11/10/2012 10:26:00 23:59:59 CLS Outpatient [id number] 08/27/2019 09:30:00 P JEANNINE ESPINOZA MD, DEBBIE [facility] CATARACT RIGHT EYE [id number] 04/27/2014 10:32:00 Document Registration [id number] 05/29/2012 08:56:00 Document Registration [id number] 05/22/2012 08:38:00 Document Registration [id number] 05/16/2011 08:12:00 Document Registration [id number] 05/11/2010 09:49:00 Document Registration [id number] 05/05/2009 09:18:00 Document Registration [id number] 04/21/2009 12:45:00 Document Registration
[2019-08-27 07:25] VITALS: BP 106/80
[2019-08-27] MEDS ORDERED: LIDOCAINE PF 1% 2 ML VIAL IR PRN (07:30)
[2019-08-27] MEDS ORDERED: POVIDONE (BETADINE) OPHTH SOLN 5% 30 ML OP ONE (07:30)
[2019-08-27] MEDS ORDERED: MOXIFLOXACIN OPHTH SOLN 5 MG/ML 0.3 ML SYRINGE OP ONE (07:30)
[2019-08-27] MEDS ORDERED: TIMOLOL MALEATE 0.5% 5 ML (TIMOPTIC) BTL OU PRN (07:30)
[2019-08-27] MEDS: TETRACAINE 0.5% OPHTH SOLN 4 ML BTL (SINGLE DOSE ONLY) OU PRN ×4 (07:39→07:58)
[2019-08-27] MEDS: CYCLOPENTOLATE 1% (CYCLOGYL) 2 ML DROPS OP SCH ×3 (07:46→07:58)
[2019-08-27] MEDS: PHENYLEPHRINE 10% OPHTH (NEO-SYN) 5 ML BTL OU SCH ×3 (07:46→07:58)
[2019-08-27] MEDS ORDERED: MIDAZOLAM 2 MG/2 ML (VERSED) VIAL ONE (07:51)
--- NOTE | 2019-08-27 08:32 | Ophthalmologist Pre-Op Note ---
Pre-Operative Progress Note H&P Reviewed The H&P was reviewed, patient examined and no changes noted. Date H&P Reviewed: Aug 27, 2019 Time H&P Reviewed: 08:31 Pre-Op Dx Cataract, Right Eye DEBBIE ESPINOZA MD Aug 27, 2019 08:31
--- NOTE | 2019-08-27 08:54 | Ophthalmology Operative Report ---
Cataract removal/placement IOL PREOPERATIVE DIAGNOSIS: Cataract Right Eye POSTOPERATIVE DIAGNOSIS: Cataract Right Eye PROCEDURE: Cataract removal and placement of posterior chamber implant, right eye SURGEON: Asim Espinoza ANESTHESIA: Topical with sedation COMPLICATIONS: None ESTIMATED BLOOD LOSS: Minimal DESCRIPTION OF PROCEDURE: After proper informed consent was obtained, the patient, a 69 female, was taken to the Operating Room and the right eye was anesthetized with tetracaine. The right eye was then prepped and draped in the usual manner. A wire lid speculum was placed. A paracentesis was made at the left hand position. Preservative free lidocaine was injected into the anterior chamber followed by viscoelastic. A clear corneal incision was made in the temporal position. A capsulorrhexis was preformed and the central nuclear and cortical material were removed. The posterior capsule was polished and Rasta 17.0 AU00T0 IOL was placed into the capsular bag. The residual viscoelastic was aspirated and balanced saline solution was injected into the anterior chamber. Moxifloxacin was injected into the anterior chamber. The wound was checked and found to be water tight. The patient tolerated the procedure well without complications. ASIM ESPINOZA MD Aug 27, 2019 08:54
[2019-08-27] MEDS ORDERED: acetaZOLAMIDE ER 500 MG CAP (DIAMOX SEQUELS) PO ONE (09:00)
[2019-08-27 09:09] VITALS: BP 124/81
--- NOTE | 2019-08-27 10:26 | Anesthesia-General Post-Op ---
MAC Patient Condition Mental Status/LOC: Same as Preop Cardiovascular: Satisfactory Nausea/Vomiting: Absent Respiratory: Satisfactory Pain: Controlled Complications: Absent Post Op Complications Complications None Follow Up Care/Instructions Patient Instructions None needed. Anesthesiology Discharge Order Discharge Order Patient is doing well, no complaints, stable vital signs, no apparent adverse anesthesia problems. No complications reported per nursing. KINDRA RIVERA CRNA Aug 27, 2019 10:26
== END 2019-08-27 09:09 | disposition home or self-care (01) ==
LOC: SDC 07:14
PROVIDERS: ATTEND Specialist
DX: H25.11 Age-related nuclear cataract, right eye (principal); K21.9 Gastro-esophageal reflux disease without esophagitis; Z88.0 Allergy status to penicillin; Z79.899 Other long term (current) drug therapy
CPT/HCPCS: 66984; V2632

== ENCOUNTER → 2019-10-05 | Outpatient (CLI) | payer BC ==
[~2019-10-05] MED LIST changes: -CHOL2000 PO; +CHOL200074 PO
== END | disposition home or self-care (01) ==
LOC: PREOP 05:47 → EDSTATUS 13:30
PROVIDERS: ATTEND Specialist
DX: Z01.818 Encounter for other preprocedural examination (principal)

== ENCOUNTER 2019-11-23 05:44 | Outpatient (CLI) | payer BC ==
[~2019-11-23] VITALS: Ht 165.1 cm; Wt 63.6 kg
== END 2019-11-23 14:24 | disposition home or self-care (01) ==
LOC: PREOP 05:44
PROVIDERS: ATTEND Specialist
DX: Z01.818 Encounter for other preprocedural examination (principal)

== ENCOUNTER 2019-11-26 09:50 | Day surgery (SDC) | payer BC ==
[~2019-11-26] VITALS: Ht 165.1 cm; Wt 63.6 kg
[2019-11-26] MEDS ORDERED: TIMOLOL MALEATE 0.5% 5 ML (TIMOPTIC) BTL OU PRN (10:00)
[2019-11-26] MEDS ORDERED: POVIDONE (BETADINE) OPHTH SOLN 5% 30 ML OP ONE (10:00)
[2019-11-26] MEDS ORDERED: LIDOCAINE PF 1% 2 ML VIAL IR PRN (10:00)
[2019-11-26] MEDS ORDERED: MOXIFLOXACIN OPHTH SOLN 5 MG/ML 0.3 ML SYRINGE OP ONE (10:00)
[2019-11-26] MEDS: TETRACAINE 0.5% OPHTH SOLN 4 ML BTL (SINGLE DOSE ONLY) OU PRN ×4 (10:08→10:25)
[2019-11-26 10:13] VITALS: BP 119/73
[2019-11-26] MEDS: CYCLOPENTOLATE 1% (CYCLOGYL) 2 ML DROPS OP SCH ×3 (10:15→10:25)
[2019-11-26] MEDS: PHENYLEPHRINE 10% OPHTH (NEO-SYN) 5 ML BTL OU SCH ×3 (10:15→10:25)
--- NOTE | 2019-11-26 10:26 | Ophthalmologist Pre-Op Note ---
Pre-Operative Progress Note H&P Reviewed The H&P was reviewed, patient examined and no changes noted. Date H&P Reviewed: Nov 26, 2019 Time H&P Reviewed: 10:26 Pre-Op Dx Cataract, Left Eye DEBBIE ESPINOZA MD Nov 26, 2019 10:26
[2019-11-26] MEDS ORDERED: MIDAZOLAM 2 MG/2 ML (VERSED) VIAL ONE (10:32)
--- NOTE | 2019-11-26 10:50 | Ophthalmology Operative Report ---
Cataract removal/placement IOL PREOPERATIVE DIAGNOSIS: Cataract Left Eye POSTOPERATIVE DIAGNOSIS: Cataract Left Eye PROCEDURE: Cataract removal and placement of posterior chamber implant, left eye SURGEON: Asim Espinoza ANESTHESIA: Topical with sedation COMPLICATIONS: None ESTIMATED BLOOD LOSS: Minimal DESCRIPTION OF PROCEDURE: After proper informed consent was obtained, the patient, a 69 female, was taken to the Operating Room and the left eye was anesthetized with tetracaine. The left eye was then prepped and draped in the usual manner. A wire lid speculum was placed. A paracentesis was made at the left hand position. Preservative free lidocaine was injected into the anterior chamber followed by viscoelastic. A clear corneal incision was made in the temporal position. A capsulorrhexis was preformed and the central nuclear and cortical material were removed. The posterior capsule was polished and an Rasta 17.0 AU00T0 was placed into the capsular bag. The residual viscoelastic was aspirated and balanced saline solution was injected into the anterior chamber. Moxifloxacin was injected into the anterior chamber. The wound was checked and found to be water tight. The patient tolerated the procedure well without complications. ASIM ESPINOZA MD Nov 26, 2019 10:50
[2019-11-26 11:00] VITALS: BP 119/73
[2019-11-26] MEDS ORDERED: acetaZOLAMIDE ER 500 MG CAP (DIAMOX SEQUELS) PO ONE (11:30)
--- NOTE | 2019-11-26 14:18 | Anesthesia-General Post-Op ---
MAC Patient Condition Mental Status/LOC: Same as Preop Cardiovascular: Satisfactory Nausea/Vomiting: Absent Respiratory: Satisfactory Pain: Controlled Complications: Absent Post Op Complications Complications None Follow Up Care/Instructions Patient Instructions None needed. Anesthesiology Discharge Order Discharge Order Patient was seen this morning and she was doing well, no complaints, stable vital signs, no apparent adverse anesthesia problems. GURPREET PEREZ DO Nov 26, 2019 14:18
== END 2019-11-26 10:55 ==
LOC: SDC 09:50
PROVIDERS: ATTEND Specialist
DX: H25.12 Age-related nuclear cataract, left eye (principal); K21.9 Gastro-esophageal reflux disease without esophagitis; Z79.899 Other long term (current) drug therapy; Z88.0 Allergy status to penicillin; Z83.518 Family history of other specified eye disorder
CPT/HCPCS: 66984; V2632

== ENCOUNTER → 2020-08-03 | Outpatient (CLI) | payer BC ==
--- NOTE | 2020-08-03 14:12 | Diagnostic Imaging Report ---
Indication: Routine screening. Comparison is made with prior mammogram 08/03/2019 and 06/10/2018. 2-D and 3-D bilateral screening mammography was performed with CAD. Both breasts are heterogeneously dense, limiting the sensitivity of mammography. A marker clip in the retroareolar right breast again noted. The rounded mass in the central right breast appears stable. No new mass is identified. No malignant appearing microcalcifications are seen. Axillae are unremarkable. IMPRESSION: BI-RADS Category 2 No mammographic features suspicious for malignancy are identified. ACR BI-RADS Category 2: Benign findings. Result letter will be mailed to the patient. Note: At least 10% of breast cancer is not imaged by mammography. Dictated by: Dictated on workstation # [id number]
== END ==
LOC: RAD 10:15
PROVIDERS: ATTEND Family Medicine
DX: Z12.31 Encounter for screening mammogram for malignant neoplasm of breast (principal)
CPT/HCPCS: 77063; 77067

== ENCOUNTER 2021-07-06 16:59 | Emergency (ER) | payer BC ==
[~2021-07-06 16:59] MED LIST changes: -PARO25TA14 PO; +PARO25TA20 PO
--- NOTE | 2021-07-06 18:27 | ED Back Pain ---
General Chief Complaint: Back Problems Stated Complaint: BACK PAIN Source of Information: Patient Exam Limitations: No Limitations History of Present Illness Date Seen by Provider: July 06, 2021 Time Seen by Provider: 18:10 Initial Comments The patient presents to the ER by private conveyance with her significant other and chief complaint that she has had back pain going on for better than the last week. She says she was working in her garden doing some lifting of heavy bags of potting soil when she felt a sharp pain in her right side of her mid thoracic back just beside the T9-T10 area. She is not having any radiation of pain. She says is sharp and burning and made worse by movement. She has been using ibupr ofen 1 tablet a couple times a day at first and step that up to now about 3 tablets a day. She does not feel that was helpful so she went to see Dr. SCHWARZ who gave her a shot of steroids on her backside and put her on a Medrol Dosepak. She did not feel it was helping so [facility] and they gave her a muscle relaxant which she states was not helpful. She called Dr. Schwarz again and a prescription for opiates were sent out. She picked up the opiates this afternoon and took a tablet at 2:00 and did not feel any relief of pain. She has not had previous imaging, trauma, falls or surgery on her back. She is not having numbness or tingling, inability to walk, loss of control of bowel or bladder. Allergies and Home Medications Allergies Coded Allergies: Penicillins (Verified Allergy, Mild, RASH, 08/23/19) Patient Home Medication List Home Medication List Reviewed: Yes Biotin (Biotin) 1,000 Mcg Tablet, 1,000 MCG PO DAILY, (Reported) Entered as Reported by: JAZIEL CAMERON on 08/23/19 1144 Cholecalciferol (Vitamin D3) (Vitamin D3) 50 Mcg Capsule, 50 MCG PO DAILY, (Reported) Entered as Reported by: JAZIEL CAMERON on 08/23/19 1144 Glucosa Cobian 2Kcl/Chondroitin Cobian (Glucosamine & Chondroitin Cap) 1 Each Capsule, 1 EACH PO DAILY, (Reported) Entered as Reported by: JAZIEL CAMERON on 08/23/19 1144 Hydrocodone/Acetaminophen (Hydrocodone-Acetamin 7.5-325) 7.5 Mg-325 Mg Tablet, 1 EACH PO Q6H PRN for PAIN-SEVERE (8-10) Prescribed by: DAYAMI DIAMOND on 07/06/211929 Meloxicam (Meloxicam) 7.5 Mg Tablet, 7.5 MG PO DAILY Prescribed by: DAYAMI DIAMOND on 07/06/211927 Multivitamin (Multivitamin) 1 Each Tablet, 1 EACH PO DAILY, (Reported) Entered as Reported by: JAZIEL CAMERON on 08/23/19 1144 Omeprazole Magnesium (Prilosec Otc) 20 Mg Tablet.dr, 20 MG PO DAILY PRN for HEARTBURN, (Reported) Entered as Reported by: JAZIEL CAMERON on 08/23/19 1144 Paroxetine HCl (Paroxetine Cr) 25 Mg Tab.er.24h, 25 MG PO DAILY, (Reported) Entered as Reported by: JAZIEL CAMERON on 08/23/19 1144 Review of Systems Constitutional: No chills, No diaphoresis EENTM: No ear discharge, No ear pain Respiratory: No cough, No short of breath Cardiovascular: No chest pain, No edema Gastrointestinal: No abdominal pain, No nausea, No vomiting Genitourinary: No discharge, No dysuria Musculoskeletal: see HPI, back pain; No joint pain All Other Systems Reviewed Negative Unless Noted: Yes Past Jjukurs-Chbaro-Gkqbze Hx Patient Social History Tobacco Use?: No Use of E-Cig and/or Vaping dev: No Substance use?: No Physical Exam Vital Signs Capillary Refill : Height, Weight, BMI Height: 5'5.00" Weight: 136lbs. oz. 61.791921xs; BMI Method: General Appearance: No Apparent Distress, WD/WN HEENT: PERRL/EOMI, Pharynx Normal, Moist Mucous Membranes Neck: Full Range of Motion, Normal Inspection Cardiovascular: Regular Rate, Rhythm, Normal Peripheral Pulses Respiratory: Lungs Clear, Normal Breath Sounds, No Accessory Muscle Use, No Respiratory Distress Back: Normal Inspection, No CVA Tenderness, No Vertebral Tenderness, Muscle Spasm (Paravertebral tenderness around T8-T10 on the right side to direct palpation. Knotting and spasming of muscles in the paraspinous muscle groups. No deformity, step-off or color change) Skin: Normal Color, Warm/Dry; No Rash (No rash or pruritus) Procedures/Interventions Progress Point of maximal tenderness injection with lidocaine and Marcaine. An admixture of 1-1/2 cc of 1% lidocaine without epinephrine was added to 1-1/2 cc of quarter percent Marcaine with epinephrine and using a 25-gauge 1-1/2 inch needle injected at the level of the T9 on the right side of the spine. We used a track method. We cleaned the skin thoroughly with chlorhexidine and allowed to dry for 2 minutes and then cleaned with alcohol and injected. We did not aspirate any blood at any time. We sealed the wound with a sterile bandage. Patient tolerated the procedure well Progress/Results/Core Measures Results/Orders My Orders Orders - DAYAMI DIAMOND Ketorolac Injection (Toradol Injection) (07/06/21 18:30) Thoracic Spine, 2 Views Only (07/06/21 18:21) Lumbar Spine - 2-3 Views (07/06/21 18:21) Rx-Hydrocodone/Apap 5-325 Mg (Rx-Vicodin (07/06/21 19:45) Medications Given in ED Current Medications Medications Dose Ordered Sig/Aimee Route Start Time Stop Time Status Last Admin Dose Admin Ketorolac Tromethamine 60 mg ONCE ONCE IM 07/06/21 18:30 07/06/21 18:31 DC 07/06/21 18:54 60 MG Progress Progress Note : Time: 18:26 Progress Note Suspect a radiculopathy. A vertebral fracture is a possibility so we will get some plain films to evaluate vertebral body heights for this nontraumatic pain that started after she lifted something very heavy. Toradol 60 mg IM was ordered. We have recommended that she continue taking NSAIDs at a full antiinfl ammatory dose and will probably provide her with a prescription for meloxicam. Diagnostic Imaging Diagonstic Imaging: Xray Plain Films/CT/US/NM/MRI: other (Thoracolumbar spine) Comments [facility]. [place], [place] NAME: CHELONAREN K [facility] REC#: [id number] PT STATUS: REG ER : 1950 PHYSICIAN: DAYAMI DIAMOND MD ADMIT DATE: 07/06/21/ER Draft Date of Exam:07/06/21 THORACIC SPINE, 2 VIEWS ONLY CLINICAL INDICATION: Patient with back pain. EXAM: X-ray of the thoracic spine, AP and lateral views. COMPARISON: None. FINDINGS: There is no acute fracture or dislocation. Intervertebral disk heights are maintained. There are small spurs involving the upper thoracic spine. IMPRESSION: Mild thoracic spine degenerative disease with no acute fracture or dislocation. Dictated on workstation # [id number] Dict: 07/06/211846 Trans: 07/06/211850 [facility] [id number] Interpreted by: JAVIER STINSON MD Electronically signed by: [facility], [place] NAME: NAREN WHITNEY [facility] REC#: [id number] PT STATUS: REG ER : 1950 PHYSICIAN: DAYAMI DIAMOND MD ADMIT DATE: 07/06/21/ER Draft Date of Exam:07/06/21 LUMBAR SPINE - 2-3 VIEWS CLINICAL INDICATIONS: Patient with back pain. EXAM: X-ray of the lumbar spine, 3 views. COMPARISON: None. FINDINGS: There is no acute lumbar spine fracture or dislocation. There are minimal sized anterior spurs involving the lumbar spine. There is lower lumbar spine facet arthropathy. Intervertebral disk heights are maintained. Sacroiliac joints are unremarkable. IMPRESSION: Mild degenerative disease with no acute fracture or dislocation. Dictated on workstation # [id number] Dict: 07/06/211845 Trans: 07/06/211849 [facility] [id number] Interpreted by: JAVIER STINSON MD Electronically signed by: Reviewed: Reviewed by Me Departure Impression Primary Impression: Thoracic radiculopathy Disposition: 01 HOME, SELF-CARE Condition: Stable Departure-Patient Inst. Decision time for Depature: 19:23 Referrals: BILLY SCHWARZ DO (PCP/Family) Primary Care Physician Patient Instructions: Radiculopathy (DC), Upper Back Pain (DC) Add. Discharge Instructions: Ensure you are drinking plenty of fluids and continue to take your stomach medicine such as omeprazole or Prilosec daily. 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 Taking this on a daily basis will build up to an anti-inflammatory effect and help get over this pinched nerve sooner. If you experience bad reflux that is not treatable with Maalox, Mylanta, Tums, Rolaids etc. or chest pain then stop the meloxicam and follow-up with your doctor. You may use Tylenol 1000 mg every 8 hours as needed for breakthrough pain. I encourage the use of topical creams such as icy hot, Biofreeze, Blue emu, capsaicin oil, Salonpas patches, lidocaine patches etc. as necessary. Applications of heat can be helpful for pain. If you have intractable pain you may use the tramadol as prescribed by your primary care doctor. If the pain is keeping you from being functional and severe then you may use the hydrocodone 1 tablet every 6 hours as needed. Hydrocodone as well as tramadol can cause drowsiness, constipation and you should consider the use of Colace or similar stool softeners daily. Call [place] [facility] physical therapy at [phone] and request an examination and therapy. Promptly return to the ER for chest pain, shortness of air, loss of control of your bowels or bladder, falls due to weakness or numbness in your saddle region. All discharge instructions reviewed with patient and/or family. Voiced understanding. Scripts Hydrocodone/Acetaminophen (Hydrocodone-Acetamin 7.5-325) 7.5 Mg-325 Mg Tablet 1 EACH PO Q6H PRN for PAIN-SEVERE (8-10), #10 TAB 0 Refills Prov: DAYAMI DIAMOND 07/06/21 Meloxicam (Meloxicam) 7.5 Mg Tablet 7.5 MG PO DAILY for 30 Days, #30 TAB 0 Refills Prov: DAYAMI DIAMOND 07/06/21 Copy Copies To 1: BILLY SCHWARZ DO DAYAMI DIAMOND July 06, 2021 18:27
[2021-07-06] MEDS ORDERED: KETOROLAC 60 MG/2 ML VIAL IM ONE (18:30)
--- NOTE | 2021-07-06 18:51 | Diagnostic Imaging Report ---
CLINICAL INDICATIONS: Patient with back pain. EXAM: X-ray of the lumbar spine, 3 views. COMPARISON: None. FINDINGS: There is no acute lumbar spine fracture or dislocation. There are minimal sized anterior spurs involving the lumbar spine. There is lower lumbar spine facet arthropathy. Intervertebral disk heights are maintained. Sacroiliac joints are unremarkable. IMPRESSION: Mild degenerative disease with no acute fracture or dislocation. Dictated by: Dictated on workstation # [id number]
--- NOTE | 2021-07-06 18:52 | Diagnostic Imaging Report ---
CLINICAL INDICATION: Patient with back pain. EXAM: X-ray of the thoracic spine, AP and lateral views. COMPARISON: None. FINDINGS: There is no acute fracture or dislocation. Intervertebral disk heights are maintained. There are small spurs involving the upper thoracic spine. IMPRESSION: Mild thoracic spine degenerative disease with no acute fracture or dislocation. Dictated by: Dictated on workstation # [id number]
[2021-07-06] MEDS ORDERED: HYDR-3817 PO (19:28)
[2021-07-06] MEDS ORDERED: MELO7.5T46 PO (19:28)
== END 2021-07-06 19:50 | disposition home or self-care (01) ==
LOC: EDUNIT# 16:59 → ER 17:02
DX: M54.14 Radiculopathy, thoracic region (principal); X50.0XXA Overexertion from strenuous movement or load, initial encounter; Y92.007 Garden or yard of unspecified non-institutional (private) residence as the place of occurrence of the external cause
CPT/HCPCS: 72070; 72100

== ENCOUNTER → 2021-07-31 | Outpatient (RCR) | payer BC ==
[~2021-07-31] MED LIST changes: +HYDR-3817 PO; +MELO7.5T46 PO
== END | disposition home or self-care (01) ==
DX: M54.6 Pain in thoracic spine (principal)

== ENCOUNTER → 2021-08-13 | Outpatient (CLI) | payer BC ==
--- NOTE | 2021-08-13 13:23 | Diagnostic Imaging Report ---
INDICATION: Routine screening. COMPARISON: 08/03/2020 and 08/03/2019. TECHNIQUE: 2D and 3D bilateral screening mammography was performed with CAD. FINDINGS: Scattered fibroglandular densities are identified bilaterally. A biopsy clip in the right breast is again noted. A mass-like density in the central right breast is stable. No new mass or malignant-appearing microcalcifications are seen. The axillae are unremarkable. IMPRESSION: No mammographic features suspicious for malignancy are identified. ACR BI-RADS Category 2: Benign findings. Result letter will be mailed to the patient. Note: At least 10% of breast cancer is not imaged by mammography. Dictated by: Dictated on workstation # [id number]
== END ==
LOC: RAD 10:30
PROVIDERS: ATTEND Family Medicine
DX: Z12.31 Encounter for screening mammogram for malignant neoplasm of breast (principal)
CPT/HCPCS: 77063; 77067

== ENCOUNTER 2021-08-21 16:14 | Outpatient (RCR) | payer BC | END 2021-08-30 | disposition home or self-care (01) | DX: M54.6 Pain in thoracic spine (principal) ==

== ENCOUNTER → 2021-08-29 | Outpatient (CLI) | payer BC ==
--- NOTE | 2021-08-29 12:05 | Diagnostic Imaging Report ---
PROCEDURE: CT thoracic spine without contrast. TECHNIQUE: Multiple axial computerized tomography images were obtained from the base of the thoracic spine to the vertex without intravenous contrast. Auto Exposure Controls were utilized during the CT exam to meet ALARA standards for radiation dose reduction. INDICATION: Back pain. COMPARISON: The exam is correlated with thoracic radiographs performed on 07/06/2021 as well as a two-view chest x-ray which was performed on 08/15/2016. FINDINGS: New from the remote chest x-ray and new or progressed from the spinal radiographs of 6 weeks ago, there is a mildly retropulsed vertebral body fracture at T6. This level shows some gas within the vertebral body as well as mixed sclerosis and lucency, suggestive of its necrosis. Stature loss at its middle third is down about 80% maximal. Its inferior endplate is retropulsed about 2 mm. No substantial anteropulsion and there is no listhesis above or below this fracture. Heterogeneous areas of mixed lucency and sclerosis are likely owing to the fracture itself and suspected osteonecrosis. A pathological fracture could not be entirely excluded but, given the otherwise normal appearance of the remaining bones and visualized soft tissues, that would be felt significantly less likely. The pedicles and lamina are intact. The remaining vertebral bodies have a normal stature aligned anatomically. No other acute or subacute fracture pattern is found. IMPRESSION: 1. T6 vertebral body fracture with mild retropulsion which does not result in stenosis. No adjacent hemorrhage or fluid collection. This is new from a remote chest x-ray and likely progressed or new from a more recent spinal radiographic series. 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 2. The remaining levels are normal. There is no listhesis. Dictated by: Dictated on workstation # [id number]
== END ==
LOC: RAD 09:45
PROVIDERS: ATTEND Family Medicine
DX: S22.059A Unspecified fracture of T5-T6 vertebra, initial encounter for closed fracture (principal)
CPT/HCPCS: 72128

== ENCOUNTER 2021-09-15 14:50 | Emergency (ER) | payer BC ==
[~2021-09-15] VITALS: Ht 165.1 cm; Wt 67.1 kg
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
[2021-09-15] MEDS ORDERED: OXYC5TAB PO ×2 (16:09→16:34)
[2021-09-15 16:30] VITALS: BP 122/74
== END 2021-09-15 16:30 | disposition home or self-care (01) ==
LOC: EDUNIT# 14:50 → ER 14:51
DX: S22.059A Unspecified fracture of T5-T6 vertebra, initial encounter for closed fracture (principal); X50.0XXA Overexertion from strenuous movement or load, initial encounter; Y92.096 Garden or yard of other non-institutional residence as the place of occurrence of the external cause; Y99.0 Civilian activity done for income or pay
CPT/HCPCS: 99283

== ENCOUNTER → 2021-09-20 | Outpatient (CLI) | payer BC ==
[~2021-09-20] MED LIST changes: +OXYC5TAB PO
--- NOTE | 2021-09-20 14:11 | Diagnostic Imaging Report ---
CLINICAL INDICATIONS: Patient with total spine pain. No fall. Patient states she was gardening. EXAM: MRI of the lumbar spine performed without IV contrast. Sequences include sagittal T2, sagittal T1, sagittal T2 fat-sat, and axial T1. COMPARISON: X-ray of the lumbar spine without contrast dated 07/06/2021. FINDINGS: There are diffuse patchy and amorphous areas of abnormal high T2/low T1 signal throughout the visualized lumbar spine and sacrum. There is diffuse infiltrative changes involving the L5 vertebra with masslike enlargement of the upper posterior aspect of the L5 vertebra. There is mild central canal narrowing. There is interval development of a compression deformity involving the upper endplate of the L5 vertebra which may be acute or subacute. There is roughly 40-50% loss of height. There is no significant paraspinal soft tissue abnormality. There is left renal cyst. The visualized portions of the distal thoracic spinal cord, conus medullaris, and cauda equina nerve roots are unremarkable. The conus medullaris tip is seen at the L1-L2 intervertebral level. There are degenerative spurs involving the lumbar spine and lower lumbar spine facet arthropathy. L1-L2: Unremarkable. L2-L3: There is a chronic Schmorl's node involving the upper endplate of the L3 vertebra. There is no significant central canal or neural foramen narrowing. L3-L4: There is mild to moderate bilateral facet arthropathy. There is no significant central canal or neural foramen narrowing. L4-L5: There is mild central canal narrowing due to expansile changes of the L5 vertebra, as described above. There is mild bilateral neural foramen narrowing. L5-S1: There is no significant disk bulge. There is no significant central canal narrowing. There is severe left facet arthropathy/hypertrophy and mild to moderate right facet arthropathy. There is mild to moderate left neural foramen narrowing. IMPRESSION: 1: There are diffuse patchy and confluent areas of abnormal signal throughout the visualized axial skeleton concerning for metastatic disease. 2: There is interval development of an acute/subacute pathologic fracture involving the L5 vertebra with mild central canal narrowing. 3: There is lumbar spine degenerative disease, as described above. Report faxed to Dr. Burks at 2:09 PM 09/20/2021/cb Dictated by: Dictated on workstation # [id number]
--- NOTE | 2021-09-20 14:12 | Diagnostic Imaging Report ---
CLINICAL INDICATION: Patient with total spine pain. Patient has history of fractured thoracic spine area. No history of recent trauma. Patient was gardening. EXAM: MRI of the thoracic spine performed without IV contrast. Sequences include sagittal T2, sagittal T1, sagittal T2 fat-sat, and axial T2. COMPARISON: CT scan of the thoracic spine without contrast dated 08/29/2021. FINDINGS: There is diffuse patchy and confluent areas of high T2, low T1 signal throughout the visualized thoracic and cervical spine and upper lumbar spine most consistent with metastatic disease. There is no infiltrative expansile vertebral body lesion seen. Stable T6 vertebral body burst fracture with anterior wedging. There is roughly an 80% compression deformity. There is diffuse low T1 and heterogeneous T2 signal and this is concerning for pathologic fracture given its heterogeneous appearance on the CT scan. There is a curvilinear area of high T2 signal involving the anterior inferior aspect of T9 vertebra with associated low T1 signal throughout the vertebra. This may represent an occult fracture with no significant loss of height. Pathologic fracture may also be considered. There is no other thoracic spine fracture seen. Thoracic spinal cord is normal cord caliber with no abnormal signal. There is no significant paraspinal soft tissue abnormality. There is mild central canal stenosis at the T6 vertebral body level due to the burst fracture. The remainder of the thoracic spine shows no significant central canal stenosis. There is moderate bilateral C6-C7 neural foramen narrowing and at least moderate bilateral T8-T9 neural foramen narrowing and mild bilateral T9-T10 neural foramen narrowing. There is thoracic spine degenerative spurs and facet arthropathy. IMPRESSION: 1.: There is spine findings concerning for diffuse osseous metastatic disease. 2: There is T6 vertebral body burst fracture again seen with similar loss of height concerning for pathologic fracture. There is mild central canal narrowing. 3: Concern for occult fracture of the inferior aspect of T9 vertebra with no significant loss of height. This also may be a pathologic fracture. 4: There is thoracic spine degenerative disease. Faxed to Dr. Billy Burks at 2:10 p.m. by cvb. Dictated by: Dictated on workstation # [id number]
== END ==
LOC: RAD 09:30
PROVIDERS: ATTEND Neurological Surgery
DX: M48.54XA Collapsed vertebra, not elsewhere classified, thoracic region, initial encounter for fracture (principal); M47.814 Spondylosis without myelopathy or radiculopathy, thoracic region; M47.816 Spondylosis without myelopathy or radiculopathy, lumbar region; M47.817 Spondylosis without myelopathy or radiculopathy, lumbosacral region; M48.04 Spinal stenosis, thoracic region; M48.061 Spinal stenosis, lumbar region without neurogenic claudication; M48.07 Spinal stenosis, lumbosacral region; M51.46 Schmorl's nodes, lumbar region
CPT/HCPCS: 72146; 72148

== ENCOUNTER 2021-10-05 17:08 | Inpatient (IN) | payer BC ==
[~2021-10-05] VITALS: Ht 165.1 cm; Wt 67.1 kg
[2021-10-08] MEDS ORDERED: ACETAMINOPHEN 325 MG TABLET PO PRN (11:45)
[2021-10-08] MEDS ORDERED: FLEET ENEMA ADULT 1 EA BTL PR PRN (11:45)
[2021-10-08] MEDS ORDERED: diphenhydrAMINE 25 MG TAB (BENADRYL) PO PRN (11:45)
[2021-10-08] MEDS ORDERED: ALPRAZolam 0.25 MG (XANAX) TAB PO PRN (11:45)
[2021-10-08] MEDS ORDERED: BISACODYL 10 MG SUPP (DULCOLAX) PR PRN (11:45)
[2021-10-08] MEDS ORDERED: ONDANSETRON 4 MG (ZOFRAN) ORAL DISSOLVE TAB PO PRN (11:45)
[2021-10-08] MEDS ORDERED: LOPERAMIDE 2 MG (IMODIUM) TABLET PO PRN (11:45)
[2021-10-08] MEDS ORDERED: DOCUSATE SODIUM 100 MG (COLACE) CAP PO PRN (11:45)
[2021-10-08] MEDS ORDERED: guaiFENesin/CODEINE (ROBITUSSIN AC) 10ML UDC PO PRN (11:45)
[2021-10-08] MEDS ORDERED: LACTULOSE SYRUP 10GM/15ML (ENULOSE) 30ML UDC PO PRN (11:45)
[2021-10-08] MEDS ORDERED: CALCIUM CARBONATE 500 MG (TUMS) TAB.CHEW PO PRN (11:45)
[2021-10-08] MEDS ORDERED: MELATONIN 3 MG TABLET PO PRN (11:45)
--- NOTE | 2021-10-08 11:45 | PM&R Post Admission Assessment ---
PM&R Date of Visit: Oct 08, 2021 Time of Visit: 13:15 History of Present Illness CC: Severe back pain in need of rehabilitation HPI: This is a 71 yr old female who was admitted on 09/24/21 to [facility]. She was followed by Dr. Keith and her local PCP is Dr. Schwarz. She was assessed to have an MRI abnormality on 09/25/21 of a wedge compression fracture in T6 anterior inferior endplate fracture with lesions throughout the spine concerning for metastatic cancer. Preliminary liver biopsy showed neoplastic epithelioid cell population, but stains are pending at this time. She is having severe pain. She is on Fentanyl and Percocet. Arthur catheter will remain. She was very up front about the fact she is "not doing well" and interested in Hospice. I did confer with Dr Schwarz who was not aware of this new dx in order to organize her plan at [place]. Past Xhmteoo-Vfuvex-Wqvwmq Hx Past Med/Social Hx: Reviewed Nursing Past Med/Soc Hx, Reviewed and Corrections made Patient Social History Marrital Status: single Employed/Student: retired Alcohol Use: Denies Use Smoking Status: Never a Smoker Immunizations Up To Date Date of Influenza Vaccine: Dec 29, 2012 Past Medical History Surgeries: Orthopedic Gastrointestinal: Gastroesophageal Reflux Musculoskeletal: Arthritis, Chronic Back Pain PM&R Allergy/Meds/Data Review Allergies Coded Allergies: Penicillins (Verified Allergy, Mild, RASH, 08/23/19) Home Medications Scheduled Apixaban (Eliquis), 5 MG PO BID, (Reported) Calcium Carbonate (Calcium Carbonate), 600 MG PO DAILY, (Reported) Cholecalciferol (Vitamin D3) (Vitamin D3), 25 MCG PO DAILY, (Reported) Docusate Sodium (Docusate Sodium), 100 MG PO BID, (Reported) Esomeprazole Magnesium (Esomeprazole Magnesium), 20 MG PO HS, (Reported) Fentanyl (Fentanyl Patch 12 MCG), 12 MCG TD Q72H, (Reported) Glucosa Cobian 2Kcl/Chondroitin Cobian (Glucosamine & Chondroitin Cap), 1 EACH PO DAILY, (Reported) Metoprolol Tartrate (Metoprolol Tartrate), 25 MG PO TID, (Reported) Multivitamin (Multivitamin), 1 EACH PO DAILY, (Reported) Paroxetine HCl (Paroxetine HCl), 40 MG PO HS, (Reported) Polyethylene Glycol 3350 (Miralax), 17 GM PO DAILY, (Reported) Sennosides/Docusate Sodium (Senna S Tablet), 1 EACH PO BID, (Reported) Scheduled PRN Alprazolam (Alprazolam), 0.5-1 MG PO DAILY PRN for ANXIETY, (Reported) Cyclobenzaprine HCl (Cyclobenzaprine HCl), 5 MG PO Q8H PRN for MUSCLE SPASMS, (Reported) Furosemide (Furosemide), 20 MG PO DAILY PRN for WORSENING HYPOXIA, (Reported) Magnesium Hydroxide (Milk of Magnesia), 30 ML PO Q6H PRN for CONSTIPATION-7TH LINE, (Reported) Ondansetron HCl (Ondansetron HCl), 4 MG PO Q6H PRN for NAUSEA/VOMITING-1ST LINE, (Reported) Oxycodone HCl/Acetaminophen (Oxycodone-Acetaminophen 5-325), 1 EACH PO Q4H PRN for PAIN-SEVERE, (Reported) Discontinued Medications Biotin (Biotin), 1,000 MCG PO DAILY, (Reported) Discontinued Reason: No Longer Taking Cholecalciferol (Vitamin D3) (Vitamin D3), 50 MCG PO DAILY, (Reported) Discontinued Reason: No Longer Taking Glucosa Cobian 2Kcl/Chondroitin Cobian (Glucosamine & Chondroitin Cap), 1 EACH PO DAILY, (Reported) Discontinued Reason: No Longer Taking Hydrocodone/Acetaminophen (Hydrocodone-Acetamin 7.5-325), 1 EACH PO Q6H PRN for PAIN-SEVERE (8-10) Discontinued Reason: No Longer Taking Meloxicam (Meloxicam), 7.5 MG PO DAILY Discontinued Reason: No Longer Taking Multivitamin (Multivitamin), 1 EACH PO DAILY, (Reported) Discontinued Reason: No Longer Taking Omeprazole Magnesium (Prilosec Otc), 20 MG PO DAILY PRN for HEARTBURN, (Reported) Discontinued Reason: No Longer Taking Oxycodone HCl (Oxycodone HCl), 5 MG PO Q4H PRN for PAIN-MODERATE (5-7) Discontinued Reason: No Longer Taking Paroxetine HCl (Paroxetine Cr), 25 MG PO DAILY, (Reported) Discontinued Reason: No Longer Taking Current Medications Current Medications Reviewed Review of Systems Constitutional: see HPI, malaise, weakness EENTM: no symptoms reported Respiratory: no symptoms reported Cardiovascular: no symptoms reported Gastrointestinal: constipation Genitourinary: no symptoms reported Musculoskeletal: back pain, joint pain Skin: no symptoms reported Psychiatric/Neurological: Anxiety, Depressed All Other Systems Reviewed Negative Unless Noted: Yes Physical Exam Physical Exam Vital Signs Capillary Refill : Height, Weight, BMI Height: 5'5.00" Weight: 136lbs. oz. 61.438004gn; 24.00 BMI Method: General Appearance: WD/WN, Anxious, Chronically ill, Mild Distress Eyes: Bilateral Eye Normal Inspection, Bilateral Eye PERRL HEENT: PERRL/EOMI, Normal ENT Inspection, Pharynx Normal Neck: Full Range of Motion, Normal Inspection, Non Tender, Supple, Carotid Bruit Respiratory: Chest Non Tender, Lungs Clear, Normal Breath Sounds, No Accessory Muscle Use, No Respiratory Distress Cardiovascular: Regular Rate, Rhythm, No Edema, No Gallop, No JVD, No Murmur, Normal Peripheral Pulses Gastrointestinal: Normal Bowel Sounds, No Organomegaly, No Pulsatile Mass, Non Tender, Soft Back: Normal Inspection, Decreased Range of Motion, Muscle Spasm, Vertebral Tenderness Extremity: Normal Capillary Refill, Normal Inspection, Normal Range of Motion, Non Tender, No Calf Tenderness, No Pedal Edema Neurologic/Psychiatric: Alert, Oriented x3, balloon tester II-XII Norm as Tested, Abnormal Gait, Depressed Affect, Motor Weakness Skin: Normal Color, Warm/Dry Lymphatic: No Adenopathy PM&R Medical Assessment & Plan REHAB/MEDICAL ASSESSMENT AND PLAN: REHAB IMPAIRMENT GROUP: Debility ETIOLOGIC DIAGNOSIS: Debility The comorbidities that impact the patients function and/or functional outcome by: neoplastic process, severe debility, lives alone, terminal condition REHAB PLAN: The patient is being admitted to our comprehensive inpatient rehabilitation facility and can tolerate the intensity of service consisting of at least: 180 minutes of therapy a day, 5 out of 7 days a week Rehab treatment will consist of: PT OT will help increase ADL's in order to increase independence in order to lessen the care burden upon DC to presumed AL/NH The patient/family has a good understanding of our discharge process and will benefit from an interdisciplinary inpatient rehabilitation program. The patient has potential to make improvement and is in need of at least two of the following multidisciplinary therapies including but not limited to physical, occupational, speech, and prosthetics and orthotics. Additionally the patient will need services from respiratory, nutritional services, wound care, psychology, etc. (Customize this to each patient). Given the patients complex condition and risk of further medical complications, rehabilitation services cannot be safely or effectively provided at a lower level of care such as a longterm facility. BARRIERS TO DISCHARGE: Terminal condition ESTIMATED LOS: 7 days DISPOSITION: AL/NH on hospice? RELEVANT CHANGES SINCE PREADMISSION SCREENING: I have compared the patients medical and functional status at the time of the preadmission screening and there are: no changes PROGNOSIS: Fair to poor REHABILITATION GOALS: 1. PT OT will help increase ADL's in order to increase independence in order to lessen the care burden upon DC to presumed AL/NH All the above goals were reviewed with the patient and he/she is in agreement. By signing this document, I acknowledge that I have personally performed a full physical examination on this patient within 24 hours of admission to this inpatient rehabilitation facility and have determined the patient to be able to tolerate the above course of treatment at an intensive level for a reasonable period of time. I will be completing a detailed individualized Plan of Care for this patient by day #4 of the patients stay based upon the Preadmission Screen, the Post-Admission Evaluation, and the therapy evaluations. Admission Dx/Comorbidities: (1) Compression fracture of T6 vertebra Status: Acute ICD Codes: S22.050A - Wedge compression fracture of T5-T6 vertebra, initial encounter for closed fracture (2) Thoracic back pain Status: Acute ICD Codes: M54.6 - Pain in thoracic spine (3) Thoracic radiculopathy Status: Acute ICD Codes: M54.14 - Radiculopathy, thoracic region Assessment/Plan Assessment and Plan Assess & Plan/Chief Complaint Assessment: Severe debility Spinal neoplastic process GERD Constipation Arthur cath in place Plan: Pain control Increase ADL's PCP consult LEILA ROBERTS DO Oct 08, 2021 11:45
[2021-10-08] MEDS ORDERED: MOM10U PO (11:52)
[2021-10-08] MEDS ORDERED: MULT-1136 PO (11:52)
[2021-10-08] MEDS ORDERED: OXYC1TAB11 PO (11:52)
[2021-10-08] MEDS ORDERED: ALPR0.5T7 PO (11:52)
[2021-10-08] MEDS ORDERED: ONDA-105 PO (11:52)
[2021-10-08] MEDS ORDERED: GLUC1CAP37 PO (11:52)
[2021-10-08] MEDS ORDERED: CYCL5TAB PO (11:52)
[2021-10-08] MEDS ORDERED: ESOM20CA37 PO (11:52)
[2021-10-08] MEDS ORDERED: PARO40TA3 PO (11:52)
[2021-10-08] MEDS ORDERED: METO-333 PO (11:52)
[2021-10-08] MEDS ORDERED: CALC600T80 PO (11:52)
[2021-10-08] MEDS ORDERED: FEN12TD TD (11:52)
[2021-10-08] MEDS ORDERED: CHOL10008 PO (11:52)
[2021-10-08] MEDS ORDERED: POLY17PO6 PO (11:52)
[2021-10-08] MEDS ORDERED: SENN-145 PO (11:52)
[2021-10-08] MEDS ORDERED: DOCU100C37 PO (11:52)
[2021-10-08] MEDS ORDERED: APIX5TAB PO (11:52)
[2021-10-08] MEDS ORDERED: FURO20TA4 PO (11:52)
[2021-10-08 12:27] VITALS: BP 130/60
[2021-10-08] MEDS ORDERED: NON-FORMULARY MEDICATION 1 EA EA (Ondansetron HCl 4 MG) PO PRN (13:00)
[2021-10-08] MEDS ORDERED: NON-FORMULARY MEDICATION 1 EA EA (Magnesium Hydroxide (Milk of Magnesia) 30 ML) PO PRN (13:00)
[2021-10-08] MEDS ORDERED: NON-FORMULARY MEDICATION 1 EA EA (Cyclobenzaprine HCl 5 MG) PO PRN (13:00)
[2021-10-08] MEDS ORDERED: FUROSEMIDE 20 MG (LASIX) TAB PO PRN (13:00)
[2021-10-08] MEDS ORDERED: MILK OF MAGNESIA 400 MG/5 ML 30 ML UDC PO PRN (13:15)
[2021-10-08] MEDS ORDERED: CYCLOBENZAPRINE 10 MG (FLEXERIL) TAB PO PRN (13:15)
--- NOTE | 2021-10-08 13:15 | ST Cognitive Linguistic Eval ---
Speech Evaluation-General Medical Diagnosis Onset Date: Oct 08, 2021 Referral Referring Physician: Dr. Cuellar Reason for Referral: Evaluation/Treatment Medical History Pertinent Medical History: GERD Current History The patient is a 71 year-old female with a past medical history significant for anxiety and GERD, who presented to an outside facility with severe back pain. A MRI of the thoracic and lumbar spine revealed suspicion of osseous lesions. A CT abdomen/pelvis were highly concerning for hepatic metastatic disease. Per patient, "I also have it in the breast." A T9 kyphoplasty was performed on 10/02/21 to aid in pain management. Additionally, the patient underwent a right thoracentesis on 10/04/21. Reviewed History: Yes Social History Current Living Status: Alone Speech PLF-Current Status Prior Level of Function The patient presented to the unit displaying significant fatigue and pain from her transportation. The patient provided limited information to the clinician regarding prior level of function, however, does report she lived alone. Subjective The patient was lying in bed, eyes closed upon entrance to her room by the clinician. The patient does verbally respond to the clinician's verbal greeting and intermittently opens her eyes throughout the treatment session. The patient reports increased pain and shortness of air. The RN is notified of both statements and provides appropriate care for the patient. The patient participates as able throughout the treatment session. Frequent breaks are provided by the clinician for patient comfort. Language Eval: Auditory Comprehends Simple Yes/No Ques: Functional Follows 1-Step Commands: Functional Follows General Conversations: Functional Language Eval: Verbal Language Completes Spontaneous Greeting: Functional Produces Auto, Serial Info: Functional Requests Basic Needs: Functional States Basic Personal Info: Functional Cognitive Patient Orientation The patient was independently oriented to self, location, month, and year. The patient stated the day of the week was "." The clinician provided re- orientation for the patient. Objective Cognitive Domain Memory: WNL A limited cognitive evaluation could be completed due to the patient's extreme discomfort and fatigue. The patient was able to recall five of five single words immediately and four of five single words following a five minute delay. Objective Formal/Standardized Tests [facility] Mental Status Exam (UMS) Results The patient was unable to complete the SLUMS due to fatigue and discomfort. The clinician will continue the examination on the subsequent treatment date. Oral Motor/Speech Production The patient does not display dysarthria or apraxia of speech at this time. The patient remains 100% intelligible in known and unknown contexts. Impression The patient was unable to complete the full cognitive linguistic evaluation on this date due to pain, fatigue, and discomfort. The clinician will continue the assessment on the subsequent treatment date. Speech Patient Assess Expression of Ideas/Wants: Expression (4) Understanding Verbal Content: Understands (4) Brief Interview-Mental Status: Yes Repetition of Three Words: Three (3) Temporal Orientation: Year: Correct (3) Temporal Orientation: Month: Accurate within 5 days(2) Temporal Orientation: Day: Incorrect or No Answer(0) Recall : Wear to say "Sock": Yes, no cue required (2) Recall : Color: Yes, no cue required (2) Recall : Bed: Yes,after cueing (1) Memory/Recall Ability: Current season, That he or she is in a hsp/hsp unit Speech Short Term Goals Short Term Goals Short Term Goals 1. The patient will attend to a task for three minutes with mild clinician verbal and visual cueing. Time Frame-STG: Two Days. Speech Retirement Goals Retirement Goals 1. The patient will complete the cognitive linguistic assessment with mild verbal and visual cueing provided by the clinician. Time Frame: Two Days. Speech-Plan Treatment Plan Speech Therapy Treatment Plan: Continue Plan of Care Treatment Duration: Oct 09, 2021 Frequency: Modified Program (IRF) Estimated Hrs Per Day: .5 hour per day Rehab Potential: Fair Safety Risks/Education Teaching Recipient: Patient Teaching Methods: Discussion Response to Teaching: Verbalize Understanding Education Topics Provided: Results, Recommendations, Plan of Care Time Speech Therapy Time In: 12:15 Speech Therapy Time Out: 12:45 Total Billed Time: 30 Billed Treatment Time 1, LINDSAY QUIROZ [facility] ST Oct 08, 2021 13:15
[2021-10-08] MEDS: oxyCODONE/APAP 5/325MG (PERCOCET 5) TABLET PO PRN ×2 (13:22→21:40)
--- NOTE | 2021-10-08 13:40 | Occupational Therapy Eval ---
OT Evaluation-General/PLF Medical Diagnosis Admission Date Oct 08, 2021 at 12:05 Medical Diagnosis: T9 Kyphoplasty Onset Date: Sep 25, 2021 Therapy Diagnosis Therapy Diagnosis: reduced adl status Height/Weight Height (Feet): 5 Height (Inches): 5.00 Weight (Pounds): 136 Precautions Precautions/Isolations: Fall Prevention, Standard Precautions Comments Spinal precautions Referral Physician: Alisa Referral Reason: Evaluation/Treatment Medical History Pertinent Medical History: GERD Current History Pt direct admit from [facility]. S/p T9 Kyphoplasty. Per patient, she lives alone in a single story home with a basement (that she does not use). She was indep with adls and iadls prior to admission. She does not use a RW at baseline but was using one 2 weeks before initial admission. Reviewed History: Yes Social History Home: Single Level Current Living Status: Alone ADL-Prior Level of Function SCALE: Activities may be completed with or without assistive devices. 2-Vgdvkmaqju-mqgyyjf completes the activity by him/herself with no assistance from a helper. 5-Set-up or Clean-up Assistance-helper sets up or cleans up; patient completes activity. [place] assists only prior to or following the activity. 4-Supervision or Touching Assistance-helper provides verbal cues and/or touching/steadying and/or contact guard assistance as patient completes activity. Assistance may be provided throughout the activity or intermittently. 3-Partial/Moderate Assistance-helper does LESS THAN HALF the effort. [place] lifts, holds or supports trunk or limbs, but provides less than half the effort. 2-Substantial/Maximal Assistance-helper does MORE THAN HALF the effort. [place] lifts or holds trunk or limbs and provides more than half the effort. 5-Yfqihqbln-inbkio does ALL the effort. Patient does none of the effort to complete the activity. Or, the assistance of 2 or more helpers is required for the patient to complete the activity. If activity was not attempted, code reason: 7-Patient Refused. 9-Not Applicable-not attempted and the patient did not perform the activity before the current illness, exacerbation or injury. 10-Not Attempted due to Environmental Limitations-(lack of equipment, weather restraints, etc.). 88-Not Attempted due to Medical Conditions or Safety Concerns. 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 Pt and friend verbalize that rehab expectations were not given. Pt in significant pain, RN notified. Appearance Pt left sitting in w/c with physical therapist and SINGLETON present. Mental Status/Objective Patient Orientation: Person, Situation Attachments: Arthur Catheter, Oxygen Current Hearing Aids: No Dentures/Partials: No Hand Dominance: Right Upper Extremity ROM Very debilitated. <1/4 AROM at shoulder, full PROM Very weak/poor cardiovascular technician Elbows WFL ADL-Treatment Eating (QC): 7 Oral Hygiene (QC): 3 (per clinical judgment secondary to UE weakness) Shower/Bathe Self (QC): 1 Upper Body Dressing (QC): 88 Lower Body Dressing (QC): 1 On/Off Footwear (QC): 7 Toileting Hygiene (QC): 1 Pt supine in bed at therapist arrival. Mod a to roll R/L. Education on log roll technique. Max a to sit EOB. Poor sitting tolerance secondary to increased pain. Pt initiates laying back down. Due to c/o severe pain, sponge bath completed at bed level. Due to severe weakness and inability to lift arms, pt dependent to wash all body parts. "This washcloth is too heavy." Clothing deferred secondary to pain and inability to tolerate. Attempt again at sitting EOB. Once sitting at edge, encouragement to transfer to w/c in order to brush teeth at sink. Unsteady on feet. Min-Mod a to for balance. Pt left sitting in w/c with physical therapist and SINGLETON present to take over treatment. Education OT Patient Education: Correct positioning, Modified ADL techniques, Purpose of tx/functional activities, Reviewed precautions, Safety issues, Transfer techniques, W/C management Teaching Recipient: Patient, Friend Teaching Methods: Demonstration, Discussion Response to Teaching: Verbalize Understanding, Return Demonstration, Reinforcement Needed OT Short Term Goals Short Term Goals Time Frame: Oct 22, 2021 Eatin Oral hygiene: 3 Toileting hygiene: 3 Shower/bathe self: 3 Upper body dressin Lower body dressin Putting on/taking off footwear: 3 OT Solutions Analyst Goals Retirement Goals Time Frame: Oct 31, 2021 Eating (QC): 4 Oral Hygiene (QC): 4 Toileting Hygiene (QC): 4 Shower/Bathe Self (QC): 4 Upper Body Dressing (QC): 4 Lower Body Dressing (QC): 4 On/Off Footwear (QC): 4 1=Demonstrate adherence to instructed precautions during ADL tasks. 2=Patient will verbalize/demonstrate understanding of assistive devices/modifications for ADL. 3=Patient will improve strength/tolerance for activity to enable patient to perform ADL's. OT Education/Plan Problem List/Assessment Assessment: Decreased Activ Tolerance, Decreased Safety Aware, Decreased UE Strength, Impaired Bed Mobility, Impaired Cognition, Impaired Coordination, Impaired Funct Balance, Impaired I ADL's, Impaired Self-Care Skills, Restricted Funct UE ROM Discharge Recommendations Plan/Recommendations: Continue POC Therapy Discharge Recommendati: Post Acute OT Comment Pt requesting hospice care. Unsure if this is due to pt's current status and being in a lot of pain. Ongoing assessment needed. Barriers to Progress pain, mets of the bone Treatment Plan/Plan of Care Treatment,Training & Education: Yes Patient would benefit from OT for education, treatment and training to promote independence in ADL's, mobility, safety and/or upper extremity function for ADL's. Plan of Care: ADL Retraining, Caregiver Training, Cognitive Retraining, Concurrent Therapy, Functional Mobility, Group Exercise/Act as Ind, UE Funct E xercise/Act, W/C Management Training Treatment Duration: Oct 31, 2021 Frequency: At least 5 of 7 days/Wk (IRF) Estimated Hrs Per Day: 1.5 hours per day (75-90 min/day ) Rehab Potential: Poor Time/GCodes Start Time: 13:00 Stop Time: 13:30 Total Time Billed (hr/min): 30 Billed Treatment Time 1 visit EVH (10 min) ADL (20 min) OT eval: [id number] Co-treat: [id number] Lanny Bailey OT Oct 08, 2021 13:40
[2021-10-08] MEDS: meTOprolol TARTRATE 25 MG (LOPRESSOR) TABLET PO SCH ×2 (14:12→21:41)
--- NOTE | 2021-10-08 14:15 | Physical Therapy Evaluation ---
PT Evaluation-General Medical Diagnosis Admission Date Oct 08, 2021 at 12:05 Medical Diagnosis: T9 Kyphoplasty Onset Date: Oct 02, 2021 Therapy Diagnosis Therapy Diagnosis: impaired mobility, strength, endurance Height/Weight Height (Feet): 5 Height (Inches): 5.00 Weight (Pounds): 136 Precautions Precautions/Isolations: Fall Prevention, Standard Precautions Referral Physician: Raysa Cuellar DO Reason for Referral: Evaluation/Treatment Medical History Pertinent Medical History: GERD Reviewed History: Yes Social History Home: Single Level Current Living Status: Alone Entry Into Home: Stairs With Railing PT Steps Into Home: 3 Prior Prior Level of Function SCALE: Activities may be completed with or without assistive devices. 2-Wevizjpngk-brtbwjq completes the activity by him/herself with no assistance from a helper. 5-Set-up or Clean-up Assistance-helper sets up or cleans up; patient completes activity. [place] assists only prior to or following the activity. 4-Supervision or Touching Assistance-helper provides verbal cues and/or touching/steadying and/or contact guard assistance as patient completes activity. Assistance may be provided throughout the activity or intermittently. 3-Partial/Moderate Assistance-helper does LESS THAN HALF the effort. [place] lifts, holds or supports trunk or limbs, but provides less than half the effort. 2-Substantial/Maximal Assistance-helper does MORE THAN HALF the effort. [place] lifts or holds trunk or limbs and provides more than half the effort. 6-Zrsjvwgug-nufazq does ALL the effort. Patient does none of the effort to complete the activity. Or, the assistance of 2 or more helpers is required for the patient to complete the activity. If activity was not attempted, code reason: 7-Patient Refused. 9-Not Applicable-not attempted and the patient did not perform the activity before the current illness, exacerbation or injury. 10-Not Attempted due to Environmental Limitations-(lack of equipment, weather restraints, etc.). 88-Not Attempted due to Medical Conditions or Safety Concerns. Bed Mobility: 6 Transfers (B,C,W/C): 6 Gait: 6 Stairs: 6 Indoor Mobility (Ambulation): Independent Stairs: Independent PT Evaluation-Current Subjective Patient in bed pre tx, agrees to PT, has 9/10 pain in back. Patient states she isn't going to be able to do much because of her pain and weakness. Patient states that she feels she should be on hospice and pass away. Will be co- treating with OT for part of tx due to poor patient mobility, strength, endurance, severe pain with activity, severe debility, coordinate UE and LE with activity, safety and reduce risk of falls. Pt/Family Goals none stated Objective Patient Orientation: Person, Place, Situation Attachments: Arthur Catheter ROM/Strength ROM Lower Extremities WNL Strength Lower Extremities LLE (hip flexion 3+/5, knee flexion 4/5, knee extension 4/5, dorsiflexion 3+/5), RLE (hip flexion 3+/5, knee flexion 4/5, knee extension 4/5, dorsiflexion 3+/5) Sensory Hearing: Functional Hand Dominance: Right Sensation Right Lower Extremit: Intact Sensation Left Lower Extremity: Intact Transfers Roll Left & Right (QC): 2 Sit to Lying (QC): 2 Lying to Sitting/Side of Bed(Q: 2 Sit to Stand (QC): 3 Chair/Now-oj-Xejgh Xfer(QC): 4 Toilet Transfer (QC): 4 Car Transfer (QC): 88 Patient performs rolling and supine <-> sit with max assist, sit <-> stand min assist, transfers CGA. Patient was not able to perform car transfer due to pain. Gait Walk 10 feet (QC): 88 Walk 50 ft with 2 Turns(QC): 88 Walk 150 ft (QC): 88 Walking 10ft/uneven surface-QC: 88 Distance: 3' Gait Assistive Device: FWW Comments/Gait Description Slow, antalgic ambulation, CGA Wheelchair Training Does the Pt Use a Wheelchair?: Yes Distance: 50' Wheel 50 ft with 2 turns (QC): 2 Wheel 150 ft (QC): 88 Type of Wheelchair: Manual Stairs 1 Step (curb) (QC): 88 4 Steps (QC): 88 12 Steps (QC): 88 Balance Sitting Static: Fair Sitting Dynamic: Fair Standing Static: Fair Standing Dynamic: Fair Picking up an Object (QC): 88 Treatment Patient also performed bathing and dressing, ADL's at the sink, and performed an UE activity seated without back support for trunk strengthening. PT performed bed mobility and transfers, ambulation, WC mobility, standing and positioning during dressing and ADL's and UE activity, OT performed bathing, dressing, ADL's, UE activity, UE positioning and safety during activity. Assessment/Needs Patient in bed post tx with nurse call, phone, tray, all needs met. Patient has impaired mobility, strength, endurance. She had a lot of pain with activity, had a hard time tolerating even minimal activity. Rehab Potential: Guarded PT Short Term Goals Short Term Goals Time Frame: Oct 15, 2021 Roll Left & Right: 3 Sit to lyin Lying to sitting on side of be: 3 Sit to stand: 4 Chair/lku-lv-nipsa transfer: 4 Walk 10 feet: 4 PT Residential Goals Water Systems Designer Goals PT Water Systems Designer Goals Time Frame: Oct 29, 2021 Roll Left & Right (QC): 4 (SBA) Sit to Lying (QC): 4 (SBA) Lying-Sitting on Side/Bed(QC): 4 (SBA) Sit to Stand (QC): 4 (SBA) Chair/Ael-gk-Uaxcx Xfer(QC): 4 (SBA) Toilet Transfer (QC): 4 (SBA) Car Transfer (QC): 4 (SBA) Does the Patient Walk: Yes Walk 10 feet (QC): 4 (SBA) Walk 50ft with 2 Turns (QC): 4 (SBA) Walk 150 ft (QC): 88 Walking 10ft on Uneven Surface: 4 (SBA) 1 Step (curb) (QC): 4 (CGA) 4 Steps (QC): 4 (CGA) 12 Steps (QC): 88 Picking up an Object (QC): 4 (SBA using reliability manager) Wheel 50 feet with 2 turns (QC: 9 Wheel 150 feet: 9 PT Plan Problem List Problem List: Activity Tolerance, Functional Strength, Safety, Balance, Gait, Transfer, Bed Mobility, ROM Treatment/Plan Treatment Plan: Continue Plan of Care Treatment Plan: Bed Mobility, Education, Functional Activity Jaspreet, Functional Strength, Group Therapy, Gait, Safety, Therapeutic Exercise, Transfers Treatment Duration: Oct 29, 2021 Frequency: At least 5 of 7 days/Wk (IRF) Estimated Hrs Per Day: 1.5 hours per day Patient and/or Family Agrees t: Yes Safety Risks/Education Patient Education: Gait Training, Transfer Techniques, Correct Positioning, W/C Management, Safety Issues Teaching Recipient: Patient Teaching Methods: Demonstration, Discussion Response to Teaching: Reinforcement Needed Discharge Recommendations Plan Patient will perform bed mobility and transfer training, balance and endurance training, functional strengthening, stair training, gait training, and education, to improve functional mobility and independence at home. Therapy Discharge Recommendati: Scheduled Assistance, Home & Family, Post Acute PT Time/GCodes Time In: 1250 Time Out: 1415 Total Billed Treatment Time: 75 Total Billed Treatment 1 visit EVM 10' FA 65' PT eval from [id number], OT eval from [id number], co-treat from [id number] JOSE ALEJANDRO PAN PT Oct 08, 2021 14:15
--- NOTE | 2021-10-08 14:19 | Occupational Ther Daily Note ---
OT Current Status-Daily Note Subjective Pt alert, lying in bed. SINGLETON took over pt from OTR/L. Co-treat with PT ([id number]), skills of 2 clinicians required to decrease fall risk, work on activity tolerance, decrease pain with movements and correct movement/positioning during transfers. PT focusing on transfers, w/c mobility and strength while OT focusing on ADLs, fine motor strengthening and UE placement with all mobility. Mental Status/Objective Patient Orientation: Person, Place, Time, Situation Attachments: Oxygen (1L) ADL-Treatment Sitting at sink, pt completed oral care with set up. Pt then working on w/c mobility, assist with hand placement and propulsion due to weakness and fatigue. In sitting, pt working on core strengthening to lean forward to grasp large peg then place in board. Pt able to complete full movement 4x's then pegs were handed then pt placed with 90% accuracy into hole. Pt requires CGA to transfer from w/c to EOB. Min A x2 for EOB to supine to adhere to precautions while completing log roll to supine. After session, pt lying in bed with call light/phone in reach. All needs met. Visitors present in room. Therapy Code Descriptions/Definitions Functional [place] Measure: 0=Not Assessed/NA 4=Minimal Assistance 1=Total Assistance 5=Supervision or Setup 2=Maximal Assistance 6=Modified [place] 3=Moderate Assistance 7=Complete IndependenceSCALE: Activities may be completed with or without assistive devices. 5-Icerkvzbto-ekskrtc completes the activity by him/herself with no assistance from a helper. 5-Set-up or Clean-up Assistance-helper sets up or cleans up; patient completes activity. [place] assists only prior to or following the activity. 4-Supervision or Touching Assistance-helper provides verbal cues and/or touching/steadying and/or contact guard assistance as patient completes activity. Assistance may be provided throughout the activity or intermittently. 3-Partial/Moderate Assistance-helper does LESS THAN HALF the effort. [place] lifts, holds or supports trunk or limbs, but provides less than half the effort. 2-Substantial/Maximal Assistance-helper does MORE THAN HALF the effort. [place] lifts or holds trunk or limbs and provides more than half the effort. 7-Cbdrmnvtn-wdetqq does ALL the effort. Patient does none of the effort to complete the activity. Or, the assistance of 2 or more helpers is required for the patient to complete the activity. If activity was not attempted, code reason: 7-Patient Refused. 9-Not Applicable-not attempted and the patient did not perform the activity before the current illness, exacerbation or injury. 10-Not Attempted due to Environmental Limitations-(lack of equipment, weather restraints, etc.). 88-Not Attempted due to Medical Conditions or Safety Concerns. Oral Hygiene (QC): 5 OT Short Term Goals Short Term Goals Time Frame: Oct 22, 2021 Eatin Oral hygiene: 3 Toileting hygiene: 3 Shower/bathe self: 3 Upper body dressin Lower body dressin Putting on/taking off footwear: 3 OT [facility] Goals Senior Linux Systems Engineer Goals Time Frame: Oct 31, 2021 Eating (QC): 4 Oral Hygiene (QC): 4 Toileting Hygiene (QC): 4 Shower/Bathe Self (QC): 4 Upper Body Dressing (QC): 4 Lower Body Dressing (QC): 4 On/Off Footwear (QC): 4 1=Demonstrate adherence to instructed precautions during ADL tasks. 2=Patient will verbalize/demonstrate understanding of assistive devices/modifications for ADL. 3=Patient will improve strength/tolerance for activity to enable patient to perform ADL's. OT Education/Plan Problem List/Assessment Assessment: Decreased Activ Tolerance, Decreased UE Strength, Impaired Bed Mobility, Impaired I ADL's Discharge Recommendations Plan/Recommendations: Continue POC Treatment Plan/Plan of Care Patient would benefit from OT for education, treatment and training to promote independence in ADL's, mobility, safety and/or upper extremity function for ADL's. Plan of Care: ADL Retraining, Caregiver Training, Cognitive Retraining, Con current Therapy, Functional Mobility, Group Exercise/Act as Ind, UE Funct Exercise/Act, W/C Management Training Treatment Duration: Oct 31, 2021 Frequency: At least 5 of 7 days/Wk (IRF) Estimated Hrs Per Day: 1.5 hours per day (75-90 min/day ) Rehab Potential: Poor Time/GCodes Start Time: 13:30 Stop Time: 14:15 Total Time Billed (hr/min): 45 Billed Treatment Time 1 visit-ADL 1 (20 min) FA 2 (25 min) co-treat with PT 45 min SHE KENDALL Oct 08, 2021 14:19
[2021-10-08 20:30] VITALS: BP 106/56
[2021-10-08] MEDS ORDERED: SENNA W/DOCUSATE (SENOKOT S) TABLET PO SCH (21:00)
[2021-10-08] MEDS ORDERED: NON-FORMULARY MEDICATION 1 EA EA (Paroxetine HCl 40 MG) PO SCH (21:00)
[2021-10-08] MEDS ORDERED: NON-FORMULARY MEDICATION 1 EA EA (Esomeprazole Magnesium 20 MG) PO SCH (21:00)
[2021-10-08] MEDS ORDERED: polyethylene glycoL POWDER 17 GM (MIRALAX) PACK PO SCH (21:00)
[2021-10-08] MEDS ORDERED: DOCUSATE SODIUM 100 MG (COLACE) CAP PO SCH (21:00)
[2021-10-08] MEDS: PARoxetine 20 MG (PAXIL) TAB PO SCH (21:40)
[2021-10-08] MEDS: APIXABAN 5 MG (ELIQUIS) TABLET PO SCH (21:41)
[2021-10-08] MEDS: PANTOPRAZOLE 40 MG (PROTONIX) TAB PO SCH (21:41)
[2021-10-08] MEDS: SENNA W/DOCUSATE (SENOKOT S) TABLET PO SCH (21:41)
[2021-10-08] MEDS: DOCUSATE SODIUM 100 MG (COLACE) CAP PO SCH (21:41)
[2021-10-09 05:56] LABS: BASOPHILS # (AUTO) 0.1 10^3/uL (0.0-0.1); BASOPHILS % (AUTO) 1 % (0-10); EOSINOPHILS # (AUTO) 0.1 10^3/uL (0.0-0.3); EOSINOPHILS % (AUTO) 1 % (0-10); HEMATOCRIT 37 % (35-52); HEMOGLOBIN 12.5 g/dL (11.5-16.0); LYMPHOCYTES # (AUTO) 1.6 10^3/uL (1.0-4.0); LYMPHOCYTES % (AUTO) 21 % (12-44); MEAN CORPUSCULAR HEMOGLOBIN 30 pg (25-34); MEAN CORPUSCULAR HGB CONC 34 g/dL (32-36); MEAN CORPUSCULAR VOLUME 90 fL (80-99); MONOCYTES # (AUTO) 0.5 10^3/uL (0.0-1.0); MONOCYTES % (AUTO) 7 % (0-12); NEUTROPHILS # (AUTO) 4.9 10^3/uL (1.8-7.8); NEUTROPHILS % (AUTO) 63 % (42-75); PLATELET COUNT 154 10^3/uL (130-400); WHITE BLOOD COUNT 7.7 10^3/uL (4.3-11.0)
--- NOTE | 2021-10-09 05:57 | PM&R Progress Note ---
Subjective HPI/CC On Admission Date Seen by Provider: Oct 09, 2021 Time Seen by Provider: 12:30 Subjective/Events-last exam 10/09/2021: Patient much improved Change fentanyl patch today PCP will be consulted Two Percocet at a time help her Pathology report is pending Arthur catheter in place Review of Systems General: Fatigue, Malaise Musculoskeletal: back pain Objective Exam Vital Signs Vital Signs Date Time Temp Pulse Resp B/P (MAP) Pulse Ox O2 Delivery O2 Flow Rate FiO2 10/09/21 19:32 35.5 85 18 140/87 (104) 91 Nasal Cannula 2.00 Capillary Refill : General Appearance: WD/WN, Anxious, Chronically ill, Mild Distress HEENT: PERRL/EOMI, Normal ENT Inspection, Pharynx Normal Neck: Full Range of Motion, Normal Inspection, Non Tender, Supple, Carotid Bruit Respiratory: Chest Non Tender, Lungs Clear, Normal Breath Sounds, No Accessory Muscle Use, No Respiratory Distress Cardiovascular: Regular Rate, Rhythm, No Edema, No Gallop, No JVD, No Murmur, Normal Peripheral Pulses Gastrointestinal: Normal Bowel Sounds, No Organomegaly, No Pulsatile Mass, Non Tender, Soft Back: Normal Inspection, Decreased Range of Motion, Muscle Spasm, Vertebral Tenderness Extremity: Normal Capillary Refill, Normal Inspection, Normal Range of Motion, Non Tender, No Calf Tenderness, No Pedal Edema Neurologic/Psychiatric: Alert, Oriented x3, advertising sales manager II-XII Norm as Tested, Abnormal Gait, Depressed Affect, Motor Weakness Skin: Normal Color, Warm/Dry Lymphatic: No Adenopathy Results/Procedures Lab Laboratory Tests 10/09/21 05:50 Patient resulted labs reviewed. FIM Transfers Therapy Code Descriptions/Definitions Functional [place] Measure: 0=Not Assessed/NA 4=Minimal Assistance 1=Total Assistance 5=Supervision or Setup 2=Maximal Assistance 6=Modified [place] 3=Moderate Assistance 7=Complete IndependenceSCALE: Activities may be completed with or without assistive devices. 5-Eikncldrhv-gvdhbor completes the activity by him/herself with no assistance from a helper. 5-Set-up or Clean-up Assistance-helper sets up or cleans up; patient completes activity. [place] assists only prior to or following the activity. 4-Supervision or Touching Assistance-helper provides verbal cues and/or touching/steadying and/or contact guard assistance as patient completes activity. Assistance may be provided throughout the activity or intermittently. 3-Partial/Moderate Assistance-helper does LESS THAN HALF the effort. [place] lifts, holds or supports trunk or limbs, but provides less than half the effort. 2-Substantial/Maximal Assistance-helper does MORE THAN HALF the effort. [place] l ifts or holds trunk or limbs and provides more than half the effort. 2-Eoeevsgyi-feoprp does ALL the effort. Patient does none of the effort to complete the activity. Or, the assistance of 2 or more helpers is required for the patient to complete the activity. If activity was not attempted, code reason: 7-Patient Refused. 9-Not Applicable-not attempted and the patient did not perform the activity before the current illness, exacerbation or injury. 10-Not Attempted due to Environmental Limitations-(lack of equipment, weather restraints, etc.). 88-Not Attempted due to Medical Conditions or Safety Concerns. Roll Left to Right (QC): 2 Sit to Lying (QC): 2 Sit to Stand (QC): 3 Chair/Sdp-jo-Mbhze Xfer(QC): 4 Car Transfer (QC): 88 Gait Training Walk 10 feet (QC): 88 Walk 50 ft with 2 Turns(QC): 88 Walk 150 ft (QC): 88 Walking 10ft/uneven surface-QC: 88 Gait Assistive Device: FWW Wheelchair Training Does the Pt Use a Wheelchair?: Yes Distance: 50' Wheel 50 ft with 2 turns (QC): 2 Wheel 150 ft (QC): 88 Type of Wheelchair: Manual Stair Training 1 Step (curb) (QC): 88 4 Steps (QC): 88 12 Steps (QC): 88 Balance Picking up an Object (QC): 88 ADL-Treatment Eating (QC): 7 Oral Hygiene (QC): 5 Shower/Bathe Self (QC): 1 Upper Body Dressing (QC): 88 Lower Body Dressing (QC): 1 On/Off Footwear (QC): 7 Toileting Hygiene (QC): 1 Assessment/Plan Assessment and Plan Assess & Plan/Chief Complaint Assessment: Severe debility Spinal neoplastic process GERD Constipation Arthur cath in place Plan: Pain control Increase ADL's PCP consult 10/09/2021: Pain control Bowel regimen (1) Compression fracture of T6 vertebra Status: Acute (2) Thoracic back pain Status: Acute (3) Thoracic radiculopathy Status: Acute LEILA ROBERTS DO Oct 09, 2021 05:57
--- NOTE | 2021-10-09 05:57 | Individualized Plan of Care ---
Individualized Plan of Care Rehab Nursing IPOC Order Admission Date Oct 08, 2021 at 12:05 Current Orders Orders Admission Order(Inpt,Obs,Sdc) (10/08/21 11:42) Vital Signs: Per Unit Policy ( ,16,00 (10/08/21 11:42) Liam Morton , (10/08/21 11:42) Sequential Compression Device (10/08/21 11:42) Senior Pl Sql Developer-Inpt Rehab Con (10/08/21 11:42) Rehab Nursing Orders-Ipoc (10/08/21 11:42) Physical Therapy Rehab Orders (10/08/21 11:42) Occupational Therapy Rehab Ord (10/08/21 11:42) Speech Therapy Rehab Orders (10/08/21 11:42) Cbc With Automated Diff (10/09/21 06:00) Comprehensive Metabolic Panel (10/09/21 06:00) Precautions (Aru) (10/08/21 11:42) Weekly Weight WEEK (10/08/21 11:42) Rehab-Intensity Of Therapy (10/08/21 11:42) Initiate Admission Nursing Pro .admission (10/08/21 11:42) Alprazolam Tablet (Xanax Tablet) (10/08/21 11:45) Calcium Carbonate Chew Tablet (Antacid C (10/08/21 11:45) Diphenhydramine Tablet (Benadryl Tablet) (10/08/21 11:45) Docusate Sodium Capsule (Colace Capsule) (10/08/21 21:00) Docusate Sodium Capsule (Colace Capsule) (10/08/21 11:45) Bisacodyl Suppository (Dulcolax Supposit (10/08/21 11:45) Lactulose Oral Solution (Enulose Oral So (10/08/21 11:45) Na Phos/Na Biphos Enema (Fleet Enema Krzysztof (10/08/21 11:45) Guaifenesin/Codeine Syrup (Robitussin Ac (10/08/21 11:45) Loperamide Tablet (Imodium Tablet) (10/08/21 11:45) Melatonin Tablet (Melatonin Tablet) (10/08/21 11:45) Polyethylene Glycol Powder Pkt (Miralax (10/08/21 21:00) Ondansetron Oral Dissolve Tab (Zofran (10/08/21 11:45) Senna S Tablet (Senokot S Tablet) (10/08/21 21:00) Acetaminophen Tablet/Caplet (Tylenol T (10/08/21 11:45) Code/Resuscitation (10/08/21 11:42) Initiate Admission Nursing Pro .admission (10/08/21 11:42) Admission Arrival Bed Request (10/08/21 12:08) Alprazolam Tablet (Xanax Tablet) (10/08/21 13:00) Apixaban Tablet (Eliquis Tablet) (10/08/21 21:00) Calcium Carbonate Tablet (Calcarb 600 Ta (10/09/21 09:00) Docusate Sodium Capsule (Colace Capsule) (10/08/21 21:00) Furosemide Tablet (Lasix Tablet) (10/08/21 13:00) Metoprolol Tartrate (Ir) Tab (Lopressor (10/08/21 13:00) Oxycodone/Apap 5/325mg Tablet (Percocet (10/08/21 13:00) Polyethylene Glycol Powder Pkt (Miralax (10/09/21 09:00) Senna S Tablet (Senokot S Tablet) (10/08/21 21:00) (Nf) Cholecalciferol (Vitamin D3) (Vitam (10/09/21 09:00) (Nf) Cyclobenzaprine Hcl (10/08/21 13:00) (Nf) Esomeprazole Magnesium (10/08/21 21:00) (Nf) Glucosa Cobian 2kcl/Chondroitin Cobian (Glu (10/09/21 09:00) (Nf) Magnesium Hydroxide (Milk Of Magnes (10/08/21 13:00) (Nf) Multivitamin (10/09/21 09:00) (Nf) Ondansetron Hcl (10/08/21 13:00) (Nf) Paroxetine Hcl (10/08/21 21:00) Patient Visit (10/08/21 ) Speech Sound Lang Comp (10/08/21 ) Treat. Speech/Lang/Voice (10/08/21 ) Cholecalciferol Capsule/Tablet (Vitamin (10/09/21 09:00) Pantoprazole Tablet (Protonix Tablet) (10/08/21 21:00) Therapeutic Multivitamin Tab (Vitamins, (10/09/21 07:00) Paroxetine Tablet (Paxil Tablet) (10/08/21 21:00) Magnesium Hydroxide Oral Susp (Mom Oral (10/08/21 13:15) Cyclobenzaprine Tablet (Flexeril Tablet) (10/08/21 13:15) Fentanyl Patch (Duragesic Patch) (10/09/21 09:00) Patch Removal (Patch Removal) (10/09/21 08:59) General/Regular (10/08/21 Dinner) Patient Visit (10/08/21 ) Pt Eval Moderate Complexity (10/08/21 ) Functional Activities, Ea 15 (10/08/21 ) Code/Resuscitation (10/08/21 17:22) Consult Family Medicine (10/09/21 05:46) Patient Visit (10/09/21 ) Treat. Speech/Lang/Voice (10/09/21 ) Patient Visit (10/09/21 ) Functional Activities, Ea 15 (10/09/21 ) Senna S Tablet (Senokot S Tablet) (10/09/21 21:00) Erythrocyte Sedimentation Rate (10/10/21 05:00) Hs C Reactive Protein (10/10/21 05:00) Rehab Nursing Orders: Ongoing Assess. of Cognitive Status, Ongoing Assess. of Function Status, Bladder Management, Bladder Scan, Bladder Training, Bowel Management, Bowel Training, Disease Management & Educaiton, DVT Prophylaxis, Fall Prevention, Fluid/Electrolyte/Nutrition Mgmt, Infection Prevention, Medication Management & Education, Management of Risks & Complications, Management of Skin Intergrity, Nutrition Management, Pain Management, Patient/Family Support, Safety Management, Weight Bearing Precaution, Wound Management Intensity of Therapy to be met Patient to be seen: Min.3h per day/5 of 7d PT IPOC Problem List: Activity Tolerance, Functional Strength, Safety, Balance, Gait, Transfer, Bed Mobility, ROM Treatment Plan: Continue Plan of Care Bed Mobility, Education, Functional Activity Jaspreet, Functional Strength, Group Therapy, Gait, Safety, Therapeutic Exercise, Transfers Treatment Duration: Oct 29, 2021 Frequency: At least 5 of 7 days/Wk (IRF) Estimated Hrs Per Day: 1.5 hours per day OT IPOC Problems: Decreased Activ Tolerance, Decreased UE Strength, Impaired Bed Mobility, Impaired I ADL's OT Treatment, Training and Edu: Yes Plan of Care: ADL Retraining, Caregiver Training, Cognitive Retraining, Concurrent Therapy, Functional Mobility, Group Exercise/Act as Ind, UE Funct Exercise/Act, W/C Management Training Treatment Duration: Oct 31, 2021 Frequency: At least 5 of 7 days/Wk (IRF) Estimated Hrs Per Day: 1.5 hours per day (75-90 min/day ) [facility] Speech Therapy Treatment Plan: Continue Plan of Care Treatment Duration: Oct 09, 2021 Frequency: Modified Program (IRF) Estimated Hrs Per Day: .[address] Sql Developer/Case Mgmt Senior Pl Sql Developer/Case Managemen: Discharge Planning Dietitian/Egg Smeller Dietitian/Egg Smeller to monitor nutritional status and make changes and/or recommendations as needed and work with speech pathology on dietary upgrades as the occur. Physician [facility] Medical Issues being managed closely and that require the 24 hour availability of a physician: Recent compression fracture with biopsy revealing metastatic cancer of unknown type with remaining Arthur catheter in place and severe pain requiring fentanyl patch and oxycodone will require close monitoring along with bowel regimen to assure no decompensation while looking at prognostic factors by primary care provider consult Medical Issues: Bowel/Bladder Function, DVT Prophylaxis, Falls Precautions, Fluid/Electrolyte/Nutrition Balance, Infection Protection, Pain Management, Wound Care Brief Synthesis of Preadmission Screen, Post-Admission Evaluation, and Therapy Evaluations: PT and OT will focus on regaining function with use of assistive devices in order to return back to independent living alone with the use of assistive devices Medical Prognosis: Fair Anticipated Length of Stay: 10 days LEILA ROBERTS DO Oct 09, 2021 05:57
[2021-10-09 06:24] LABS: ALBUMIN 2.8 GM/DL (3.2-4.5); POTASSIUM 3.9 MMOL/L (3.6-5.0)
[2021-10-09 06:25] LABS: CALCIUM 10.2 MG/DL (8.5-10.1)
[2021-10-09 06:27] LABS: TOTAL PROTEIN 5.8 GM/DL (6.4-8.2)
[2021-10-09 06:28] LABS: BILIRUBIN,TOTAL 0.6 MG/DL (0.1-1.0)
[2021-10-09 06:30] LABS: CREATININE SERUM 0.68 MG/DL (0.60-1.30)
[2021-10-09] MEDS: MULTIVIT W/MINERALS TAB (THERAGRAN M) PO SCH (06:51)
[2021-10-09 07:32] VITALS: BP 121/57
[2021-10-09] MEDS: oxyCODONE/APAP 5/325MG (PERCOCET 5) TABLET PO PRN ×2 (07:37→16:51)
[2021-10-09] MEDS: DOCUSATE SODIUM 100 MG (COLACE) CAP PO SCH ×2 (07:38→20:36)
[2021-10-09] MEDS: VITAMIN D3 25 MCG (1,000 UNITS) TABLET PO SCH (07:38)
[2021-10-09] MEDS: APIXABAN 5 MG (ELIQUIS) TABLET PO SCH ×2 (07:38→20:36)
[2021-10-09] MEDS: meTOprolol TARTRATE 25 MG (LOPRESSOR) TABLET PO SCH ×3 (07:38→20:36)
[2021-10-09] MEDS: CALCIUM CARBONATE 600 MG (CALCARB) TAB PO SCH (07:38)
[2021-10-09] MEDS: SENNA W/DOCUSATE (SENOKOT S) TABLET PO SCH ×2 (08:34→20:46)
[2021-10-09] MEDS: polyethylene glycoL POWDER 17 GM (MIRALAX) PACK PO SCH (08:34)
[2021-10-09] MEDS ORDERED: FENTANYL PATCH REMOVAL TP SCH (08:59)
[2021-10-09] MEDS ORDERED: NON-FORMULARY MEDICATION 1 EA EA (Cholecalciferol (Vitamin D3) (Vitamin D3) 25 MCG) PO SCH (09:00)
[2021-10-09] MEDS ORDERED: NON-FORMULARY MEDICATION 1 EA EA (Multivitamin 1 EACH) PO SCH (09:00)
[2021-10-09] MEDS ORDERED: fentaNYL PATCH 12 MCG (DURAGESIC) TD SCH (09:00)
--- NOTE | 2021-10-09 10:11 | Speech Therapy Daily Note ---
Speech Daily Progress Note Subjective Date Seen by Provider: Oct 09, 2021 Time Seen by Provider: 09:05 The patient was lying in bed, sleeping upon entrance to the patient's room by the clinician. The patient minimally woke with a verbal greeting from the clinician. The patient greeted the clinician appropriately and was agreeable to participation in the cognitive linguistic treatment session. Objective The patient requires maximum verbal prompting for appropriate alertness levels and participation. The patient is significantly fatigued, returning to sleep consistently throughout the treatment session. Per RN, the patient does receive pain medication which may be impacting her alertness. Per patient, she normally wakes at 7 or 8am at home. The clinician will attempt to modify her upcoming treatment time sessions in attempts to improve alertness levels. The patient completed the SLUMS on this date. The patient demonstrated a result of +[id number]. Visuospatial tasks were not completed due to fatigue. The patient demonstrated errors with orientation, delayed recall, problem solving, and generative naming. The clinician suspects the patient's results were negatively impacted by the patient's fatigue. Assessment Assessment Current Status: Poor Progress Treatment Plan Continue Plan of Care Speech Short Term Goals Short Term Goals Short Term Goals 1. The patient will attend to a task for three minutes with mild clinician verbal and visual cueing. Time Frame-STG: Two Days. Speech Senior Living Goals Jet Mechanic Goals 1. The patient will complete the cognitive linguistic assessment with mild verbal and visual cueing provided by the clinician. Time Frame: Two Days. Speech-Plan Treatment Plan Speech Therapy Treatment Plan: Continue Plan of Care Treatment Duration: Oct 09, 2021 Frequency: Modified Program (IRF) Estimated Hrs Per Day: .5 hour per day Rehab Potential: Guarded Safety Risks/Education Teaching Recipient: Patient Teaching Methods: Discussion Response to Teaching: Reinforcement Needed Education Topics Provided: Results of SLUMS Time Speech Therapy Time In: 09:05 Speech Therapy Time Out: 09:35 Total Billed Time: 30 Billed Treatment Time 1 MAAMEYANNA DANIELSJAZIEL Rehman Oct 09, 2021 10:11
--- NOTE | 2021-10-09 11:53 | Physical Therapy Daily Note ---
PT Daily Note-Current Subjective Patient in bed pre tx, agrees to PT, has 8/10 pain in her back. Will be co- treating with OT due to poor patient mobility, strength, endurance, severe debility, coordinate UE and LE during activity, safety and reduce risk of falls. Appearance Patient in bed post tx with nurse call, phone, tray, all needs met. Mental Status Patient Orientation: Person, Confused, Mumbles Attachments: Oxygen, Arthur Catheter Transfers SCALE: Activities may be completed with or without assistive devices. 5-Xlxdibfiyk-lwmurnu completes the activity by him/herself with no assistance from a helper. 5-Set-up or Clean-up Assistance-helper sets up or cleans up; patient completes activity. [place] assists only prior to or following the activity. 4-Supervision or Touching Assistance-helper provides verbal cues and/or touching/steadying and/or contact guard assistance as patient completes activity. Assistance may be provided throughout the activity or intermittently. 3-Partial/Moderate Assistance-helper does LESS THAN HALF the effort. [place] lifts, holds or supports trunk or limbs, but provides less than half the effort. 2-Substantial/Maximal Assistance-helper does MORE THAN HALF the effort. [place] lifts or holds trunk or limbs and provides more than half the effort. 4-Mdcqqarat-jodxnu does ALL the effort. Patient does none of the effort to complete the activity. Or, the assistance of 2 or more helpers is required for the patient to complete the activity. If activity was not attempted, code reason: 7-Patient Refused. 9-Not Applicable-not attempted and the patient did not perform the activity before the current illness, exacerbation or injury. 10-Not Attempted due to Environmental Limitations-(lack of equipment, weather restraints, etc.). 88-Not Attempted due to Medical Conditions or Safety Concerns. Roll Left & Right (QC): 3 Sit to Lying (QC): 3 Lying to Sitting/Side of Bed(Q: 3 Sit to Stand (QC): 3 Chair/Tsx-os-Lcojc Xfer(QC): 4 Toilet Transfer (QC): 4 Patient is trained in log rolling to roll to the side of the bed and sit up (min assist), patient bathes a little and partially dresses, stands with min assist and finishes dressing and transfers to . During tx patient has to use the restroom to have a BM, patient is unsuccessful, OT assists with wiping and underwear. Wheelchair Training Does the Pt Use a Wheelchair?: Yes Wheel 50 ft with 2 turns (QC): 3 Type of Wheelchair: Manual min assist, patient is very weak and can only push the WC forward a couple of inches at a time Exercises stood in parallel bars for a couple of minutes before stating that she needs to use the restroom Treatments PT performed bed mobility and transfers, standing, positioning and safety during bathing and dressing, toilet transfer, OT performed toileting, bathing, dressing, UE positioning and safety during activity. Assessment Current Status: Poor Progress O2 was 93% on 2L during tx, her BP was 133/77 PT Short Term Goals Short Term Goals Time Frame: Oct 15, 2021 Roll Left & Right: 3 Sit to lyin Lying to sitting on side of be: 3 Sit to stand: 4 Chair/ksh-ti-azesh transfer: 4 Walk 10 feet: 4 PT Building Manager Goals Building Manager Goals PT Building Manager Goals Time Frame: Oct 29, 2021 Roll Left & Right (QC): 4 (SBA) Sit to Lying (QC): 4 (SBA) Lying-Sitting on Side/Bed(QC): 4 (SBA) Sit to Stand (QC): 4 (SBA) Chair/Gnd-ym-Fqpsq Xfer(QC): 4 (SBA) Toilet Transfer (QC): 4 (SBA) Car Transfer (QC): 4 (SBA) Does the Patient Walk: Yes Walk 10 feet (QC): 4 (SBA) Walk 50ft with 2 Turns (QC): 4 (SBA) Walk 150 ft (QC): 88 Walking 10ft on Uneven Surface: 4 (SBA) 1 Step (curb) (QC): 4 (CGA) 4 Steps (QC): 4 (CGA) 12 Steps (QC): 88 Picking up an Object (QC): 4 (SBA using pants maker) Wheel 50 feet with 2 turns (QC: 9 Wheel 150 feet: 9 PT Plan Problem List Problem List: Activity Tolerance, Functional Strength, Safety, Balance, Gait, Transfer, Bed Mobility, ROM Treatment/Plan Treatment Plan: Continue Plan of Care Treatment Plan: Bed Mobility, Education, Functional Activity Jaspreet, Functional Strength, Group Therapy, Gait, Safety, Therapeutic Exercise, Transfers Treatment Duration: Oct 29, 2021 Frequency: At least 5 of 7 days/Wk (IRF) Estimated Hrs Per Day: 1.5 hours per day Patient and/or Family Agrees t: Yes Safety Risks/Education Patient Education: Transfer Techniques, Correct Positioning, W/C Management, Safety Issues Teaching Recipient: Patient Teaching Methods: Demonstration, Discussion Response to Teaching: Reinforcement Needed Time/GCodes Time In: 1100 Time Out: 1200 Total Billed Treatment Time: 60 Total Billed Treatment 1 visit FA 60' co-treated with OT for 60' JOSE ALEJANDRO PAN PT Oct 09, 2021 11:53
--- NOTE | 2021-10-09 11:54 | Occupational Ther Daily Note ---
OT Current Status-Daily Note Subjective Pt rates pain in back as 8/10. Garbled speech this date, difficult to understand at times. Co-treat with PT for part of treatment ([id number]) secondary to poor endurance, activity tolerance, mobility, motor planning, coordination, strength, and need of 2 skilled clinicians to progress indep and safety with adls and functional mobility. Appearance Pt returned to supine in bed, all needs within reach at therapy departure. Mental Status/Objective Patient Orientation: Person, Confused, Situation Attachments: Arthur Catheter, IV, Oxygen (2L) ADL-Treatment Therapy Code Descriptions/Definitions Functional [place] Measure: 0=Not Assessed/NA 4=Minimal Assistance 1=Total Assistance 5=Supervision or Setup 2=Maximal Assistance 6=Modified [place] 3=Moderate Assistance 7=Complete IndependenceSCALE: Activities may be completed with or without assistive devices. 7-Oeqtrrgofk-sijiysj completes the activity by him/herself with no assistance from a helper. 5-Set-up or Clean-up Assistance-helper sets up or cleans up; patient completes activity. [place] assists only prior to or following the activity. 4-Supervision or Touching Assistance-helper provides verbal cues and/or touching/steadying and/or contact guard assistance as patient completes activity. Assistance may be provided throughout the activity or intermittently. 3-Partial/Moderate Assistance-helper does LESS THAN HALF the effort. [place] lifts, holds or supports trunk or limbs, but provides less than half the effort. 2-Substantial/Maximal Assistance-helper does MORE THAN HALF the effort. [place] lifts or holds trunk or limbs and provides more than half the effort. 0-Ywrahculz-kvcqtc does ALL the effort. Patient does none of the effort to complete the activity. Or, the assistance of 2 or more helpers is required for the patient to complete the activity. If activity was not attempted, code reason: 7-Patient Refused. 9-Not Applicable-not attempted and the patient did not perform the activity before the current illness, exacerbation or injury. 10-Not Attempted due to Environmental Limitations-(lack of equipment, weather restraints, etc.). 88-Not Attempted due to Medical Conditions or Safety Concerns. Shower/Bathe Self (QC): 2 Lower Body Dressing (QC): 2 On/Off Footwear: 3 Toileting Hygiene (QC): 2 Toilet Transfer (QC): 3 Partial sponge bath performed seated EOB. Pt with slight improvement in UE strength thus able to participate more in UB washing. Min a needed to abduct shoulders in order to wash bilateral axillas. Pt able to wash chest/stomach post cues. Mod a to stand from low surface, min a from elevated bed. Increased balance assist needed when BUE support removed. Cues to keep at least one hand on walker as other washed marlon area. Poor follow through with cues. Pt declines donning clothing this date secondary to severe fatigue and pain. She was agreeable to change underwear. Education on spinal precautions and compensatory strategies when donning LB clothing. Due to LE weakness, pt unable to lift/cross LE's without assistance. Once in figure 4 position, she was able to don underwear over feet. Dependent to manage catheter tubing. Max a to manage clothing up to waist secondary to tight fit and poor standing balance/tolerance. Significant time needed for all tasks secondary to severe fatigue and need for rest breaks. Throughout treatment, pt requires several reminders on spinal precautions as she will often rests elbows on her lap during rest breaks. Other Treatment While supine, pt participated in UE AAROM exercises at all joints. Poor motor pl anning/coordination noted. Several tactile cues for correction/control of movement (L worse than R). AAROM at shoulders to 90 degrees. Education OT Patient Education: Correct positioning, Disease process, Energy conservati on, Modified ADL techniques, Progress toward Goal/Update tx plan, Purpose of tx/functional activities, Reviewed precautions, Safety issues, Transfer techniques, W/C management Teaching Recipient: Patient, Friend Teaching Methods: Demonstration, Discussion Response to Teaching: Reinforcement Needed OT Short Term Goals Short Term Goals Time Frame: Oct 22, 2021 Eatin Oral hygiene: 3 Toileting hygiene: 3 Shower/bathe self: 3 Upper body dressin Lower body dressin Putting on/taking off footwear: 3 OT Electronic Engineering Technician Goals Electronic Engineering Technician Goals Time Frame: Oct 31, 2021 Eating (QC): 4 Oral Hygiene (QC): 4 Toileting Hygiene (QC): 4 Shower/Bathe Self (QC): 4 Upper Body Dressing (QC): 4 Lower Body Dressing (QC): 4 On/Off Footwear (QC): 4 1=Demonstrate adherence to instructed precautions during ADL tasks. 2=Patient will verbalize/demonstrate understanding of assistive devices/modifications for ADL. 3=Patient will improve strength/tolerance for activity to enable patient to perform ADL's. OT Education/Plan Problem List/Assessment Assessment: Decreased Activ Tolerance, Decreased Safety Aware, Decreased UE Strength, Impaired Bed Mobility, Impaired Cognition, Impaired Coordination, Impaired Funct Balance, Impaired I ADL's, Impaired Self-Care Skills, Restricted Funct UE ROM Discharge Recommendations Plan/Recommendations: Continue POC Therapy Discharge Recommendati: Post Acute OT Treatment Plan/Plan of Care Treatment,Training & Education: Yes Patient would benefit from OT for education, treatment and training to promote independence in ADL's, mobility, safety and/or upper extremity function for ADL's. Plan of Care: ADL Retraining, Caregiver Training, Cognitive Retraining, Concurrent Therapy, Functional Mobility, Group Exercise/Act as Ind, UE Funct Exercise/Act, W/C Management Training Treatment Duration: Oct 31, 2021 Frequency: At least 5 of 7 days/Wk (IRF) Estimated Hrs Per Day: 1.5 hours per day (75-90 min/day ) Rehab Potential: Guarded Time/GCodes Start Time: 10:30 Stop Time: 12:00 Total Time Billed (hr/min): 90 Billed Treatment Time 1 visit ADL x3 (50 min) EX x2 (25 min) FA (15 min) Lanny Bailey OT Oct 09, 2021 11:54
[2021-10-09 19:32] VITALS: BP 140/87
--- NOTE | 2021-10-09 20:08 | Consultation ---
History of Present Illness History of Present Illness Patient Consulted On(iker/time) 10/09/21 19:59 Date Seen by Provider: Oct 09, 2021 Time Seen by Provider: 19:59 History of Present Illness This is a 71 year old female who was originally admitted to [facility] to undergo kyphoplasty for compression fracture of T9. She underwent MRI's of the thoracic and lumbar spine which showed additional bony lesions concerning for mets. She was also found to have a lesion in her lung, breast, liver and adrenal gland. She underwent a liver biopsy prior to discharge from [place]. Due to weakness and debility, she was transferred to the inpatient rehab unit at [facility]. She is currently in bed with oxygen in place and appears severely ill and debilitated. She is not tolerating PT due to weakness and pain. She is also requiring oxygen and complains of shortness of breath with activity. Final pathology results are still pending. Allergies and Home Medications Allergies Coded Allergies: Penicillins (Verified Allergy, Mild, RASH, 08/23/19) Patient Home Medication List Home Medication List Reviewed: Yes Alprazolam (Alprazolam) 0.5 Mg Tablet, 0.5-1 MG PO DAILY PRN for ANXIETY, (Reported) Entered as Reported by: ABDIFATAH YI on 10/08/211151 Last Action: Continued Apixaban (Eliquis) 5 Mg Tablet, 5 MG PO BID, (Reported) Entered as Reported by: ABDIFATAH YI on 10/08/211151 Last Action: Continued Calcium Carbonate (Calcium Carbonate) 600 Mg Calcium (1500 Mg) Tablet, 600 MG PO DAILY, (Reported) Entered as Reported by: ABDIFATAH YI on 10/08/211151 Last Action: Continued Cholecalciferol (Vitamin D3) (Vitamin D3) 25 Mcg (1000 Unit) Tab.chew, 25 MCG PO DAILY, (Reported) Entered as Reported by: ABDIFATAH YI on 10/08/211151 Last Action: Converted Cyclobenzaprine HCl (Cyclobenzaprine HCl) 5 Mg Tablet, 5 MG PO Q8H PRN for MUSCLE SPASMS, (Reported) Entered as Reported by: ABDIFATAH YI on 10/08/211151 Last Action: Converted Docusate Sodium (Docusate Sodium) 100 Mg Capsule, 100 MG PO BID, (Reported) Entered as Reported by: ABDIFATAH YI on 10/08/211151 Last Action: Continued Esomeprazole Magnesium (Esomeprazole Magnesium) 20 Mg Capsule.dr, 20 MG PO HS, (Reported) Entered as Reported by: ABDIFATAH YI on 10/08/211151 Last Action: Converted Fentanyl (Fentanyl Patch 12 MCG) 12 Mcg/Hour Patch.td72, 12 MCG TD Q72H, (Reported) Entered as Reported by: ABDIFATAH YI on 10/08/211151 Last Action: Continued Furosemide (Furosemide) 20 Mg Tablet, 20 MG PO DAILY PRN for WORSENING HYPOXIA, (Reported) Entered as Reported by: ABDIFATAH YI on 10/08/211151 Last Action: Continued Glucosa Cobian 2Kcl/Chondroitin Cobian (Glucosamine & Chondroitin Cap) 500 Mg-400 Mg Capsule, 1 EACH PO DAILY, (Reported) Entered as Reported by: ABDIFATAH YI on 10/08/211151 Last Action: Converted Magnesium Hydroxide (Milk of Magnesia) 2,400 Mg/10 Ml Oral.susp, 30 ML PO Q6H PRN for CONSTIPATION-7TH LINE, (Reported) Entered as Reported by: ABDIFATAH YI on 10/08/211151 Last Action: Converted Metoprolol Tartrate (Metoprolol Tartrate) 25 Mg Tablet, 25 MG PO TID, (Reported) Entered as Reported by: ABDIFATAH YI on 10/08/211151 Last Action: Continued Multivitamin (Multivitamin) 1 Each Tablet, 1 EACH PO DAILY, (Reported) Entered as Reported by: ABDIFATAH YI on 10/08/211151 Last Action: Converted Ondansetron HCl (Ondansetron HCl) 4 Mg Tablet, 4 MG PO Q6H PRN for NAUSEA/VOMITING-1ST LINE, (Reported) Entered as Reported by: ABDIFATAH YI on 10/08/211151 Last Action: Converted Oxycodone HCl/Acetaminophen (Oxycodone-Acetaminophen 5-325) 5 Mg-325 Mg Tablet, 1 EACH PO Q4H PRN for PAIN-SEVERE, (Reported) Entered as Reported by: ABDIFATAH YI on 10/08/211151 Last Action: Continued Paroxetine HCl (Paroxetine HCl) 40 Mg Tablet, 40 MG PO HS, (Reported) Entered as Reported by: ABDIFATAH YI on 10/08/211151 Last Action: Converted Polyethylene Glycol 3350 (Miralax) 17 Gram Powd.pack, 17 GM PO DAILY, (Reported) Entered as Reported by: ABDIFATAH IY on 10/08/211151 Last Action: Continued Sennosides/Docusate Sodium (Senna S Tablet) 8.6 Mg-50 Mg Tablet, 1 EACH PO BID, (Reported) Entered as Reported by: ABDIFATAH YI on 10/08/211151 Last Action: Continued Discontinued Medications Biotin (Biotin) 1,000 Mcg Tablet, 1,000 MCG PO DAILY, (Reported) Discontinued Reason: No Longer Taking Entered as Reported by: JAZIEL CAMERON on 08/23/19 114 Last Action: Discontinued Cholecalciferol (Vitamin D3) (Vitamin D3) 50 Mcg Capsule, 50 MCG PO DAILY, (Reported) Discontinued Reason: No Longer Taking Entered as Reported by: JAZIEL CAMERON on 08/23/191143 Last Action: Discontinued Glucosa Cobian 2Kcl/Chondroitin Cobian (Glucosamine & Chondroitin Cap) 1 Each Capsule, 1 EACH PO DAILY, (Reported) Discontinued Reason: No Longer Taking Entered as Reported by: JAZIEL CAMERON on 08/23/191143 Last Action: Discontinued Hydrocodone/Acetaminophen (Hydrocodone-Acetamin 7.5-325) 7.5 Mg-325 Mg Tablet, 1 EACH PO Q6H PRN for PAIN-SEVERE (8-10) Discontinued Reason: No Longer Taking Prescribed by: DAYAMI DIAMOND on 07/06/211929 Last Action: Discontinued Meloxicam (Meloxicam) 7.5 Mg Tablet, 7.5 MG PO DAILY Discontinued Reason: No Longer Taking Prescribed by: DAYAMI DIAMOND on 07/06/211927 Last Action: Discontinued Multivitamin (Multivitamin) 1 Each Tablet, 1 EACH PO DAILY, (Reported) Discontinued Reason: No Longer Taking Entered as Reported by: JAZIEL CAMERON on 08/23/191143 Last Action: Discontinued Omeprazole Magnesium (Prilosec Otc) 20 Mg Tablet.dr, 20 MG PO DAILY PRN for HEARTBURN, (Reported) Discontinued Reason: No Longer Taking Entered as Reported by: JAZIEL CAMERON on 08/23/19 1144 Last Action: Discontinued Oxycodone HCl (Oxycodone HCl) 5 Mg Tablet, 5 MG PO Q4H PRN for PAIN-MODERATE (5- 7) Discontinued Reason: No Longer Taking Prescribed by: ANTHONY CEBALLOS on 09/15/21 1634 Last Action: Discontinued Paroxetine HCl (Paroxetine Cr) 25 Mg Tab.er.24h, 25 MG PO DAILY, (Reported) Discontinued Reason: No Longer Taking Entered as Reported by: JAZIEL CAMERON on 08/23/19 1144 Last Action: Discontinued Past Xtrzgta-Dtjkis-Ypfdqr Hx Patient Social History Marrital Status: single Employed/Student: retired Tobacco Use?: No Smoking Status: Never a Smoker Substance use?: No Alcohol Use?: No Pt feels they are or have been: No Immunizations Up To Date Date of Influenza Vaccine: Dec 29, 2012 Tetanus Booster (TDap): Unknown Hepatitis A: No Hepatitis B: Yes Current Status Advance Directives: No Communicates: Verbally Primary Language: [place] Preferred Spoken Language: [place] Is interpretation needed?: No Implanted or Applied Medical D: None Past Medical History Surgeries: Orthopedic Gastroesophageal Reflux Arthritis, Chronic Back Pain Review of Systems Review of Systems General: Fatigue, Malaise Musculoskeletal: back pain Neurological: Weakness All Other Systems Reviewed All Other Systems Reviewed: Yes Physical Exam Vital Signs Vital Signs - First Documented 10/08/21 12:27 Temp 36.6 Pulse 91 Resp 18 B/P (MAP) 130/60 (83) Pulse Ox 93 O2 Delivery Nasal Cannula O2 Flow Rate 2.00 Capillary Refill : Height, Weight, BMI Height: 5'5.00" Weight: 136lbs. oz. 61.406544dw; 24.61 BMI Method: General Appearance: Mild Distress Neck: Supple Respiratory: Decreased Breath Sounds Cardiovascular: Regular Rate, Rhythm Gastrointestinal: Normal Bowel Sounds, Soft, Other (distended) Extremity: Non Tender, No Calf Tenderness, No Pedal Edema Neurologic/Psychiatric: Alert, Oriented x3 Skin: Warm/Dry Comments Laboratory Tests 10/09/21 05:50: White Blood Count 7.7, Red Blood Count 4.13, Hemoglobin 12.5, Hematocrit 37, Mean Corpuscular Volume 90, Mean Corpuscular Hemoglobin 30, Mean Corpuscular Hemoglobin Concent 34, Red Cell Distribution Width 14.1, Platelet Count 154, Mean Platelet Volume 10.0, Immature Granulocyte % (Auto) 7, Neutrophils (%) (Auto) 63, Lymphocytes (%) (Auto) 21, Monocytes (%) (Auto) 7, Eosinophils (%) (Auto) 1, Basophils (%) (Auto) 1, Neutrophils # (Auto) 4.9, Lymphocytes # (Auto) 1.6, Monocytes # (Auto) 0.5, Eosinophils # (Auto) 0.1, Basophils # (Auto) 0.1, Immature Granulocyte # (Auto) 0.5H, Sodium Level 132L, Potassium Level 3.9, Chlo ride Level 97L, Carbon Dioxide Level 24, Anion Gap 11, Blood Urea Nitrogen 19H, Creatinine 0.68, Estimat Glomerular Filtration Rate 94, BUN/Creatinine Ratio 28, Glucose Level 100, Calcium Level 10.2H, Corrected Calcium 11.2H, Total Bilirubin 0.6, Aspartate Amino Transf (AST/SGOT) 311H, Alanine Aminotransferase (ALT/SGPT) 506H, Alkaline Phosphatase 362H, Total Protein 5.8L, Albumin 2.8L Assessment/Plan Assessment/Plan Admission Dx 1. Metastatic Cancer to bone, liver, breast, lung adrenal gland--unknown primary--awaiting final on pathology results of liver biopsy, discussed at least consultation with oncology--patient agreeable 2. Constipation--increase senokot-S, continue miralax, has prns as well 3. Hypoxia--on oxygen via [place] 4. Severe Debility--will likely need to transfer to medical floor until disposition is finalized 5. Anxiety--on home paxil and has xanax 6. Thoracic Back Pain/T9 Pathological Fracture--S/P kyphoplasty but ongoing pain 7. Bilateral Shoulder and Hip Pain and Weakness--check ESR and CRP, consider PMR Condition very garded BILLY GARCES DO Oct 09, 2021 20:07
[2021-10-09] MEDS: PANTOPRAZOLE 40 MG (PROTONIX) TAB PO SCH (20:36)
[2021-10-09] MEDS: PARoxetine 20 MG (PAXIL) TAB PO SCH (20:36)
[2021-10-09] MEDS: ALPRAZolam 0.5 MG (XANAX) TAB PO PRN (20:37)
[2021-10-10] MEDS: oxyCODONE/APAP 5/325MG (PERCOCET 5) TABLET PO PRN (02:06)
[2021-10-10] MEDS: MULTIVIT W/MINERALS TAB (THERAGRAN M) PO SCH (06:33)
--- NOTE | 2021-10-10 06:41 | PM&R Progress Note ---
Subjective HPI/CC On Admission Date Seen by Provider: Oct 10, 2021 Time Seen by Provider: 09:00 Subjective/Events-last exam 10/10/2021: Doing a bit better PCP consulted on her and reviewed options Spoke to Dr Potter at patient request and he assessed the liver biopsy to be breast cancer primary and will see her tomorrow for options Dr Calixto could treat her with radiation treatment and help with the pain and that will be a good option 10/09/2021: Patient much improved Change fentanyl patch today PCP will be consulted Two Percocet at a time help her Pathology report is pending Arthur catheter in place Review of Systems General: Fatigue, Malaise Musculoskeletal: back pain Objective Exam Vital Signs Vital Signs Date Time Temp Pulse Resp B/P (MAP) Pulse Ox O2 Delivery O2 Flow Rate FiO2 10/10/21 08:32 Nasal Cannula 3.00 10/10/21 07:58 35.9 109 18 136/90 (105) 98 Capillary Refill : General Appearance: WD/WN, Anxious, Chronically ill, Mild Distress HEENT: PERRL/EOMI, Normal ENT Inspection, Pharynx Normal Neck: Full Range of Motion, Normal Inspection, Non Tender, Supple, Carotid Bruit Respiratory: Chest Non Tender, Lungs Clear, Normal Breath Sounds, No Accessory Muscle Use, No Respiratory Distress Cardiovascular: Regular Rate, Rhythm, No Edema, No Gallop, No JVD, No Murmur, Normal Peripheral Pulses Gastrointestinal: Normal Bowel Sounds, No Organomegaly, No Pulsatile Mass, Non Tender, Soft Back: Normal Inspection, Decreased Range of Motion, Muscle Spasm, Vertebral Tenderness Extremity: Normal Capillary Refill, Normal Inspection, Normal Range of Motion, Non Tender, No Calf Tenderness, No Pedal Edema Neurologic/Psychiatric: Alert, Oriented x3, tail worker II-XII Norm as Tested, Abnormal Gait, Depressed Affect, Motor Weakness Skin: Normal Color, Warm/Dry Lymphatic: No Adenopathy Results/Procedures Lab Patient resulted labs reviewed. FIM Transfers Therapy Code Descriptions/Definitions Functional [place] Measure: 0=Not Assessed/NA 4=Minimal Assistance 1=Total Assistance 5=Supervision or Setup 2=Maximal Assistance 6=Modified [place] 3=Moderate Assistance 7=Complete IndependenceSCALE: Activities may be completed with or without assistive devices. 1-Mupqrqklsc-hwdcxdi completes the activity by him/herself with no assistance from a helper. 5-Set-up or Clean-up Assistance-helper sets up or cleans up; patient completes activity. [place] assists only prior to or following the activity. 4-Supervision or Touching Assistance-helper provides verbal cues and/or touching/steadying and/or contact guard assistance as patient completes activity. Assistance may be provided throughout the activity or intermittently. 3-Partial/Moderate Assistance-helper does LESS THAN HALF the effort. [place] lifts, holds or supports trunk or limbs, but provides less than half the effort. 2-Substantial/Maximal Assistance-helper does MORE THAN HALF the effort. [place] lifts or holds trunk or limbs and provides more than half the effort. 4-Snninqjek-frsmud does ALL the effort. Patient does none of the effort to complete the activity. Or, the assistance of 2 or more helpers is required for the patient to complete the activity. If activity was not attempted, code reason: 7-Patient Refused. 9-Not Applicable-not attempted and the patient did not perform the activity before the current illness, exacerbation or injury. 10-Not Attempted due to Environmental Limitations-(lack of equipment, weather restraints, etc.). 88-Not Attempted due to Medical Conditions or Safety Concerns. Roll Left to Right (QC): 3 Sit to Lying (QC): 3 Sit to Stand (QC): 3 Chair/Jys-ks-Mihhh Xfer(QC): 4 Car Transfer (QC): 88 Gait Training Does the Patient Walk?: No and Walking Goal IS indicated Walk 10 feet (QC): 88 Walk 50 ft with 2 Turns(QC): 88 Walk 150 ft (QC): 88 Walking 10ft/uneven surface-QC: 88 Gait Assistive Device: FWW Wheelchair Training Does the Pt Use a Wheelchair?: Yes Distance: 50' Wheel 50 ft with 2 turns (QC): 3 Wheel 150 ft (QC): 88 Type of Wheelchair: Manual Stair Training 1 Step (curb) (QC): 88 4 Steps (QC): 88 12 Steps (QC): 88 Balance Picking up an Object (QC): 88 ADL-Treatment Eating (QC): 7 Oral Hygiene (QC): 5 Shower/Bathe Self (QC): 2 Upper Body Dressing (QC): 88 Lower Body Dressing (QC): 2 On/Off Footwear (QC): 3 Toileting Hygiene (QC): 2 Toilet Transfer (QC): 3 Assessment/Plan Assessment and Plan Assess & Plan/Chief Complaint Assessment: Severe debility Spinal neoplastic process of breast cancer primary per liver biopsy at [facility] Severe back pain due to compression fractures from breast cancer mets Constipation improved Arthur cath in place now DC Plan: Pain control Increase ADL's PCP consult 10/09/2021: Pain control Bowel regimen 10/10/2021: Consult Dr Calixto (1) Compression fracture of T6 vertebra Status: Acute (2) Thoracic back pain Status: Acute (3) Thoracic radiculopathy Status: Acute LEILA ROBERTS DO Oct 10, 2021 06:40
[2021-10-10 07:58] VITALS: BP 136/90
[2021-10-10] MEDS: VITAMIN D3 25 MCG (1,000 UNITS) TABLET PO SCH (08:23)
[2021-10-10] MEDS: CALCIUM CARBONATE 600 MG (CALCARB) TAB PO SCH (08:23)
[2021-10-10] MEDS: meTOprolol TARTRATE 25 MG (LOPRESSOR) TABLET PO SCH ×3 (08:24→20:52)
[2021-10-10] MEDS: DOCUSATE SODIUM 100 MG (COLACE) CAP PO SCH ×2 (08:24→20:52)
[2021-10-10] MEDS: APIXABAN 5 MG (ELIQUIS) TABLET PO SCH ×2 (08:24→20:52)
[2021-10-10] MEDS: SENNA W/DOCUSATE (SENOKOT S) TABLET PO SCH ×2 (08:24→20:52)
[2021-10-10] MEDS: polyethylene glycoL POWDER 17 GM (MIRALAX) PACK PO SCH (10:41)
--- NOTE | 2021-10-10 11:24 | Speech Therapy Daily Note ---
Speech Daily Progress Note Subjective Date Seen by Provider: Oct 10, 2021 Time Seen by Provider: 09:30 The patient was lying in bed, sleeping upon entrance to her room. The patient woke with a verbal greeting from the clinician and was agreeable to participation in the cognitive linguistic treatment session. Objective The patient remains fatigued throughout the session, frequently closing her eyes and returning to sleep. The patient states the month is October, the year is 2021, and she is in [place], [place]. The patient states the date is the and the day of the week is Friday. Re-orientation information was provided by the clinician. Additionally, the in-room white board was discussed which displays orientation information for the patient. The patient and clinician discussed the patient's home environment and support system. The patient stated she has multiple individuals who are willing to provide support. The patient remains on topic throughout structured conversation, requiring prompts only for alertness. Assessment Assessment Current Status: Poor Progress Treatment Plan Continue Plan of Care Speech Short Term Goals Short Term Goals Short Term Goals 1. The patient will attend to a task for three minutes with mild clinician verbal and visual cueing. Time Frame-STG: Two Days. Speech Plant Maintenance Worker Goals Residential Goals 1. The patient will complete the cognitive linguistic assessment with mild v erbal and visual cueing provided by the clinician. Time Frame: Two Days. Speech-Plan Treatment Plan Speech Therapy Treatment Plan: Continue Plan of Care Treatment Duration: Oct 09, 2021 Frequency: Modified Program (IRF) Estimated Hrs Per Day: .5 hour per day Rehab Potential: Guarded Safety Risks/Education Teaching Recipient: Patient Teaching Methods: Discussion Response to Teaching: Verbalize Understanding Education Topics Provided: Orientation Strategies Time Speech Therapy Time In: 09:30 Speech Therapy Time Out: 10:00 Total Billed Time: 30 Billed Treatment Time 1LINDSAY [address]IZ[address] ST Oct 10, 2021 11:24
--- NOTE | 2021-10-10 12:00 | Physical Therapy Daily Note ---
PT Daily Note-Current Subjective Pt in recliner upon arrival and OT present. Will be co-treating with OT due to poor patient mobility, strength, endurance, severe debility, coordinate UE and LE during activity, safety and reduce risk of falls. Pain Numeric Pain Scale: 8 Location Body Site: Back Mental Status Patient Orientation: Person, Place, Time Attachments: Oxygen (3L) Transfers SCALE: Activities may be completed with or without assistive devices. 6-Vmmltfnhab-axeuiws completes the activity by him/herself with no assistance from a helper. 5-Set-up or Clean-up Assistance-helper sets up or cleans up; patient completes activity. [place] assists only prior to or following the activity. 4-Supervision or Touching Assistance-helper provides verbal cues and/or touching/steadying and/or contact guard assistance as patient completes activity. Assistance may be provided throughout the activity or intermittently. 3-Partial/Moderate Assistance-helper does LESS THAN HALF the effort. [place] lifts, holds or supports trunk or limbs, but provides less than half the effort. 2-Substantial/Maximal Assistance-helper does MORE THAN HALF the effort. [place] lifts or holds trunk or limbs and provides more than half the effort. 2-Hbxqffpxb-btbvxc does ALL the effort. Patient does none of the effort to complete the activity. Or, the assistance of 2 or more helpers is required for the patient to complete the activity. If activity was not attempted, code reason: 7-Patient Refused. 9-Not Applicable-not attempted and the patient did not perform the activity before the current illness, exacerbation or injury. 10-Not Attempted due to Environmental Limitations-(lack of equipment, weather restraints, etc.). 88-Not Attempted due to Medical Conditions or Safety Concerns. Roll Left & Right (QC): 4 Sit to Lying (QC): 4 Sit to Stand (QC): 3 Wheelchair Training Does the Pt Use a Wheelchair?: Yes Wheel 50 ft with 2 turns (QC): 4 Type of Wheelchair: Manual Eleni d/t pt only able to push a few feet at a time Exercises Supine Ex: Bridging, Ankle pumps, Quad Set, Glut sets, Heel Slides, Hip abd/add Supine Reps: 15 Treatments Pt TFs to after encouragement and then able to wheel self in yen for a few feet at a time. Then pushed back to room in WC and then pt Tfs back in to bed. Pt performs bed exs. Pt in bed as PT departs w/ all needs met and call light nearby. Assessment Current Status: Poor Progress Pt remains very weak and lethargic t/o treatment. Requires recurrent cues in order to perform TFs correctly. PT Short Term Goals Short Term Goals Time Frame: Oct 15, 2021 Roll Left & Right: 3 Sit to lyin Lying to sitting on side of be: 3 Sit to stand: 4 Chair/oel-qc-iwiyf transfer: 4 Walk 10 feet: 4 PT Director Alumni Relations Goals Director Alumni Relations Goals PT Director Alumni Relations Goals Time Frame: Oct 29, 2021 Roll Left & Right (QC): 4 (SBA) Sit to Lying (QC): 4 (SBA) Lying-Sitting on Side/Bed(QC): 4 (SBA) Sit to Stand (QC): 4 (SBA) Chair/Xta-nj-Upmhc Xfer(QC): 4 (SBA) Toilet Transfer (QC): 4 (SBA) Car Transfer (QC): 4 (SBA) Does the Patient Walk: Yes Walk 10 feet (QC): 4 (SBA) Walk 50ft with 2 Turns (QC): 4 (SBA) Walk 150 ft (QC): 88 Walking 10ft on Uneven Surface: 4 (SBA) 1 Step (curb) (QC): 4 (CGA) 4 Steps (QC): 4 (CGA) 12 Steps (QC): 88 Picking up an Object (QC): 4 (SBA using mopper) Wheel 50 feet with 2 turns (QC: 9 Wheel 150 feet: 9 PT Plan Problem List Problem List: Activity Tolerance, Functional Strength, Safety, Transfer Treatment/Plan Treatment Plan: Continue Plan of Care Treatment Plan: Bed Mobility, Education, Functional Activity Jaspreet, Functional Strength, Group Therapy, Gait, Safety, Therapeutic Exercise, Transfers Treatment Duration: Oct 29, 2021 Frequency: At least 5 of 7 days/Wk (IRF) Estimated Hrs Per Day: 1.5 hours per day Patient and/or Family Agrees t: Yes Time/GCodes Time In: 1100 Time Out: 1200 Total Billed Treatment Time: 60 Total Billed Treatment 1, FA x 4 MARYBETH PEDRO MACHINE ADJUSTER LEADER Oct 10, 2021 12:00
--- NOTE | 2021-10-10 12:12 | Occupational Ther Daily Note ---
OT Current Status-Daily Note Subjective Pt rates pain "all over" as 7/10. Garbled speech, difficult to understand at times. Increased confusion. Co-treat with PT for part of treatment ([id number]) secondary to poor endurance, activity tolerance, mobility, motor planning, coordination, strength, and need of 2 skilled clinicians to progress indep and safety with adls and functional mobility. Appearance Pt left supine in bed with physical therapist present at OT departure. Mental Status/Objective Patient Orientation: Person, Confused Attachments: Oxygen (3L) ADL-Treatment Therapy Code Descriptions/Definitions Functional [place] Measure: 0=Not Assessed/NA 4=Minimal Assistance 1=Total Assistance 5=Supervision or Setup 2=Maximal Assistance 6=Modified [place] 3=Moderate Assistance 7=Complete IndependenceSCALE: Activities may be completed with or without assistive devices. 0-Gamnsqmclv-ncnoouo completes the activity by him/herself with no assistance from a helper. 5-Set-up or Clean-up Assistance-helper sets up or cleans up; patient completes activity. [place] assists only prior to or following the activity. 4-Supervision or Touching Assistance-helper provides verbal cues and/or touching/steadying and/or contact guard assistance as patient completes activity. Assistance may be provided throughout the activity or intermittently. 3-Partial/Moderate Assistance-helper does LESS THAN HALF the effort. [place] li fts, holds or supports trunk or limbs, but provides less than half the effort. 2-Substantial/Maximal Assistance-helper does MORE THAN HALF the effort. [place] lifts or holds trunk or limbs and provides more than half the effort. 4-Ggtkbnulk-xxxmxx does ALL the effort. Patient does none of the effort to complete the activity. Or, the assistance of 2 or more helpers is required for the patient to complete the activity. If activity was not attempted, code reason: 7-Patient Refused. 9-Not Applicable-not attempted and the patient did not perform the activity before the current illness, exacerbation or injury. 10-Not Attempted due to Environmental Limitations-(lack of equipment, weather restraints, etc.). 88-Not Attempted due to Medical Conditions or Safety Concerns. Oral Hygiene (QC): 3 (Assist to lift UE to mouth) Lower Body Dressing (QC): 2 On/Off Footwear: 2 Decline in function when compared to previous date. This is the 3rd day pt has requested to discharge on hospice/comfort care. RN and social media job titles notified. Pt is agreeable to complete partial sponge bath performed at chair level. Appears more confused this date. Increased assist needed to initiate and motor plan UE in order to reach/wash bilateral axillas. Pt severely debilitated/weak, requires assist to lift/hold UE. Min a to stand from recliner, cues for correct hand placement for 100% of transfers. Poor command following. Due to weakness, pt requires assist to lift/cross LE's into figure 4 position. No effort/attempt given to thread feet into underwear this date, thus dependent to complete. Max a to manage clothing up to waist secondary to poor standing tolerance and weakness. New gown donned as pt declines donning clothing (reports too fatigued to complete). Significant time needed for all tasks secondary to severe fatigue and need for rest breaks. Throughout treatment, pt requires several reminders on spinal precautions as she will often rests elbows on her lap during rest breaks. Other Treatment Pt propelled w/c with mod a. Poor follow through with cues. Very slow. Pt unable to demonstrate ability to perform long strokes, thus fatigues very quickly. Education on energy expenditure and efficiency of propulsion. Pt is very weak. Education OT Patient Education: Correct positioning, Disease process, Energy conservation, Modified ADL techniques, Progress toward Goal/Update tx plan, Purpose of tx/functional activities, Reviewed precautions, Rehab process, Safety issues, Transfer techniques, W/C management Teaching Recipient: Patient Teaching Methods: Demonstration, Discussion Response to Teaching: Reinforcement Needed OT Short Term Goals Short Term Goals Time Frame: Oct 22, 2021 Eatin Oral hygiene: 3 Toileting hygiene: 3 Shower/bathe self: 3 Upper body dressin Lower body dressin Putting on/taking off footwear: 3 OT [facility] Goals Associate Marketing Manager Goals Time Frame: Oct 31, 2021 Eating (QC): 4 Oral Hygiene (QC): 4 Toileting Hygiene (QC): 4 Shower/Bathe Self (QC): 4 Upper Body Dressing (QC): 4 Lower Body Dressing (QC): 4 On/Off Footwear (QC): 4 1=Demonstrate adherence to instructed precautions during ADL tasks. 2=Patient will verbalize/demonstrate understanding of assistive devices/modifications for ADL. 3=Patient will improve strength/tolerance for activity to enable patient to perform ADL's. OT Education/Plan Problem List/Assessment Assessment: Decreased Activ Tolerance, Decreased Safety Aware, Decreased UE Strength, Impaired Bed Mobility, Impaired Cognition, Impaired Coordination, Impaired Funct Balance, Impaired I ADL's, Impaired Self-Care Skills, Restricted Funct UE ROM Discharge Recommendations Plan/Recommendations: Continue POC Treatment Plan/Plan of Care Treatment,Training & Education: Yes Patient would benefit from OT for education, treatment and training to promote independence in ADL's, mobility, safety and/or upper extremity function for ADL's. Plan of Care: ADL Retraining, Caregiver Training, Cognitive Retraining, Concurrent Therapy, Functional Mobility, Group Exercise/Act as Ind, UE Funct Exercise/Act, W/C Management Training Treatment Duration: Oct 31, 2021 Frequency: At least 5 of 7 days/Wk (IRF) Estimated Hrs Per Day: 1.5 hours per day (75-90 min/day ) Rehab Potential: Guarded Time/GCodes Start Time: 10:30 Stop Time: 11:45 Total Time Billed (hr/min): 75 Billed Treatment Time 1 visit ADL x3 (50 min) FA x2 (25 min) Lanny Bailey OT Oct 10, 2021 12:12
--- NOTE | 2021-10-10 14:34 | Physical Therapy Daily Note ---
PT Daily Note-Current Subjective Pt in bed upon arrival and agrees to PT. Pt mumbing and hard to understand. Family present. Mental Status Patient Orientation: Person, Place Attachments: Oxygen Transfers SCALE: Activities may be completed with or without assistive devices. 7-Mvkfozqbvx-bdnnfwp completes the activity by him/herself with no assistance from a helper. 5-Set-up or Clean-up Assistance-helper sets up or cleans up; patient completes activity. [place] assists only prior to or following the activity. 4-Supervision or Touching Assistance-helper provides verbal cues and/or touching/steadying and/or contact guard assistance as patient completes activity. Assistance may be provided throughout the activity or intermittently. 3-Partial/Moderate Assistance-helper does LESS THAN HALF the effort. [place] lifts, holds or supports trunk or limbs, but provides less than half the effort. 2-Substantial/Maximal Assistance-helper does MORE THAN HALF the effort. [place] lifts or holds trunk or limbs and provides more than half the effort. 0-Objhejjut-mjjvch does ALL the effort. Patient does none of the effort to complete the activity. Or, the assistance of 2 or more helpers is required for the patient to complete the activity. If activity was not attempted, code reason: 7-Patient Refused. 9-Not Applicable-not attempted and the patient did not perform the activity before the current illness, exacerbation or injury. 10-Not Attempted due to Environmental Limitations-(lack of equipment, weather restraints, etc.). 88-Not Attempted due to Medical Conditions or Safety Concerns. Exercises Supine Ex: Bridging, Ankle pumps, Quad Set, Glut sets, Heel Slides, Hip abd/add Supine Reps: 20 Assessment Current Status: Fair Progress Pt requires cues in order to perform exs correctly. Pt very lethargic again this afternoon. PT Short Term Goals Short Term Goals Time Frame: Oct 15, 2021 Roll Left & Right: 3 Sit to lyin Lying to sitting on side of be: 3 Sit to stand: 4 Chair/qmc-lb-bexci transfer: 4 Walk 10 feet: 4 PT Senior Living Goals Senior Living Goals PT Flight Operations Dispatch Clerk Goals Time Frame: Oct 29, 2021 Roll Left & Right (QC): 4 (SBA) Sit to Lying (QC): 4 (SBA) Lying-Sitting on Side/Bed(QC): 4 (SBA) Sit to Stand (QC): 4 (SBA) Chair/Csp-we-Rzccd Xfer(QC): 4 (SBA) Toilet Transfer (QC): 4 (SBA) Car Transfer (QC): 4 (SBA) Does the Patient Walk: Yes Walk 10 feet (QC): 4 (SBA) Walk 50ft with 2 Turns (QC): 4 (SBA) Walk 150 ft (QC): 88 Walking 10ft on Uneven Surface: 4 (SBA) 1 Step (curb) (QC): 4 (CGA) 4 Steps (QC): 4 (CGA) 12 Steps (QC): 88 Picking up an Object (QC): 4 (SBA using admissions specialist) Wheel 50 feet with 2 turns (QC: 9 Wheel 150 feet: 9 PT Plan Problem List Problem List: Activity Tolerance, Functional Strength Treatment/Plan Treatment Plan: Continue Plan of Care Treatment Plan: Bed Mobility, Education, Functional Activity Jaspreet, Functional Strength, Group Therapy, Gait, Safety, Therapeutic Exercise, Transfers Treatment Duration: Oct 29, 2021 Frequency: At least 5 of 7 days/Wk (IRF) Estimated Hrs Per Day: 1.5 hours per day Patient and/or Family Agrees t: Yes Safety Risks/Education Patient Education: Correct Positioning Teaching Recipient: Patient Response to Teaching: Return Demonstration Time/GCodes Time In: 1415 Time Out: 1430 Total Billed Treatment Time: 15 Total Billed Treatment 1, Ex MARYBETH PEDRO PRIVATE BRANCH EXCHANGE SERVICE ADVISOR Oct 10, 2021 14:34
[2021-10-10 20:46] VITALS: BP 113/55
[2021-10-10] MEDS: PANTOPRAZOLE 40 MG (PROTONIX) TAB PO SCH (20:52)
[2021-10-10] MEDS: PARoxetine 20 MG (PAXIL) TAB PO SCH (20:52)
[2021-10-11] MEDS: ALPRAZolam 0.5 MG (XANAX) TAB PO PRN (02:50)
--- NOTE | 2021-10-11 05:42 | PM&R Progress Note ---
Subjective HPI/CC On Admission Date Seen by Provider: Oct 11, 2021 Time Seen by Provider: 12:00 Subjective/Events-last exam 10/11/2021: 10/10/2021: Doing a bit better PCP consulted on her and reviewed options Spoke to Dr Potter at patient request and he assessed the liver biopsy to be breast cancer primary and will see her tomorrow for options Dr Calixto could treat her with radiation treatment and help with the pain and that will be a good option 10/09/2021: Patient much improved Change fentanyl patch today PCP will be consulted Two Percocet at a time help her Pathology report is pending Arthur catheter in place Review of Systems General: Fatigue, Malaise Objective Exam Vital Signs Vital Signs Date Time Temp Pulse Resp B/P (MAP) Pulse Ox O2 Delivery O2 Flow Rate FiO2 10/11/21 09:00 Nasal Cannula 3.00 10/11/21 08:29 100 10/11/21 07:30 36.1 113 30 130/74 (92) Capillary Refill : General Appearance: WD/WN, Anxious, Chronically ill, Mild Distress HEENT: PERRL/EOMI, Normal ENT Inspection, Pharynx Normal Neck: Full Range of Motion, Normal Inspection, Non Tender, Supple, Carotid Bruit Respiratory: Chest Non Tender, Lungs Clear, Normal Breath Sounds, No Accessory Muscle Use, No Respiratory Distress Cardiovascular: Regular Rate, Rhythm, No Edema, No Gallop, No JVD, No Murmur, Normal Peripheral Pulses Gastrointestinal: Normal Bowel Sounds, No Organomegaly, No Pulsatile Mass, Non Tender, Soft Back: Normal Inspection, Decreased Range of Motion, Muscle Spasm, Vertebral Tenderness Extremity: Normal Capillary Refill, Normal Inspection, Normal Range of Motion, Non Tender, No Calf Tenderness, No Pedal Edema Neurologic/Psychiatric: Alert, Oriented x3, equipment coordinator II-XII Norm as Tested, Abnormal Gait, Depressed Affect, Motor Weakness Skin: Normal Color, Warm/Dry Lymphatic: No Adenopathy Results/Procedures Lab Laboratory Tests 10/11/21 05:40 Patient resulted labs reviewed. FIM Transfers Therapy Code Descriptions/Definitions Functional [place] Measure: 0=Not Assessed/NA 4=Minimal Assistance 1=Total Assistance 5=Supervision or Setup 2=Maximal Assistance 6=Modified [place] 3=Moderate Assistance 7=Complete IndependenceSCALE: Activities may be completed with or without assistive devices. 7-Lphyrpbxih-mggeumz completes the activity by him/herself with no assistance from a helper. 5-Set-up or Clean-up Assistance-helper sets up or cleans up; patient completes activity. [place] assists only prior to or following the activity. 4-Supervision or Touching Assistance-helper provides verbal cues and/or touching/steadying and/or contact guard assistance as patient completes activity. Assistance may be provided throughout the activity or intermittently. 3-Partial/Moderate Assistance-helper does LESS THAN HALF the effort. [place] lifts, holds or supports trunk or limbs, but provides less than half the effort. 2-Substantial/Maximal Assistance-helper does MORE THAN HALF the effort. [place] lifts or holds trunk or limbs and provides more than half the effort. 9-Znpgwalwi-wdkgcj does ALL the effort. Patient does none of the effort to complete the activity. Or, the assistance of 2 or more helpers is required for the patient to complete the activity. If activity was not attempted, code reason: 7-Patient Refused. 9-Not Applicable-not attempted and the patient did not perform the activity before the current illness, exacerbation or injury. 10-Not Attempted due to Environmental Limitations-(lack of equipment, weather restraints, etc.). 88-Not Attempted due to Medical Conditions or Safety Concerns. Roll Left to Right (QC): 4 Sit to Lying (QC): 4 Sit to Stand (QC): 3 Chair/Thy-wm-[place] Xfer(QC): 4 Car Transfer (QC): 88 Gait Training Does the Patient Walk?: No and Walking Goal IS indicated Walk 10 feet (QC): 88 Walk 50 ft with 2 Turns(QC): 88 Walk 150 ft (QC): 88 Walking 10ft/uneven surface-QC: 88 Gait Assistive Device: FWW Wheelchair Training Does the Pt Use a Wheelchair?: Yes Distance: 50' Wheel 50 ft with 2 turns (QC): 4 Wheel 150 ft (QC): 88 Type of Wheelchair: Manual Stair Training 1 Step (curb) (QC): 88 4 Steps (QC): 88 12 Steps (QC): 88 Balance Picking up an Object (QC): 88 ADL-Treatment Eating (QC): 7 Oral Hygiene (QC): 3 (Assist to lift UE to mouth) Shower/Bathe Self (QC): 2 Upper Body Dressing (QC): 88 Lower Body Dressing (QC): 2 On/Off Footwear (QC): 2 Toileting Hygiene (QC): 2 Toilet Transfer (QC): 3 Assessment/Plan Assessment and Plan Assess & Plan/Chief Complaint Assessment: Severe debility Spinal neoplastic process of breast cancer primary per liver biopsy at [facility] Severe back pain due to compression fractures from breast cancer mets Constipation improved Arthur cath in place now DC Plan: Pain control Increase ADL's PCP consult 10/09/2021: Pain control Bowel regimen 10/10/2021: Consult Dr Calixto 10/11/2021: (1) Compression fracture of T6 vertebra Status: Acute (2) Thoracic back pain Status: Acute (3) Thoracic radiculopathy Status: Acute LEILA ROBERTS DO Oct 11, 2021 05:42
[2021-10-11 05:49] LABS: BASOPHILS # (AUTO) 0.1 10^3/uL (0.0-0.1); BASOPHILS % (AUTO) 1 % (0-10); EOSINOPHILS # (AUTO) 0.1 10^3/uL (0.0-0.3); EOSINOPHILS % (AUTO) 1 % (0-10); HEMATOCRIT 43 % (35-52); HEMOGLOBIN 13.7 g/dL (11.5-16.0); LYMPHOCYTES # (AUTO) 1.6 10^3/uL (1.0-4.0); LYMPHOCYTES % (AUTO) 20 % (12-44); MEAN CORPUSCULAR HEMOGLOBIN 29 pg (25-34); MEAN CORPUSCULAR HGB CONC 32 g/dL (32-36); MEAN CORPUSCULAR VOLUME 91 fL (80-99); MEAN PLATELET VOLUME 10.4 fL (9.0-12.2); MONOCYTES # (AUTO) 0.3 10^3/uL (0.0-1.0); MONOCYTES % (AUTO) 4 % (0-12); NEUTROPHILS # (AUTO) 4.8 10^3/uL (1.8-7.8); NEUTROPHILS % (AUTO) 63 % (42-75); PLATELET COUNT 161 10^3/uL (130-400); WHITE BLOOD COUNT 7.6 10^3/uL (4.3-11.0)
[2021-10-11 05:53] LABS: SMEAR SCAN COMMENT YES
[2021-10-11] MEDS: MULTIVIT W/MINERALS TAB (THERAGRAN M) PO SCH (06:03)
[2021-10-11 06:08] LABS: ALBUMIN 3.1 GM/DL (3.2-4.5); BILIRUBIN,TOTAL 0.8 MG/DL (0.1-1.0); CALCIUM 10.4 MG/DL (8.5-10.1); CREATININE SERUM 0.73 MG/DL (0.60-1.30); POTASSIUM 4.2 MMOL/L (3.6-5.0); TOTAL PROTEIN 6.3 GM/DL (6.4-8.2)
[2021-10-11 07:30] VITALS: BP 130/74
--- NOTE | 2021-10-11 08:28 | Occupational Ther Daily Note ---
OT Current Status-Daily Note Subjective Pt with significantly more confusion this date. Nonsensical statements throughout. "we need babies, babies can help clean all this mess, it will be easier with babies." Co-treat with PT secondary to poor mobility, fatigue, increased confusion, high fall risk, and need of 2 skilled clinicians to progress indep and safety with adls and functional mobility Appearance Pt returned to supine in bed, RN notified regarding change of medical status. Mental Status/Objective Patient Orientation: Confused, [place] Attachments: Oxygen ADL-Treatment Therapy Code Descriptions/Definitions Functional [place] Measure: 0=Not Assessed/NA 4=Minimal Assistance 1=Total Assistance 5=Supervision or Setup 2=Maximal Assistance 6=Modified [place] 3=Moderate Assistance 7=Complete IndependenceSCALE: Activities may be completed with or without assistive devices. 9-Iulxagixfx-lmlsybt completes the activity by him/herself with no assistance from a helper. 5-Set-up or Clean-up Assistance-helper sets up or cleans up; patient completes activity. [place] assists only prior to or following the activity. 4-Supervision or Touching Assistance-helper provides verbal cues and/or touching/steadying and/or contact guard assistance as patient completes activity. Assistance may be provided throughout the activity or intermittently. 3-Partial/Moderate Assistance-helper does LESS THAN HALF the effort. [place] lifts, holds or supports trunk or limbs, but provides less than half the effort. 2-Substantial/Maximal Assistance-helper does MORE THAN HALF the effort. [place] lifts or holds trunk or limbs and provides more than half the effort. 5-[place]hj-evgmre does ALL the effort. Patient does none of the effort to complete the activity. Or, the assistance of 2 or more helpers is required for the patient to complete the activity. If activity was not attempted, code reason: 7-Patient Refused. 9-Not Applicable-not attempted and the patient did not perform the activity before the current illness, exacerbation or injury. 10-Not Attempted due to Environmental Limitations-(lack of equipment, weather restraints, etc.). 88-Not Attempted due to Medical Conditions or Safety Concerns. On/Off Footwear: 1 Toileting Hygiene (QC): 1 Toilet Transfer (QC): 2 Pt supine in bed at therapy arrival. Increased confusion; nonsensical statements. Supine>sit: mod a. Transfer to commode with max a, step by step cues for transfer required. Pt sat on commode for ~7-8 minutes but was unsuccessful with voiding/BM. Intermittent CGA for sitting balance on commode as pt had tendency to lean too far forward. Max a to stand and maintain balance as second person managed underwear over hips. Throughout all activity, pt crying out that she needs help and that she is too weak to do anything. RN notified regarding change in cognition and physical abilities. Pt returned to supine in bed as she is unable to tolerate any further activity at this time. Education OT Patient Education: Correct positioning, Purpose of tx/functional activities, Reviewed precautions, Safety issues, Transfer techniques Teaching Recipient: Patient Teaching Methods: Discussion Response to Teaching: Unable to Return Demonstration, Unable to Comprehend, Reinforcement Needed OT Short Term Goals Short Term Goals Time Frame: Oct 22, 2021 Eatin Oral hygiene: 3 Toileting hygiene: 3 Shower/bathe self: 3 Upper body dressin Lower body dressin Putting on/taking off footwear: 3 OT Residential Goals Residential Goals Time Frame: Oct 31, 2021 Eating (QC): 4 Oral Hygiene (QC): 4 Toileting Hygiene (QC): 4 Shower/Bathe Self (QC): 4 Upper Body Dressing (QC): 4 Lower Body Dressing (QC): 4 On/Off Footwear (QC): 4 1=Demonstrate adherence to instructed precautions during ADL tasks. 2=Patient will verbalize/demonstrate understanding of assistive devices/modifications for ADL. 3=Patient will improve strength/tolerance for activity to enable patient to perform ADL's. OT Education/Plan Problem List/Assessment Assessment: Decreased Activ Tolerance, Decreased Safety Aware, Decreased UE Strength, Dependent Transfers, Impaired Bed Mobility, Impaired Cognition, Impaired Coordination, Impaired Funct Balance, Impaired I ADL's, Impaired Self- Care Skills, Restricted Funct UE ROM Discharge Recommendations Plan/Recommendations: Continue POC Treatment Plan/Plan of Care Treatment,Training & Education: Yes Patient would benefit from OT for education, treatment and training to promote independence in ADL's, mobility, safety and/or upper extremity function for ADL's. Plan of Care: ADL Retraining, Caregiver Training, Cognitive Retraining, Concurrent Therapy, Functional Mobility, Group Exercise/Act as Ind, UE Funct Exercise/Act, W/C Management Training Treatment Duration: Oct 31, 2021 Frequency: At least 5 of 7 days/Wk (IRF) Estimated Hrs Per Day: 1.5 hours per day (75-90 min/day ) Rehab Potential: Guarded Time/GCodes Start Time: 08:00 Stop Time: 08:25 Total Time Billed (hr/min): 25 Billed Treatment Time 1 visit ADL (15 min) FA (10 min) Lanny Bailey OT Oct 11, 2021 08:28
--- NOTE | 2021-10-11 08:29 | Physical Therapy Daily Note ---
PT Daily Note-Current Subjective Patient in bed pre tx, has no complaints of pain. Will be co-treating with OT due to poor patient mobility, strength, endurance, severe debility, coordinate UE and LE during activity, safety and reduce risk of falls. Appearance Patient in bed post tx with nurse call, phone, tray, bed alarm on. Mental Status Patient Orientation: Person, Confused Attachments: Oxygen Transfers SCALE: Activities may be completed with or without assistive devices. 7-Wtbehtxlbt-nwtbqht completes the activity by him/herself with no assistance from a helper. 5-Set-up or Clean-up Assistance-helper sets up or cleans up; patient completes activity. Romeo assists only prior to or following the activity. 4-Supervision or Touching Assistance-helper provides verbal cues and/or touching/steadying and/or contact guard assistance as patient completes activity. Assistance may be provided throughout the activity or intermittently. 3-Partial/Moderate Assistance-helper does LESS THAN HALF the effort. Romeo lifts, holds or supports trunk or limbs, but provides less than half the effort. 2-Substantial/Maximal Assistance-helper does MORE THAN HALF the effort. Romeo lifts or holds trunk or limbs and provides more than half the effort. 9-Kcaxhoyhj-zylzmf does ALL the effort. Patient does none of the effort to complete the activity. Or, the assistance of 2 or more helpers is required for the patient to complete the activity. If activity was not attempted, code reason: 7-Patient Refused. 9-Not Applicable-not attempted and the patient did not perform the activity before the current illness, exacerbation or injury. 10-Not Attempted due to Environmental Limitations-(lack of equipment, weather restraints, etc.). 88-Not Attempted due to Medical Conditions or Safety Concerns. Roll Left & Right (QC): 3 Sit to Lying (QC): 3 Lying to Sitting/Side of Bed(Q: 3 Sit to Stand (QC): 3 Chair/Kym-uz-Ecdjx Xfer(QC): 3 Patient states she needs the commode, supine to sit with mod assist, sit to stand min assist, transfer to commode min assist, OT manages underwear. Patient was unsuccessful on the commode and she transfers back to bed. Treatments PT performed bed mobility and transfers, OT performed toileting. Assessment Current Status: Poor Progress Patient is very confused, talking about being at home and having babies help her clean up the room. Besides the toileting, patient cannot folow directions and is weaker than yesterday which was weaker than the day before. Patient is declining quickly both physically and mentally. She is not able to participate in physical therapy at this time. Treatment stopped for doctor/staff to reassess. PT Short Term Goals Short Term Goals Time Frame: Oct 15, 2021 Roll Left & Right: 3 Sit to lyin Lying to sitting on side of be: 3 Sit to stand: 4 Chair/iiv-lz-lbkij transfer: 4 Walk 10 feet: 4 PT Doorperson Or Luggage Porter Goals Mcc Goals PT Doorperson Or Luggage Porter Goals Time Frame: Oct 29, 2021 Roll Left & Right (QC): 4 (SBA) Sit to Lying (QC): 4 (SBA) Lying-Sitting on Side/Bed(QC): 4 (SBA) Sit to Stand (QC): 4 (SBA) Chair/Arz-em-Babwn Xfer(QC): 4 (SBA) Toilet Transfer (QC): 4 (SBA) Car Transfer (QC): 4 (SBA) Does the Patient Walk: Yes Walk 10 feet (QC): 4 (SBA) Walk 50ft with 2 Turns (QC): 4 (SBA) Walk 150 ft (QC): 88 Walking 10ft on Uneven Surface: 4 (SBA) 1 Step (curb) (QC): 4 (CGA) 4 Steps (QC): 4 (CGA) 12 Steps (QC): 88 Picking up an Object (QC): 4 (SBA using dental office assistant) Wheel 50 feet with 2 turns (QC: 9 Wheel 150 feet: 9 PT Plan Problem List Problem List: Activity Tolerance, Functional Strength, Safety, Balance, Gait, Transfer, Bed Mobility, ROM Treatment/Plan Treatment Plan: Continue Plan of Care Treatment Plan: Bed Mobility, Education, Functional Activity Jaspreet, Functional Strength, Group Therapy, Gait, Safety, Therapeutic Exercise, Transfers Treatment Duration: Oct 29, 2021 Frequency: At least 5 of 7 days/Wk (IRF) Estimated Hrs Per Day: 1.5 hours per day Patient and/or Family Agrees t: Yes Safety Risks/Education Patient Education: Transfer Techniques, Correct Positioning, Safety Issues Teaching Recipient: Patient Teaching Methods: Demonstration, Discussion Response to Teaching: Reinforcement Needed Time/GCodes Time In: 0800 Time Out: 0825 Total Billed Treatment Time: 25 Total Billed Treatment 1 visit FA 25' co-treated for 25' JOSE ALEJANDRO PAN PT Oct 11, 2021 08:29
[2021-10-11] MEDS: VITAMIN D3 25 MCG (1,000 UNITS) TABLET PO SCH (08:34)
[2021-10-11] MEDS: meTOprolol TARTRATE 25 MG (LOPRESSOR) TABLET PO SCH ×2 (08:34→13:54)
[2021-10-11] MEDS: APIXABAN 5 MG (ELIQUIS) TABLET PO SCH (08:34)
[2021-10-11] MEDS: CALCIUM CARBONATE 600 MG (CALCARB) TAB PO SCH (08:41)
[2021-10-11] MEDS: DOCUSATE SODIUM 100 MG (COLACE) CAP PO SCH (08:41)
[2021-10-11] MEDS: SENNA W/DOCUSATE (SENOKOT S) TABLET PO SCH (08:41)
[2021-10-11] MEDS: polyethylene glycoL POWDER 17 GM (MIRALAX) PACK PO SCH (08:44)
[2021-10-11] MEDS ORDERED: ALPRAZolam 0.25 MG (XANAX) TAB PO PRN (08:45)
--- NOTE | 2021-10-11 09:48 | Speech Therapy Progress Note ---
Therapy Progress Note Speech pathology attempted skilled treatment at 0930. The patient remains with eyes closed, displaying reduced articulatory effort for speech production ("mumbling"). The patient stated while pointing at the wall, "I used a special wipe for that, it doesn't leave any fingerprints, it's the one you want to use." Additionally, the patient reported she was in [place], [place] and "[employer]." At this time, the patient's heightened level of confusion does not allow for a skilled cognitive treatment session. Speech pathology is unable to bill for the time spent with the patient, as skilled services were not provided. ST will reattempt as the patient is appropriate. (8 minutes). JAZIEL DAMIAN Oct 11, 2021 09:48
--- NOTE | 2021-10-11 10:38 | Consultation ---
History of Present Illness History of Present Illness Patient Consulted On(iker/time) 10/11/21 10:24 Date Seen by Provider: Oct 11, 2021 Time Seen by Provider: 10:00 Reason for Visit: Radiation Oncology Consult for pain palliation History of Present Illness *Mrs. Mccarty is a 71 y/o white female [place], [place] resident who is currently an inpatient at [facility] rehab unit. *She reports a 15 week history of upper mid back pain that has progressively worsened along with her performance status. *[facility] neurosurgeon Billy Burks D.O. ordered spine MRIs for evaluation. *09/20/21 MRI Thoracic spine ([facility]):(1) There is spine findings concerning for diffuse osseous metastatic disease. (2) There is a T6 vertebral body burst fracture again seen (compared to CT 08/29/21) with similar loss of height concerning for pathologic fracture. There is mild central canal narrowing. (3) Concern for occult fracture of the inferior aspect of T9 vertebra with no significant loss of height. This also may be a pathologic fracture. (4) There is thoracic spine degenerative disease. *09/20/21 MRI lumbar spine ([facility]): (1) There are diffuse patchy and confluent areas of abnormal signal throughout the visualized axial skeleton concerning for metastatic disease. (2) There is interval development of an acute/subacute pathologic fracture involving the L5 vertebra with mild central canal narrowing. (3) There is lumbar spine degenerative disease. *09/25/21 She underwent kypoplasty for compression fracture of T6 at [facility] and was admitted for further evaluation. *09/27/21 MRI thoracic spine ([facility]): (1) Heterogeneous bone marrow signal which may reflect diffuse metastatic disease, multiple myeloma, or underlying process. (2) Redemonstrated marked anterior wedge compression deformity of the T6 vetebrae. (3) Acute to subacute inferior endplate fracture at T9. This in new since outside CT thoracic spine 08/29/21. *09/27/21 MRI lumbar spine ([facility]): (1) Heterogeneous bone marrow signal which may reflect diffuse metastatic disease, multiple myeloma, or underlying process. (2) Moderate spinal canal stenosis at L5. (3) Normal spinal cord signal integrity. No evidence of cord compression. *09/28/21 CT guided liver biopsy: -liver parenchyma with metastatic carcinoma compatible with ductal carcinoma of breast origin -ER negative [place] negative HER2 positive 3+ Ki67 >90% *10/02/21 CT Chest ([facility]): Noted a left breast malignant mass and metastatic lung disease. *10/02/21 CT abd/pelvis ([facility]): Liver is large and fatty with innumerable hepatic metastases. Left adrenal nodule, metastatic until proven otherwise. No hydronephrosis or hydroureter. *10/02/21 Bone scan ([facility]): Likely osseous metastases to the sternum, multiple site in the thoracic spine, and a few anterior ribs. Elsewhere, there is no evidence of osteoblastic skeletal metastatic disease. *10/08/21 Due to weakness and debility, she was transferred to [facility] inpatient rehab unit. *10/11/21 I received a call from [facility] med onc Dr. Olivia Potter requesting a rad onc consult for evaluation and treatment for pain palliation; thus, my visit with the patient today. Allergies and Home Medications Allergies Coded Allergies: Penicillins (Verified Allergy, Mild, RASH, 08/23/19) Patient Home Medication List Home Medication List Reviewed: Yes Alprazolam (Alprazolam) 0.5 Mg Tablet, 0.5-1 MG PO DAILY PRN for ANXIETY, (Reported) Entered as Reported by: ABDIFATAH YI on 10/08/211151 Last Action: Continued Apixaban (Eliquis) 5 Mg Tablet, 5 MG PO BID, (Reported) Entered as Reported by: ABDIFATAH YI on 10/08/211151 Last Action: Continued Calcium Carbonate (Calcium Carbonate) 600 Mg Calcium (1500 Mg) Tablet, 600 MG PO DAILY, (Reported) Entered as Reported by: ABDIFATAH YI on 10/08/211151 Last Action: Continued Cholecalciferol (Vitamin D3) (Vitamin D3) 25 Mcg (1000 Unit) Tab.chew, 25 MCG PO DAILY, (Reported) Entered as Reported by: ABDIFATAH YI on 10/08/211151 Last Action: Converted Cyclobenzaprine HCl (Cyclobenzaprine HCl) 5 Mg Tablet, 5 MG PO Q8H PRN for MUSCLE SPASMS, (Reported) Entered as Reported by: ABDIFATAH YI on 10/08/211151 Last Action: Converted Docusate Sodium (Docusate Sodium) 100 Mg Capsule, 100 MG PO BID, (Reported) Entered as Reported by: ABDIFATAH YI on 10/08/211151 Last Action: Continued Esomeprazole Magnesium (Esomeprazole Magnesium) 20 Mg Capsule.dr, 20 MG PO HS, (Reported) Entered as Reported by: ABDIFATAH YI on 10/08/211151 Last Action: Converted Fentanyl (Fentanyl Patch 12 MCG) 12 Mcg/Hour Patch.td72, 12 MCG TD Q72H, (Reported) Entered as Reported by: ABDIFATAH YI on 10/08/211151 Last Action: Continued Furosemide (Furosemide) 20 Mg Tablet, 20 MG PO DAILY PRN for WORSENING HYPOXIA, (Reported) Entered as Reported by: ABDIFATAH YI on 10/08/211151 Last Action: Continued Glucosa Cobian 2Kcl/Chondroitin Cobian (Glucosamine & Chondroitin Cap) 500 Mg-400 Mg Capsule, 1 EACH PO DAILY, (Reported) Entered as Reported by: ABDIFATAH YI on 10/08/211151 Last Action: Converted Magnesium Hydroxide (Milk of Magnesia) 2,400 Mg/10 Ml Oral.susp, 30 ML PO Q6H PRN for CONSTIPATION-7TH LINE, (Reported) Entered as Reported by: ABDIFATAH YI on 10/08/211151 Last Action: Converted Metoprolol Tartrate (Metoprolol Tartrate) 25 Mg Tablet, 25 MG PO TID, (Reported) Entered as Reported by: ABDIFATAH YI on 10/08/211151 Last Action: Continued Multivitamin (Multivitamin) 1 Each Tablet, 1 EACH PO DAILY, (Reported) Entered as Reported by: ABDIFATAH YI on 10/08/211151 Last Action: Converted Ondansetron HCl (Ondansetron HCl) 4 Mg Tablet, 4 MG PO Q6H PRN for NAUSEA/VOMITING-1ST LINE, (Reported) Entered as Reported by: ABDIFATAH YI on 10/08/211151 Last Action: Converted Oxycodone HCl/Acetaminophen (Oxycodone-Acetaminophen 5-325) 5 Mg-325 Mg Tablet, 1 EACH PO Q4H PRN for PAIN-SEVERE, (Reported) Entered as Reported by: ABDIFATAH YI on 10/08/211151 Last Action: Continued Paroxetine HCl (Paroxetine HCl) 40 Mg Tablet, 40 MG PO HS, (Reported) Entered as Reported by: ABDIFATAH YI on 10/08/211151 Last Action: Converted Polyethylene Glycol 3350 (Miralax) 17 Gram Powd.pack, 17 GM PO DAILY, (Reported) Entered as Reported by: ABDIFATAH YI on 10/08/211151 Last Action: Continued Sennosides/Docusate Sodium (Senna S Tablet) 8.6 Mg-50 Mg Tablet, 1 EACH PO BID, (Reported) Entered as Reported by: ABDIFATAH YI on 10/08/211151 Last Action: Continued Discontinued Medications Biotin (Biotin) 1,000 Mcg Tablet, 1,000 MCG PO DAILY, (Reported) Discontinued Reason: No Longer Taking Entered as Reported by: JAZIEL CAMERON on 08/23/19 114 Last Action: Discontinued Cholecalciferol (Vitamin D3) (Vitamin D3) 50 Mcg Capsule, 50 MCG PO DAILY, (Reported) Discontinued Reason: No Longer Taking Entered as Reported by: JAZIEL CAMERON on 08/23/191143 Last Action: Discontinued Glucosa Cobian 2Kcl/Chondroitin Cobian (Glucosamine & Chondroitin Cap) 1 Each Capsule, 1 EACH PO DAILY, (Reported) Discontinued Reason: No Longer Taking Entered as Reported by: JAZIEL CAMERON on 08/23/19 114 Last Action: Discontinued Hydrocodone/Acetaminophen (Hydrocodone-Acetamin 7.5-325) 7.5 Mg-325 Mg Tablet, 1 EACH PO Q6H PRN for PAIN-SEVERE (8-10) Discontinued Reason: No Longer Taking Prescribed by: DAYAMI DIAMOND on 07/06/21 193 Last Action: Discontinued Meloxicam (Meloxicam) 7.5 Mg Tablet, 7.5 MG PO DAILY Discontinued Reason: No Longer Taking Prescribed by: DAYAMI DIAMOND on 07/06/211927 Last Action: Discontinued Multivitamin (Multivitamin) 1 Each Tablet, 1 EACH PO DAILY, (Reported) Discontinued Reason: No Longer Taking Entered as Reported by: JAZIEL CAMERON on 08/23/19 114 Last Action: Discontinued Omeprazole Magnesium (Prilosec Otc) 20 Mg Tablet.dr, 20 MG PO DAILY PRN for HEARTBURN, (Reported) Discontinued Reason: No Longer Taking Entered as Reported by: JAZIEL CAMERON on 08/23/19 1144 Last Action: Discontinued Oxycodone HCl (Oxycodone HCl) 5 Mg Tablet, 5 MG PO Q4H PRN for PAIN-MODERATE (5- 7) Discontinued Reason: No Longer Taking Prescribed by: ANTHONY CEBALLOS on 09/15/21 1634 Last Action: Discontinued Paroxetine HCl (Paroxetine Cr) 25 Mg Tab.er.24h, 25 MG PO DAILY, (Reported) Discontinued Reason: No Longer Taking Entered as Reported by: JAZIEL ACMERON on 08/23/19 1144 Last Action: Discontinued Past Ibtnxkz-Crgwva-Rbkuck Hx Patient Social History Tobacco Use?: No Smoking Status: Never a Smoker Substance use?: No Alcohol Use?: No Pt feels they are or have been: No Immunizations Up To Date Influenza Vaccine Up-to-Date: Yes; Up-to-Date Past Medical History Surgeries: Yes (Liver biopsy) Orthopedic (Kyphoplasty T6) Gastroesophageal Reflux Arthritis, Chronic Back Pain Review of Systems-General Constitutional: malaise, weakness Respiratory: dyspnea on exertion Musculoskeletal: back pain (upper mid back pain) Physical Exam-General Problems Physical Exam Vital Signs Vital Signs - First Documented 10/08/21 12:27 Temp 36.6 Pulse 91 Resp 18 B/P (MAP) 130/60 (83) Pulse Ox 93 O2 Delivery Nasal Cannula O2 Flow Rate 2.00 Capillary Refill : General Appearance: mild distress, moderate distress (with movement and while laying on hard ct/treatment table. She was able to stand and transfer with assitance from bed to wheelchair and back.), other (Drowsy but arouses to verbal stimuli and responses to questions appropriately. Oriented x 3. ) Eyes: Bilateral Eye PERRL, Bilateral Eye Other (Wearing glasses) Neck: non-tender, full range of motion Respiratory: no respiratory distress (On O2 per nasal cannula at 3 liters) Back: other (Opsite dressing covering kyphoplasty site. Percussion tenderness thoracic spine.) Neurologic/Psychiatric: no motor/sensory deficits, oriented x 3 Skin: normal color, diaphoresis, damp Assessment/Plan Assessment/Plan Admission Diagnosis/Plan 1. 71 y/o white female with widespread metastatic breast cancer (ER/[place] neg HER2 positive) -bone, liver, lung, adrenal gland 2. Thoracic back pain: pathologic burst fracture T6 s/p kyphoplasty -continued pain -pain site confirmed as involved by radiographic studies 3. Hypoxia - on oxygen oer N/C 4. Severe debility Plan: plan 30 Gy / 10 fractions to T5 - T10 simulation and first treatment today all discussed with patient potential side effects, complications, logistics and hoped for benefits discussed with her she did wish to proceed as described above Copy Copies To 1: OLIVIA POTTER DUANE E MD Oct 11, 2021 10:38
[2021-10-11] MEDS ORDERED: LIDOCAINE TOPICAL 4% 50 ML BTL TP SCH (12:00)
--- NOTE | 2021-10-11 12:12 | Progress Note ---
Subjective Date Seen by a Provider: Oct 11, 2021 Time Seen by a Provider: 08:35 Subjective/Events-last exam Fwup Metastatic Breast Cancer--pathology confirmed likely breast primary with HER-2neu positive. Still complains of thoracic pain. Also complains of pain in lower legs and feet. Very grogg this morning with some confusion. Was given higher dose of oxycodone and alprazolam last night. Objective Exam Vital Signs Date Time Temp Pulse Resp B/P (MAP) Pulse Ox O2 Delivery O2 Flow Rate FiO2 10/11/21 08:30 Nasal Cannula 3.00 10/11/21 08:29 100 Nasal Cannula 4.00 10/11/21 07:30 36.1 113 30 130/74 (92) 90 Nasal Cannula 3.50 10/10/21 20:50 Nasal Cannula 3.00 10/10/21 20:46 36.0 99 20 113/55 (74) 92 Nasal Cannula 3.00 I & O 10/11/21 06:59 Intake Total 1140 ml Output Total 1125 ml Balance 15 ml Capillary Refill : General Appearance: Moderate Distress (groggy) Respiratory: Lungs Clear Cardiovascular: Regular Rate, Rhythm Gastrointestinal: normal bowel sounds, non tender, soft Extremity: Non Tender, No Calf Tenderness, No Pedal Edema Neurologic/Psychiatric: Disoriented Results Lab Laboratory Tests 10/11/21 05:40: White Blood Count 7.6, Red Blood Count 4.70, Hemoglobin 13.7, Hematocrit 43, Mean Corpuscular Volume 91, Mean Corpuscular Hemoglobin 29, Mean Corpuscular Hemoglobin Concent 32, Red Cell Distribution Width 14.0, Platelet Count 161, Mean Platelet Volume 10.4, Immature Granulocyte % (Auto) 11, Neutrophils (%) (Auto) 63, Lymphocytes (%) (Auto) 20, Monocytes (%) (Auto) 4, Eosinophils (%) (Auto) 1, Basophils (%) (Auto) 1, Neutrophils # (Auto) 4.8, Lymphocytes # (Auto) 1.6, Monocytes # (Auto) 0.3, Eosinophils # (Auto) 0.1, Basophils # (Auto) 0.1, Immature Granulocyte # (Auto) 0.8H, Sodium Level 136, Potassium Level 4.2, Chloride Level 94L, Carbon Dioxide Level 22, Anion Gap 20H, Blood Urea Nitrogen 22H, Creatinine 0.73, Estimat Glomerular Filtration Rate 88, BUN/Creatinine Ratio 30, Glucose Level 110H, Calcium Level 10.4H, Corrected Calcium 11.1H, Total Bilirubin 0.8, Aspartate Amino Transf (AST/SGOT) 698H, Alanine Aminotransferase (ALT/SGPT) 820#H, Alkaline Phosphatase 622H, Total Protein 6.3L , Albumin 3.1L, Smear Scan YES Assessment/Plan Assessment/Plan Assess & Plan/Chief Complaint 1. Metastatic Breast Cancer---Her 2Neu positive--Dr. Potter consulted and will discuss treatment options 2. T9 Pathological Fracture with ongoing pain--consult Dr. Hoyos for palliative radiation, will continue fentanyl patch and use oxycodone prn for breakthrough pain, start lidoderm patch 3. Lethargy/Confusion--likely medication related--decrease alprazolam dose as well as DC cyclobenzaprine and decrease breakthrough oxycodone dose to 5mg 4. Bilateral lower leg pain--sounds like neuropathy so will add gabapentin 5. Weakness/Severe Debility--continue PT/OT--can hopefully participate more with better pain control with palliative radiation and improvement in LOC Clinical Quality Measures Admission Status Admission Dx 1. Metastatic Cancer to bone, liver, breast, lung adrenal gland--unknown primary--awaiting final on pathology results of liver biopsy, discussed at least consultation with oncology--patient agreeable 2. Constipation--increase senokot-S, continue miralax, has prns as well 3. Hypoxia--on oxygen via [place] 4. Severe Debility--will likely need to transfer to medical floor until disposition is finalized 5. Anxiety--on home paxil and has xanax 6. Thoracic Back Pain/T9 Pathological Fracture--S/P kyphoplasty but ongoing pain 7. Bilateral Shoulder and Hip Pain and Weakness--check ESR and CRP, consider PMR Condition very garded BILLY GARCES DO Oct 11, 2021 12:11
[2021-10-11 12:39] LABS: BILIRUBIN,URINE NEGATIVE (NEGATIVE); CLARITY,URINE CLEAR; COLOR,URINE YELLOW; GLUCOSE, URINE (UA) NEGATIVE (NEGATIVE); KETONES,URINE TRACE (NEGATIVE); LEUKOCYTE ESTERASE ,URINE 1+ (NEGATIVE); NITRITE,URINE POSITIVE (NEGATIVE); PROTEIN,URINE NEGATIVE (NEGATIVE)
[2021-10-11 12:55] LABS: BACTERIA,URINE LARGE /HPF
--- NOTE | 2021-10-11 13:43 | Therapy Team Discharge Summary ---
Therapy Discharge Summary Discharge Recommendations Date of Discharge Therapy D/C Recommendations: Other, See Comments (Hospice) Physical Therapy Roll Left to Right (QC): 3 Sit to Lying (QC): 3 Lying to Sitting/Side of Bed(Q: 3 Sit to Stand (QC): 3 Chair/Ugc-tr-Wjkei Xfer(QC): 3 Toilet Transfer (QC): 3 Car Transfer (QC): 88 Does the Patient Walk: No and Walking Goal IS indicated Walk 10 feet (QC): 88 Walk 50 ft with 2 Turns(QC): 88 Walk 150 ft (QC): 88 Walking 10ft on uneven surface: 88 Distance: 3' Gait Assistive Device: FWW Does the Pt Use a Wheelchair: Yes Wheelchair Distance: 50' Wheel 50 ft with 2 turns (QC): 4 Wheel 150 ft (QC): 88 Type of Wheelchair: Manual 1 Step (curb) (QC): 88 4 Steps (QC): 88 12 Steps (QC): 88 Balance Sitting Static: Fair Balance Sitting Dynamic: Fair Balance-Standing Static: Fair Picking up an Object (QC): 88 Occupational Therapy Pt admitted to [facility] s/p T9 Kyphoplasty. At time of evaluation, pt was dependent for toileting, bathing, and lower body dressing and min a for oral care. 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 OT will discharge at this time. Decreased Activ Tolerance, Decreased Safety Aware, Decreased UE Strength, Dependent Transfers, Impaired Bed Mobility, Impaired Cognition, Impaired Coordination, Impaired Funct Balance, Impaired I ADL's, Impaired Self-Care Skills, Restricted Funct UE ROM Eating (QC): 7 Oral Hygiene (QC): 3 (Assist to lift UE to mouth) Shower/Bathe Self (QC): 2 Upper Body Dressing (QC): 88 Lower Body Dressing (QC): 2 On/Off Footwear (QC): 1 Toileting Hygiene (QC): 1 PT Care Home Goals [employer] Goals PT Care Home Goals Time Frame: Oct 29, 2021 Roll Left to Right (QC): 4 (SBA) Sit to Lying (QC): 4 (SBA) Lying-Sitting on Side/Bed(QC): 4 (SBA) Sit to Stand (QC): 4 (SBA) Chair/Pjx-hy-Vkest Xfer(QC): 4 (SBA) Car Transfer (QC): 4 (SBA) Does the Patient Walk: Yes Walk 10 feet (QC): 4 (SBA) Walk 10ft-Uneven Surface(QC): 4 (SBA) Walk 50ft with 2 Turns (QC): 4 (SBA) Walk 150 ft (QC): 88 Wheel 50 feet with 2 turns (QC: 9 1 Step (curb) (QC): 4 (CGA) 4 Steps (QC): 4 (CGA) 12 Steps (QC): 88 Picking up an Object (QC): 4 (SBA using potato grader) OT Care Home Goals [employer] Goals Time Frame: Oct 31, 2021 Eating (QC): 4 Oral Hygiene (QC): 4 Shower/Bathe Self (QC): 4 Upper Body Dressing (QC): 4 Lower Body Dressing (QC): 4 On/Off Footwear (QC): 4 Toileting Hygiene (QC): 4 Toilet/Commode Transfer (QC): 4 (SBA) 1=Demonstrate adherence to instructed precautions during ADL tasks. 2=Patient will verbalize/demonstrate understanding of assistive devices/modifications for ADL. 3=Patient will improve strength/tolerance for activity to enable patient to perform ADL's. Speech Care Home Goals [employer] Goals 1. The patient will complete the cognitive linguistic assessment with mild verbal and visual cueing provided by the clinician. Time Frame: Two Days. Lanny Bailey OT Oct 11, 2021 13:43
[2021-10-11] MEDS ORDERED: cefTRIAXone 1 GM PRE-MIX 50 ML IV SCH (17:00)
[2021-10-11] MEDS ORDERED: LIDOCAINE 4% (SALONPAS) PATCH TOP SCH (18:00)
--- NOTE | 2021-10-11 18:13 | Discharge Summary ---
Diagnosis/Chief Complaint Date of Admission Oct 08, 2021 at 12:05 Date of Discharge Oct 11, 2021 at 17:15 Discharge Diagnosis Assessment: Severe debility Acute delirium with UTI requiring transfer up to fourth floor Spinal neoplastic process of breast cancer primary per liver biopsy at [facility] Severe back pain due to compression fractures from breast cancer mets Constipation improved Arthur cath in place now DC Plan: Pain control Increase ADL's PCP consult 10/09/2021: Pain control Bowel regimen 10/10/2021: Consult Dr Calixto 10/11/2021: (1) Compression fracture of T6 vertebra Status: Acute (2) Thoracic back pain Status: Acute (3) Thoracic radiculopathy Status: Acute Discharge Summary Discharge Physical Examination Allergies: Coded Allergies: Penicillins (Verified Allergy, Mild, RASH, 08/23/19) Vitals & I&Os Vital Signs Date Time Temp Pulse Resp B/P (MAP) Pulse Ox O2 Delivery O2 Flow Rate FiO2 10/11/21 09:00 Nasal Cannula 3.00 10/11/21 08:29 100 10/11/21 07:30 36.1 113 30 130/74 (92) General Appearance: Alert, Other (Confused) Hospital Course Was the Problem List Reviewed?: Yes Patient had a short hospital course after she was admitted due to severe pain requiring fentanyl patch and Percocet. Dr. Potter consult and he obtained a biopsy from the liver and it showed breast cancer primary with widespread metastasis. Patient continued to decline rapidly due to UTI with delirium and she was transferred to fourth floor Labs (last 24 hrs) Laboratory Tests 10/09/21 05:50: White Blood Count 7.7, Red Blood Count 4.13, Hemoglobin 12.5, Hematocrit 37, Mean Corpuscular Volume 90, Mean Corpuscular Hemoglobin 30, Mean Corpuscular Hemoglobin Concent 34, Red Cell Distribution Width 14.1, Platelet Count 154, Mean Platelet Volume 10.0, Immature Granulocyte % (Auto) 7, Neutrophils (%) (Aut o) 63, Lymphocytes (%) (Auto) 21, Monocytes (%) (Auto) 7, Eosinophils (%) (Auto) 1, Basophils (%) (Auto) 1, Neutrophils # (Auto) 4.9, Lymphocytes # (Auto) 1.6, Monocytes # (Auto) 0.5, Eosinophils # (Auto) 0.1, Basophils # (Auto) 0.1, Immature Granulocyte # (Auto) 0.5H, Sodium Level 132L, Potassium Level 3.9, Chloride Level 97L, Carbon Dioxide Level 24, Anion Gap 11, Blood Urea Nitrogen 19H, Creatinine 0.68, Estimat Glomerular Filtration Rate 94, BUN/Creatinine Ratio 28, Glucose Level 100, Calcium Level 10.2H, Corrected Calcium 11.2H, Total Bilirubin 0.6, Aspartate Amino Transf (AST/SGOT) 311H, Alanine Aminotransferase (ALT/SGPT) 506H, Alkaline Phosphatase 362H, Total Protein 5.8L, Albumin 2.8L 10/10/21 05:43: C-Reactive Protein High Sensitivity 27.99H 10/10/21 08:29: Erythrocyte Sedimentation Rate 69H 10/11/21 05:40: White Blood Count 7.6, Red Blood Count 4.70, Hemoglobin 13.7, Hematocrit 43, Mean Corpuscular Volume 91, Mean Corpuscular Hemoglobin 29, Mean Corpuscular Hemoglobin Concent 32, Red Cell Distribution Width 14.0, Platelet Count 161, Mean Platelet Volume 10.4, Immature Granulocyte % (Auto) 11, Neutrophils (%) (Auto) 63, Lymphocytes (%) (Auto) 20, Monocytes (%) (Auto) 4, Eosinophils (%) (Auto) 1, Basophils (%) (Auto) 1, Neutrophils # (Auto) 4.8, Lymphocytes # (Auto) 1.6, Monocytes # (Auto) 0.3, Eosinophils # (Auto) 0.1, Basophils # (Auto) 0.1, Immature Granulocyte # (Auto) 0.8H, Sodium Level 136, Potassium Level 4.2, Chloride Level 94L, Carbon Dioxide Level 22, Anion Gap 20H, Blood Urea Nitrogen 22H, Creatinine 0.73, Estimat Glomerular Filtration Rate 88, BUN/Creatinine R atio 30, Glucose Level 110H, Calcium Level 10.4H, Corrected Calcium 11.1H, Total Bilirubin 0.8, Aspartate Amino Transf (AST/SGOT) 698H, Alanine Aminotransferase (ALT/SGPT) 820#H, Alkaline Phosphatase 622H, Total Protein 6.3L, Albumin 3.1L, Smear Scan YES 10/11/21 12:30: Urine Color YELLOW, Urine Clarity CLEAR, Urine pH 6.0, Urine Specific [place] 1.025H, Urine Protein NEGATIVE, Urine Glucose (UA) NEGATIVE, Urine Ketones TRACEH, Urine Nitrite POSITIVEH, Urine Bilirubin NEGATIVE, Urine Urobilinogen 0.2, Urine Leukocyte Esterase 1+H, Urine RBC (Auto) 3+H, Urine RBC 5-10H, Urine WBC 5-10H, Urine Crystals NONE, Urine Bacteria LARGEH, Urine Casts NONE, Urine Mucus NEGATIVE, Urine Culture Indicated YES Pending Labs Laboratory Tests 10/09/21 05:50: White Blood Count 7.7, Red Blood Count 4.13, Hemoglobin 12.5, Hematocrit 37, Mean Corpuscular Volume 90, Mean Corpuscular Hemoglobin 30, Mean Corpuscular Hemoglobin Concent 34, Red Cell Distribution Width 14.1, Platelet Count 154, Mean Platelet Volume 10.0, Immature Granulocyte % (Auto) 7, Neutrophils (%) (Auto) 63, Lymphocytes (%) (Auto) 21, Monocytes (%) (Auto) 7, Eosinophils (%) ( Auto) 1, Basophils (%) (Auto) 1, Neutrophils # (Auto) 4.9, Lymphocytes # (Auto) 1.6, Monocytes # (Auto) 0.5, Eosinophils # (Auto) 0.1, Basophils # (Auto) 0.1, Immature Granulocyte # (Auto) 0.5, Sodium Level 132, Potassium Level 3.9, Chloride Level 97, Carbon Dioxide Level 24, Anion Gap 11, Blood Urea Nitrogen 19, Creatinine 0.68, Estimat Glomerular Filtration Rate 94, BUN/Creatinine Ratio 28, Glucose Level 100, Calcium Level 10.2, Corrected Calcium 11.2, Total Bilirubin 0.6, Aspartate Amino Transf (AST/SGOT) 311, Alanine Aminotransferase (ALT/SGPT) 506, Alkaline Phosphatase 362, Total Protein 5.8, Albumin 2.8 10/10/21 05:43: C-Reactive Protein High Sensitivity 27.99 10/10/21 08:29: Erythrocyte Sedimentation Rate 69 10/11/21 05:40: White Blood Count 7.6, Red Blood Count 4.70, Hemoglobin 13.7, Hematocrit 43, Mean Corpuscular Volume 91, Mean Corpuscular Hemoglobin 29, Mean Corpuscular Hemoglobin Concent 32, Red Cell Distribution Width 14.0, Platelet Count 161, Mean Platelet Volume 10.4, Immature Granulocyte % (Auto) 11, Neutrophils (%) (Auto) 63, Lymphocytes (%) (Auto) 20, Monocytes (%) (Auto) 4, Eosinophils (%) (Auto) 1, Basophils (%) (Auto) 1, Neutrophils # (Auto) 4.8, Lymphocytes # (Auto) 1.6, Monocytes # (Auto) 0.3, Eosinophils # (Auto) 0.1, Basophils # (Auto) 0.1, Immature Granulocyte # (Auto) 0.8, Sodium Level 136, Potassium Level 4.2, Chloride Level 94, Carbon Dioxide Level 22, Anion Gap 20, Blood Urea Nitrogen 22, Creatinine 0.73, Estimat Glomerular Filtration Rate 88, BUN/Creatinine Ratio 30, Glucose Level 110, Calcium Level 10.4, Corrected Calcium 11.1, Total Bilirubin 0.8, Aspartate Amino Transf (AST/SGOT) 698, Alanine Aminotransferase (ALT/SGPT) 820, Alkaline Phosphatase 622, Total Protein 6.3, Albumin 3.1, Smear Scan YES 10/11/21 12:30: Urine Color YELLOW, Urine Clarity CLEAR, Urine pH 6.0, Urine Specific [place] 1.025, Urine Protein NEGATIVE, Urine Glucose (UA) NEGATIVE, Urine Ketones TRACE, Urine Nitrite POSITIVE, Urine Bilirubin NEGATIVE, Urine Urobilinogen 0.2, Urine Leukocyte Esterase 1+, Urine RBC (Auto) 3+, Urine RBC 5-10, Urine WBC 5-10, Ur ine Crystals NONE, Urine Bacteria LARGE, Urine Casts NONE, Urine Mucus NEGATIVE, Urine Culture Indicated YES Discharge Home Medications: Active Scripts Active Reported Alprazolam 0.5 Mg Tablet 0.5-1 Mg PO DAILY PRN Calcium Carbonate 600 Mg Calcium (1500 Mg) Tablet 600 Mg PO DAILY Vitamin D3 (Cholecalciferol (Vitamin D3)) 25 Mcg (1000 Unit) Tab.chew 25 Mcg PO DAILY Esomeprazole Magnesium 20 Mg Capsule.dr 20 Mg PO HS Glucosamine & Chondroitin Cap (Glucosa Cobian 2Kcl/Chondroitin Cobian) 500 Mg-400 Mg Capsule 1 Each PO DAILY Multivitamin 1 Each Tablet 1 Each PO DAILY Paroxetine HCl 40 Mg Tablet 40 Mg PO HS Furosemide 20 Mg Tablet 20 Mg PO DAILY PRN Ondansetron HCl 4 Mg Tablet 4 Mg PO Q6H PRN Senna S Tablet (Sennosides/Docusate Sodium) 8.6 Mg-50 Mg Tablet 1 Each PO BID Oxycodone-Acetaminophen 5-325 (Oxycodone HCl/Acetaminophen) 5 Mg-325 Mg Tablet 1 Each PO Q4H PRN MDD 6 Milk of Magnesia (Magnesium Hydroxide) 2,400 Mg/10 Ml Oral.susp 30 Ml PO Q6H PRN Miralax (Polyethylene Glycol 3350) 17 Gram Powd.pack 17 Gm PO DAILY Metoprolol Tartrate 25 Mg Tablet 25 Mg PO TID Cyclobenzaprine HCl 5 Mg Tablet 5 Mg PO Q8H PRN Eliquis (Apixaban) 5 Mg Tablet 5 Mg PO BID Fentanyl Patch 12 MCG (Fentanyl) 12 Mcg/Hour Patch.td72 12 Mcg TD Q72H Docusate Sodium 100 Mg Capsule 100 Mg PO BID Instructions to patient/family Please see electronic discharge instructions given to patient. Diagnosis/Problems Diagnosis/Problems (1) Compression fracture of T6 vertebra Status: Acute (2) Thoracic back pain Status: Acute (3) Thoracic radiculopathy Status: Acute LEILA ROBERTS DO Oct 11, 2021 18:13
[2021-10-11] MEDS ORDERED: GABAPENTIN 300 MG (NEURONTIN) CAP PO SCH (21:00)
[2021-10-11] MEDS ORDERED: GABAPENTIN 300 MG (NEURONTIN) CAP PO ONE (21:00)
[2021-10-11] MEDS ORDERED: LIDOCAINE PATCH REMOVAL TP SCH (21:00)
--- NOTE | 2021-10-12 00:30 | CONSULTATION REPORT ---
DATE OF SERVICE: 10/11/2021 The patient is admitted to room 233. PRIMARY AND REFERRING PHYSICIAN: Mikki Schwarz DO IMPRESSION: 1. A 71-year-old female presented with history of fall and back pain. Initial workup in ER with multiple bone lesions, liver and lung lesions as well as left breast lesion. 2. The patient transferred to [facility] in [place] and underwent further workup including CT-guided liver biopsy. The patient was transferred back to rehabilitation unit for strengthening. 3. Pathology report from the liver biopsy consistent with metastatic breast cancer that was ER negative, NV negative and HER2-neelima positive. 4. Significant back pain related to bone metastasis as well as compression fracture of T6. The patient completed kyphoplasty while in [place]. RECOMMENDATIONS: 1. I discussed the diagnosis with the patient, her friends and her medical power of attorney general, Ted Ferguson APRN, and answered all their questions. 2. With regards to her back pain, she will benefit from palliative radiation therapy to the mid thoracic vertebrae. Consult Hermes Calixto MD for palliative course of radiation therapy. 3. The patient has several treatment options as her tumor was HER-2 positive. She will need a port placed for administration of chemotherapy as well as Herceptin. May consult surgery for this. 5. She will also need an echocardiogram for cardiac evaluation prior to starting cardiotoxic chemotherapy. 6. Once the palliative radiation therapy is completed, we will make arrangements for palliative chemotherapy on an outpatient basis. 7. As the patient has been living alone and does not have close family, she would need placement at an assisted care facility initially while her performance status improves, before she could go home. May need addiction social worker consult for this. 8. Urinary tract infection with culture and sensitivity pending. Agree with moving the patient to acute medical care unit for appropriate treatment of the urinary tract infection. 9. Continue pain control as needed. 10. I will follow the patient with you. BRIEF HISTORY: The patient is a 71-year-old female who had a fall at her home and hurt her back. She was evaluated at the emergency room with scan showing compression fracture of T6 vertebrae. She then had an MRI of the thoracic spine, which was concerning for diffuse osseous metastatic disease. T6 vertebral body burst fracture with loss of height concerning for pathologic fracture. Mild central canal narrowing. Concern for occult fracture of the inferior aspect of T9 vertebrae with no significant loss of height. The patient was then sent to [facility] with further scan showing diffuse liver lesions and lymphadenopathy of the left breast lesion with left axillary lymphadenopathy. She underwent a CT-guided liver biopsy with diagnosis of high-grade invasive breast cancer that was ER negative, NV negative and HER2-neelima positive. The patient was then transferred back to the rehabilitation unit at [facility] for strengthening and ambulation. Medical oncology consult was obtained to discuss about her diagnosis, prognosis and treatment options. PAST MEDICAL HISTORY: Significant for gastroesophageal reflux disease, osteoarthritis, and chronic low back pain. FAMILY HISTORY: Unremarkable with only malignancies in the family in an uncle who had gastric cancer. He was in his 80s when the diagnosis was made. The patient is the only child, done does not have any siblings. She does not have any children and is not . SOCIAL HISTORY: The patient is single and was living alone in [place], [place]. She has few close friends and her friend's son is her medical power of attorney general (Ted Ferguson APRN). 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 No history of tobacco, alcohol or recreational drug use. REVIEW OF SYSTEMS: Significant for back pain. This did not change significantly after recent kyphoplasty. Her appetite has been fair and weight relatively stable until recently. Her oral intake has declined since her fall and T6 compression fracture because of pain. Prior to her fall, she has had chronic low back and major joint pain due to osteoarthritis. She denied any headaches or visual changes. No chest pain, palpitations, orthopnea or PND. No diarrhea, constipation, hematochezia or melena. PHYSICAL EXAMINATION: GENERAL: Today showed an elderly female, somnolent, but arousable and answering questions fairly. VITAL SIGNS: Temperature was 36.1 degrees centigrade, pulse rate of 113, respiratory rate of 30, blood pressure 130/74 with oxygen saturation of 90% on 3.5 liters of oxygen by nasal cannula. HEENT: Normocephalic, extraocular muscles intact, oral mucosa slightly dry without any lesions. NECK: Supple, with no JVD. No cervical or supraclavicular lymphadenopathy palpable. Left axillary lymph nodes palpable. LUNGS: Fairly clear to auscultation without wheezes or rales. CARDIOVASCULAR: Borderline tachycardic, regular with no murmurs or gallops heard. ABDOMEN: Soft, nontender with no hepatosplenomegaly or other masses palpable. EXTREMITIES: Showed no edema. NEUROLOGIC: Somewhat limited because of pain and unwillingness to move. There was no focal motor deficits in all 4 extremities and she is moving all 4 extremities without problems. LABORATORY DATA: CBC done today showed WBC 7.6, hemoglobin 13.7, platelet count 161,000 with neutrophil count 4.8, lymphocyte count 1.6 and monocyte count 0.3. Chemistry panel today showed relatively normal electrolytes. BUN was 22 with creatinine 0.73 with GFR of 88 mL per minute. Measured calcium was 10.4 with corrected calcium of 11.1. AST was elevated at 698 and ALT of 820. Alkaline phosphatase was 622. Albumin was 3.1. C-reactive protein was 27.99 with ESR of 69 mm per hour. Urinalysis done today showed trace ketones. Nitrites positive with leukocyte esterase 1+ with 5 to 10 WBCs per high power field and large amount of bacteria. Cultures are pending. CT scanning of the abdomen and pelvis done at [facility] on 10/03/2021 showed hepatomegaly with innumerable hepatic metastasis. Left adrenal nodule present. CT scan of the chest done on the same day showed left breast mass with left axillary lymphadenopathy. Lymphadenopathy noted in the chest. Whole body bone scan done on 10/01/2021 showed osseous metastasis to the sternum, multiple sites in the thoracic spine and few anterior ribs. Elsewhere no evidence of osteoblastic skeletal metastatic disease. MRI of the thoracic spine done on 09/25/2021 showed heterogenous bone marrow signal, which may reflect diffuse metastatic disease. Marked anterior wedge compression deformity of T6 vertebra. Acute to subacute inferior endplate fracture of T9. MRI of the lumbar spine done on the same day showed heterogenous bone marrow signal, which may reflect diffuse metastatic disease. Moderate spinal canal stenosis at L5. Normal spinal cord signal intensity with no evidence of cord compression. Pathology report from needle biopsy of liver mass showed metastatic carcinoma compatible with ductal carcinoma of breast origin. background macro and microvesicular steatosis. Estrogen receptor was negative at zero percent, progesterone receptor was negative at zero percent, HER2-neelima was positive at 3+ by IHC and Ki-67 was elevated at more than 90%. Thank you for allowing me tfo participate in this patient's care. I will follow the patient with you and make appropriate recommendations. Job ID: [id number] DocumentID: [id number] Dictated Date: 10/11/2021 17:58:54 Conveyor Weigher Operator Date: 10/12/2021 00:29:58 Dictated By: OLIVIA BOYD MD
--- NOTE | 2021-10-12 10:33 | Therapy Team Discharge Summary ---
Therapy Discharge Summary Discharge Recommendations Date of Discharge Oct 11, 2021 at 17:15 Therapy D/C Recommendations: Other, See Comments (Hospice) Physical Therapy Roll Left to Right (QC): 3 Sit to Lying (QC): 3 Lying to Sitting/Side of Bed(Q: 3 Sit to Stand (QC): 3 Chair/Olh-sg-Fgyyy Xfer(QC): 3 Toilet Transfer (QC): 3 Car Transfer (QC): 88 Does the Patient Walk: No and Walking Goal IS indicated Walk 10 feet (QC): 88 Walk 50 ft with 2 Turns(QC): 88 Walk 150 ft (QC): 88 Walking 10ft on uneven surface: 88 Distance: 3' Gait Assistive Device: FWW Does the Pt Use a Wheelchair: Yes Wheelchair Distance: 50' Wheel 50 ft with 2 turns (QC): 4 Wheel 150 ft (QC): 88 Type of Wheelchair: Manual 1 Step (curb) (QC): 88 4 Steps (QC): 88 12 Steps (QC): 88 Balance Sitting Static: Fair Balance Sitting Dynamic: Fair Balance-Standing Static: Fair Picking up an Object (QC): 88 Occupational Therapy Decreased Activ Tolerance, Decreased Safety Aware, Decreased UE Strength, Dependent Transfers, Impaired Bed Mobility, Impaired Cognition, Impaired Coordination, Impaired Funct Balance, Impaired I ADL's, Impaired Self-Care Skill s, Restricted Funct UE ROM Eating (QC): 7 Oral Hygiene (QC): 3 (Assist to lift UE to mouth) Shower/Bathe Self (QC): 2 Upper Body Dressing (QC): 88 Lower Body Dressing (QC): 2 On/Off Footwear (QC): 1 Toileting Hygiene (QC): 1 Speech-Language Pathology The patient was discharged to the acute medical floor due to rapidly progressing debility and weakness. The patient did not meet the rehabilitation goals placed by the clinician. PT Halfway Goals Halfway Goals PT Plush Cutter Goals Time Frame: Oct 29, 2021 Roll Left to Right (QC): 4 (SBA) Sit to Lying (QC): 4 (SBA) Lying-Sitting on Side/Bed(QC): 4 (SBA) Sit to Stand (QC): 4 (SBA) Chair/Fyj-wv-Bcpiw Xfer(QC): 4 (SBA) Car Transfer (QC): 4 (SBA) Does the Patient Walk: Yes Walk 10 feet (QC): 4 (SBA) Walk 10ft-Uneven Surface(QC): 4 (SBA) Walk 50ft with 2 Turns (QC): 4 (SBA) Walk 150 ft (QC): 88 Wheel 50 feet with 2 turns (QC: 9 1 Step (curb) (QC): 4 (CGA) 4 Steps (QC): 4 (CGA) 12 Steps (QC): 88 Picking up an Object (QC): 4 (SBA using development spec) OT Plush Cutter Goals Halfway Goals Time Frame: Oct 31, 2021 Eating (QC): 4 Oral Hygiene (QC): 4 Shower/Bathe Self (QC): 4 Upper Body Dressing (QC): 4 Lower Body Dressing (QC): 4 On/Off Footwear (QC): 4 Toileting Hygiene (QC): 4 Toilet/Commode Transfer (QC): 4 (SBA) 1=Demonstrate adherence to instructed precautions during ADL tasks. 2=Patient will verbalize/demonstrate understanding of assistive devices/modifications for ADL. 3=Patient will improve strength/tolerance for activity to enable patient to per form ADL's. Speech Halfway Goals Halfway Goals 1. The patient will complete the cognitive linguistic assessment with mild verbal and visual cueing provided by the clinician. NOT MET. Time Frame: Two Days. JAZIEL DAMIAN Oct 12, 2021 10:33
--- NOTE | 2021-10-12 11:35 | Therapy Team Discharge Summary ---
Therapy Discharge Summary Discharge Recommendations Date of Discharge Oct 11, 2021 at 17:15 Therapy D/C Recommendations: Other, See Comments (Hospice) Physical Therapy Patient came to rehab following a T9 Kyphoplasty. Upon evaluation patient performs rolling and supine <-> sit with max assist, sit <-> stand min assist, transfers CGA, ambulated 3' with a rolling walker with CGA, and propelled a manual WC 50' with max assist. Patient has been having minimal therapy due to pain, illness, and fatigue and confusion. Patient recently had medical com plications and had to be transferred to another hospital floor. Last QC's were not obtained but are likely not any different than when she got here. Patient will be discharged from PT at this time. Roll Left to Right (QC): 3 Sit to Lying (QC): 3 Lying to Sitting/Side of Bed(Q: 3 Sit to Stand (QC): 3 Chair/Orm-go-Rmytk Xfer(QC): 3 Toilet Transfer (QC): 3 Car Transfer (QC): 88 Does the Patient Walk: No and Walking Goal IS indicated Walk 10 feet (QC): 88 Walk 50 ft with 2 Turns(QC): 88 Walk 150 ft (QC): 88 Walking 10ft on uneven surface: 88 Distance: 3' Gait Assistive Device: FWW Does the Pt Use a Wheelchair: Yes Wheelchair Distance: 50' Wheel 50 ft with 2 turns (QC): 4 Wheel 150 ft (QC): 88 Type of Wheelchair: Manual 1 Step (curb) (QC): 88 4 Steps (QC): 88 12 Steps (QC): 88 Balance Sitting Static: Fair Balance Sitting Dynamic: Fair Balance-Standing Static: Fair Picking up an Object (QC): 88 Occupational Therapy Decreased Activ Tolerance, Decreased Safety Aware, Decreased UE Strength, Dependent Transfers, Impaired Bed Mobility, Impaired Cognition, Impaired Coordination, Impaired Funct Balance, Impaired I ADL's, Impaired Self-Care Skills, Restricted Funct UE ROM Eating (QC): 7 Oral Hygiene (QC): 3 (Assist to lift UE to mouth) Shower/Bathe Self (QC): 2 Upper Body Dressing (QC): 88 Lower Body Dressing (QC): 2 On/Off Footwear (QC): 1 Toileting Hygiene (QC): 1 PT [facility] Goals Re Examiner Goals PT Re Examiner Goals Time Frame: Oct 29, 2021 Roll Left to Right (QC): 4 (SBA) Sit to Lying (QC): 4 (SBA) Lying-Sitting on Side/Bed(QC): 4 (SBA) Sit to Stand (QC): 4 (SBA) Chair/Tep-ix-Rmuux Xfer(QC): 4 (SBA) Car Transfer (QC): 4 (SBA) Does the Patient Walk: Yes Walk 10 feet (QC): 4 (SBA) Walk 10ft-Uneven Surface(QC): 4 (SBA) Walk 50ft with 2 Turns (QC): 4 (SBA) Walk 150 ft (QC): 88 Wheel 50 feet with 2 turns (QC: 9 1 Step (curb) (QC): 4 (CGA) 4 Steps (QC): 4 (CGA) 12 Steps (QC): 88 Picking up an Object (QC): 4 (SBA using form worker) OT Penitentiary Goals Re Examiner Goals Time Frame: Oct 31, 2021 Eating (QC): 4 Oral Hygiene (QC): 4 Shower/Bathe Self (QC): 4 Upper Body Dressing (QC): 4 Lower Body Dressing (QC): 4 On/Off Footwear (QC): 4 Toileting Hygiene (QC): 4 Toilet/Commode Transfer (QC): 4 (SBA) 1=Demonstrate adherence to instructed precautions during ADL tasks. 2=Patient will verbalize/demonstrate understanding of assistive devices/modifications for ADL. 3=Patient will improve strength/tolerance for activity to enable patient to perform ADL's. Speech Re Examiner Goals Re Examiner Goals 1. The patient will complete the cognitive linguistic assessment with mild verbal and visual cueing provided by the clinician. NOT MET. Time Frame: Two Days. JOSE ALEJANDRO PAN PT Oct 12, 2021 11:35
== END 2021-10-11 17:15 | disposition short-term general hospital (02) | DRG 560 ==
PROVIDERS: ADMIT Internal Medicine; ATTEND Internal Medicine
DX: M84.58XD Pathological fracture in neoplastic disease, other specified site, subsequent encounter for fracture with routine healing (principal); C79.51 Secondary malignant neoplasm of bone; C78.7 Secondary malignant neoplasm of liver and intrahepatic bile duct; C78.00 Secondary malignant neoplasm of unspecified lung; C79.70 Secondary malignant neoplasm of unspecified adrenal gland; N39.0 Urinary tract infection, site not specified; F05 Delirium due to known physiological condition; Z66 Do not resuscitate; C50.912 Malignant neoplasm of unspecified site of left female breast; R53.1 Weakness; R09.02 Hypoxemia; K59.00 Constipation, unspecified; K21.9 Gastro-esophageal reflux disease without esophagitis; M19.91 Primary osteoarthritis, unspecified site; F41.9 Anxiety disorder, unspecified; F32.A Depression, unspecified; M25.512 Pain in left shoulder; M25.511 Pain in right shoulder; M25.552 Pain in left hip; M25.551 Pain in right hip; Z88.0 Allergy status to penicillin; Z79.01 Long term (current) use of anticoagulants; Z17.1 Estrogen receptor negative status [ER-]
CPT/HCPCS: 36415; 77417; 80053; 81000; 85025; 85652; 86141; 87088; 94760; 99203

== ENCOUNTER 2021-10-11 17:15 | Inpatient (IN) | payer BC ==
[~2021-10-11] VITALS: Ht 165.1 cm; Wt 64.5 kg
[2021-10-11 17:09] VITALS: BP 124/82
[~2021-10-11 17:15] MED LIST changes: +ALPR0.5T7 PO; +APIX5TAB PO; +CALC600T80 PO; +CHOL10008 PO; +CYCL5TAB PO; +DOCU100C37 PO; +ESOM20CA37 PO; +FEN12TD TD; +FURO20TA4 PO; +METO-333 PO; +MOM10U PO; +ONDA-105 PO; +OXYC1TAB11 PO; +PARO40TA3 PO; +POLY17PO6 PO; +SENN-145 PO
[2021-10-11] MEDS ORDERED: FLEET ENEMA ADULT 1 EA BTL PR PRN (18:15)
[2021-10-11] MEDS ORDERED: MILK OF MAGNESIA 400 MG/5 ML 30 ML UDC PO PRN (18:15)
[2021-10-11] MEDS ORDERED: BISACODYL 10 MG SUPP (DULCOLAX) PR PRN (18:15)
[2021-10-11] MEDS ORDERED: CALCIUM CARBONATE 500 MG (TUMS) TAB.CHEW PO PRN (18:15)
[2021-10-11] MEDS ORDERED: PATCH REMOVAL TP SCH (18:15)
[2021-10-11] MEDS ORDERED: LIDOCAINE TOPICAL 4% 50 ML BTL TP SCH (18:15)
[2021-10-11] MEDS ORDERED: FUROSEMIDE 20 MG (LASIX) TAB PO PRN (18:15)
[2021-10-11] MEDS ORDERED: diphenhydrAMINE 25 MG TAB (BENADRYL) PO PRN (18:15)
[2021-10-11] MEDS ORDERED: ONDANSETRON 4 MG (ZOFRAN) ORAL DISSOLVE TAB PO PRN (18:15)
[2021-10-11] MEDS ORDERED: LACTULOSE SYRUP 10GM/15ML (ENULOSE) 30ML UDC PO PRN (18:15)
[2021-10-11] MEDS ORDERED: ALPRAZolam 0.25 MG (XANAX) TAB PO PRN (18:15)
[2021-10-11] MEDS ORDERED: MELATONIN 3 MG TABLET PO PRN (18:15)
[2021-10-11] MEDS ORDERED: LOPERAMIDE 2 MG (IMODIUM) TABLET PO PRN (18:15)
[2021-10-11] MEDS: cefTRIAXone 1 GM PRE-MIX 50 ML IV SCH (18:30)
[2021-10-11] MEDS ORDERED: LIDOCAINE 1% INJ 20 ML VIAL INJ SCH (19:00)
[2021-10-11] MEDS ORDERED: cefTRIAXone 1,000 MG VIAL IM SCH (19:00)
[2021-10-11 19:29] VITALS: BP 126/74
[2021-10-11] MEDS: LIDOCAINE 4% (SALONPAS) PATCH TOP SCH (19:42)
[2021-10-11] MEDS: GABAPENTIN 300 MG (NEURONTIN) CAP PO SCH (21:27)
[2021-10-11] MEDS: APIXABAN 5 MG (ELIQUIS) TABLET PO SCH (21:27)
[2021-10-11] MEDS: meTOprolol TARTRATE 25 MG (LOPRESSOR) TABLET PO SCH (21:27)
[2021-10-11] MEDS: PARoxetine 20 MG (PAXIL) TAB PO SCH (21:27)
[2021-10-11] MEDS: SENNA W/DOCUSATE (SENOKOT S) TABLET PO SCH (21:28)
[2021-10-11] MEDS: LIDOCAINE PATCH REMOVAL TP SCH (21:28)
[2021-10-11] MEDS: PANTOPRAZOLE 40 MG (PROTONIX) TAB PO SCH (21:28)
[2021-10-11] MEDS: DOCUSATE SODIUM 100 MG (COLACE) CAP PO SCH (21:29)
[2021-10-12] VITALS: BP 123/72
[2021-10-12 03:19] VITALS: BP 123/72
[2021-10-12 07:42] VITALS: BP 119/57
[2021-10-12] MEDS: LIDOCAINE 4% (SALONPAS) PATCH TOP SCH (08:02)
[2021-10-12] MEDS: MULTIVIT W/MINERALS TAB (THERAGRAN M) PO SCH (08:02)
[2021-10-12] MEDS: meTOprolol TARTRATE 25 MG (LOPRESSOR) TABLET PO SCH ×3 (08:02→20:26)
[2021-10-12] MEDS: DOCUSATE SODIUM 100 MG (COLACE) CAP PO SCH ×2 (08:02→20:26)
[2021-10-12] MEDS: VITAMIN D3 25 MCG (1,000 UNITS) TABLET PO SCH (08:02)
[2021-10-12] MEDS: CALCIUM CARBONATE 600 MG (CALCARB) TAB PO SCH (08:02)
[2021-10-12] MEDS: polyethylene glycoL POWDER 17 GM (MIRALAX) PACK PO SCH (08:02)
[2021-10-12] MEDS: SENNA W/DOCUSATE (SENOKOT S) TABLET PO SCH ×2 (08:03→20:25)
[2021-10-12] MEDS: APIXABAN 5 MG (ELIQUIS) TABLET PO SCH ×2 (08:03→20:26)
[2021-10-12] MEDS ORDERED: FENTANYL PATCH REMOVAL TP SCH (08:59)
[2021-10-12] MEDS ORDERED: fentaNYL PATCH 12 MCG (DURAGESIC) TD SCH (09:00)
--- NOTE | 2021-10-12 09:16 | Progress Note ---
ERIC MARES 10/12/21 0916: Progress Note Progress Notes/Assess & Plan Date Seen 10/12/21 Time Seen by Provider: 09:11 Assessment & Plan 1. Metastatic Breast Cancer---Her 2Neu positive--Dr. Potter consulted and will discuss treatment options 2. T9 Pathological Fracture with ongoing pain--consult Dr. Hoyos for palliative radiation, will continue fentanyl patch and use oxycodone prn for breakthrough pain, continue lidoderm patch 3. Lethargy/Confusion-- Improved with change in medication 4. Bilateral lower leg pain--improved with gabapentin 5. Weakness/Severe Debility--continue PT/OT-- will hopefully be able to improve participation with decreased levels of confusion Focused Exam Respiratory: Chest Non Tender, Lungs Clear, Normal Breath Sounds Cardiovascular: Regular Rate, Rhythm, No Edema, No Gallop, No Murmur BILLY GARCES DO 10/12/21 0934: Focused Exam Respiratory: Decreased Breath Sounds Cardiovascular: Tachycardia Supervisory-Addendum Brief Verification & Attestation Participated in pt care: history, physical Personally performed: exam, history, supervision of care Care discussed with: Medical Student Procedures: n/a Results interpretation: Verified all documentation Patient seen and assessed. See other progress note. ERIC MARES Oct 12, 2021 09:16 BILLY GARCES DO Oct 12, 2021 09:34
--- NOTE | 2021-10-12 09:41 | Progress Note ---
Subjective Date Seen by a Provider: Oct 12, 2021 Time Seen by a Provider: 09:36 Subjective/Events-last exam Fwup Metastatic Breast Cancer--pathology confirmed likely breast primary with HER-2neu positive. Feels a little better today. Still groggy but not as bad as yesterday. Burning/pain in lower legs/feet better. Told nurse last night she was tired of fighting but today states she wants to continue with treatment. Objective Exam Vital Signs Date Time Temp Pulse Resp B/P (MAP) Pulse Ox O2 Delivery O2 Flow Rate FiO2 10/12/21 07:42 36.8 110 18 119/57 (77) 91 Nasal Cannula 3.00 10/12/21 03:19 36.4 105 18 123/72 (89) 90 Nasal Cannula 3.00 10/12/21 00:00 35.8 96 18 123/72 (89) 92 Nasal Cannula 3.00 10/11/21 20:00 Nasal Cannula 3.00 10/11/21 19:29 35.9 108 18 126/74 (91) 93 Nasal Cannula 3.00 10/11/21 17:51 Nasal Cannula 3.00 10/11/21 17:09 36.2 96 17 124/82 (96) 92 Nasal Cannula 3.00 I & O 10/12/21 07:00 Intake Total 595 ml Output Total 700 ml Balance -105 ml Capillary Refill : General Appearance: Mild Distress Respiratory: Decreased Breath Sounds Cardiovascular: Tachycardia Gastrointestinal: normal bowel sounds, non tender, soft Extremity: Non Tender, No Calf Tenderness, No Pedal Edema Neurologic/Psychiatric: Alert, Other (groggy) Assessment/Plan Assessment/Plan Assess & Plan/Chief Complaint 1. Metastatic Cancer of Breast--Xdd5Drd positive--started palliative radiation for pain, is interested in treatment, Dr. Potter has been consulted 2. Constipation--continue senokot-S, continue miralax, has prns as well 3. Hypoxia--on oxygen via NC, check CXR 4. Severe Debility--start PT/OT, had to transfer from rehab due to unable to do 3hrs of therapy 5. Anxiety--on home paxil and has xanax for bedtime 6. Thoracic Back Pain/T9 Pathological Fracture--S/P kyphoplasty and palliative radiation started 7. UTI--started rocephin, midline today 9. Bilateral LE pain/neuropathy--improved, gabapentin started last night BILLY GARCES DO Oct 12, 2021 09:41
--- NOTE | 2021-10-12 10:31 | Diagnostic Imaging Report ---
Indication: Dyspnea and hypoxia. Comparison is made with prior chest 08/15/2016. Heart size is stable. The patient has developed diffuse bilateral interstitial and airspace infiltrates, greatest on the right. There appears to be a small amount of pleural fluid on the left, as well. There is no pneumothorax. IMPRESSION: Bilateral infiltrates with a small left pleural effusion. Dictated by: Dictated on workstation # [id number]
--- NOTE | 2021-10-12 10:55 | Physical Therapy Progress Note ---
Therapy Progress Note Patient is in bed. Severely lethargic, listless and will not open her eyes but mumbles. Patient was able to states, "I'm too tired." when this PT asked if she wanted to participate with therapy. PT will attempt tomorrow a.m. 1 ref EVELIA LEE PT Oct 12, 2021 10:55
--- NOTE | 2021-10-12 11:25 | Occ Therapy Progress Note ---
Therapy Progress Note OT orders received and chart reviewed. Upon entering the room, pt was laying in bed, severely lethargic, listless and will not open her eyes but mumbles. When asked if pt would like OT to come back at another time so she could rest, pt mumbled "yes." OT will continue to monitor pt's medical status and visit at next available time. 1, visit DEBRA DUTTON OT Oct 12, 2021 11:25
[2021-10-12 11:41] VITALS: BP 124/66
[2021-10-12] MEDS: 1/2 NS IV SOLUTION 1,000 ML IV SCH (14:25)
[2021-10-12 16:17] VITALS: BP 131/60
[2021-10-12] MEDS: cefTRIAXone 1 GM PRE-MIX 50 ML IV SCH (19:05)
[2021-10-12 20:05] VITALS: BP 135/68
[2021-10-12] MEDS: PARoxetine 20 MG (PAXIL) TAB PO SCH (20:25)
[2021-10-12] MEDS: GABAPENTIN 300 MG (NEURONTIN) CAP PO SCH (20:25)
[2021-10-12] MEDS: PANTOPRAZOLE 40 MG (PROTONIX) TAB PO SCH (20:25)
[2021-10-12] MEDS: LIDOCAINE PATCH REMOVAL TP SCH (20:26)
[2021-10-13] VITALS (7 sets, daily range): BP systolic 118–139; BP diastolic 70–90
[2021-10-13] MEDS: 1/2 NS IV SOLUTION 1,000 ML IV SCH (02:26)
[2021-10-13] MEDS: MULTIVIT W/MINERALS TAB (THERAGRAN M) PO SCH (05:38)
[2021-10-13] MEDS: SENNA W/DOCUSATE (SENOKOT S) TABLET PO SCH ×2 (09:02→20:15)
[2021-10-13] MEDS: CALCIUM CARBONATE 600 MG (CALCARB) TAB PO SCH (09:02)
[2021-10-13] MEDS: DOCUSATE SODIUM 100 MG (COLACE) CAP PO SCH ×2 (09:02→20:15)
[2021-10-13] MEDS: VITAMIN D3 25 MCG (1,000 UNITS) TABLET PO SCH (09:02)
[2021-10-13] MEDS: meTOprolol TARTRATE 25 MG (LOPRESSOR) TABLET PO SCH ×3 (09:02→20:15)
[2021-10-13] MEDS: LIDOCAINE 4% (SALONPAS) PATCH TOP SCH (09:03)
[2021-10-13] MEDS: polyethylene glycoL POWDER 17 GM (MIRALAX) PACK PO SCH (09:03)
[2021-10-13] MEDS: APIXABAN 5 MG (ELIQUIS) TABLET PO SCH (09:03)
--- NOTE | 2021-10-13 10:35 | Physical Therapy Progress Note ---
Therapy Progress Note Pt awakened easily but keeping eyes closed. Declined PT eval stating, "It's not a very good day". PT will attempt 10/15 as tolerated FARRAH ESCOTO DPT Oct 13, 2021 10:35
[2021-10-13] MEDS: 1/2 NS W/KCL 20 MEQ/L 1,000 ML IV SCH (12:57)
[2021-10-13] MEDS ORDERED: FUROSEMIDE 40 MG/4 ML INJ (LASIX) IVP NR (13:00)
--- NOTE | 2021-10-13 13:10 | Progress Note ---
Subjective Date Seen by a Provider: Oct 13, 2021 Time Seen by a Provider: 13:04 Subjective/Events-last exam Fwup Metastatic Breast Cancer, pathologic T9 fracture, severe debility, UTI, hypoxia, anxiety. Patient still refusing to work with PT and OT due to fatigue and pain when she is moved. Discussed with patient and caregiver that the more she lies in bed the weaker she gets and that we have to look at discharge planning which at this point will have to be a penitentiary since she cannot care for herself. Objective Exam Vital Signs Date Time Temp Pulse Resp B/P (MAP) Pulse Ox O2 Delivery O2 Flow Rate FiO2 10/13/21 11:32 36.5 101 26 132/84 (100) 91 Nasal Cannula 4.00 10/13/21 07:58 Nasal Cannula 3.00 10/13/21 07:45 36.2 100 22 139/74 (95) 92 Nasal Cannula 4.00 10/13/21 04:30 36.5 10/13/21 04:00 35.7 100 18 138/70 (92) 92 Nasal Cannula 4.00 10/13/21 00:00 35.4 100 20 135/84 (101) 91 Nasal Cannula 3.00 10/12/21 20:30 Nasal Cannula 3.00 10/12/21 20:05 36.4 103 18 135/68 (90) 93 Nasal Cannula 3.00 10/12/21 16:17 36.0 94 20 131/60 (83) 91 Nasal Cannula 3.00 10/12/21 14:54 Nasal Cannula 3.00 I & O 10/13/21 07:00 Intake Total 1665 ml Output Total 650 ml Balance 1015 ml Capillary Refill : General Appearance: Mild Distress Respiratory: Crackles, Decreased Breath Sounds Cardiovascular: Regular Rate, Rhythm Gastrointestinal: normal bowel sounds, non tender, soft Extremity: Non Tender, No Calf Tenderness, No Pedal Edema Neurologic/Psychiatric: Other (lethargic) Assessment/Plan Assessment/Plan Assess & Plan/Chief Complaint 1. Metastatic Cancer of Breast--[id number] positive--started palliative radiation for pain, is interested in treatment, Dr. Potter has been consulted 2. Constipation--continue senokot-S, continue miralax, has prns as well 3. Hypoxia--on oxygen via NC, CXR shows bilateral infiltrates with pleural effusion--likely atelectesis and edema--encourage IS, try to get up to chair, will give IV lasix now 4. Severe Debility--worsening, has been refusing PT/OT 5. Anxiety--on home paxil and has xanax for bedtime, will add hydroxyzine prn 6. Thoracic Back Pain/T9 Pathological Fracture--S/P kyphoplasty and palliative radiation started 7. UTI--continue rocephin 9. Bilateral LE pain/neuropathy--improving with gabapentin BILLY GARCES DO Oct 13, 2021 13:10
[2021-10-13] MEDS ORDERED: hydrOXYzine (ATARAX) 10 MG TAB PO PRN (14:00)
[2021-10-13] MEDS: cefTRIAXone 1 GM PRE-MIX 50 ML IV SCH (18:28)
[2021-10-13] MEDS: GABAPENTIN 300 MG (NEURONTIN) CAP PO SCH (20:14)
[2021-10-13] MEDS: PANTOPRAZOLE 40 MG (PROTONIX) TAB PO SCH (20:15)
[2021-10-13] MEDS: LIDOCAINE PATCH REMOVAL TP SCH (20:16)
[2021-10-13] MEDS: PARoxetine 20 MG (PAXIL) TAB PO SCH (20:16)
[2021-10-13] MEDS ORDERED: FUROSEMIDE 40 MG/4 ML INJ (LASIX) IVP ONE (21:00)
[2021-10-14] MEDS: 1/2 NS W/KCL 20 MEQ/L 1,000 ML IV SCH (02:04)
[2021-10-14 03:18] VITALS: BP 121/85
[2021-10-14 05:36] LABS: POTASSIUM 4.3 MMOL/L (3.6-5.0)
[2021-10-14 05:37] LABS: CALCIUM 10.2 MG/DL (8.5-10.1)
[2021-10-14 05:41] LABS: CREATININE SERUM 0.8 MG/DL (0.60-1.30)
[2021-10-14 05:43] LABS: MAGNESIUM 2.1 MG/DL (1.6-2.4)
[2021-10-14] MEDS: MULTIVIT W/MINERALS TAB (THERAGRAN M) PO SCH (06:21)
[2021-10-14 06:57] LABS: HEMATOCRIT 42 % (35-52); HEMOGLOBIN 13.5 g/dL (11.5-16.0); MEAN CORPUSCULAR HEMOGLOBIN 30 pg (25-34); MEAN CORPUSCULAR HGB CONC 32 g/dL (32-36); MEAN CORPUSCULAR VOLUME 94 fL (80-99); MEAN PLATELET VOLUME 11.3 fL (9.0-12.2); PLATELET COUNT 110 10^3/uL (130-400); WHITE BLOOD COUNT 8.4 10^3/uL (4.3-11.0)
[2021-10-14 07:41] VITALS: BP 112/54
--- NOTE | 2021-10-14 08:01 | Diagnostic Imaging Report ---
EXAMINATION: Chest 1 view HISTORY: Hypoxia COMPARISON: 10/12/2021 FINDINGS: There are moderate interstitial and airspace opacities with small left pleural effusion is present. No pneumothorax. Heart size is normal. The lung volumes are small. IMPRESSION: 1. Small volumes with small left pleural effusion and moderate interstitial and airspace opacities favored to represent edema. Dictated by: Dictated on workstation # [id number]
--- NOTE | 2021-10-14 08:54 | Progress Note ---
Subjective Date Seen by a Provider: Oct 14, 2021 Time Seen by a Provider: 08:49 Subjective/Events-last exam Fwup Metastatic Breast Cancer, pathologic T9 fracture, severe debility, UTI, hypoxia, anxiety. Patient's status is worsening and she is exhausted and wants comfort care. Objective Exam Vital Signs Date Time Temp Pulse Resp B/P (MAP) Pulse Ox O2 Delivery O2 Flow Rate FiO2 10/14/21 07:41 35.1 102 18 112/54 (73) 93 Vapotherm 90.00 22.00 10/14/21 06:43 92 Vapotherm 22.00 90 10/14/21 05:17 92 Vapotherm 90.00 22.00 10/14/21 03:18 36.0 98 20 121/85 (97) 91 Vapotherm 85.00 22.00 10/14/21 03:08 90 Vapotherm 22.00 85 10/14/21 02:57 91 Vapotherm 85.00 22.00 10/13/21 23:02 36.1 95 20 125/73 (90) 93 High Flow N/C 8.00 10/13/21 20:15 90 High Flow N/C 8.00 10/13/21 20:00 High Flow N/C 8.00 10/13/21 19:45 90 Nasal Cannula 6.00 10/13/21 19:40 36.4 94 22 134/90 (105) 88 Nasal Cannula 4.00 10/13/21 19:27 Nasal Cannula 4.00 10/13/21 16:48 34.7 85 22 118/75 (89) 98 Nasal Cannula 4.00 10/13/21 11:32 36.5 101 26 132/84 (100) 91 Nasal Cannula 4.00 I & O 10/14/21 07:00 Intake Total 2200 ml Output Total 2200 ml Balance 0 ml Capillary Refill : General Appearance: Moderate Distress Respiratory: Decreased Breath Sounds Cardiovascular: Gallop/S4 (skipped beats) Neurologic/Psychiatric: Other (lethargic with garbled speech) Skin: Mottled (knees) Results Lab Laboratory Tests 10/14/21 05:16: White Blood Count 8.4, Red Blood Count 4.53, Hemoglobin 13.5, Hematocrit 42, Mean Corpuscular Volume 94, Mean Corpuscular Hemoglobin 30, Mean Corpuscular Hemoglobin Concent 32, Red Cell Distribution Width 14.6H, Platelet Count 110L, Mean Platelet Volume 11.3, Sodium Level 138, Potassium Level 4.3, Chloride Level 95L, Carbon Dioxide Level 24, Anion Gap 19H, Blood Urea Nitrogen 25H, Creatinine 0.80, Estimat Glomerular Filtration Rate 79, BUN/Creatinine Ratio 31, Glucose Level 116H, Calcium Level 10.2H, Magnesium Level 2.1 Assessment/Plan Assessment/Plan Assess & Plan/Chief Complaint 1. Metastatic Cancer of Breast--[id number] positive--patient wants comfort care, caregivers have been notified 2. Constipation--comfort care 3. Hypoxia--on vapotherm for comfort 4. Severe Debility--worsening, has been refusing PT/OT 5. Anxiety--lorazepam prn 6. Thoracic Back Pain/T9 Pathological Fracture--S/P kyphoplasty and did start palliative radiation, denies pain except with movement, morphine prn 7. UTI--comfort care 9. Bilateral LE pain/neuropathy--currently denies pain BILLY GARCES DO Oct 14, 2021 08:54
[2021-10-14] MEDS: LIDOCAINE 4% (SALONPAS) PATCH TOP SCH (08:59)
[2021-10-14] MEDS ORDERED: ARTIFICAL TEARS 0.4 ML UNIT DOSE (REFRESH PLUS) OU PRN (09:00)
[2021-10-14] MEDS ORDERED: FUROSEMIDE 40 MG/4 ML INJ (LASIX) IVP SCH (09:00)
[2021-10-14] MEDS ORDERED: ACETAMINOPHEN 650 MG SUPP (TYLENOL) PR PRN (09:00)
[2021-10-14] MEDS ORDERED: ONDANSETRON 4 MG/2 ML (SDV) Z0FRAN IVP PRN (09:00)
[2021-10-14] MEDS ORDERED: GLYCOPYRROLATE 0.2 MG/ML (ROBINUL) 2 ML VIAL IV PRN (09:00)
[2021-10-14] MEDS ORDERED: morphine INJ 4 MG/ML 1 ML (VIAL/SYRINGE) IV PRN (09:00)
[2021-10-14] MEDS ORDERED: BISACODYL 10 MG SUPP (DULCOLAX) PR PRN (09:00)
[2021-10-14] MEDS ORDERED: SALIVA STIMULANT MOUTH SPRAY (BIOTENE) 1.5 OZ MM PRN (09:00)
[2021-10-14] MEDS ORDERED: PROMETHAZINE INJ 25 MG/ML (PHENERGAN) AMP IVP PRN (09:00)
[2021-10-14] MEDS ORDERED: RT-ALBUTEROL/IPRATROPIUM 3 ML (DUONEB) VIAL INH PRN (09:00)
[2021-10-14] MEDS ORDERED: LORazepam 1 MG (ATIVAN) TAB SL PRN (09:00)
[2021-10-14] MEDS ORDERED: morphine INJ 4 MG/ML 1 ML (VIAL/SYRINGE) ONE (09:01)
[2021-10-14] MEDS ORDERED: LORazepam ORAL CONCENTRATE 2 MG/ML 30 ML (ATIVAN) PO PRN (11:15)
== END 2021-10-14 11:58 | disposition expired | DRG 690 ==
LOC: 4TH 17:15
PROVIDERS: ADMIT Family Medicine; ATTEND Family Medicine
DX: N39.0 Urinary tract infection, site not specified (principal); C78.7 Secondary malignant neoplasm of liver and intrahepatic bile duct; C78.00 Secondary malignant neoplasm of unspecified lung; C79.72 Secondary malignant neoplasm of left adrenal gland; C79.51 Secondary malignant neoplasm of bone; M84.58XD Pathological fracture in neoplastic disease, other specified site, subsequent encounter for fracture with routine healing; Z66 Do not resuscitate; Z51.5 Encounter for palliative care; C50.912 Malignant neoplasm of unspecified site of left female breast; R53.81 Other malaise; K59.00 Constipation, unspecified; R09.02 Hypoxemia; F41.9 Anxiety disorder, unspecified; G62.9 Polyneuropathy, unspecified; R41.0 Disorientation, unspecified; Z17.1 Estrogen receptor negative status [ER-]
CPT/HCPCS: 36410; 36415; 71045; 76937; 80048; 83735; 85027